=== PATIENT | female | born 1945 | race Caucasian/White ===

== ENCOUNTER 2016-10-21 13:49 | Inpatient (IN) | payer MEDICARE, MEDICAID, SELFPAY ==
--- NOTE | 2016-10-21 13:53 | EDM.PDOC ---
<Rosario Armstrong - Last Filed: 10/21/16 15:53> ED HISTORY OF PRESENT ILLNESS - General Chief Complaint: Respiratory Problem Stated Complaint: CANT' HARDLY BREATH Time Seen by Provider: 10/21/16 13:52 Source of Information: Reports: Patient History Limitations: Reports: No limitations - History of Present Illness INITIAL COMMENTS - FREE TEXT/NARRATIVE: Patient presents to the ER with c/o sob beginning this am. She states this has progressively getting worse. She states she has been spitting up white stringy sputum. She last had a neb at 11-12:00pm today. She denies fever or recent illness. She states she does have chest pressure, but states she feels it is not cardiac chest pain. Symptom Onset Date: 10/21/16 Timing/Duration: Reports: Getting worse Severity: severe Location, General: Reports: chest Quality: Reports: Pressure Associated Symptoms (General): Reports: cough w sputum - Related Data Allergies/ADRs: Allergies Allergy/AdvReac Type Severity Reaction Status Date / Time amlodipine [From Norvasc] Allergy Cannot Verified 10/21/16 15:46 Remember cetirizine [From Zyrtec] Allergy Abdominal Verified 10/21/16 15:46 Pain Penicillins Allergy Rash Verified 10/21/16 15:46 simvastatin [From Zocor] Allergy Cannot Verified 10/21/16 15:46 Remember Home Meds: Home Meds Albuterol Sulfate [Proventil Hfa] 6.7 gm IH Q4HR PRN 10/21/16 [History] Albuterol/Ipratropium [DuoNeb 3.0-0.5 MG/3 ML] 3 ml NEB QID 10/21/16 [History] Aspirin 81 mg PO BRK 10/21/16 [History] Budesonide [Pulmicort] 0.5 mg NEB BIDRT 10/21/16 [History] Furosemide [Lasix] 20 mg PO BID 10/21/16 [History] Levothyroxine Sodium [Synthroid] 125 mcg PO ACBREAKFAST 10/21/16 [History] Metoprolol Tartrate 25 mg PO DAILY 10/21/16 [History] ED ROS GENERAL - Review of Systems Review Of Systems: See Below Constitutional: Reports: weakness, fatigue, diaphoresis HEENT: Reports: No symptoms Respiratory: Reports: shortness of breath, wheezing, pleuritic chest pain, cough , sputum Cardiovascular: Reports: Chest pain, Dyspnea on exertion Endocrine: Reports: no symptoms GI/Abdominal: Reports: No symptoms : Reports: no symptoms Musculoskeletal: Reports: no symptoms Skin: Reports: no symptoms Neurological: Reports: no symptoms Psychiatric: Reports: No symptoms Hematologic/Lymphatic: Reports: no symptoms Immunologic: Reports: no symptoms ED EXAM, GENERAL - Physical Exam Exam: See Below Exam Limited By: No limitations General Appearance: alert, WD/WN, moderate distress Eye Exam: bilateral eye: normal inspection Ears: normal external exam, normal canal, hearing grossly normal, normal TMs Ear Exam: bilateral ear: auricle normal, canal normal, TM normal Nose: normal inspection, normal mucosa, no blood Throat/Mouth: Normal inspection, Normal lips, Normal teeth, Normal gums, Normal oropharynx, Normal voice, No airway compromise Head: atraumatic, normocephalic Neck: normal inspection, supple, non-tender, full range of motion Respiratory/Chest: respiratory distress, decreased breath sounds, crackles, wheezing Cardiovascular: normal peripheral pulses, regular rate, rhythm Peripheral Pulses: 2+: radial (L), radial (R) GI/Abdominal: normal bowel sounds, soft, non tender, no organomegaly, no distention, no abnormal bruit, no mass (Female) Exam: Deferred Rectal (Female) Exam: Deferred Back Exam: normal inspection, full range of motion, NT Extremities: normal inspection, normal range of motion, non-tender, normal capillary refill, no pedal edema Neurological: alert, oriented, CN II-XII intact, normal cognition, normal gait, normal reflexes, no motor/sensory deficits Psychiatric: normal affect, normal mood Skin Exam: Warm, Dry, Intact, Normal color, No rash Lymphatic: no adenopathy EKG INTERPRETATION EKG Date: 10/21/16 Time: 14:32 Rhythm: NSR Kathleen: normal P-wave: present QRS: normal ST-T: normal QT: normal Course - Vital Signs Last Recorded V/S: Last Vital Signs Temp 36.3 C 10/21/16 16:26 Pulse 80 10/21/16 16:26 Resp 20 10/21/16 16:26 BP 157/75 H 10/21/16 16:26 Pulse Ox 96 10/21/16 16:26 - Orders/Labs/Meds Orders: Active Orders 24 hr Category Date Time Status Oxygen Therapy, ED [RC] ASDIRECTED Care 10/21/16 14:05 Active Peripheral IV Care [RC] . DIRECTED Care 10/21/16 13:59 Active Peripheral IV Insertion Adult [OM.PC] Stat Oth 10/21/16 13:59 Ordered Medication Orders Acetaminophen (Tylenol) 650 mg PO Q4H PRN PRN Reason: Pain (Mild 1-3)/fever Albuterol (Proventil Neb Soln) 2.5 mg NEB Q2H PRN PRN Reason: Shortness of Breath Albuterol/Ipratropium (Duoneb 3.0-0.5 Mg/3 Ml) 3 ml NEB Q4HRRT [facility] Last Admin: 10/21/16 18:24 Dose: 3 ml Admin: 10/21/16 17:02 Dose: Not Given Aspirin (Aspirin) 81 mg PO BRK [facility] Last Admin: 10/21/16 18:11 Dose: 81 mg Benzonatate (Tessalon Perles) 100 mg PO TID PRN PRN Reason: Cough Budesonide (Pulmicort) 0.5 mg NEB BIDRT [facility] Last Admin: 10/21/16 18:24 Dose: 0.5 mg Docusate Sodium (Colace) 100 mg PO BID PRN PRN Reason: Constipation Enoxaparin Sodium (Lovenox) 40 mg SUBCUT DAILY [facility] Furosemide (Lasix) 20 mg PO BIDDIURETIC [facility] Last Admin: 10/21/16 18:11 Dose: 20 mg Guaifenesin (Robitussin) 100 mg PO Q6H PRN PRN Reason: Cough Ceftriaxone Sodium 1 gm/ (Sodium Chloride) 50 mls @ 100 mls/hr IV Q24H [facility] Last Admin: 10/21/16 18:15 Dose: 50 mls/hr Insulin Aspart (Novolog) 0 unit SUBCUT QIDACANDBED [facility] PRN Reason: Protocol Last Admin: 10/21/16 17:43 Dose: Levothyroxine Sodium (Levothyroxine) 125 mcg PO ACBREAKFAST [facility] Methylprednisolone Sodium Succinate (Solu-Medrol) 40 mg IVPUSH Q6H [facility] Metoprolol Tartrate (Lopressor) 25 mg PO DAILY [facility] Sodium Chloride (Saline Flush) 10 ml FLUSH ASDIRECTED PRN PRN Reason: Keep Vein Open Last Admin: 10/21/16 18:11 Dose: 10 ml Labs: Laboratory Tests 10/21/16 10/21/16 10/21/16 Range/Units 14:12 14:12 14:12 WBC 8.0 (5.0-10.0) 10^3/uL RBC 4.41 (4.2-5.4) 10^6/uL Hgb 14.0 (12.0-16.0) g/dL Hct 42.6 (37.0-47.0) % MCV 96.6 (80-100) fL MCH 31.7 (27.0-34.0) pg MCHC 32.9 L (33.0-35.0) g/dL Plt Count 259 (150-450) 10^3/uL Neut % (Auto) 59.5 (42.2-75.2) % Lymph % (Auto) 26.3 (20.5-50.1) % [place] % (Auto) 7.8 (2-8) % Eos % (Auto) 5.0 H (1.0-3.0) % Baso % (Auto) 1.4 H (0.0-1.0) % Sodium 140 (135-145) mmol/L Potassium 4.6 (3.6-5.0) mmol/L Chloride 100 L (101-111) mmol/L Carbon Dioxide 29.0 (21.0-31.0) mmol/L Anion Gap 15.6 BUN 16 (7-18) mg/dL Creatinine 1.2 (0.6-1.3) mg/dL Est Cr Clr Drug Dosing 34.54 mL/min Estimated GFR (MDRD) 44 BUN/Creatinine Ratio 13.33 Glucose 100 (74-105) mg/dL Calcium 9.8 (8.4-10.2) mg/dl Total Bilirubin 0.6 (0.2-1.0) mg/dL AST 20 (10-42) IU/L ALT 14 (10-60) IU/L Alkaline Phosphatase 55 (42-121) IU/L Creatine Kinase 67 (26-174) IU/L Creatine Kinase Index 2.7 H (0-2.4) % CK-MB (CK-2) 1.80 (0.4-4.7) ng/mL Troponin I < 0.02 (0.00-0.02) ng/ml B-Natriuretic Peptide 44 (0-100) pg/ml Total Protein 7.3 (6.7-8.2) g/dl Albumin 4.0 (3.2-5.5) g/dl Globulin 3.3 Albumin/Globulin Ratio 1.21 Urine Color (YELLOW) Urine Appearance (CLEAR) Urine pH (5.0-9.0) Ur Specific [place] (1.005-1.030) Urine Protein (NEGATIVE) Urine Glucose (UA) (NEGATIVE) Urine Ketones (NEGATIVE) mg/dL Urine Occult Blood (NEGATIVE) Urine Nitrite (NEGATIVE) Urine Bilirubin (NEGATIVE) Urine Urobilinogen (0.2-1.0) mg/dL Ur Leukocyte Esterase (NEGATIVE) Urine RBC /HPF Urine WBC (0-5/HPF) /HPF Ur Epithelial Cells /HPF Urine Bacteria (0-FEW/HPF) /HPF 10/21/16 Range/Units 14:26 WBC (5.0-10.0) 10^3/uL RBC (4.2-5.4) 10^6/uL Hgb (12.0-16.0) g/dL Hct (37.0-47.0) % MCV (80-100) fL MCH (27.0-34.0) pg MCHC (33.0-35.0) g/dL Plt Count (150-450) 10^3/uL Neut % (Auto) (42.2-75.2) % Lymph % (Auto) (20.5-50.1) % [place] % (Auto) (2-8) % Eos % (Auto) (1.0-3.0) % Baso % (Auto) (0.0-1.0) % Sodium (135-145) mmol/L Potassium (3.6-5.0) mmol/L Chloride (101-111) mmol/L Carbon Dioxide (21.0-31.0) mmol/L Anion Gap BUN (7-18) mg/dL Creatinine (0.6-1.3) mg/dL Est Cr Clr Drug Dosing mL/min Estimated GFR (MDRD) BUN/Creatinine Ratio Glucose (74-105) mg/dL Calcium (8.4-10.2) mg/dl Total Bilirubin (0.2-1.0) mg/dL AST (10-42) IU/L ALT (10-60) IU/L Alkaline Phosphatase (42-121) IU/L Creatine Kinase (26-174) IU/L Creatine Kinase Index (0-2.4) % CK-MB (CK-2) (0.4-4.7) ng/mL Troponin I (0.00-0.02) ng/ml B-Natriuretic Peptide (0-100) pg/ml Total Protein (6.7-8.2) g/dl Albumin (3.2-5.5) g/dl Globulin Albumin/Globulin Ratio Urine Color Yellow (YELLOW) Urine Appearance Slightly cloudy (CLEAR) Urine pH 7.0 (5.0-9.0) Ur Specific [place] 1.015 (1.005-1.030) Urine Protein Negative (NEGATIVE) Urine Glucose (UA) Negative (NEGATIVE) Urine Ketones Negative (NEGATIVE) mg/dL Urine Occult Blood Small H (NEGATIVE) Urine Nitrite Negative (NEGATIVE) Urine Bilirubin Negative (NEGATIVE) Urine Urobilinogen 0.2 (0.2-1.0) mg/dL Ur Leukocyte Esterase Trace H (NEGATIVE) Urine RBC 0-5 /HPF Urine WBC 0-5 (0-5/HPF) /HPF Ur Epithelial Cells Many H /HPF Urine Bacteria Few (0-FEW/HPF) /HPF Meds: Medications Generic Name Dose Route Start Last Admin Trade Name Frederickq PRN Reason Stop Dose Admin Acetaminophen 650 mg 10/21/16 15:29 Tylenol PO Q4H PRN Pain (Mild 1-3)/fever Albuterol 2.5 mg 10/21/16 17:10 Proventil Neb Soln NEB Q2H PRN Shortness of Breath Albuterol/Ipratropium 3 ml 10/21/16 15:30 10/21/16 18:24 Duoneb 3.0-0.5 Mg/3 Ml NEB 3 ml Q4HRRT [facility] Administration Aspirin 81 mg 10/21/16 17:15 10/21/16 18:11 Aspirin PO 81 mg BRK [facility] Administration Benzonatate 100 mg 10/21/16 17:47 Tessalon Perles PO TID PRN Cough Budesonide 0.5 mg 10/21/16 18:00 10/21/16 18:24 Pulmicort NEB 0.5 mg BIDRT [facility] Administration Docusate Sodium 100 mg 10/21/16 15:29 Colace PO BID PRN Constipation Enoxaparin Sodium 40 mg 10/22/16 09:00 Lovenox SUBCUT DAILY [facility] Furosemide 20 mg 10/21/16 17:30 10/21/16 18:11 Lasix PO 20 mg BIDDIURETIC [facility] Administration Guaifenesin 100 mg 10/21/16 17:48 Robitussin PO Q6H PRN Cough Ceftriaxone Sodium 1 gm/ 50 mls @ 100 mls/hr 10/21/16 17:30 10/21/16 18:15 Sodium Chloride IV 50 mls/hr Q24H [facility] Administration Insulin Aspart 0 unit 10/21/16 17:00 10/21/16 17:43 Novolog SUBCUT Not Given QIDACANDBED [facility] Protocol Levothyroxine Sodium 125 mcg 10/22/16 06:00 Levothyroxine PO ACBREAKFAST [facility] Methylprednisolone Sodium Succinate 40 mg 10/21/16 20:00 Solu-Medrol IVPUSH Q6H [facility] Metoprolol Tartrate 25 mg 10/22/16 09:00 Lopressor PO DAILY [facility] Sodium Chloride 10 ml 10/21/16 15:29 10/21/16 18:11 Saline Flush FLUSH 10 ml ASDIRECTED PRN Administration Keep Vein Open Discontinued Medications Generic Name Dose Route Start Last Admin Trade Name Freq PRN Reason Stop Dose Admin Albuterol/Ipratropium 3 ml 10/21/16 14:04 10/21/16 14:15 Duoneb 3.0-0.5 Mg/3 Ml NEB 10/21/16 14:05 3 ml ONETIME ONE Administration Aspirin 324 mg 10/21/16 14:02 10/21/16 14:14 Aspirin PO 10/21/16 14:03 324 mg ONETIME ONE Administration Budesonide 0.5 mg 10/21/16 18:00 Pulmicort NEB BIDRT [facility] Levofloxacin/Dextrose 750 mg/ 150 mls @ 100 mls/hr 10/21/16 16:00 10/21/16 17 :42 Premix IV Not Given Q24H [facility] Methylprednisolone Sodium Succinate 125 mg 10/21/16 14:03 10/21/16 14:14 Solu-Medrol IVPUSH 10/21/16 14:04 125 mg ONETIME ONE Administration Prednisone 40 mg 10/22/16 08:00 Prednisone PO 10/26/16 08:01 WITHBREAKFAST [facility] Sodium Chloride 10 ml 10/21/16 13:58 10/21/16 14:14 Saline Flush FLUSH 10 ml ASDIRECTED PRN Administration Keep Vein Open Departure - Departure Disposition: Admitted As Inpatient 64 Clinical Impression: Acute exacerbation of chronic obstructive pulmonary disease (COPD), Hypoxia <Lester Alcazar - Last Filed: 10/21/16 18:58> ED HISTORY OF PRESENT ILLNESS - General Source of Information: Reports: Patient, Old records, RN, RN notes reviewed History Limitations: Reports: No limitations Past Medical History HEENT History: Reports: Impaired vision, Other (see below) Other HEENT History: wears glasses Cardiovascular History: Reports: Heart Failure, Hypertension, [place] Respiratory History: Reports: COPD Gastrointestinal History: Reports: None Genitourinary History: Reports: None NIGHT AUDITOR History: Reports: None Neurological History: Reports: None Psychiatric History: Reports: Anxiety Hematologic History: Reports: None Immunologic History: Reports: None Dermatologic History: Reports: None - Past Surgical History GI Surgical History: Reports: Appendectomy, Cholecystectomy Oncologic Surgical History: Reports: Lobectomy Social & Family History - Tobacco Use Smoking Status *Q: Heavy Tobacco Smoker Years of Tobacco use: 55 Packs/Tins Daily: 1 - Recreational Drug Use Recreational Drug Use: No - Living Situation & Occupation Living situation: Reports: with family ED ROS GENERAL - Review of Systems Review Of Systems: ROS reveals no pertinent complaints other than HPI. EKG INTERPRETATION Comparison: NA - no prior EKG Course - Vital Signs Last Recorded V/S: Last Vital Signs Temp 36.3 C 10/21/16 16:26 Pulse 80 10/21/16 16:26 Resp 20 10/21/16 16:26 BP 157/75 H 10/21/16 16:26 Pulse Ox 96 10/21/16 16:26 - Orders/Labs/Meds Orders: Active Orders 24 hr Category Date Time Status Oxygen Therapy, ED [RC] ASDIRECTED Care 10/21/16 14:05 Active Peripheral IV Care [RC] . DIRECTED Care 10/21/16 13:59 Active Peripheral IV Insertion Adult [OM.PC] Stat Oth 10/21/16 13:59 Ordered Medication Orders Acetaminophen (Tylenol) 650 mg PO Q4H PRN PRN Reason: Pain (Mild 1-3)/fever Albuterol (Proventil Neb Soln) 2.5 mg NEB Q2H PRN PRN Reason: Shortness of Breath Albuterol/Ipratropium (Duoneb 3.0-0.5 Mg/3 Ml) 3 ml NEB Q4HRRT [facility] Last Admin: 10/21/16 18:24 Dose: 3 ml Admin: 10/21/16 17:02 Dose: Not Given Aspirin (Aspirin) 81 mg PO BRK [facility] Last Admin: 10/21/16 18:11 Dose: 81 mg Benzonatate (Tessalon Perles) 100 mg PO TID PRN PRN Reason: Cough Budesonide (Pulmicort) 0.5 mg NEB BIDRT [facility] Last Admin: 10/21/16 18:24 Dose: 0.5 mg Docusate Sodium (Colace) 100 mg PO BID PRN PRN Reason: Constipation Enoxaparin Sodium (Lovenox) 40 mg SUBCUT DAILY [facility] Furosemide (Lasix) 20 mg PO BIDDIURETIC [facility] Last Admin: 10/21/16 18:11 Dose: 20 mg Guaifenesin (Robitussin) 100 mg PO Q6H PRN PRN Reason: Cough Ceftriaxone Sodium 1 gm/ (Sodium Chloride) 50 mls @ 100 mls/hr IV Q24H [facility] Last Admin: 10/21/16 18:15 Dose: 50 mls/hr Insulin Aspart (Novolog) 0 unit SUBCUT QIDACANDBED [facility] PRN Reason: Protocol Last Admin: 10/21/16 17:43 Dose: Levothyroxine Sodium (Levothyroxine) 125 mcg PO ACBREAKFAST [facility] Methylprednisolone Sodium Succinate (Solu-Medrol) 40 mg IVPUSH Q6H [facility] Metoprolol Tartrate (Lopressor) 25 mg PO DAILY [facility] Sodium Chloride (Saline Flush) 10 ml FLUSH ASDIRECTED PRN PRN Reason: Keep Vein Open Last Admin: 10/21/16 18:11 Dose: 10 ml Labs: Laboratory Tests 10/21/16 10/21/16 10/21/16 Range/Units 14:12 14:12 14:12 WBC 8.0 (5.0-10.0) 10^3/uL RBC 4.41 (4.2-5.4) 10^6/uL Hgb 14.0 (12.0-16.0) g/dL Hct 42.6 (37.0-47.0) % MCV 96.6 (80-100) fL MCH 31.7 (27.0-34.0) pg MCHC 32.9 L (33.0-35.0) g/dL Plt Count 259 (150-450) 10^3/uL Neut % (Auto) 59.5 (42.2-75.2) % Lymph % (Auto) 26.3 (20.5-50.1) % [place] % (Auto) 7.8 (2-8) % Eos % (Auto) 5.0 H (1.0-3.0) % Baso % (Auto) 1.4 H (0.0-1.0) % Sodium 140 (135-145) mmol/L Potassium 4.6 (3.6-5.0) mmol/L Chloride 100 L (101-111) mmol/L Carbon Dioxide 29.0 (21.0-31.0) mmol/L Anion Gap 15.6 BUN 16 (7-18) mg/dL Creatinine 1.2 (0.6-1.3) mg/dL Est Cr Clr Drug Dosing 34.54 mL/min Estimated GFR (MDRD) 44 BUN/Creatinine Ratio 13.33 Glucose 100 (74-105) mg/dL Calcium 9.8 (8.4-10.2) mg/dl Total Bilirubin 0.6 (0.2-1.0) mg/dL AST 20 (10-42) IU/L ALT 14 (10-60) IU/L Alkaline Phosphatase 55 (42-121) IU/L Creatine Kinase 67 (26-174) IU/L Creatine Kinase Index 2.7 H (0-2.4) % CK-MB (CK-2) 1.80 (0.4-4.7) ng/mL Troponin I < 0.02 (0.00-0.02) ng/ml B-Natriuretic Peptide 44 (0-100) pg/ml Total Protein 7.3 (6.7-8.2) g/dl Albumin 4.0 (3.2-5.5) g/dl Globulin 3.3 Albumin/Globulin Ratio 1.21 Urine Color (YELLOW) Urine Appearance (CLEAR) Urine pH (5.0-9.0) Ur Specific [place] (1.005-1.030) Urine Protein (NEGATIVE) Urine Glucose (UA) (NEGATIVE) Urine Ketones (NEGATIVE) mg/dL Urine Occult Blood (NEGATIVE) Urine Nitrite (NEGATIVE) Urine Bilirubin (NEGATIVE) Urine Urobilinogen (0.2-1.0) mg/dL Ur Leukocyte Esterase (NEGATIVE) Urine RBC /HPF Urine WBC (0-5/HPF) /HPF Ur Epithelial Cells /HPF Urine Bacteria (0-FEW/HPF) /HPF 10/21/16 Range/Units 14:26 WBC (5.0-10.0) 10^3/uL RBC (4.2-5.4) 10^6/uL Hgb (12.0-16.0) g/dL Hct (37.0-47.0) % MCV (80-100) fL MCH (27.0-34.0) pg MCHC (33.0-35.0) g/dL Plt Count (150-450) 10^3/uL Neut % (Auto) (42.2-75.2) % Lymph % (Auto) (20.5-50.1) % [place] % (Auto) (2-8) % Eos % (Auto) (1.0-3.0) % Baso % (Auto) (0.0-1.0) % Sodium (135-145) mmol/L Potassium (3.6-5.0) mmol/L Chloride (101-111) mmol/L Carbon Dioxide (21.0-31.0) mmol/L Anion Gap BUN (7-18) mg/dL Creatinine (0.6-1.3) mg/dL Est Cr Clr Drug Dosing mL/min Estimated GFR (MDRD) BUN/Creatinine Ratio Glucose (74-105) mg/dL Calcium (8.4-10.2) mg/dl Total Bilirubin (0.2-1.0) mg/dL AST (10-42) IU/L ALT (10-60) IU/L Alkaline Phosphatase (42-121) IU/L Creatine Kinase (26-174) IU/L Creatine Kinase Index (0-2.4) % CK-MB (CK-2) (0.4-4.7) ng/mL Troponin I (0.00-0.02) ng/ml B-Natriuretic Peptide (0-100) pg/ml Total Protein (6.7-8.2) g/dl Albumin (3.2-5.5) g/dl Globulin Albumin/Globulin Ratio Urine Color Yellow (YELLOW) Urine Appearance Slightly cloudy (CLEAR) Urine pH 7.0 (5.0-9.0) Ur Specific [place] 1.015 (1.005-1.030) Urine Protein Negative (NEGATIVE) Urine Glucose (UA) Negative (NEGATIVE) Urine Ketones Negative (NEGATIVE) mg/dL Urine Occult Blood Small H (NEGATIVE) Urine Nitrite Negative (NEGATIVE) Urine Bilirubin Negative (NEGATIVE) Urine Urobilinogen 0.2 (0.2-1.0) mg/dL Ur Leukocyte Esterase Trace H (NEGATIVE) Urine RBC 0-5 /HPF Urine WBC 0-5 (0-5/HPF) /HPF Ur Epithelial Cells Many H /HPF Urine Bacteria Few (0-FEW/HPF) /HPF Meds: Medications Generic Name Dose Route Start Last Admin Trade Name Freq PRN Reason Stop Dose Admin Acetaminophen 650 mg 10/21/16 15:29 Tylenol PO Q4H PRN Pain (Mild 1-3)/fever Albuterol 2.5 mg 10/21/16 17:10 Proventil Neb Soln NEB Q2H PRN Shortness of Breath Albuterol/Ipratropium 3 ml 10/21/16 15:30 10/21/16 18:24 Duoneb 3.0-0.5 Mg/3 Ml NEB 3 ml Q4HRRT [facility] Administration Aspirin 81 mg 10/21/16 17:15 10/21/16 18:11 Aspirin PO 81 mg BRK [facility] Administration Benzonatate 100 mg 10/21/16 17:47 Tessalon Perles PO TID PRN Cough Budesonide 0.5 mg 10/21/16 18:00 10/21/16 18:24 Pulmicort NEB 0.5 mg BIDRT [facility] Administration Docusate Sodium 100 mg 10/21/16 15:29 Colace PO BID PRN Constipation Enoxaparin Sodium 40 mg 10/22/16 09:00 Lovenox SUBCUT DAILY [facility] Furosemide 20 mg 10/21/16 17:30 10/21/16 18:11 Lasix PO 20 mg BIDDIURETIC [facility] Administration Guaifenesin 100 mg 10/21/16 17:48 Robitussin PO Q6H PRN Cough Ceftriaxone Sodium 1 gm/ 50 mls @ 100 mls/hr 10/21/16 17:30 10/21/16 18:15 Sodium Chloride IV 50 mls/hr Q24H [facility] Administration Insulin Aspart 0 unit 10/21/16 17:00 10/21/16 17:43 Novolog SUBCUT Not Given QIDACANDBED [facility] Protocol Levothyroxine Sodium 125 mcg 10/22/16 06:00 Levothyroxine PO ACBREAKFAST [facility] Methylprednisolone Sodium Succinate 40 mg 10/21/16 20:00 Solu-Medrol IVPUSH Q6H [facility] Metoprolol Tartrate 25 mg 10/22/16 09:00 Lopressor PO DAILY [facility] Sodium Chloride 10 ml 10/21/16 15:29 10/21/16 18:11 Saline Flush FLUSH 10 ml ASDIRECTED PRN Administration Keep Vein Open Discontinued Medications Generic Name Dose Route Start Last Admin Trade Name Freq PRN Reason Stop Dose Admin Albuterol/Ipratropium 3 ml 10/21/16 14:04 10/21/16 14:15 Duoneb 3.0-0.5 Mg/3 Ml NEB 10/21/16 14:05 3 ml ONETIME ONE Administration Aspirin 324 mg 10/21/16 14:02 10/21/16 14:14 Aspirin PO 10/21/16 14:03 324 mg ONETIME ONE Administration Budesonide 0.5 mg 10/21/16 18:00 Pulmicort NEB BIDRT [facility] Levofloxacin/Dextrose 750 mg/ 150 mls @ 100 mls/hr 10/21/16 16:00 10/21/16 17 :42 Premix IV Not Given Q24H [facility] Methylprednisolone Sodium Succinate 125 mg 10/21/16 14:03 10/21/16 14:14 Solu-Medrol IVPUSH 10/21/16 14:04 125 mg ONETIME ONE Administration Prednisone 40 mg 10/22/16 08:00 Prednisone PO 10/26/16 08:01 WITHBREAKFAST [facility] Sodium Chloride 10 ml 10/21/16 13:58 10/21/16 14:14 Saline Flush FLUSH 10 ml ASDIRECTED PRN Administration Keep Vein Open - Radiology Interpretation Free Text/Narrative:: CXR: no infiltrate, peribronchial cuffing, COPD exac. per Rad. report. CT Results Date: 10/21/16 - Re-Assessments/Exams Free Text/Narrative Re-Assessment/Exam: 10/21/16 18:58 FOR THIS ENCOUNTER THE PATIENT WAS SEEN IN CONJUNCTION WITH [facility] STUDENT ROSARIO ARMSTRONG. ALL PATIENT CARE AND/OR PROCEDURE(S), DIAGNOSTIC ORDERS, MEDICATION(S) AND TREATMENT ORDERS, DISPOSITION ORDERS/PLANNING, AND DISCHARGE/FOLLOW UP INSTRUCTIONS WERE UNDER MY DIRECT SUPERVISION. yesid Departure - Departure Time of Disposition: 15:23 (admit to Dr. Ponce) Condition: fair
[2016-10-21] MEDS ORDERED: Sodium Chloride 0.9% 10 ML Syringe FLUSH PRN (13:58)
[2016-10-21] MEDS ORDERED: Aspirin 81 MG Tab.Chew PO ONE (14:02)
[2016-10-21] MEDS ORDERED: methylPREDNISolone Sodium Succinate 125 MG/2 ML SDV IVPUSH ONE (14:03)
[2016-10-21] MEDS ORDERED: Albuterol/Ipratropium 3.0-0.5 MG/3 ML Neb Soln NEB ONE (14:04)
[2016-10-21 14:40] LABS: CHLORIDE,CL 100 mmol/L (101-111); SODIUM,NA 140 mmol/L (135-145)
--- NOTE | 2016-10-21 15:05 | CR ---
CLINICAL HISTORY: 71-year-old female with shortness of breath. INTERPRETATION: Mild kyphoscoliosis and arthritic changes dorsal spine. Ectasia thoracic aorta. Normal cardiac silhouette without alveolar edema or dependent effusion. Some peribronchial "cuffing" (bronchitis) but no lung mass, hilar lymphadenopathy or focal lobar pne umonia. CONCLUSION: Mild bronchitis. No signs of lobar pneumonia or heart failure.
[2016-10-21] MEDS ORDERED: Acetaminophen 325 MG Tab PO PRN (15:29)
[2016-10-21] MEDS ORDERED: Docusate Sodium 100 MG Cap PO PRN (15:29)
--- NOTE | 2016-10-21 15:40 | PCM.HP ---
H&P History of Present Illness - General Date of Service: 10/21/16 Admit Problem/Dx: Admission Diagnosis/Problem Admission Diagnosis/Problem Hypoxia Source of Information: Patient, Provider History Limitations: Reports: No limitations - History of Present Illness Initial Comments - Free Text/Narative: Bri is a pleasatn 71 y/o who lives independently. She has a PMH of CHF, COPD, hypothyroidism. She presented to EOD with c/c of progressive SOB with associated cough, wheezing . pt reports that she was admitted to [facility] this winter was in ICU on vent; she was discharged home on oxygen. She had been weaned off the oxygen but due to increased cough/sputum and dypsnea for past one week, she put herself back on at just one liters with some improvement. however despite using her nebs and oxygen her SOB increased in last 12 hours that she can barely walk across the room . pt denies f/c. no blood in sputum, notes several of her neighbors at the apartment building have had colds and feels she may have caught a viral URI. pt denies any GI symtpoms. states she was on prednisone/levaquin in August for mild COPD exacerbation but has been at baseline since then until last week when cough started. - Related Data Allergies/Adverse Reactions: Allergies Allergy/AdvReac Type Severity Reaction Status Date / Time amlodipine [From Norvasc] Allergy Cannot Verified 10/21/16 15:46 Remember cetirizine [From Zyrtec] Allergy Abdominal Verified 10/21/16 15:46 Pain Penicillins Allergy Rash Verified 10/21/16 15:46 simvastatin [From Zocor] Allergy Cannot Verified 10/21/16 15:46 Remember Home Medications: Home Meds Albuterol Sulfate [Proventil Hfa] 6.7 gm IH Q4HR PRN 10/21/16 [History] Albuterol/Ipratropium [DuoNeb 3.0-0.5 MG/3 ML] 3 ml NEB QID 10/21/16 [History] Aspirin 81 mg PO BRK 10/21/16 [History] Budesonide [Pulmicort] 0.5 mg NEB BIDRT 10/21/16 [History] Furosemide [Lasix] 20 mg PO BID 10/21/16 [History] Levothyroxine Sodium [Synthroid] 125 mcg PO ACBREAKFAST 10/21/16 [History] Metoprolol Tartrate 25 mg PO DAILY 10/21/16 [History] Past Medical History HEENT History: Reports: Impaired vision, Other (see below) Other HEENT History: wears glasses Cardiovascular History: Reports: Heart Failure, Hypertension, DC Respiratory History: Reports: COPD Gastrointestinal History: Reports: None Genitourinary History: Reports: None CLINICAL PROFESSOR History: Reports: None Musculoskeletal History: Reports: Fracture Neurological History: Reports: None Psychiatric History: Reports: Anxiety Hematologic History: Reports: None Immunologic History: Reports: None Dermatologic History: Reports: None - Infectious Disease History Infectious Disease History: Reports: Chicken pox, Measles, Mumps, Rubella - Past Surgical History GI Surgical History: Reports: Appendectomy, Cholecystectomy Oncologic Surgical History: Reports: Lobectomy Social & Family History - Family History Family Medical History: Noncontributory Cardiac: Reports: DC Respiratory: Reports: COPD Neurological: Reports: CVA - Tobacco Use Smoking Status *Q: Heavy Tobacco Smoker Years of Tobacco use: 55 Packs/Tins Daily: 1 - Caffeine Use Caffeine Use: Reports: Coffee, Soda - Recreational Drug Use Recreational Drug Use: No - Living Situation & Occupation Living situation: Reports: with family H&P Review of Systems - Review of Systems: Review Of Systems: See Below General: Reports: no symptoms HEENT: Reports: no symptoms Pulmonary: Reports: shortness of breath, wheezing, cough, sputum Cardiovascular: Reports: dyspnea on exertion Gastrointestinal: Reports: No symptoms Genitourinary: Reports: no symptoms Musculoskeletal: Reports: no symptoms Skin: Reports: no symptoms Psychiatric: Reports: no symptoms Neurological: Reports: no symptoms Hematologic/Lymphatic: Reports: no symptoms Exam - Exam Exam: See Below - Vital Signs Vital Signs: Last Vital Signs Temp 36.2 C 10/21/16 14:55 Pulse 76 10/21/16 14:55 Resp 24 H 10/21/16 14:55 BP 148/73 H 10/21/16 14:55 Pulse Ox 94 L 10/21/16 14:55 Weight: 83.915 kg - Exam Quality Assessment: supplemental oxygen General: alert, oriented, cooperative HEENT: Conjunctiva clear, Mucosa moist & pink Lungs: Decreased breath sounds, Rales, Other (accessory muscle with speaking - uses short sentences ) Cardiovascular: regular rate, regular rhythm Abdomen: normal bowel sounds, soft Extremities: normal inspection Peripheral Pulses: 2+: radial (L), radial (R) Skin: warm Neuro Extensive - Mental Status: alert, oriented x3, normal mood/affect, normal cognition - Patient Data Result Diagrams: 10/21/16 14:12 10/21/16 14:12 *Q Meaningful Use (ADM) - VTE *Q VTE Criteria *Q: - Stroke *Q Stroke Criteria *Q: - AMI *Q AMI Criteria *Q: - Problem List (1) Acute exacerbation of chronic obstructive pulmonary disease (COPD) SNOMED Code(s): 653863099 ICD Code: J44.1 - CHRONIC OBSTRUCTIVE PULMONARY DISEASE W (ACUTE) EXACERBATION Status: Acute Current Visit: Yes (2) Hypoxia SNOMED Code(s): 775740197, 927596838 ICD Code: R09.02 - HYPOXEMIA Status: Acute Current Visit: Yes Problem List Initiated/Reviewed/Updated: Yes Orders Last 24hrs: Active Orders 24 hr Category Date Time Status Patient Status [ADT] Routine ADT 10/21/16 15:29 Ordered Antiembolic Devices [RC] PER UNIT ROUTINE Care 10/21/16 15:33 Ordered Blood Glucose Check, Bedside [RC] QIDACANDBED Care 10/21/16 15:29 Ordered Communication Order [RC] ROUTINE Care 10/21/16 15:39 Ordered Flutter Valve Therapy [RT Chest Physiotherapy] [RC] Care 10/21/16 15:37 Ordered ASDIRECTED Height and Weight [RC] DAILY Care 10/21/16 15:29 Ordered IS (RT) [RT Incentive Spirometry] [RC] ASDIRECTED Care 10/21/16 15:36 Ordered Intake and Output [RC] QSHIFT Care 10/21/16 15:32 Ordered Oxygen Therapy [RC] PRN Care 10/21/16 15:29 Ordered Pulse Oximetry [RC] PRN Care 10/21/16 15:32 Ordered RT Aerosol Therapy [RC] ASDIRECTED Care 10/21/16 15:33 Ordered Up With Assistance [RC] ASDIRECTED Care 10/21/16 15:29 Ordered VTE/DVT Education [RC] PER UNIT ROUTINE Care 10/21/16 15:29 Ordered Vital Signs [RC] Q4H Care 10/21/16 15:29 Ordered 2 Gram Sodium Diet [DIET] Diet 10/21/16 Dinner Ordered Acetaminophen [Tylenol] Med 10/21/16 15:29 Ordered 650 mg PO Q4H PRN Albuterol/Ipratropium [DuoNeb 3.0-0.5 MG/3 ML] Med 10/21/16 15:30 Ordered 3 ml NEB Q4H Budesonide [Pulmicort] Med 10/21/16 18:00 Ordered 0.5 mg NEB BIDRT Docusate Sodium [Colace] Med 10/21/16 15:29 Ordered 100 mg PO BID PRN Enoxaparin [Lovenox] Med 10/22/16 09:00 Ordered 40 mg SUBCUT DAILY Insulin Aspart [NovoLOG] Med 10/21/16 17:00 Ordered See Protocol SUBCUT QIDACANDBED Levofloxacin/Dextrose 5%-Water [Levaquin in D5W 750 MG/ Med 10/21/16 15:45 Ordered 150 ML] 750 mg Premix Bag 1 bag IV Q24H Sodium Chloride 0.9% [Saline Flush] Med 10/21/16 15:29 Ordered 10 ml FLUSH ASDIRECTED PRN predniSONE Med 10/22/16 08:00 Ordered 40 mg PO WITHBREAKFAST Antiembolic Hose [OM.PC] Per Unit Routine Oth 10/21/16 15:32 Ordered Saline Lock Insert [OM.PC] Routine Oth 10/21/16 15:29 Ordered Resuscitation Status Routine Resus Stat 10/21/16 15:29 Ordered Medication Orders Acetaminophen (Tylenol) 650 mg PO Q4H PRN PRN Reason: Pain (Mild 1-3)/fever Albuterol/Ipratropium (Duoneb 3.0-0.5 Mg/3 Ml) 3 ml NEB Q4H [facility] Budesonide (Pulmicort) 0.5 mg NEB BIDRT [facility] Docusate Sodium (Colace) 100 mg PO BID PRN PRN Reason: Constipation Enoxaparin Sodium (Lovenox) 40 mg SUBCUT DAILY [facility] Levofloxacin/Dextrose 750 mg/ (Premix) 150 mls @ 100 mls/hr IV Q24H [facility] Insulin Aspart (Novolog) 0 unit SUBCUT QIDACANDBED [facility] PRN Reason: Protocol Prednisone (Prednisone) 40 mg PO WITHBREAKFAST [facility] Stop: 10/26/16 08:01 Sodium Chloride (Saline Flush) 10 ml FLUSH ASDIRECTED PRN PRN Reason: Keep Vein Open Last Admin: 10/21/16 14:14 Dose: 10 ml Sodium Chloride (Saline Flush) 10 ml FLUSH ASDIRECTED PRN PRN Reason: Keep Vein Open Assessment/Plan Comment:: Acute COPD exacerbation with bronchitis -no infiltrate on CXR , but with increase cough,sputum and dyspnea -s/p solumedrol 125 mg in EOD_ will give 40 mg Q6 - taper a able -sched nebs Q4 and Q2 PRN , add pulmicort neb -IS and flutter -give rocephin given increased cough, and mod/severe exacerbation - pt with PCN allergy but has tolerated keflex in the past. recently on levaquine so would want to avoid floroquinalones as well. -add glucose checks PRN novolog while on steroids- if stable can d/c -add tesselon pearls and robitussin for cough Acute hypoxic resp failure -due to COPD exacerbation -oxgen to keep sats >92 % -treat underlying COPD chronic heart failure with h/o DC -stable- no edema to legs, no pulm edema on CXR, BNP of 44 - pt denies any cp -cont lasix, BB, ASA - does not tolerate statins -trop negative -EKC - no acute ischemic changes hypothryoid h/o thyroid ablation -cont synthroid lovenxo DVT PPX -full code.
[2016-10-21] MEDS ORDERED: Levofloxacin/Dextrose 5%-Water 750 MG in Premix Bag 1 BAG IV SCH (16:00)
[2016-10-21] MEDS: Albuterol/Ipratropium 3.0-0.5 MG/3 ML Neb Soln NEB SCH ×3 (17:02→22:55)
[2016-10-21] MEDS ORDERED: Albuterol 0.083% 2.5 MG/3 ML Neb Soln NEB PRN (17:10)
[2016-10-21] MEDS: Insulin Aspart 100 Units/ML 3 ML Pen SUBCUT SCH ×2 (17:43→21:52)
[2016-10-21] MEDS ORDERED: Benzonatate 100 MG Cap PO PRN (17:47)
[2016-10-21] MEDS ORDERED: guaiFENesin 100 MG/5 ML Soln 5 ML UD Cup PO PRN (17:48)
[2016-10-21] MEDS ORDERED: Budesonide 0.5 MG/2 ML Neb Susp NEB SCH (18:00)
[2016-10-21] MEDS: Sodium Chloride 0.9% 10 ML Syringe FLUSH PRN ×2 (18:11→19:33)
[2016-10-21] MEDS: Aspirin 81 MG Tab.Chew PO SCH (18:11)
[2016-10-21] MEDS: Furosemide 20 MG Tab PO SCH (18:11)
[2016-10-21] MEDS: cefTRIAXone 1 GM in Sodium Chloride 0.9% 50 ML IV SCH (18:15)
[2016-10-21] MEDS: Budesonide 0.5 MG/2 ML Neb Susp NEB SCH (18:24)
[2016-10-21] MEDS: methylPREDNISolone Sodium Succinate 40 MG/1 ML SDV IVPUSH SCH (19:34)
[2016-10-22] MEDS: methylPREDNISolone Sodium Succinate 40 MG/1 ML SDV IVPUSH SCH ×3 (02:39→19:53)
[2016-10-22] MEDS: Albuterol/Ipratropium 3.0-0.5 MG/3 ML Neb Soln NEB SCH ×6 (02:40→23:06)
[2016-10-22] MEDS: Levothyroxine 125 MCG Tab PO SCH (05:29)
[2016-10-22] MEDS ORDERED: predniSONE 20 MG Tab PO SCH (08:00)
[2016-10-22] MEDS: Budesonide 0.5 MG/2 ML Neb Susp NEB SCH ×2 (08:01→18:43)
[2016-10-22] MEDS: Aspirin 81 MG Tab.Chew PO SCH (08:17)
[2016-10-22] MEDS: Metoprolol Tartrate 25 MG Tab PO SCH (08:17)
[2016-10-22] MEDS: Furosemide 20 MG Tab PO SCH ×2 (08:18→14:20)
[2016-10-22] MEDS: Sodium Chloride 0.9% 10 ML Syringe FLUSH PRN ×3 (08:19→19:53)
[2016-10-22] MEDS: Enoxaparin 40 MG/0.4 ML Syringe SUBCUT SCH (08:36)
[2016-10-22] MEDS: Insulin Aspart 100 Units/ML 3 ML Pen SUBCUT SCH ×4 (08:36→21:24)
--- NOTE | 2016-10-22 13:38 | PCM.PN ---
- General Info Date of Service: 10/22/16 Subjective Update: pt statse breathing is better today. still has cough- less productive- still thick sputum. workign with IS and flutter. SOB / BULL - better on the oxygen- uses oxygen at home as well - approx 1 liter NC . no new complaints Functional Status: Reports: pain controlled, tolerating diet, ambulating, urinating - Review of Systems General: Reports: no symptoms Pulmonary: Reports: shortness of breath, cough, sputum Cardiovascular: Reports: dyspnea on exertion Gastrointestinal: Reports: No symptoms Genitourinary: Reports: no symptoms Musculoskeletal: Reports: no symptoms - Patient Data Vitals - most recent: Last Vital Signs Temp 37.1 C 10/22/16 13:21 Pulse 78 10/22/16 13:21 Resp 24 H 10/22/16 13:21 BP 143/82 H 10/22/16 13:21 Pulse Ox 97 10/22/16 13:21 Weight - most recent: 86.863 kg I&O - last 24 hours: Intake & Output 10/21/16 10/22/16 10/22/16 22:59 06:59 14:59 Intake Total 490 750 320 Output Total 375 600 300 Balance 115 150 20 Lab Results last 24 hrs: Laboratory Results - last 24 hr 10/21/16 10/21/16 10/22/16 Range/Units 17:10 20:58 07:27 POC Glucose 145 H 229 H 185 H (83-110) mg/dl 10/22/16 Range/Units 11:46 POC Glucose 149 H (83-110) mg/dl Med Orders - Current: Current Medications Acetaminophen (Tylenol) 650 mg PO Q4H PRN PRN Reason: Pain (Mild 1-3)/fever Last Admin: 10/22/16 03:38 Dose: 650 mg Albuterol (Proventil Neb Soln) 2.5 mg NEB Q2H PRN PRN Reason: Shortness of Breath Albuterol/Ipratropium (Duoneb 3.0-0.5 Mg/3 Ml) 3 ml NEB Q4HRRT [facility] Last Admin: 10/22/16 11:59 Dose: 3 ml Aspirin (Aspirin) 81 mg PO BRK [facility] Last Admin: 10/22/16 08:17 Dose: 81 mg Benzonatate (Tessalon Perles) 100 mg PO TID PRN PRN Reason: Cough Budesonide (Pulmicort) 0.5 mg NEB BIDRT [facility] Last Admin: 10/22/16 08:01 Dose: 0.5 mg Docusate Sodium (Colace) 100 mg PO BID PRN PRN Reason: Constipation Enoxaparin Sodium (Lovenox) 40 mg SUBCUT DAILY [facility] Last Admin: 10/22/16 08:36 Dose: 40 mg Furosemide (Lasix) 20 mg PO BIDDIURETIC [facility] Last Admin: 10/22/16 08:18 Dose: 20 mg Guaifenesin (Robitussin) 100 mg PO Q6H PRN PRN Reason: Cough Ceftriaxone Sodium 1 gm/ (Sodium Chloride) 50 mls @ 100 mls/hr IV Q24H [facility] Last Infusion: 10/21/16 19:31 Dose: Infused Insulin Aspart (Novolog) 0 unit SUBCUT QIDACANDBED [facility] PRN Reason: Protocol Last Admin: 10/22/16 12:00 Dose: Not Given Levothyroxine Sodium (Levothyroxine) 125 mcg PO ACBREAKFAST [facility] Last Admin: 10/22/16 05:29 Dose: 125 mcg Methylprednisolone Sodium Succinate (Solu-Medrol) 40 mg IVPUSH Q6H [facility] Last Admin: 10/22/16 08:18 Dose: 40 mg Metoprolol Tartrate (Lopressor) 25 mg PO DAILY [facility] Last Admin: 10/22/16 08:17 Dose: 25 mg Sodium Chloride (Saline Flush) 10 ml FLUSH ASDIRECTED PRN PRN Reason: Keep Vein Open Last Admin: 10/22/16 08:19 Dose: 10 ml Discontinued Medications Albuterol/Ipratropium (Duoneb 3.0-0.5 Mg/3 Ml) 3 ml NEB ONETIME ONE Stop: 10/21/16 14:05 Last Admin: 10/21/16 14:15 Dose: 3 ml Aspirin (Aspirin) 324 mg PO ONETIME ONE Stop: 10/21/16 14:03 Last Admin: 10/21/16 14:14 Dose: 324 mg Budesonide (Pulmicort) 0.5 mg NEB BIDRT [facility] Levofloxacin/Dextrose 750 mg/ (Premix) 150 mls @ 100 mls/hr IV Q24H [facility] Last Admin: 10/21/16 17:42 Dose: Not Given Methylprednisolone Sodium Succinate (Solu-Medrol) 125 mg IVPUSH ONETIME ONE Stop: 10/21/16 14:04 Last Admin: 10/21/16 14:14 Dose: 125 mg Prednisone (Prednisone) 40 mg PO WITHBREAKFAST [facility] Stop: 10/26/16 08:01 Sodium Chloride (Saline Flush) 10 ml FLUSH ASDIRECTED PRN PRN Reason: Keep Vein Open Last Admin: 10/21/16 14:14 Dose: 10 ml - Exam Quality Assessment: supplemental oxygen General: alert, oriented, cooperative, no acute distress Lungs: Normal respiratory effort, Decreased breath sounds Cardiovascular: regular rate, regular rhythm, murmurs Abdomen: bowel sounds present, soft, no tenderness Extremities: no edema Skin: warm - Problem List & Annotations (1) Acute exacerbation of chronic obstructive pulmonary disease (COPD) SNOMED Code(s): 073361304 Code(s): J44.1 - CHRONIC OBSTRUCTIVE PULMONARY DISEASE W (ACUTE) EXACERBATION Status: Acute Current Visit: Yes (2) Hypoxia SNOMED Code(s): 940594163, 647439019 Code(s): R09.02 - HYPOXEMIA Status: Acute Current Visit: Yes - Problem List Review Problem List Initiated/Reviewed/Updated: Yes - My Orders Last 24 Hours: My Active Orders 10/21/16 15:36 IS (RT) [RT Incentive Spirometry] [RC] ASDIRECTED 10/21/16 15:37 Flutter Valve Therapy [RT Chest Physiotherapy] [RC] ASDIRECTED 10/21/16 15:39 Communication Order [] ROUTINE 10/21/16 17:00 Insulin Aspart [NovoLOG] See Protocol SUBCUT QIDACANDBED 10/21/16 17:10 Albuterol [Proventil Neb Soln] 2.5 mg NEB Q2H PRN 10/21/16 17:15 Aspirin 81 mg PO BRK 10/21/16 17:30 Furosemide [Lasix] 20 mg PO BIDDIURETIC cefTRIAXone [Rocephin] 1 gm Sodium Chloride 0.9% [Normal Saline] 50 ml IV Q24H 10/21/16 17:47 Benzonatate [Tessalon Perles] 100 mg PO TID PRN 10/21/16 17:48 guaiFENesin [Robitussin] 100 mg PO Q6H PRN 10/21/16 18:00 Budesonide [Pulmicort] 0.5 mg NEB BIDRT 10/21/16 20:00 methylPREDNISolone Sod Succ [Solu-MEDROL] 40 mg IVPUSH Q6H 10/22/16 06:00 Levothyroxine 125 mcg PO ACBREAKFAST 10/22/16 09:00 Metoprolol Tartrate [Lopressor] 25 mg PO DAILY 10/22/16 11:12 Code Status [Resuscitation Status] Routine - Plan Plan:: Acute COPD exacerbation with bronchitis -no infiltrate on CXR , but with increase cough,sputum and dyspnea -s/p solumedrol 125 mg in EOD_ started on 40 mg Q6 - will taper to Q8 -sched nebs Q4 and Q2 PRN , add pulmicort neb -cont IS and flutter -cont rocephin given increased cough, and mod/severe exacerbation - pt with PCN allergy but has tolerated keflex in the past. recently on levaquine so would want to avoid floroquinalones as well. - pt is tolerating the rocephin well -cont glucose checks PRN novolog while on steroids- if stable can d/c -cont PRN tesselon pearls and robitussin for cough Acute on chronic hypoxic resp failure -due to COPD exacerbation -oxgen to keep sats >92 % - per pt she is on oxygen at home 1 liter NC -treat underlying COPD chronic heart failure with h/o [place] - stable -stable- no edema to legs, no pulm edema on CXR, BNP of 44 - pt denies any cp -cont lasix, BB, ASA - does not tolerate statins -trop negative -EKC - no acute ischemic changes hypothryoid h/o thyroid ablation -cont synthroid lovenxo DVT PPX -full code.
--- NOTE | 2016-10-22 14:18 | EKG ---
10/21/2016 - ELKIN ALFRED E - TIME: 1432 hours. EKG shows normal sinus rhythm at 69 beats per minute. There are Q waves present in leads II and aVF consistent with prior inferior infarct. [facility] /[id number]
[2016-10-22] MEDS: cefTRIAXone 1 GM in Sodium Chloride 0.9% 50 ML IV SCH (17:20)
[2016-10-23] MEDS: Albuterol/Ipratropium 3.0-0.5 MG/3 ML Neb Soln NEB SCH ×2 (03:10→07:36)
[2016-10-23] MEDS: Levothyroxine 125 MCG Tab PO SCH (05:23)
[2016-10-23] MEDS: Budesonide 0.5 MG/2 ML Neb Susp NEB SCH (07:36)
[2016-10-23] MEDS: Sodium Chloride 0.9% 10 ML Syringe FLUSH PRN (08:04)
[2016-10-23] MEDS: methylPREDNISolone Sodium Succinate 40 MG/1 ML SDV IVPUSH SCH (08:08)
[2016-10-23] MEDS: Insulin Aspart 100 Units/ML 3 ML Pen SUBCUT SCH ×2 (08:49→12:34)
[2016-10-23] MEDS: Metoprolol Tartrate 25 MG Tab PO SCH (09:09)
[2016-10-23] MEDS: Aspirin 81 MG Tab.Chew PO SCH (09:09)
[2016-10-23] MEDS: Enoxaparin 40 MG/0.4 ML Syringe SUBCUT SCH (09:10)
[2016-10-23] MEDS: Furosemide 20 MG Tab PO SCH (09:10)
--- NOTE | 2016-10-23 12:03 | PCM.DCSUM1 ---
Discharge Summary - Hospital Course HPI Initial Comments: Bri is a pleasatn 71 y/o who lives independently. She has a PMH of CHF, COPD, hypothyroidism. She presented to EOD with c/c of progressive SOB with associated cough, wheezing . pt reports that she was admitted to [facility] this winter was in ICU on vent; she was discharged home on oxygen. She had been weaned off the oxygen but due to increased cough/sputum and dypsnea for past one week, she put herself back on at just one liters with some improvement. however despite using her nebs and oxygen her SOB increased in last 12 hours that she can barely walk across the room . pt denies f/c. no blood in sputum, notes several of her neighbors at the apartment building have had colds and feels she may have caught a viral URI. pt denies any GI symtpoms. states she was on prednisone/levaquin in August for mild COPD exacerbation but has been at baseline since then until last week when cough started. - Discharge Data Discharge Date: 10/23/16 Discharge Disposition: Home, Self-Care 01 Condition: Good - Discharge Diagnosis/Problem(s) (1) Acute exacerbation of chronic obstructive pulmonary disease (COPD) SNOMED Code(s): 663781124 ICD Code: J44.1 - CHRONIC OBSTRUCTIVE PULMONARY DISEASE W (ACUTE) EXACERBATION Status: Acute Current Visit: Yes (2) Hypoxia SNOMED Code(s): 619550193, 415107326 ICD Code: R09.02 - HYPOXEMIA Status: Acute Current Visit: Yes - Patient Summary/Data Hospital Course: Acute COPD exacerbation with bronchitis -no infiltrate on CXR , but with increase cough,sputum and dyspnea at admit -s/p solumedrol 125 mg in EOD then tapering doses of IV solumedrol. PT d/c on tapering doses of prednison -cont IS and flutter -treated with rocephin given increased cough, and mod/severe exacerbation - pt with PCN allergy but has tolerated keflex in the past. recently on levaquine so would want to avoid floroquinalones as well. - pt is tolerated the rocephin well. will transistion to a course of azithromycin at discharge -pt resonded well to nebs, steroids, IS/flutter and antibx. She has improved back to near baseline. Will d/c home with close f/u with her PCP within one week -cont PRN michele rosas and tracy for cough Acute on chronic hypoxic resp failure -due to COPD exacerbation -pt weaned back to her baseline requirements. PT maintained sats >90% at rest and with ambulation - chronic heart failure with h/o OK - stable -stable- no edema to legs, no pulm edema on CXR, BNP of 44 - pt denies any cp -cont lasix, BB, ASA - does not tolerate statins -trop negative -EKC - no acute ischemic changes hypothryoid h/o thyroid ablation -cont synthroid d/c home with f/u at [facility] next week - Patient Instructions Diet: Usual Diet as Tolerated Activity: As Tolerated Driving: May Drive Today Showering/Bathing: May Shower Notify Provider of: Fever, Increased Pain Other/Special Instructions: f/u with Susan at [facility] in one week. resume home oxygen as prior regimen. Recommend smoking cessation - Discharge Plan Prescriptions/Med Rec: Azithromycin [IJP: Azithromycin] 250 mg PO DAILY #6 tab Benzonatate [Tessalon Perles] 100 mg PO TID PRN #20 cap PRN Reason: Cough Prednisone [IJD: Prednisone] 10 mg PO DAILY #13 tab Home Medications: Home Meds Albuterol Sulfate [Proventil Hfa] 6.7 gm IH Q4HR PRN 10/21/16 [History] Albuterol/Ipratropium [DuoNeb 3.0-0.5 MG/3 ML] 3 ml NEB QID 10/21/16 [History] Aspirin 81 mg PO BRK 10/21/16 [History] Budesonide [Pulmicort] 0.5 mg NEB BIDRT 10/21/16 [History] Furosemide [Lasix] 20 mg PO BID 10/21/16 [History] Levothyroxine Sodium [Synthroid] 125 mcg PO ACBREAKFAST 10/21/16 [History] Metoprolol Tartrate 25 mg PO DAILY 10/21/16 [History] Azithromycin [IJP: Azithromycin] 250 mg PO DAILY #6 tab 10/23/16 [Rx] Benzonatate [Tessalon Perles] 100 mg PO TID PRN #20 cap 10/23/16 [Rx] Prednisone [IJD: Prednisone] 10 mg PO DAILY #13 tab 10/23/16 [Rx] Patient Handouts: Chronic Obstructive Pulmonary Disease Exacerbation, Easy-to- Read, Smoking Cessation, Tips for Success, [id number], Tobacco Use Disorder Forms: ED Department Discharge Referrals: PCPMorteza [Primary Care Provider] - - General Info Date of Service: 10/23/16 Subjective Update: pt states breathing is back close to baseline. still has congested, bronchial cough - less sputum. no n/v. no diarrhe.a no chest pain. Functional Status: Reports: pain controlled, tolerating diet, ambulating, urinating - Review of Systems General: Reports: fatigue HEENT: Reports: no symptoms Pulmonary: Reports: shortness of breath, cough, sputum Cardiovascular: Reports: dyspnea on exertion Gastrointestinal: Reports: No symptoms Genitourinary: Reports: no symptoms Musculoskeletal: Reports: no symptoms Skin: Reports: no symptoms Neurological: Reports: no symptoms Psychiatric: Reports: no symptoms - Patient Data Vitals - Most Recent: Last Vital Signs Temp 36.9 C 10/23/16 09:45 Pulse 92 10/23/16 09:45 Resp 20 10/23/16 09:45 BP 140/81 10/23/16 09:45 Pulse Ox 95 10/23/16 09:45 Weight - Most Recent: 86.863 kg I&O - Last 24 hours: Intake & Output 10/22/16 10/23/16 10/23/16 22:59 06:59 14:59 Intake Total 038 694 3518 Output Total 1300 1150 700 Balance -860 -450 300 Lab Results - Last 24 hrs: Laboratory Results - last 24 hr 10/22/16 10/22/16 10/23/16 Range/Units 17:05 20:53 07:57 POC Glucose 204 H 209 H 163 H (83-110) mg/dl 10/23/16 Range/Units 11:17 POC Glucose 231 H (83-110) mg/dl Med Orders - Current: Current Medications Acetaminophen (Tylenol) 650 mg PO Q4H PRN PRN Reason: Pain (Mild 1-3)/fever Last Admin: 10/22/16 03:38 Dose: 650 mg Albuterol (Proventil Neb Soln) 2.5 mg NEB Q2H PRN PRN Reason: Shortness of Breath Albuterol/Ipratropium (Duoneb 3.0-0.5 Mg/3 Ml) 3 ml NEB Q4HRRT [facility] Last Admin: 10/23/16 07:36 Dose: 3 ml Aspirin (Aspirin) 81 mg PO BRK [facility] Last Admin: 10/23/16 09:09 Dose: 81 mg Benzonatate (Tessalon Perles) 100 mg PO TID PRN PRN Reason: Cough Budesonide (Pulmicort) 0.5 mg NEB BIDRT [facility] Last Admin: 10/23/16 07:36 Dose: 0.5 mg Docusate Sodium (Colace) 100 mg PO BID PRN PRN Reason: Constipation Enoxaparin Sodium (Lovenox) 40 mg SUBCUT DAILY [facility] Last Admin: 10/23/16 09:10 Dose: 40 mg Furosemide (Lasix) 20 mg PO BIDDIURETIC [facility] Last Admin: 10/23/16 09:10 Dose: 20 mg Guaifenesin (Robitussin) 100 mg PO Q6H PRN PRN Reason: Cough Last Admin: 10/22/16 17:28 Dose: 100 mg Ceftriaxone Sodium 1 gm/ (Sodium Chloride) 50 mls @ 100 mls/hr IV Q24H [facility] Last Admin: 10/22/16 17:20 Dose: 50 mls/hr Insulin Aspart (Novolog) 0 unit SUBCUT QIDACANDBED [facility] PRN Reason: Protocol Last Admin: 10/23/16 08:49 Dose: 1 units Levothyroxine Sodium (Levothyroxine) 125 mcg PO ACBREAKFAST [facility] Last Admin: 10/23/16 05:23 Dose: 125 mcg Methylprednisolone Sodium Succinate (Solu-Medrol) 40 mg IVPUSH Q12H [facility] Last Admin: 10/23/16 08:08 Dose: 40 mg Metoprolol Tartrate (Lopressor) 25 mg PO DAILY [facility] Last Admin: 10/23/16 09:09 Dose: 25 mg Sodium Chloride (Saline Flush) 10 ml FLUSH ASDIRECTED PRN PRN Reason: Keep Vein Open Last Admin: 10/23/16 08:04 Dose: 10 ml Discontinued Medications Albuterol/Ipratropium (Duoneb 3.0-0.5 Mg/3 Ml) 3 ml NEB ONETIME ONE Stop: 10/21/16 14:05 Last Admin: 10/21/16 14:15 Dose: 3 ml Aspirin (Aspirin) 324 mg PO ONETIME ONE Stop: 10/21/16 14:03 Last Admin: 10/21/16 14:14 Dose: 324 mg Budesonide (Pulmicort) 0.5 mg NEB BIDRT [facility] Levofloxacin/Dextrose 750 mg/ (Premix) 150 mls @ 100 mls/hr IV Q24H [facility] Last Admin: 10/21/16 17:42 Dose: Not Given Methylprednisolone Sodium Succinate (Solu-Medrol) 125 mg IVPUSH ONETIME ONE Stop: 10/21/16 14:04 Last Admin: 10/21/16 14:14 Dose: 125 mg Methylprednisolone Sodium Succinate (Solu-Medrol) 40 mg IVPUSH Q6H [facility] Last Admin: 10/22/16 08:18 Dose: 40 mg Prednisone (Prednisone) 40 mg PO WITHBREAKFAST [facility] Stop: 10/26/16 08:01 Sodium Chloride (Saline Flush) 10 ml FLUSH ASDIRECTED PRN PRN Reason: Keep Vein Open Last Admin: 10/21/16 14:14 Dose: 10 ml - Exam Quality Assessment: Reports: supplemental oxygen General: Reports: alert, oriented, cooperative, no acute distress HEENT: Reports: Pupils equal Lungs: Reports: Normal respiratory effort, Decreased breath sounds, Crackles ( bases only ) Cardiovascular: Reports: regular rate, regular rhythm Abdomen: Reports: bowel sounds present, soft, no tenderness Extremities: Reports: edema (trace ) Skin: Reports: warm Neurological: Reports: normal speech Psy/Mental Status: Reports: alert, normal affect, normal mood *Q Meaningful Use (DIS) - VTE *Q VTE Criteria *Q: - Stroke *Q Stroke Criteria *Q: - AMI *Q AMI Criteria *Q:
[2016-10-23 12:09] VITALS: BP 137/83
== END 2016-10-23 13:15 | disposition home or self-care (01) | DRG 190 ==
LOC: DL.ED 13:49 → DL.MS 15:23 → UNDOADMIN 15:23 → DL.MS 15:29
PROVIDERS: ADMIT Internal Medicine; ATTEND Internal Medicine
DX: J44.0 Chronic obstructive pulmonary disease with (acute) lower respiratory infection (principal); R09.02 Hypoxemia; J96.01 Acute respiratory failure with hypoxia; J20.9 Acute bronchitis, unspecified; J44.1 Chronic obstructive pulmonary disease with (acute) exacerbation; I11.0 Hypertensive heart disease with heart failure; I50.9 Heart failure, unspecified; I25.2 Old myocardial infarction; E03.9 Hypothyroidism, unspecified; F41.9 Anxiety disorder, unspecified; F17.200 Nicotine dependence, unspecified, uncomplicated; Z79.82 Long term (current) use of aspirin; Z79.899 Other long term (current) drug therapy; Z88.0 Allergy status to penicillin; Z88.8 Allergy status to other drugs, medicaments and biological substances
CPT/HCPCS: 36415; 71020; 80053; 81001; 82550; 82553; 83880; 84484; 85025; 93005; 93010; 94640; 96374; 99285 ×2; A9270; J2930; J7050; 82962; J0696; J1650; J1815-GY; J2920

== ENCOUNTER 2017-04-03 16:52 | Inpatient (IN) | payer MEDICARE, SELFPAY ==
[2017-04-03] MEDS ORDERED: Albuterol/Ipratropium 3.0-0.5 MG/3 ML Neb Soln NEB ONE ×2 (17:12→19:10)
[2017-04-03] MEDS ORDERED: methylPREDNISolone Sodium Succinate 125 MG/2 ML SDV IVPUSH ONE (17:12)
[2017-04-03] MEDS: Sodium Chloride 0.9% 10 ML Syringe FLUSH PRN (17:38)
[2017-04-03] MEDS ORDERED: Levofloxacin/Dextrose 5%-Water 500 MG in Premix Bag 1 BAG IV ONE (19:07)
--- NOTE | 2017-04-03 20:49 | PCM.HP ---
H&P History of Present Illness - General Date of Service: 04/03/17 Source of Information: Patient, Family History Limitations: Reports: No Limitations - History of Present Illness Initial Comments - Free Text/Narative: This is s 71 Y/O F with past Hx of COPD , hypothyroidism, active smoker, CAD, CHF Presented to [facility] with worsening shortness of breath. As per the daughter and patient was not feeling well for the last few days and her main complaint is cough with productive sputum green to yellow color. At home she uses oxygen and had no fever or chill. In ED CXR was done and it showed opacity in the left base may be atelectasis or Pneumonia. The pt is allergic to Penicillin Onset of Symptoms: Reports: Gradual Location: Reports: Chest Associated Symptoms: Reports: cough w sputum, Shortness of Breath Middle Chest Pain Score (Numeric/FACES): 8 - Related Data Allergies/Adverse Reactions: Allergies Allergy/AdvReac Type Severity Reaction Status Date / Time amlodipine [From Norvasc] Allergy Cannot Verified 04/03/17 17:05 Remember cetirizine [From Zyrtec] Allergy Abdominal Verified 04/03/17 17:05 Pain Penicillins Allergy Rash Verified 04/03/17 17:05 simvastatin [From Zocor] Allergy Cannot Verified 04/03/17 17:05 Remember Home Medications: Home Meds Albuterol Sulfate [Proventil Hfa] 2 puff IH Q4HR PRN 10/21/16 [History] Albuterol/Ipratropium [DuoNeb 3.0-0.5 MG/3 ML] 3 ml NEB QID 10/21/16 [History] Aspirin 81 mg PO BRK 10/21/16 [History] Budesonide [Pulmicort] 0.5 mg NEB BIDRT 10/21/16 [History] Levothyroxine Sodium [Synthroid] 0.5 tab PO ACBREAKFAST 10/21/16 [History] Furosemide [Lasix] 20 mg PO DAILY 04/03/17 [History] Metoprolol Tartrate 25 mg PO DAILY 04/03/17 [History] Past Medical History HEENT History: Reports: Impaired Vision, Other (See Below) Other HEENT History: wears glasses Cardiovascular History: Reports: Heart Failure, Hypertension, MA Respiratory History: Reports: COPD Gastrointestinal History: Reports: None Genitourinary History: Reports: None 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 Musculoskeletal History: Reports: Fracture Neurological History: Reports: None Psychiatric History: Reports: Anxiety Endocrine/Metabolic History: Reports: Hyperthyroidism Hematologic History: Reports: None Immunologic History: Reports: None Oncologic (Cancer) History: Reports: Other (See Below) Other Oncologic History: simple vulvectomy - cancer Dermatologic History: Reports: None - Infectious Disease History Infectious Disease History: Reports: Chicken Pox, Measles, Mumps, Rubella - Past Surgical History GI Surgical History: Reports: Appendectomy, Cholecystectomy Female Surgical History: Reports: Tubal Ligation, Other (See Below) Endocrine Surgical History: Reports: Thyroidectomy Social & Family History - Family History Family Medical History: Noncontributory Cardiac: Reports: MA Respiratory: Reports: COPD Neurological: Reports: CVA - Tobacco Use Smoking Status *Q: Heavy Tobacco Smoker Years of Tobacco use: 55 Packs/Tins Daily: 1 Second Hand Smoke Exposure: No - Caffeine Use Caffeine Use: Reports: Coffee, Soda - Recreational Drug Use Recreational Drug Use: No - Living Situation & Occupation Living situation: Reports: with Family H&P Review of Systems - Review of Systems: Review Of Systems: See Below General: Reports: Other (Increased shortness of breath). Denies: Fever, Chills , Weakness HEENT: Denies: Post Nasal Drip, Sinus Congestion, Sore Throat, Visual Changes Pulmonary: Reports: Shortness of Breath, Wheezing, Cough, Sputum Cardiovascular: Denies: Chest Pain, Dyspnea on Exertion, Lightheadedness Gastrointestinal: Denies: Abdominal Pain, Constipation, Diarrhea, Nausea, Vomiting Genitourinary: Denies: Dysuria, Frequency, Burning, Urgency, Incontinence Musculoskeletal: Denies: Neck Pain, Shoulder Pain, Back Pain, Leg Pain Skin: Denies: Cyanosis, Jaundice, Bruising, Pruritis, Rash Psychiatric: Denies: Confusion, Anxiety Neurological: Denies: Confusion, Tremors Immunologic: Reports: Other (penicillin) Exam - Exam Exam: See Below - Vital Signs Vital Signs: Last Vital Signs Temp 36.3 C 04/03/17 17:41 Pulse 74 04/03/17 18:00 Resp 20 04/03/17 18:00 BP 116/74 04/03/17 18:00 Pulse Ox 93 L 04/03/17 18:00 Weight: 86.183 kg - Exam Quality Assessment: Supplemental Oxygen, DVT Prophylaxis. No: Urinary Catheter General: Alert, Oriented, Cooperative HEENT: Conjunctiva Clear, Mucosa Moist & [place], Pupils Equal, Pupils Reactive Neck: Supple, Lymphadenopathy. No: JVD, Thyromegaly Lungs: Normal Respiratory Effort, Decreased Breath Sounds, Wheezing Cardiovascular: Regular Rate, Regular Rhythm, Normal S1, Normal S2, Systolic Murmur GI/Abdominal Exam: Normal Bowel Sounds, Soft, No Organomegaly, Distended, Abnormal Bowel Sounds. No: Rigid, Rebound (Female) Exam: Deferred Rectal (Female) Exam: Deferred Back Exam: Normal Inspection, Full Range of Motion Extremities: Normal Inspection, Normal Range of Motion, No Pedal Edema Skin: Warm, Dry, Intact Neurological: Cranial Nerves Intact, Reflexes Equal Bilateral Neuro Extensive - Mental Status: Alert, Oriented x3, Normal Mood/Affect, Normal Cognition, Memory Intact Neuro Extensive - Motor, Sensory, Reflexes: CN II-XII Intact, Normal Gait, Normal Reflexes Psychiatric: Normal Affect, Normal Mood - Patient Data Result Diagrams: 04/03/17 17:32 04/04/17 05:35 EKG INTERPRETATION Rhythm: NSR QRS: Normal ST-T: Normal QT: Normal *Q Meaningful Use (ADM) - VTE *Q VTE Criteria *Q: - Stroke *Q Stroke Criteria *Q: - AMI *Q AMI Criteria *Q: - Problem List (1) Acute exacerbation of COPD with asthma SNOMED Code(s): 647368360 ICD Code: J44.1 - CHRONIC OBSTRUCTIVE PULMONARY DISEASE W (ACUTE) EXACERBATION; J45.901 - UNSPECIFIED ASTHMA WITH (ACUTE) EXACERBATION Status: Acute Current Visit: Yes (2) Pneumonia SNOMED Code(s): 894396521 ICD Code: J18.9 - PNEUMONIA, UNSPECIFIED ORGANISM Status: Acute Current Visit: Yes Qualifiers: Laterality: left Problem List Initiated/Reviewed/Updated: Yes Orders Last 24hrs: Medication Orders Sodium Chloride (Saline Flush) 10 ml FLUSH ASDIRECTED PRN PRN Reason: Keep Vein Open Last Admin: 04/03/17 17:38 Dose: 10 ml Assessment/Plan Comment:: This is a 71 y/o F current smoker came to ED with increased shortness of breath with productive sputum, no fever or chill, CXR showed possible Left lower lobe Pneumonia 1. COPD exacerbation: This is likely from pneumonia and has been using more frequent Nebulizer at home -Will start her on Solumedrol 60 mg IV q6 hrs -Will continue Levaquine 500 mg IV daily -Will continue Duonebs and Albuterol inhalor -Follow B/C -Continue NC oxygen and keep o2 sat at >90% -Continue Incentive spirometry and Flutter valve 2.Pneumonia: CXR showed left lower base pneumonia -will floow B/C and continue Levaquine 3. Hypothyroidism: Will continue Levothyroxin 4. GI prophylaxis: Continue Protonix 5. DVT prophylaxis: Continue Heparin 6. Code status: DNR/DNI
[2017-04-03] MEDS ORDERED: Docusate Sodium 100 MG Cap PO PRN (21:01)
[2017-04-03] MEDS ORDERED: Albuterol 6.7 GM Inhaler INH PRN (21:07)
[2017-04-03] MEDS ORDERED: Albuterol 0.021% 0.63 MG/3 ML Neb Soln NEB PRN (21:08)
[2017-04-03] MEDS: Aspirin 81 MG Tab.Chew PO SCH (22:17)
[2017-04-03] MEDS: Heparin Sodium 5,000 Units/ML Vial SUBCUT SCH (22:18)
[2017-04-04] MEDS: methylPREDNISolone Sodium Succinate 40 MG/1 ML SDV IVPUSH SCH ×4 (01:20→20:02)
[2017-04-04] MEDS: Acetaminophen 325 MG Tab PO PRN (01:31)
[2017-04-04] MEDS: Levothyroxine 125 MCG Tab PO SCH (06:15)
[2017-04-04] MEDS: Heparin Sodium 5,000 Units/ML Vial SUBCUT SCH ×3 (06:17→21:36)
[2017-04-04] MEDS: Albuterol/Ipratropium 3.0-0.5 MG/3 ML Neb Soln NEB SCH ×4 (07:09→21:36)
[2017-04-04] MEDS: Budesonide 0.5 MG/2 ML Neb Susp NEB SCH ×3 (07:09→17:13)
[2017-04-04] MEDS: Sodium Chloride 0.9% 10 ML Syringe FLUSH PRN ×2 (08:59→13:53)
[2017-04-04] MEDS: Metoprolol Tartrate 50 MG Tab PO SCH (09:01)
[2017-04-04] MEDS: Nicotine 14 MG/24 Hr Patch TRDERM SCH (09:02)
[2017-04-04] MEDS: Aspirin 81 MG Tab.Chew PO SCH (09:02)
[2017-04-04] MEDS: Furosemide 20 MG Tab PO SCH (09:02)
[2017-04-04] MEDS ORDERED: Albuterol 0.021% 0.63 MG/3 ML Neb Soln NEB PRN (10:27)
[2017-04-04] MEDS ORDERED: Levofloxacin/Dextrose 5%-Water 500 MG in Premix Bag 1 BAG IV SCH (10:30)
[2017-04-04] MEDS ORDERED: Albuterol 0.083% 2.5 MG/3 ML Neb Soln NEB SCH (11:00)
[2017-04-04] MEDS ORDERED: Albuterol 0.083% 2.5 MG/3 ML Neb Soln NEB PRN (11:35)
--- NOTE | 2017-04-04 11:43 | PCM.PN ---
- General Info Date of Service: 04/04/17 Admission Dx/Problem (Free Text): Pt was admitted with Increased shortness of breath, productive sputum and likely Left lower Lobe pneumonia Subjective Update: She is feeling much better today, cough is better and shortness of breath has Improved, Her appetite is good and slept well Functional Status: Reports: Tolerating Diet, Ambulating, Urinating, Incentive Spirometry, Other (flatter Valve) - Review of Systems General: Reports: Weakness, Appetite (good). Denies: Fever, Chills HEENT: Denies: Headaches, Sinus Congestion, Sore Throat Pulmonary: Reports: Shortness of Breath, Cough, Sputum, Wheezing Cardiovascular: Reports: Dyspnea on Exertion. Denies: Chest Pain, Lightheadedness Gastrointestinal: Reports: Nausea, Vomiting. Denies: Abdominal Pain Genitourinary: Denies: Dysuria, Burning, Urgency, Flank Pain Musculoskeletal: Reports: Joint Swelling. Denies: Shoulder Pain, Leg Pain, Foot Pain Skin: Reports: Bruising, Pruritis, Rash. Denies: Cyanosis, Jaundice Neurological: Denies: Confusion, Numbness, Tremors Psychiatric: Denies: Confusion, Anxiety - Patient Data Vitals - Most Recent: Last Vital Signs Temp 35.8 C 04/04/17 07:00 Pulse 74 04/04/17 11:03 Resp 20 04/04/17 07:00 BP 136/79 04/04/17 09:01 Pulse Ox 98 04/04/17 11:03 Weight - Most Recent: 86.183 kg I&O - Last 24 Hours: Intake & Output 04/03/17 04/04/17 04/04/17 22:59 06:59 14:59 Intake Total 700 600 Output Total 900 400 Balance -200 200 Lab Results Last 24 Hours: Laboratory Results - last 24 hr 04/04/17 Range/Units 05:35 Sodium 139 (135-145) mmol/L Potassium 3.7 (3.6-5.0) mmol/L Chloride 101 (101-111) mmol/L Carbon Dioxide 23.0 (21.0-31.0) mmol/L Anion Gap 18.7 BUN 16 (7-18) mg/dL Creatinine 1.3 (0.6-1.3) mg/dL Est Cr Clr Drug Dosing 33.28 mL/min Estimated GFR (MDRD) 40 Glucose 186 H (74-105) mg/dL Calcium 9.6 (8.4-10.2) mg/dl Med Orders - Current: Current Medications Acetaminophen (Tylenol) 650 mg PO Q4H PRN PRN Reason: Pain (mild 1-3 )/fever Last Admin: 04/04/17 01:31 Dose: 650 mg Albuterol (Proventil Neb Soln) 2.5 mg NEB Q4HRRT PRN PRN Reason: Shortness of Breath Albuterol/Ipratropium (Duoneb 3.0-0.5 Mg/3 Ml) 3 ml NEB QIDRT [facility] Last Admin: 04/04/17 11:02 Dose: 3 ml Aspirin (Aspirin) 81 mg PO BRK [facility] Last Admin: 04/04/17 09:02 Dose: 81 mg Budesonide (Pulmicort) 0.5 mg NEB BIDRT [facility] Last Admin: 04/04/17 07:09 Dose: 0.5 mg Docusate Sodium (Colace) 100 mg PO DAILY PRN PRN Reason: Constipation Furosemide (Lasix) 20 mg PO DAILY [facility] Last Admin: 04/04/17 09:02 Dose: 20 mg Heparin Sodium (Porcine) (Heparin Sodium) 5,000 units SUBCUT Q8H [facility] Last Admin: 04/04/17 06:17 Dose: 5,000 units Levofloxacin/Dextrose 500 mg/ (Premix) 100 mls @ 100 mls/hr IV Q24H [facility] Levothyroxine Sodium (Levothyroxine) 62.5 mcg PO ACBREAKFAST [facility] Last Admin: 04/04/17 06:15 Dose: 62.5 mcg Methylprednisolone Sodium Succinate (Solu-Medrol) 60 mg IVPUSH Q6H [facility] Last Admin: 04/04/17 08:58 Dose: 60 mg Metoprolol Tartrate (Lopressor) 25 mg PO DAILY [facility] Last Admin: 04/04/17 09:01 Dose: 25 mg Nicotine (Habitrol) 14 mg TRDERM DAILY [facility] Last Admin: 04/04/17 09:02 Dose: 14 mg Sodium Chloride (Saline Flush) 10 ml FLUSH ASDIRECTED PRN PRN Reason: Keep Vein Open Last Admin: 04/04/17 08:59 Dose: 10 ml Discontinued Medications Albuterol (Proventil Hfa) 0 gm INH Q4HR PRN PRN Reason: Shortness of Breath Albuterol (Proventil Neb Soln) 0.63 mg NEB Q4HRRT PRN PRN Reason: Shortness of Breath Last Admin: 04/03/17 23:13 Dose: 0.63 mg Albuterol (Proventil Neb Soln) 2.5 mg NEB Q4HRRT [facility] Last Admin: 04/04/17 11:02 Dose: Not Given Albuterol/Ipratropium (Duoneb 3.0-0.5 Mg/3 Ml) 3 ml NEB ONETIME ONE Stop: 04/03/17 17:13 Last Admin: 04/03/17 17:40 Dose: 3 ml Albuterol/Ipratropium (Duoneb 3.0-0.5 Mg/3 Ml) 3 ml NEB ONETIME ONE Stop: 04/03/17 19:11 Last Admin: 04/03/17 19:18 Dose: 3 ml Levofloxacin/Dextrose 500 mg/ (Premix) 100 mls @ 100 mls/hr IV ONETIME ONE Stop: 04/03/17 20:06 Last Admin: 04/03/17 19:15 Dose: 100 mls/hr Levofloxacin/Dextrose 750 mg/ (Premix) 150 mls @ 100 mls/hr IV Q24H [facility] Methylprednisolone Sodium Succinate (Solu-Medrol) 125 mg IVPUSH ONETIME ONE Stop: 04/03/17 17:13 Last Admin: 04/03/17 17:38 Dose: 125 mg - Exam Quality Assessment: Supplemental Oxygen, DVT Prophylaxis. No: Urine Catheter General: Alert, Oriented, Cooperative, No Acute Distress HEENT: Pupils Equal, EOMI, Mucous Membr. Moist/[place] Neck: Supple, No JVD. No: Thyromegaly Lungs: Normal Respiratory Effort, Decreased Breath Sounds, Wheezing Cardiovascular: Regular Rate, Regular Rhythm, Murmurs GI/Abdominal Exam: Normal Bowel Sounds, Soft, No Distention. No: Guarding, Rebound (Female) Exam: Deferred Back Exam: Normal Inspection, Full Range of Motion Extremities: Normal Inspection, Pedal Edema, Increased Warmth. No: Arm Pain Skin: Warm, Dry, Intact Neurological: No New Focal Deficit, Normal Gait Psy/Mental Status: Alert, Normal Affect, Normal Mood - Problem List & Annotations (1) Acute exacerbation of COPD with asthma SNOMED Code(s): 262813303 Code(s): J44.1 - CHRONIC OBSTRUCTIVE PULMONARY DISEASE W (ACUTE) EXACERBATION ; J45.901 - UNSPECIFIED ASTHMA WITH (ACUTE) EXACERBATION Status: Acute Current Visit: Yes (2) Pneumonia SNOMED Code(s): 741642875 Code(s): J18.9 - PNEUMONIA, UNSPECIFIED ORGANISM Status: Acute Current Visit: Yes Qualifiers: Laterality: left - Problem List Review Problem List Initiated/Reviewed/Updated: Yes - My Orders Last 24 Hours: My Active Orders 04/03/17 21:09 RT Aerosol Therapy [RC] ASDIRECTED 04/03/17 21:15 Aspirin 81 mg PO BRK 04/04/17 00:17 Incentive Spirometry [RT Incentive Spirometry] [RC] ASDIRECTED 04/04/17 00:18 Flutter Valve Therapy [RT Chest Physiotherapy] [RC] ASDIRECTED 04/04/17 01:00 methylPREDNISolone Sod Succ [Solu-MEDROL] 60 mg IVPUSH Q6H 04/04/17 06:00 Levothyroxine 62.5 mcg PO ACBREAKFAST 04/04/17 07:00 Albuterol/Ipratropium [DuoNeb 3.0-0.5 MG/3 ML] 3 ml NEB QIDRT Budesonide [Pulmicort] 0.5 mg NEB BIDRT 04/04/17 09:00 Furosemide [Lasix] 20 mg PO DAILY Metoprolol Tartrate [Lopressor] 25 mg PO DAILY 04/04/17 10:25 RT Aerosol Therapy [RC] ASDIRECTED 04/04/17 10:30 Levofloxacin/Dextrose 5%-Water [Levaquin in D5W 500 MG/100 ML] 500 mg Premix Bag 1 bag IV Q24H 04/04/17 10:33 Flutter Valve Therapy [RT Chest Physiotherapy] [RC] ASDIRECTED 04/04/17 10:34 Incentive Spirometry [RT Incentive Spirometry] [RC] ASDIRECTED 04/04/17 11:35 RT Aerosol Therapy [RC] ASDIRECTED Albuterol [Proventil Neb Soln] 2.5 mg NEB Q4HRRT PRN - Plan Plan:: This is a 71 y/o F current smoker came to ED with increased shortness of breath with productive sputum, no fever or chill, CXR showed possible Left lower lobe Pneumonia 1. COPD exacerbation: This is likely from pneumonia and has been using more frequent Nebulizer at home -Will continue her on Solumedrol 60 mg IV q6 hrs -Will continue Levaquine 500 mg IV daily -Will continue Duonebs and Albuterol inhalor -B/C showing no gowrth -Continue NC oxygen and keep o2 sat at >90% -Continue Incentive spirometry and Flutter valve 2.Pneumonia: CXR showed left lower base pneumonia - B/C showing no growth and continue Levaquine 3. Hypothyroidism: Will continue Levothyroxin 4. GI prophylaxis: Continue Protonix 5. DVT prophylaxis: Continue Heparin 6. Code status: DNR/DNI
[2017-04-04] MEDS: Levofloxacin/Dextrose 5%-Water 500 MG in Premix Bag 1 BAG IV SCH (17:59)
[2017-04-04] MEDS ORDERED: Levofloxacin/Dextrose 5%-Water 750 MG in Premix Bag 1 BAG IV SCH (19:00)
[2017-04-05] MEDS: methylPREDNISolone Sodium Succinate 40 MG/1 ML SDV IVPUSH SCH ×4 (04:44→21:22)
[2017-04-05] MEDS: Levothyroxine 125 MCG Tab PO SCH (06:18)
[2017-04-05] MEDS: Heparin Sodium 5,000 Units/ML Vial SUBCUT SCH ×3 (06:19→21:36)
[2017-04-05] MEDS: Albuterol/Ipratropium 3.0-0.5 MG/3 ML Neb Soln NEB SCH ×4 (07:05→21:20)
[2017-04-05] MEDS: Budesonide 0.5 MG/2 ML Neb Susp NEB SCH ×2 (07:05→17:03)
[2017-04-05] MEDS: Aspirin 81 MG Tab.Chew PO SCH (08:52)
[2017-04-05] MEDS: Nicotine 14 MG/24 Hr Patch TRDERM SCH (08:53)
[2017-04-05] MEDS: Furosemide 20 MG Tab PO SCH (08:53)
[2017-04-05] MEDS: Metoprolol Tartrate 50 MG Tab PO SCH (08:53)
[2017-04-05] MEDS: Levofloxacin/Dextrose 5%-Water 500 MG in Premix Bag 1 BAG IV SCH (17:52)
[2017-04-05] MEDS: Sodium Chloride 0.9% 10 ML Syringe FLUSH PRN ×2 (21:21→21:35)
[2017-04-06] MEDS: Acetaminophen 325 MG Tab PO PRN (01:59)
--- NOTE | 2017-04-06 05:48 | PN ---
DATE: 04/05/2017 SUBJECTIVE: Ms. Fuller is a 71-year-old lady, who was admitted over the weekend with an acute exacerbation of COPD. She states that she began to feel ill about 2 in the morning on Wednesday, 04/03. She felt short of breath. She had a productive cough. She had been on prednisone about a month ago. She is on 2 L of nasal oxygen continuously at home for the last 6 years. Shortness of breath and cough persisted, and she came to the emergency department for further evaluation. She was noted to have an opacity in the left lung base, which is felt to be either atelectasis or infiltrate. She was admitted for further management of her COPD exacerbation and possible underlying pneumonia. Her lab work from admission is reviewed and is essentially within normal limits. Two sets of blood cultures drawn at the time of admission, remained without growth. Clinical data is reviewed. She has good oral intake and adequate fluids. She is voiding and moving her bowels. She is tolerating 100% of her diet. Her vital signs have been stable, and she has remained afebrile since the time of admission. OBJECTIVE: General: She is lying comfortably in her bed in her room. She voices no new concerns or complaints. She states she is feeling better and expressed the desire to be discharged to home. She denied any chest pain. Shortness of breath has improved. No abdominal pain. No calf or leg pain. Vital Signs: Blood pressure 129/77, pulse 80 and regular, respiratory rate 20 and unlabored, oxygen saturation 94% to 98% on 2 L nasal cannula, and she was afebrile. HEENT: Unremarkable. Mouth showed moist mucous membranes. Chest: Mild anterior wheezing. Posteriorly, there were scattered wheezes bilaterally. No rales or rhonchi. Heart: Regular rate and rhythm. Abdomen: Obese, soft, and benign. Extremities: Calves to be soft and nontender. Neurologic: She was intact. Her medications were reviewed. We have started reduction in her Solu-Medrol. She continues on levofloxacin to cover her for possible pneumonia. She continues on nebulized bronchodilator and steroids. She is wearing a nicotine patch. She has been a smoker since the age of 13 and smoked approximately 1 pack of cigarettes a day, for [id number] history of smoking. She is on heparin for VTE prophylaxis. If she remains stable overnight, we will discharge her to home in the morning. [facility] /[id number] [place]
[2017-04-06] MEDS: Sodium Chloride 0.9% 10 ML Syringe FLUSH PRN ×2 (05:52→05:55)
[2017-04-06] MEDS: methylPREDNISolone Sodium Succinate 40 MG/1 ML SDV IVPUSH SCH (05:53)
[2017-04-06] MEDS: Heparin Sodium 5,000 Units/ML Vial SUBCUT SCH (06:03)
[2017-04-06] MEDS: Levothyroxine 125 MCG Tab PO SCH (06:05)
[2017-04-06 07:05] VITALS: BP 143/95
[2017-04-06] MEDS: Budesonide 0.5 MG/2 ML Neb Susp NEB SCH (07:20)
[2017-04-06] MEDS: Albuterol/Ipratropium 3.0-0.5 MG/3 ML Neb Soln NEB SCH (07:20)
[2017-04-06] MEDS: Furosemide 20 MG Tab PO SCH (09:36)
[2017-04-06] MEDS: Metoprolol Tartrate 50 MG Tab PO SCH (09:36)
[2017-04-06] MEDS: Aspirin 81 MG Tab.Chew PO SCH (09:36)
[2017-04-06] MEDS: Nicotine 14 MG/24 Hr Patch TRDERM SCH (09:37)
--- NOTE | 2017-04-12 10:30 | EKG ---
04/03/2017- LEKIN ALFRED - This is a standard 12-lead EKG showing normal sinus rhythm with a ventricular rate of 70 beats per minute. 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 No significant ST-T changes. [facility] /[id number]
--- NOTE | 2017-04-15 19:41 | DISCH ---
DISCHARGE DIAGNOSES: 1. Acute exacerbation of chronic obstructive pulmonary disease. 2. Tobacco use disorder. Current smoker of 1 pack of cigarettes per day with a [id number] history of smoking. 3. Chronic kidney disease, stage 3. 4. Past medical history of hypothyroidism, coronary artery disease, and congestive heart failure, stable. BRIEF HISTORY OF PRESENT ILLNESS: Ms. Fuller is a 71-year-old lady, who presented to the emergency department with a history of becoming increasingly short of breath overnight. She had a productive cough. She had been on prednisone about a month ago. She is on continuous nasal oxygen at 2 L/minute at home for the last 6 years. In the emergency room, chest x-ray showed an opacity in the left lung base, which is felt to be either atelectasis or an infiltrate. She was admitted for further management of her COPD exacerbation and possible underlying pneumonia. PERTINENT LABS AND X-RAYS: CBC showed a white count of 8.9 and normal differential. Hemoglobin and hematocrit 13.4 and 40. Electrolytes were unremarkable. BUN and creatinine were 11 and 1.3, with a GFR of 40. LFTs were unremarkable. Blood sugars within normal limits. Troponin was negative at 0.02. BNP was 55. Urinalysis was unremarkable. Two sets of blood cultures remained without growth after 5 days. Two-view chest x-ray taken at time of admission, showed an opacity at the left base, which could represent atelectasis or pneumonia. There was no pulmonary venous congestion or cardiomegaly. A 12-lead EKG was performed and showed a normal sinus rhythm with a ventricular rate of 70. There was a non-specific intraventricular conduction defect with left axis deviation. No acute ST-segment or T-wave changes. HOSPITAL COURSE: Ms. Fuller was admitted as an acute inpatient. She was continued on nebulized bronchodilator therapy, both scheduled and p.r.n. She was started on IV Solu-Medrol and this was tapered down during the admission. She was started on Levaquin 500 mg IV every 24 hours. Her usual medications were continued. She received heparin for VTE prophylaxis. Because of her tobacco habituation, she was started on transdermal nicotine patches. She did well. She felt as if she was improving. Review of her clinical data shows that she had good oral intake. She was voiding and moving her bowel. She was tolerating 100% of her diet. Vital signs were stable, and she remained afebrile throughout the visit. PHYSICAL EXAMINATION: General: On the day of discharge, she was seated comfortably in her room. She was eager to be discharged to home. Vital signs: Blood pressure was 143/95, pulse 74 and regular, respiratory rate 20 and unlabored, oxygen saturation 93% to 95% on 2 L, and she was afebrile. Weight was 202 pounds, 3.2 ounces, and height 5 feet and 4 inches. HEENT: Unremarkable. ENT was clear. No JVDs or bruits. No adenopathy. Chest showed mild anterior wheezing and some scattered wheezes posteriorly no rales or rhonchi. No respiratory distress. Heart: Regular rate and rhythm. Abdomen: Obese, soft, and benign. Extremities: Showed the calves to be soft and nontender. Neurologic: She was intact. IMPRESSION: Acute exacerbation of chronic obstructive pulmonary disease in this lady, who is a daily smoker of 1 pack of cigarettes per day. She is now ready for discharge to home. ALLERGIES: Amlodipine, cetirizine, penicillins, and simvastatin. DISCHARGE MEDICATIONS: 1. Pulmicort nebulizer treatment twice a day. 2. DuoNeb nebulizer treatment 4 times a day. 3. Albuterol HFA 2 puffs every 4 hours p.r.n. 4. Aspirin EC 81 mg daily. 5. Metoprolol tartrate 25 mg daily. 6. Furosemide 20 mg daily. 7. Levothyroxine 125 mcg daily. 8. She will continue on levofloxacin 250 mg every 24 hours for 5 more days. 9. She was placed on a prednisone taper over the next 10 days. She will follow up with her primary care provider in the next 7 to 10 days, and she should seek re-evaluation sooner if worse or not improving. We also encouraged her to consider smoking cessation, and she was given written material regarding this. We also encouraged her to call the [place] [facility]uitline, although she said she tried to call them before and did not get any answer, but we encouraged her to try again. CONDITION AT THE TIME OF DISCHARGE: Hemodynamically and neurologically stable. CODE STATUS: During this admission, DNR/DNI. [facility] /[id number] [facility]
--- NOTE | 2017-04-23 08:47 | EDM.PDOC ---
Scribed by Mary Grace Graves 04/03/17 191 for Lester Alcazar MD ED HPI GENERAL MEDICAL PROBLEM - General Chief Complaint: Respiratory Problem Stated Complaint: HARD TIME BREATHING Time Seen by Provider: 04/03/17 17:09 Source of Information: Reports: Patient, RN, RN Notes Reviewed History Limitations: Reports: No Limitations - History of Present Illness INITIAL COMMENTS - FREE TEXT/NARRATIVE: Patient arrives per POV with complaint of progressively worsening cough and shortness of breath over the past 3 to 5 days. She has felt feverish but has not measured her temperature. Patient has been using her nebulizer at home every 4 hours while awake but has not been helping like it used to. Today her cough became productive. Location: Reports: Chest Quality: Reports: Ache Severity: Severe Improves with: Reports: None Worsens with: Reports: None Associated Symptoms: Reports: No Other Symptoms Middle Chest Pain Score (Numeric/FACES): 8 - Related Data Allergies Allergy/AdvReac Type Severity Reaction Status Date / Time amlodipine [From Norvasc] Allergy Cannot Verified 04/03/17 17:05 Remember cetirizine [From Zyrtec] Allergy Abdominal Verified 04/03/17 17:05 Pain Penicillins Allergy Rash Verified 04/03/17 17:05 simvastatin [From Zocor] Allergy Cannot Verified 04/03/17 17:05 Remember Home Meds: Home Meds Albuterol Sulfate [Proventil Hfa] 2 puff IH Q4HR PRN 10/21/16 [History] Albuterol/Ipratropium [DuoNeb 3.0-0.5 MG/3 ML] 3 ml NEB QID 10/21/16 [History] Aspirin 81 mg PO BRK 10/21/16 [History] Budesonide [Pulmicort] 0.5 mg NEB BIDRT 10/21/16 [History] Levothyroxine Sodium [Synthroid] 0.5 tab PO ACBREAKFAST 10/21/16 [History] Furosemide [Lasix] 20 mg PO DAILY 04/03/17 [History] Metoprolol Tartrate 25 mg PO DAILY 04/03/17 [History] Levofloxacin [Levaquin] 250 mg PO Q24H #5 tablet 04/06/17 [Rx] Prednisone [IJD: Prednisone] 10 mg PO DAILY #13 tab 04/06/17 [Rx] Past Medical History HEENT History: Reports: Impaired Vision, Other (See Below) Other HEENT History: wears glasses Cardiovascular History: Reports: Heart Failure, Hypertension, [place] Respiratory History: Reports: COPD Gastrointestinal History: Reports: None Genitourinary History: Reports: None TECHNICAL FELLOW History: Reports: None Musculoskeletal History: Reports: Fracture Neurological History: Reports: None Psychiatric History: Reports: Anxiety Endocrine/Metabolic History: Reports: Hyperthyroidism Hematologic History: Reports: None Immunologic History: Reports: None Oncologic (Cancer) History: Reports: Other (See Below) Other Oncologic History: simple vulvectomy - cancer Dermatologic History: Reports: None - Infectious Disease History Infectious Disease History: Reports: Chicken Pox, Measles, Mumps, Rubella - Past Surgical History Female Surgical History: Reports: Tubal Ligation, Other (See Below) Social & Family History - Family History Family Medical History: Noncontributory Cardiac: Reports: [place] Respiratory: Reports: COPD Neurological: Reports: CVA - Tobacco Use Smoking Status *Q: Heavy Tobacco Smoker Years of Tobacco use: 55 Packs/Tins Daily: 1 Second Hand Smoke Exposure: No - Caffeine Use Caffeine Use: Reports: Coffee, Soda - Recreational Drug Use Recreational Drug Use: No - Living Situation & Occupation Living situation: Reports: with Family ED ROS GENERAL - Review of Systems Review Of Systems: ROS reveals no pertinent complaints other than HPI. ED EXAM, GENERAL - Physical Exam Exam: See Below Exam Limited By: No Limitations General Appearance: Other (chronically ill appearing) Eye Exam: Bilateral Eye: Normal Inspection Ears: Normal External Exam, Normal Canal, Hearing Grossly Normal, Normal TMs Nose: Normal Inspection, Normal Mucosa, No Blood Throat/Mouth: Normal Inspection, Normal Lips, Normal Teeth, Normal Gums, Normal Oropharynx, Normal Voice, No Airway Compromise Head: Atraumatic, Normocephalic Neck: Normal Inspection, Supple, Non-Tender, Full Range of Motion Respiratory/Chest: Decreased Breath Sounds (in bilateral bases with scattered wheeze, course vesicular breath sounds. Left basilar rhonchi.) Cardiovascular: Normal Peripheral Pulses, Regular Rate, Rhythm, No Edema, No Gallop, No JVD, No Murmur, No Rub GI/Abdominal: Other (benign obese abdomen) (Female) Exam: Deferred Rectal (Female) Exam: Deferred Back Exam: Normal Inspection, Full Range of Motion, NT Extremities: Normal Inspection, Normal Range of Motion, Non-Tender, Normal Capillary Refill, No Pedal Edema Neurological: Alert, Oriented, CN II-XII Intact, Normal Cognition, Normal Gait, Normal Reflexes, No Motor/Sensory Deficits Psychiatric: Normal Affect, Normal Mood Skin Exam: Warm, Dry, Intact, Normal Color, No Rash EKG INTERPRETATION EKG Date: 04/03/17 Time: 17:32 Rhythm: Other (sinus rhythm) Rate (Beats/Min): 70 Rosalie: LAD-Left Rosalie Deviation (with nonspecific IVCD.) P-Wave: Present QRS: Other (Q waves present in lead III, AVF and V1.) ST-T: Normal QT: Normal Course - Vital Signs Last Recorded V/S: Last Vital Signs Temp 36.8 C 04/06/17 07:00 Pulse 74 04/06/17 09:36 Resp 20 04/06/17 07:00 BP 143/95 H 04/06/17 09:36 Pulse Ox 95 04/06/17 07:21 - Orders/Labs/Meds Labs: Laboratory Tests 04/03/17 04/03/17 04/03/17 Range/Units 17:15 17:26 17:32 WBC 8.9 (5.0-10.0) 10^3/uL RBC 4.11 L (4.2-5.4) 10^6/uL Hgb 13.4 (12.0-16.0) g/dL Hct 40.2 (37.0-47.0) % MCV 97.8 (80-100) fL MCH 32.6 (27.0-34.0) pg MCHC 33.3 (33.0-35.0) g/dL Plt Count 224 (150-450) 10^3/uL Neut % (Auto) 59.2 (42.2-75.2) % Lymph % (Auto) 25.8 (20.5-50.1) % Mills % (Auto) 7.4 (2-8) % Eos % (Auto) 6.6 H (1.0-3.0) % Baso % (Auto) 1.0 (0.0-1.0) % Sodium (135-145) mmol/L Potassium (3.6-5.0) mmol/L Chloride (101-111) mmol/L Carbon Dioxide (21.0-31.0) mmol/L Anion Gap BUN (7-18) mg/dL Creatinine (0.6-1.3) mg/dL Est Cr Clr Drug Dosing mL/min Estimated GFR (MDRD) BUN/Creatinine Ratio Glucose (74-105) mg/dL Lactic Acid 1.3 (0.5-2.2) mmol/L Calcium (8.4-10.2) mg/dl Total Bilirubin (0.2-1.0) mg/dL AST (10-42) IU/L ALT (10-60) IU/L Alkaline Phosphatase (42-121) IU/L Troponin I (0.00-0.02) ng/ml B-Natriuretic Peptide (0-100) pg/ml Total Protein (6.7-8.2) g/dl Albumin (3.2-5.5) g/dl Globulin Albumin/Globulin Ratio Urine Color Light yellow (YELLOW) Urine Appearance Slightly cloudy (CLEAR) Urine pH 6.5 (5.0-9.0) Ur Specific [place] <= 1.005 (1.005-1.030) Urine Protein Negative (NEGATIVE) Urine Glucose (UA) Negative (NEGATIVE) Urine Ketones Negative (NEGATIVE) Urine Occult Blood Small H (NEGATIVE) Urine Nitrite Negative (NEGATIVE) Urine Bilirubin Negative (NEGATIVE) Urine Urobilinogen 0.2 (0.2-1.0) mg/dL Ur Leukocyte Esterase Trace H (NEGATIVE) Urine RBC 0-5 /HPF Urine WBC 0-5 (0-5/HPF) /HPF Ur Epithelial Cells Moderate H /HPF Urine Bacteria Few (0-FEW/HPF) /HPF Urine Mucus Rare /LPF 04/03/17 Range/Units 17:32 WBC (5.0-10.0) 10^3/uL RBC (4.2-5.4) 10^6/uL Hgb (12.0-16.0) g/dL Hct (37.0-47.0) % MCV (80-100) fL MCH (27.0-34.0) pg MCHC (33.0-35.0) g/dL Plt Count (150-450) 10^3/uL Neut % (Auto) (42.2-75.2) % Lymph % (Auto) (20.5-50.1) % Mills % (Auto) (2-8) % Eos % (Auto) (1.0-3.0) % Baso % (Auto) (0.0-1.0) % Sodium 143 (135-145) mmol/L Potassium 3.7 (3.6-5.0) mmol/L Chloride 102 (101-111) mmol/L Carbon Dioxide 28.0 (21.0-31.0) mmol/L Anion Gap 16.7 BUN 11 (7-18) mg/dL Creatinine 1.3 (0.6-1.3) mg/dL Est Cr Clr Drug Dosing 33.28 mL/min Estimated GFR (MDRD) 40 BUN/Creatinine Ratio 8.46 Glucose 101 (74-105) mg/dL Lactic Acid (0.5-2.2) mmol/L Calcium 9.5 (8.4-10.2) mg/dl Total Bilirubin 0.6 (0.2-1.0) mg/dL AST 21 (10-42) IU/L ALT 12 (10-60) IU/L Alkaline Phosphatase 46 (42-121) IU/L Troponin I 0.02 (0.00-0.02) ng/ml B-Natriuretic Peptide 55 (0-100) pg/ml Total Protein 7.0 (6.7-8.2) g/dl Albumin 3.8 (3.2-5.5) g/dl Globulin 3.2 Albumin/Globulin Ratio 1.19 Urine Color (YELLOW) Urine Appearance (CLEAR) Urine pH (5.0-9.0) Ur Specific [place] (1.005-1.030) Urine Protein (NEGATIVE) Urine Glucose (UA) (NEGATIVE) Urine Ketones (NEGATIVE) Urine Occult Blood (NEGATIVE) Urine Nitrite (NEGATIVE) Urine Bilirubin (NEGATIVE) Urine Urobilinogen (0.2-1.0) mg/dL Ur Leukocyte Esterase (NEGATIVE) Urine RBC /HPF Urine WBC (0-5/HPF) /HPF Ur Epithelial Cells /HPF Urine Bacteria (0-FEW/HPF) /HPF Urine Mucus /LPF Meds: Medications Discontinued Medications Generic Name Dose Route Start Last Admin Trade Name Freq PRN Reason Stop Dose Admin Acetaminophen 650 mg 04/03/17 21:01 04/06/17 01:59 Tylenol PO 650 mg Q4H PRN Administration Pain (mild 1-3 )/fever Albuterol 0 gm 04/03/17 21:07 Proventil Hfa INH Q4HR PRN Shortness of Breath Albuterol 0.63 mg 04/03/17 21:08 04/03/17 23:13 Proventil Neb Soln NEB 0.63 mg Q4HRRT PRN Administration Shortness of Breath Albuterol 2.5 mg 04/04/17 11:00 04/04/17 11:02 Proventil Neb Soln NEB Not Given Q4HRRT R[place] Albuterol 2.5 mg 04/04/17 11:35 Proventil Neb Soln NEB Q4H PRN Shortness of Breath Albuterol/Ipratropium 3 ml 04/03/17 17:12 04/03/17 17:40 Duoneb 3.0-0.5 Mg/3 Ml NEB 04/03/17 17:13 3 ml ONETIME ONE Administration Albuterol/Ipratropium 3 ml 04/03/17 19:10 04/03/17 19:18 Duoneb 3.0-0.5 Mg/3 Ml NEB 04/03/17 19:11 3 ml ONETIME ONE Administration Albuterol/Ipratropium 3 ml 04/04/17 07:00 04/06/17 07:20 Duoneb 3.0-0.5 Mg/3 Ml NEB 3 ml QIDRT R[place] Administration Aspirin 81 mg 04/03/17 21:15 04/06/17 09:36 Aspirin PO 81 mg BRK R[place]ON Administration Budesonide 0.5 mg 04/04/17 07:00 04/06/17 07:20 Pulmicort NEB 0.5 mg BIDRT [place] Administration Docusate Sodium 100 mg 04/03/17 21:01 Colace PO DAILY PRN Constipation Furosemide 20 mg 04/04/17 09:00 04/06/17 09:36 Lasix PO 20 mg DAILY R[place] Administration Heparin Sodium (Porcine) 5,000 units 04/03/17 22:00 04/06/17 06:03 Heparin Sodium SUBCUT 5,000 units Q8H [place] Administration Levofloxacin/Dextrose 500 mg/ 100 mls @ 100 mls/hr 04/03/17 19:07 04/03/17 19 :15 Premix IV 04/03/17 20:06 100 mls/hr ONETIME ONE Administration Levofloxacin/Dextrose 750 mg/ 150 mls @ 100 mls/hr 04/04/17 19:00 Premix IV Q24H R[place]ON Levofloxacin/Dextrose 500 mg/ 100 mls @ 100 mls/hr 04/04/17 10:30 04/05/17 06 :51 Premix IV Not Given Q24H R[place] Levofloxacin/Dextrose 500 mg/ 100 mls @ 100 mls/hr 04/04/17 18:00 04/05/17 17 :52 Premix IV 100 mls/hr Q24H [place] Administration Levothyroxine Sodium 62.5 mcg 04/04/17 06:00 04/06/17 06:05 Levothyroxine PO 62.5 mcg ACBREAKFAST [place] Administration Methylprednisolone Sodium Succinate 125 mg 04/03/17 17:12 04/03/17 17:38 Solu-Medrol IVPUSH 04/03/17 17:13 125 mg ONETIME ONE Administration Methylprednisolone Sodium Succinate 60 mg 04/04/17 01:00 04/05/17 13:47 Solu-Medrol IVPUSH 60 mg Q6H [place] Administration Methylprednisolone Sodium Succinate 40 mg 04/05/17 21:00 04/06/17 05:53 Solu-Medrol IVPUSH 40 mg Q8H [place] Administration Metoprolol Tartrate 25 mg 04/04/17 09:00 04/06/17 09:36 Lopressor PO 25 mg DAILY R[place] Administration Nicotine 14 mg 04/04/17 09:00 04/06/17 09:37 Habitrol TRDERM 14 mg DAILY R[place] Administration Sodium Chloride 10 ml 04/03/17 17:12 04/06/17 05:55 Saline Flush FLUSH 10 ml ASDIRECTED PRN Administration Keep Vein Open - Radiology Interpretation Free Text/Narrative:: Chest x-ray: Opacity left base may represent atelectasis or pneumonia. See rad report. Departure - Departure Time of Disposition: 19:15 ((Admit Dr[address] Leyva)) Disposition: Admitted As Inpatient 64 Condition: Serious Clinical Impression: Acute exacerbation of COPD with asthma Pneumonia Qualifiers: Pneumonia type: due to unspecified organism Laterality: left Lung location: lower lobe of lung Qualified Code(s): J18.1 - Lobar pneumonia, unspecified organism - Discharge Information I have read and agree with the documentation that has been completed regarding this visit. By signing this record, I attest that the documentation was completed in my physical presence and is an accurate record of the encounter.
== END 2017-04-06 10:45 | disposition home or self-care (01) | DRG 190 ==
LOC: DL.ED 16:52 → DL.MS 19:23 → UNDOADMIN 19:23 → DL.MS 19:37
PROVIDERS: ADMIT Internal Medicine Nephrology; ATTEND Internal Medicine Nephrology
DX: J44.0 Chronic obstructive pulmonary disease with (acute) lower respiratory infection (principal); R06.02 Shortness of breath; J18.9 Pneumonia, unspecified organism; I13.0 Hypertensive heart and chronic kidney disease with heart failure and stage 1 through stage 4 chronic kidney disease, or unspecified chronic kidney disease; J44.1 Chronic obstructive pulmonary disease with (acute) exacerbation; F17.210 Nicotine dependence, cigarettes, uncomplicated; Z79.82 Long term (current) use of aspirin; J45.901 Unspecified asthma with (acute) exacerbation; E03.9 Hypothyroidism, unspecified; I10 Essential (primary) hypertension; I25.2 Old myocardial infarction; Z66 Do not resuscitate; I25.10 Atherosclerotic heart disease of native coronary artery without angina pectoris; N18.3 Chronic kidney disease, stage 3 (moderate); I50.9 Heart failure, unspecified; Z88.0 Allergy status to penicillin; Z88.8 Allergy status to other drugs, medicaments and biological substances; Z79.899 Other long term (current) drug therapy
CPT/HCPCS: 36415; 71020; 80053; 81001; 83605; 83880; 84484; 85025; 87040 ×2; 93005; 93010; 94640 ×2; 96365; 96375; 99285; J1956; J2930; J7050; 80048; A9270-GY; J1644; J2920

== ENCOUNTER 2017-05-10 12:16 | Inpatient (IN) | payer MEDICARE, SELFPAY ==
[2017-05-10] MEDS ORDERED: methylPREDNISolone Sodium Succinate 125 MG/2 ML SDV IVPUSH ONE (12:46)
[2017-05-10] MEDS ORDERED: Albuterol/Ipratropium 3.0-0.5 MG/3 ML Neb Soln NEB ONE (12:46)
--- NOTE | 2017-05-10 12:49 | EDM.PDOC ---
ED HPI GENERAL MEDICAL PROBLEM - General Chief Complaint: General Stated Complaint: COPD Time Seen by Provider: 05/10/17 12:44 Source of Information: Reports: Patient History Limitations: Reports: No Limitations - History of Present Illness INITIAL COMMENTS - FREE TEXT/NARRATIVE: 72 yo white female c/o increasing SOB since Wednesday ( 4 ) days. Pt. PMHx. COPD and continue to smoke cigs. Pt. admits to whitish sputum Onset Date: 05/07/17 Onset Time: 08:00 Duration: Day(s): Location: Reports: Chest Severity: Moderate Improves with: Reports: None Worsens with: Reports: None Associated Symptoms: Reports: cough w sputum (whitish) - Related Data Allergies Allergy/AdvReac Type Severity Reaction Status Date / Time amlodipine [From Norvasc] Allergy Cannot Verified 04/03/17 17:05 Remember cetirizine [From Zyrtec] Allergy Abdominal Verified 04/03/17 17:05 Pain Penicillins Allergy Rash Verified 04/03/17 17:05 simvastatin [From Zocor] Allergy Cannot Verified 04/03/17 17:05 Remember Home Meds: Home Meds Albuterol Sulfate [Proventil Hfa] 2 puff IH Q4HR PRN 10/21/16 [History] Albuterol/Ipratropium [DuoNeb 3.0-0.5 MG/3 ML] 3 ml NEB QID 10/21/16 [History] Aspirin 81 mg PO BRK 10/21/16 [History] Budesonide [Pulmicort] 0.5 mg NEB BIDRT 10/21/16 [History] Levothyroxine Sodium [Synthroid] 0.5 tab PO ACBREAKFAST 10/21/16 [History] Furosemide [Lasix] 20 mg PO DAILY 04/03/17 [History] Metoprolol Tartrate 25 mg PO DAILY 04/03/17 [History] Levofloxacin [Levaquin] 250 mg PO Q24H #5 tablet 04/06/17 [Rx] Prednisone [IJD: Prednisone] 10 mg PO DAILY #13 tab 04/06/17 [Rx] Past Medical History HEENT History: Reports: Impaired Vision, Other (See Below) Other HEENT History: wears glasses Cardiovascular History: Reports: Heart Failure, Hypertension, [place] Respiratory History: Reports: COPD Gastrointestinal History: Reports: None Genitourinary History: Reports: None [employer] TECHNICIAN History: Reports: None Musculoskeletal History: Reports: Fracture Neurological History: Reports: None Psychiatric History: Reports: Anxiety Endocrine/Metabolic History: Reports: Hyperthyroidism Hematologic History: Reports: None Immunologic History: Reports: None Oncologic (Cancer) History: Reports: Other (See Below) Other Oncologic History: simple vulvectomy - cancer Dermatologic History: Reports: None - Infectious Disease History Infectious Disease History: Reports: Chicken Pox, Measles, Mumps, Rubella - Past Surgical History Female Surgical History: Reports: Tubal Ligation, Other (See Below) Social & Family History - Family History Family Medical History: Noncontributory Cardiac: Reports: [place] Respiratory: Reports: COPD Neurological: Reports: CVA - Tobacco Use Smoking Status *Q: Heavy Tobacco Smoker Years of Tobacco use: 55 Packs/Tins Daily: 1 Used Tobacco, but Quit: No Second Hand Smoke Exposure: No - Caffeine Use Caffeine Use: Reports: Coffee, Soda - Recreational Drug Use Recreational Drug Use: No - Living Situation & Occupation Living situation: Reports: with Family ED ROS GENERAL - Review of Systems Review Of Systems: See Below Constitutional: Reports: Fatigue HEENT: Reports: No Symptoms Respiratory: Reports: Shortness of Breath, Wheezing, Cough, Sputum Cardiovascular: Reports: No Symptoms Endocrine: Reports: No Symptoms GI/Abdominal: Reports: No Symptoms : Reports: No Symptoms Musculoskeletal: Reports: No Symptoms Skin: Reports: No Symptoms Neurological: Reports: No Symptoms Psychiatric: Reports: No Symptoms Hematologic/Lymphatic: Reports: No Symptoms Immunologic: Reports: No Symptoms ED EXAM, GENERAL - Physical Exam Exam: See Below Exam Limited By: No Limitations General Appearance: Alert, WD/WN, No Apparent Distress Eye Exam: Bilateral Eye: EOMI, PERRL Ears: Normal External Exam Nose: Normal Inspection Throat/Mouth: Normal Inspection Head: Atraumatic Neck: Normal Inspection Respiratory/Chest: No Respiratory Distress, Rhonchi (throughout bilat lung lynch), Wheezing Cardiovascular: Normal Peripheral Pulses, Regular Rate, Rhythm GI/Abdominal: Normal Bowel Sounds Back Exam: Normal Inspection, Full Range of Motion Extremities: Normal Inspection Neurological: Alert, Oriented, CN II-XII Intact Psychiatric: Normal Affect, Normal Mood Skin Exam: Warm, Dry Lymphatic: No Adenopathy Course - Vital Signs Last Recorded V/S: Last Vital Signs Temp 36.3 C 05/10/17 13:10 Pulse 83 09/18/17 13:10 Resp 20 05/10/17 13:10 BP 147/73 H 05/10/17 13:10 Pulse Ox 93 L 05/10/17 13:10 - Orders/Labs/Meds Orders: Active Orders 24 hr Category Date Time Status RT Aerosol Therapy [RC] ASDIRECTED Care 05/10/17 12:47 Active Sodium Chloride 0.9% [Normal Saline] 250 ml Med 05/10/17 13:00 Active IV ASDIRECTED Medication Orders Sodium Chloride (Normal Saline) 250 mls @ 50 mls/hr IV ASDIRECTED [facility] Last Admin: 05/10/17 12:59 Dose: 50 mls/hr Labs: Laboratory Tests 05/10/17 05/10/17 Range/Units 12:55 12:55 WBC 9.7 (5.0-10.0) 10^3/uL RBC 4.05 L (4.2-5.4) 10^6/uL Hgb 13.1 (12.0-16.0) g/dL Hct 39.3 (37.0-47.0) % MCV 97.0 (80-100) fL MCH 32.3 (27.0-34.0) pg MCHC 33.3 (33.0-35.0) g/dL Plt Count 241 (150-450) 10^3/uL Neut % (Auto) 66.7 (42.2-75.2) % Lymph % (Auto) 22.5 (20.5-50.1) % [place] % (Auto) 7.4 (2-8) % Eos % (Auto) 2.7 (1.0-3.0) % Baso % (Auto) 0.7 (0.0-1.0) % Lactic Acid 1.8 (0.5-2.2) mmol/L Meds: Medications Generic Name Dose Route Start Last Admin Trade Name Freq PRN Reason Stop Dose Admin Sodium Chloride 250 mls @ 50 mls/hr 05/10/17 13:00 05/10/17 12:59 Normal Saline IV 50 mls/hr ASDIRECTED [facility] Administration Discontinued Medications Generic Name Dose Route Start Last Admin Trade Name Freq PRN Reason Stop Dose Admin Albuterol/Ipratropium 3 ml 05/10/17 12:46 05/10/17 13:04 Duoneb 3.0-0.5 Mg/3 Ml NEB 05/10/17 12:47 3 ml ONETIME ONE Administration Methylprednisolone Sodium Succinate 125 mg 05/10/17 12:46 05/10/17 12:56 Solu-Medrol IVPUSH 05/10/17 12:47 125 mg ONETIME ONE Administration Departure - Departure Time of Disposition: 13:55 Disposition: Admitted As Inpatient 64 Condition: Fair Clinical Impression: COPD with exacerbation - Discharge Information Referrals: Cruz Wynne MD [Physician] - Forms: ED Department Discharge - My Orders Last 24 Hours: My Active Orders 05/10/17 12:47 RT Aerosol Therapy [RC] ASDIRECTED 05/10/17 13:00 Sodium Chloride 0.9% [Normal Saline] 250 ml IV ASDIRECTED - Assessment/Plan Last 24 Hours: My Active Orders 05/10/17 12:47 RT Aerosol Therapy [RC] ASDIRECTED 05/10/17 13:00 Sodium Chloride 0.9% [Normal Saline] 250 ml IV ASDIRECTED
[2017-05-10] MEDS ORDERED: Sodium Chloride 0.9% 250 ML IV SCH (13:00)
[2017-05-10] MEDS ORDERED: Zolpidem 5 MG Tab PO PRN (15:18)
[2017-05-10] MEDS ORDERED: Ondansetron 4 MG/2 ML SDV IVPUSH PRN (15:18)
[2017-05-10] MEDS ORDERED: Polyethylene Glycol 3350 Powder 17 GM Packet PO PRN (15:18)
[2017-05-10] MEDS ORDERED: Acetaminophen 325 MG Tab PO PRN (15:18)
--- NOTE | 2017-05-10 15:34 | PCM.HP ---
H&P History of Present Illness - General Date of Service: 05/10/17 Admit Problem/Dx: Admission Diagnosis/Problem Admission Diagnosis/Problem Shortness of breath Source of Information: Patient History Limitations: Reports: No Limitations - History of Present Illness Initial Comments - Free Text/Narative: 72-year-old female with history of COPD, congestive heart failure, hypothyroidism presented to the emergency room for having shortness of breath coming from outside clinic. Patient stated that since last Wednesday she has been getting progressive shortness breaths in addition to cough with clear phlegm. She admitted chills chest heaviness from shortness of breath but no chest pain, nausea, vomiting, fever, abdominal pain, urinary symptoms, headache, eye other symptoms or concern. In the emergency room her chest x-ray did not show acute findings. CBC was unremarkable. Lactic acid is 1.8. She received Solu Medrol 125 mg IV and DuoNeb once and was admitted to the hospital. - Related Data Allergies/Adverse Reactions: Allergies Allergy/AdvReac Type Severity Reaction Status Date / Time amlodipine [From Norvasc] Allergy Cannot Verified 05/10/17 14:54 Remember cetirizine [From Zyrtec] Allergy Abdominal Verified 05/10/17 14:54 Pain Penicillins Allergy Rash Verified 05/10/17 14:54 simvastatin [From Zocor] Allergy Cannot Verified 05/10/17 14:54 Remember Home Medications: Home Meds Albuterol Sulfate [Proventil Hfa] 2 puff IH Q4HR PRN 10/21/16 [History] Albuterol/Ipratropium [DuoNeb 3.0-0.5 MG/3 ML] 3 ml NEB QID 10/21/16 [History] Aspirin 81 mg PO BRK 10/21/16 [History] Budesonide [Pulmicort] 0.5 mg NEB BIDRT 10/21/16 [History] Levothyroxine Sodium [Synthroid] 0.5 tab PO ACBREAKFAST 10/21/16 [History] Furosemide [Lasix] 20 mg PO DAILY 04/03/17 [History] Metoprolol Tartrate 25 mg PO DAILY 04/03/17 [History] Past Medical History HEENT History: Reports: Impaired Vision, Macular Degeneration, Other (See Below) Other HEENT History: wears glasses Cardiovascular History: Reports: Heart Failure, Hypertension, [place], SOB on Exertion Respiratory History: Reports: COPD Gastrointestinal History: Reports: None Genitourinary History: Reports: Urinary Incontinence 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: Musculoskeletal History: Reports: Fracture, [place] Neurological History: Reports: None Psychiatric History: Reports: Anxiety, Depression Endocrine/Metabolic History: Reports: Hyperthyroidism, Hypothyroidism, Obesity/ BMI 30+ Hematologic History: Reports: None Immunologic History: Reports: None Oncologic (Cancer) History: Reports: Other (See Below) Other Oncologic History: simple vulvectomy - cancer Dermatologic History: Reports: None - Infectious Disease History Infectious Disease History: Reports: None - Past Surgical History GI Surgical History: Reports: Appendectomy, Cholecystectomy Female Surgical History: Reports: Tubal Ligation, Other (See Below) Other Female Surgeries/Procedures: simple vulvectomy Endocrine Surgical History: Reports: Thyroidectomy Neurological Surgical History: Reports: None Musculoskeletal Surgical History: Reports: None Social & Family History - Family History Family Medical History: Noncontributory Cardiac: Reports: [place] Respiratory: Reports: COPD Neurological: Reports: CVA - Tobacco Use Smoking Status *Q: Heavy Tobacco Smoker Years of Tobacco use: 55 Packs/Tins Daily: 1 Used Tobacco, but Quit: No Second Hand Smoke Exposure: No - Caffeine Use Caffeine Use: Reports: Coffee, Soda - Recreational Drug Use Recreational Drug Use: No - Living Situation & Occupation Living situation: Reports: with Family H&P Review of Systems - Review of Systems: Review Of Systems: See Below General: Denies: Fever, Weight Loss, Weight Gain HEENT: Reports: No Symptoms Pulmonary: Denies: Pleuritic Chest Pain, Hemoptysis Cardiovascular: Denies: Chest Pain, Palpitations, Edema Gastrointestinal: Reports: No Symptoms Genitourinary: Reports: No Symptoms Musculoskeletal: Reports: No Symptoms Skin: Reports: No Symptoms Psychiatric: Reports: No Symptoms Neurological: Reports: No Symptoms Hematologic/Lymphatic: Reports: No Symptoms Immunologic: Reports: No Symptoms Exam - Exam Exam: See Below - Vital Signs Vital Signs: Last Vital Signs Temp 36.3 C 05/10/17 13:10 Pulse 83 05/10/17 13:10 Resp 20 05/10/17 13:10 BP 147/73 H 05/10/17 13:10 Pulse Ox 93 L 05/10/17 13:10 Weight: 91.172 kg - Exam General: Alert, Oriented, Cooperative, Mild Distress. No: Severe Distress, Sedated, Lethargic, Obtunded HEENT: Conjunctiva Clear, EACs Clear, EOMI, Hearing Intact, Mucosa Moist & [place] , Nares Patent, Normal Nasal Septum, Posterior Pharynx Clear, Pupils Equal, Pupils Reactive, TMs Clear Neck: Supple, Trachea Midline. No: JVD Lungs: Decreased Breath Sounds (Global with fair air exchange), Rhonchi, Wheezing. No: Crackles, Rales, Stridor GI/Abdominal Exam: Normal Bowel Sounds, Soft, Non-Tender, No Organomegaly, No Distention, No Abnormal Bruit, No Mass, Pelvis Stable (Female) Exam: Deferred Rectal (Female) Exam: Deferred Back Exam: Normal Inspection, Full Range of Motion Extremities: Normal Inspection, Normal Range of Motion, Non-Tender, Normal Capillary Refill, Pedal Edema (+1 bilateral) Skin: Warm, Dry, Intact Neurological: Cranial Nerves Intact, Reflexes Equal Bilateral Neuro Extensive - Mental Status: Alert, Oriented x3, Normal Mood/Affect Neuro Extensive - Motor, Sensory, Reflexes: CN II-XII Intact, Normal Gait, Normal Reflexes Psychiatric: Alert, Normal Affect, Normal Mood - Patient Data Result Diagrams: 05/10/17 12:55 *Q Meaningful Use (ADM) - VTE *Q VTE Criteria *Q: - Stroke *Q Stroke Criteria *Q: - AMI *Q AMI Criteria *Q: - Problem List (1) COPD with exacerbation SNOMED Code(s): 973109549, [id number] ICD Code: J44.1 - CHRONIC OBSTRUCTIVE PULMONARY DISEASE W (ACUTE) EXACERBATION Status: Acute Current Visit: Yes Problem List Initiated/Reviewed/Updated: Yes Orders Last 24hrs: Active Orders 24 hr Category Date Time Status Patient Status [ADT] Routine ADT 05/10/17 15:18 Active Height and Weight [RC] DAILY Care 05/10/17 15:18 Ordered Intake and Output [RC] Q6H Care 05/10/17 15:21 Ordered Notify Provider Vital Signs [RC] ASDIRECTED Care 05/10/17 15:22 Ordered Oxygen Therapy [RC] PRN Care 05/10/17 15:18 Ordered Pulse Oximetry [RC] PRN Care 05/10/17 15:21 Ordered RT Aerosol Therapy [RC] ASDIRECTED Care 05/10/17 15:25 Ordered Up ad Yen [RC] ASDIRECTED Care 05/10/17 15:18 Ordered VTE/DVT Education [RC] PER UNIT ROUTINE Care 05/10/17 15:18 Ordered Vital Signs [RC] Q4H Care 05/10/17 15:18 Ordered 2 Gram Sodium Diet [DIET] Diet 05/10/17 Breakfast Active B-TYPE NATRIURETIC PEPTIDE,BNP [CHEM] AM Lab 05/11/17 05:11 Ordered CBC WITH AUTO DIFF [HEME] AM Lab 05/11/17 05:11 Ordered COMPREHENSIVE METABOLIC PN,CMP [CHEM] AM Lab 05/11/17 05:11 Ordered MAGNESIUM [CHEM] AM Lab 05/11/17 05:11 Ordered Acetaminophen [Tylenol] Med 05/10/17 15:18 Ordered 650 mg PO Q4H PRN Albuterol/Ipratropium [DuoNeb 3.0-0.5 MG/3 ML] Med 05/10/17 15:30 Ordered 3 ml NEB Q4H Enoxaparin [Lovenox] Med 05/11/17 09:00 Ordered 40 mg SUBCUT DAILY Levofloxacin/Dextrose 5%-Water [Levaquin in D5W 500 MG/ Med 05/10/17 15:30 Ordered 100 ML] 500 mg Premix Bag 1 bag IV Q24H Nicotine [Habitrol] Med 05/11/17 09:00 Ordered 14 mg TRDERM DAILY Ondansetron [Zofran] Med 05/10/17 15:18 Ordered 4 mg IVPUSH Q6H PRN Polyethylene Glycol 3350 [MiraLAX] Med 05/10/17 15:18 Ordered 17 gm PO DAILY PRN Sodium Chloride 0.9% [Saline Flush] Med 05/10/17 15:18 Ordered 10 ml FLUSH ASDIRECTED PRN Zolpidem [Ambien] Med 05/10/17 15:18 Ordered 5 mg PO BEDTIME PRN methylPREDNISolone Sod Succ [Solu-MEDROL] Med 05/10/17 15:30 Ordered 125 mg IVPUSH Q12H Saline Lock Insert [OM.PC] Routine Oth 05/10/17 15:18 Ordered Resuscitation Status Routine Resus Stat 05/10/17 15:18 Ordered Medication Orders Acetaminophen (Tylenol) 650 mg PO Q4H PRN PRN Reason: Pain (Mild 1-3)/fever Albuterol/Ipratropium (Duoneb 3.0-0.5 Mg/3 Ml) 3 ml NEB Q4H [facility] Enoxaparin Sodium (Lovenox) 40 mg SUBCUT DAILY [facility] Sodium Chloride (Normal Saline) 250 mls @ 50 mls/hr IV ASDIRECTED [facility] Last Admin: 05/10/17 12:59 Dose: 50 mls/hr Levofloxacin/Dextrose 500 mg/ (Premix) 100 mls @ 100 mls/hr IV Q24H [facility] Methylprednisolone Sodium Succinate (Solu-Medrol) 125 mg IVPUSH Q12H [facility] Nicotine (Habitrol) 14 mg TRDERM DAILY [facility] Ondansetron HCl (Zofran) 4 mg IVPUSH Q6H PRN PRN Reason: Nausea/Vomiting Polyethylene Glycol (Miralax) 17 gm PO DAILY PRN PRN Reason: Constipation Sodium Chloride (Saline Flush) 10 ml FLUSH ASDIRECTED PRN PRN Reason: Keep Vein Open Zolpidem Tartrate (Ambien) 5 mg PO BEDTIME PRN PRN Reason: Sleep Assessment/Plan Comment:: Assessment and plan Chronic obstructive pulmonary disease with exacerbation -DuoNeb every 4 hours -Solu-Medrol 125 mg twice a day IV -Levaquin 500 mg IV daily Incentive spirometer Continue Pulmicort Nasal oxygen per nasal cannula Tessalon and Robitussin for cough as needed Tobacco abuse She was counseled to quit smoking Nicotine patch Chronic congestive heart failure Continue Lasix 20 mg by mouth daily and metoprolol tartrate 25 mg by mouth daily Check BNP History of coronary artery disease Continue metoprolol and aspirin Hypothyroidism Continue levothyroxine She wants to be DNR for CODE STATUS Lovenox for DVT prophylaxis
[2017-05-10] MEDS ORDERED: Albuterol 6.7 GM Inhaler INH PRN (15:35)
[2017-05-10] MEDS ORDERED: guaiFENesin 100 MG/5 ML Soln 5 ML UD Cup PO PRN (15:39)
[2017-05-10] MEDS ORDERED: Benzonatate 100 MG Cap PO PRN (15:39)
[2017-05-10] MEDS: Levofloxacin/Dextrose 5%-Water 500 MG in Premix Bag 1 BAG IV SCH (16:14)
[2017-05-10] MEDS: Budesonide 0.5 MG/2 ML Neb Susp NEB SCH (17:14)
[2017-05-10] MEDS: Albuterol/Ipratropium 3.0-0.5 MG/3 ML Neb Soln NEB SCH ×3 (17:15→22:36)
[2017-05-10] MEDS: Sodium Chloride 0.9% 10 ML Syringe FLUSH PRN ×2 (20:31→20:42)
[2017-05-10] MEDS: methylPREDNISolone Sodium Succinate 125 MG/2 ML SDV IVPUSH SCH (20:32)
[2017-05-11] MEDS: Albuterol/Ipratropium 3.0-0.5 MG/3 ML Neb Soln NEB SCH ×6 (02:19→22:46)
[2017-05-11] MEDS: Levothyroxine 125 MCG Tab PO SCH (05:43)
[2017-05-11] MEDS: Budesonide 0.5 MG/2 ML Neb Susp NEB SCH ×2 (07:44→18:18)
[2017-05-11] MEDS: Aspirin 81 MG Tab.Chew PO SCH (08:58)
[2017-05-11] MEDS: Furosemide 20 MG Tab PO SCH (08:59)
[2017-05-11] MEDS: Nicotine 14 MG/24 Hr Patch TRDERM SCH (08:59)
[2017-05-11] MEDS: Enoxaparin 40 MG/0.4 ML Syringe SUBCUT SCH (09:00)
[2017-05-11] MEDS: Metoprolol Tartrate 25 MG Tab PO SCH (09:00)
[2017-05-11] MEDS: methylPREDNISolone Sodium Succinate 125 MG/2 ML SDV IVPUSH SCH ×2 (09:00→21:23)
[2017-05-11] MEDS: Sodium Chloride 0.9% 10 ML Syringe FLUSH PRN ×4 (09:01→17:06)
[2017-05-11] MEDS ORDERED: Magnesium Sulfate/Water 2 GM in Premix Bag 1 BAG IV ONE (11:10)
--- NOTE | 2017-05-11 14:34 | PCM.PN ---
- General Info Date of Service: 05/11/17 Admission Dx/Problem (Free Text): Admission Diagnosis/Problem Admission Diagnosis/Problem Shortness of breath Subjective Update: Patient stated that she is feeling better her cough and shortness breath and chest heaviness improved. She denies chest pain, even, chills, nausea, vomiting , abdominal pain, urinary symptoms, unilateral weakness/numbness/tingling, any other symptoms or concerns. - Patient Data Vitals - Most Recent: Last Vital Signs Temp 36.9 C 05/11/17 11:01 Pulse 87 05/11/17 11:01 Resp 20 05/11/17 11:01 BP 135/76 05/11/17 11:01 Pulse Ox 95 05/11/17 11:01 Weight - Most Recent: 91.354 kg I&O - Last 24 Hours: Intake & Output 05/10/17 05/11/17 05/11/17 22:59 06:59 14:59 Intake Total 166 448 3532 Output Total 500 775 800 Balance 350 -75 249 Lab Results Last 24 Hours: Laboratory Results - last 24 hr 05/11/17 05/11/17 Range/Units 06:13 06:13 WBC 10.7 H (5.0-10.0) 10^3/uL RBC 4.01 L (4.2-5.4) 10^6/uL Hgb 12.9 (12.0-16.0) g/dL Hct 38.8 (37.0-47.0) % MCV 96.8 (80-100) fL MCH 32.2 (27.0-34.0) pg MCHC 33.2 (33.0-35.0) g/dL Plt Count 233 (150-450) 10^3/uL Neut % (Auto) 92.4 H (42.2-75.2) % Lymph % (Auto) 6.0 L (20.5-50.1) % [place] % (Auto) 1.3 L (2-8) % Eos % (Auto) 0.1 L (1.0-3.0) % Baso % (Auto) 0.2 (0.0-1.0) % Add Manual Diff Yes Neutrophils % (Manual) 87 % Band Neutrophils % 7 % Lymphocytes % (Manual) 6 % Sodium 141 (135-145) mmol/L Potassium 4.3 (3.6-5.0) mmol/L Chloride 104 (101-111) mmol/L Carbon Dioxide 23.0 (21.0-31.0) mmol/L Anion Gap 18.3 BUN 17 (7-18) mg/dL Creatinine 1.2 (0.6-1.3) mg/dL Est Cr Clr Drug Dosing 35.52 mL/min Estimated GFR (MDRD) 44 BUN/Creatinine Ratio 14.16 Glucose 211 H (74-105) mg/dL Calcium 9.5 (8.4-10.2) mg/dl Magnesium 1.7 L (1.8-2.5) mg/dL Total Bilirubin 0.5 (0.2-1.0) mg/dL AST 25 (10-42) IU/L ALT 13 (10-60) IU/L Alkaline Phosphatase 47 (42-121) IU/L B-Natriuretic Peptide 155 H (0-100) pg/ml Total Protein 6.5 L (6.7-8.2) g/dl Albumin 3.6 (3.2-5.5) g/dl Globulin 2.9 Albumin/Globulin Ratio 1.24 Med Orders - Current: Current Medications Acetaminophen (Tylenol) 650 mg PO Q4H PRN PRN Reason: Pain (Mild 1-3)/fever Albuterol (Proventil Hfa) 0 gm INH Q4HR PRN PRN Reason: Shortness of Breath Albuterol/Ipratropium (Duoneb 3.0-0.5 Mg/3 Ml) 3 ml NEB Q4HRRT [facility] Last Admin: 05/11/17 11:33 Dose: 3 ml Aspirin (Aspirin) 81 mg PO BRK [facility] Last Admin: 05/11/17 08:58 Dose: 81 mg Benzonatate (Tessalon Perles) 100 mg PO QID PRN PRN Reason: Cough Budesonide (Pulmicort) 0.5 mg NEB BIDRT [facility] Last Admin: 05/11/17 07:44 Dose: 0.5 mg Enoxaparin Sodium (Lovenox) 40 mg SUBCUT DAILY [facility] Last Admin: 05/11/17 09:00 Dose: 40 mg Furosemide (Lasix) 20 mg PO DAILY [facility] Last Admin: 05/11/17 08:59 Dose: 20 mg Guaifenesin (Robitussin) 100 mg PO Q6H PRN PRN Reason: Cough Sodium Chloride (Normal Saline) 250 mls @ 50 mls/hr IV ASDIRECTED [facility] Last Infusion: 05/10/17 19:51 Dose: Infused Levofloxacin/Dextrose 500 mg/ (Premix) 100 mls @ 100 mls/hr IV Q24H [facility] Last Infusion: 05/10/17 19:50 Dose: Infused Levothyroxine Sodium (Levothyroxine) 62.5 mcg PO ACBREAKFAST [facility] Last Admin: 05/11/17 05:43 Dose: 62.5 mcg Methylprednisolone Sodium Succinate (Solu-Medrol) 125 mg IVPUSH Q12HR [facility] Last Admin: 05/11/17 09:00 Dose: 125 mg Metoprolol Tartrate (Lopressor) 25 mg PO DAILY [facility] Last Admin: 05/11/17 09:00 Dose: 25 mg Nicotine (Habitrol) 14 mg TRDERM DAILY [facility] Last Admin: 05/11/17 08:59 Dose: 14 mg Ondansetron HCl (Zofran) 4 mg IVPUSH Q6H PRN PRN Reason: Nausea/Vomiting Polyethylene Glycol (Miralax) 17 gm PO DAILY PRN PRN Reason: Constipation Sodium Chloride (Saline Flush) 10 ml FLUSH ASDIRECTED PRN PRN Reason: Keep Vein Open Last Admin: 05/11/17 12:32 Dose: 10 ml Zolpidem Tartrate (Ambien) 5 mg PO BEDTIME PRN PRN Reason: Sleep Discontinued Medications Albuterol/Ipratropium (Duoneb 3.0-0.5 Mg/3 Ml) 3 ml NEB ONETIME ONE Stop: 05/10/17 12:47 Last Admin: 05/10/17 13:04 Dose: 3 ml Magnesium Sulfate 2 gm/ Premix 50 mls @ 25 mls/hr IV ONETIME ONE Stop: 05/11/17 13:09 Last Infusion: 05/11/17 14:15 Dose: 25 mls/hr Methylprednisolone Sodium Succinate (Solu-Medrol) 125 mg IVPUSH ONETIME ONE Stop: 05/10/17 12:47 Last Admin: 05/10/17 12:56 Dose: 125 mg - Exam General: Alert, Oriented, Cooperative, No Acute Distress HEENT: Pupils Equal, Pupils Reactive, EOMI, Mucous Membr. Moist/[place] Neck: Supple, Trachea Midline, No JVD Lungs: Normal Respiratory Effort, Decreased Breath Sounds, Rhonchi, Wheezing. No: Crackles, Rales Cardiovascular: Regular Rate, Regular Rhythm GI/Abdominal Exam: Normal Bowel Sounds, Soft, Non-Tender, No Organomegaly, No Distention, No Abnormal Bruit, No Mass Back Exam: Normal Inspection, Full Range of Motion Extremities: Normal Inspection, Normal Range of Motion, Non-Tender, No Pedal Edema, Normal Capillary Refill Skin: Warm, Dry, Intact Neurological: No New Focal Deficit Psy/Mental Status: Alert, Normal Affect - Problem List & Annotations (1) COPD with exacerbation SNOMED Code(s): 387329438, 732102615 Code(s): J44.1 - CHRONIC OBSTRUCTIVE PULMONARY DISEASE W (ACUTE) EXACERBATION Status: Acute Current Visit: Yes - Problem List Review Problem List Initiated/Reviewed/Updated: Yes - My Orders Last 24 Hours: My Active Orders 05/10/17 15:35 Albuterol [Proventil HFA] 0 gm INH Q4HR PRN 05/10/17 15:39 Benzonatate [Tessalon Perles] 100 mg PO QID PRN guaiFENesin [Robitussin] 100 mg PO Q6H PRN 05/10/17 16:00 Levofloxacin/Dextrose 5%-Water [Levaquin in D5W 500 MG/100 ML] 500 mg Premix Bag 1 bag IV Q24H 05/10/17 17:15 RT Chest Physiotherapy [RC] ASDIRECTED 05/10/17 18:00 Budesonide [Pulmicort] 0.5 mg NEB BIDRT 05/10/17 21:00 methylPREDNISolone Sod Succ [Solu-MEDROL] 125 mg IVPUSH Q12HR 05/11/17 06:00 Levothyroxine 62.5 mcg PO ACBREAKFAST 05/11/17 08:00 Aspirin 81 mg PO BRK 05/11/17 09:00 Furosemide [Lasix] 20 mg PO DAILY Metoprolol Tartrate [Lopressor] 25 mg PO DAILY - Plan Plan:: Assessment and plan Chronic obstructive pulmonary disease with exacerbation -Continue DuoNeb every 4 hours -Continue Solu-Medrol 125 mg twice a day IV -Continue Levaquin 500 mg IV daily Incentive spirometer Continue Pulmicort Nasal oxygen per nasal cannula Tessalon and Robitussin for cough as needed -Patient declined to be on Spiriva stating that she does not like using it because it makes her mouth dry. Tobacco abuse She was counseled to quit smoking Nicotine patch Chronic congestive heart failure Continue Lasix 20 mg by mouth daily and metoprolol tartrate 25 mg by mouth daily BNP is slightly elevated History of coronary artery disease Continue metoprolol and aspirin Hypothyroidism Continue levothyroxine She wants to be DNR for CODE STATUS Lovenox for DVT prophylaxis
[2017-05-11] MEDS: Levofloxacin/Dextrose 5%-Water 500 MG in Premix Bag 1 BAG IV SCH (16:02)
[2017-05-12] MEDS: Albuterol/Ipratropium 3.0-0.5 MG/3 ML Neb Soln NEB SCH ×6 (02:49→22:52)
[2017-05-12] MEDS: Levothyroxine 125 MCG Tab PO SCH (05:53)
[2017-05-12] MEDS: Budesonide 0.5 MG/2 ML Neb Susp NEB SCH ×2 (07:24→18:36)
[2017-05-12] MEDS: Aspirin 81 MG Tab.Chew PO SCH (08:14)
[2017-05-12] MEDS: Furosemide 20 MG Tab PO SCH (08:15)
[2017-05-12] MEDS: Nicotine 14 MG/24 Hr Patch TRDERM SCH (08:15)
[2017-05-12] MEDS: Metoprolol Tartrate 25 MG Tab PO SCH (08:20)
[2017-05-12] MEDS: Sodium Chloride 0.9% 10 ML Syringe FLUSH PRN ×3 (08:21→17:14)
[2017-05-12] MEDS: Enoxaparin 40 MG/0.4 ML Syringe SUBCUT SCH (08:21)
[2017-05-12] MEDS: methylPREDNISolone Sodium Succinate 125 MG/2 ML SDV IVPUSH SCH (08:22)
[2017-05-12] MEDS: Lisinopril 5 MG Tab PO SCH (10:46)
--- NOTE | 2017-05-12 13:36 | PCM.PN ---
- General Info Date of Service: 05/12/17 Admission Dx/Problem (Free Text): Admission Diagnosis/Problem Admission Diagnosis/Problem Shortness of breath Subjective Update: Patient stated that she is feeling much better better. her cough and shortness breath and chest heaviness is improving. She still gets short of breath when she moves around.. She denies chest pain, fever, chills, nausea, vomiting, abdominal pain, urinary symptoms, unilateral weakness/numbness/tingling, any other symptoms or concerns. - Patient Data Vitals - Most Recent: Last Vital Signs Temp 36.5 C 05/12/17 11:27 Pulse 77 05/12/17 11:27 Resp 20 05/12/17 11:27 BP 147/78 H 05/12/17 11:27 Pulse Ox 97 05/12/17 11:27 Weight - Most Recent: 91.682 kg I&O - Last 24 Hours: Intake & Output 05/11/17 05/12/17 05/12/17 22:59 06:59 14:59 Intake Total 930 450 450 Output Total 1250 1150 Balance -320 -700 450 Med Orders - Current: Current Medications Acetaminophen (Tylenol) 650 mg PO Q4H PRN PRN Reason: Pain (Mild 1-3)/fever Albuterol (Proventil Hfa) 0 gm INH Q4HR PRN PRN Reason: Shortness of Breath Albuterol/Ipratropium (Duoneb 3.0-0.5 Mg/3 Ml) 3 ml NEB Q4HRRT [facility] Last Admin: 05/12/17 11:17 Dose: 3 ml Aspirin (Aspirin) 81 mg PO BRK [facility] Last Admin: 05/12/17 08:14 Dose: 81 mg Benzonatate (Tessalon Perles) 100 mg PO QID PRN PRN Reason: Cough Budesonide (Pulmicort) 0.5 mg NEB BIDRT [facility] Last Admin: 05/12/17 07:24 Dose: 0.5 mg Enoxaparin Sodium (Lovenox) 40 mg SUBCUT DAILY [facility] Last Admin: 05/12/17 08:21 Dose: 40 mg Furosemide (Lasix) 20 mg PO DAILY [facility] Last Admin: 05/12/17 08:15 Dose: 20 mg Guaifenesin (Robitussin) 100 mg PO Q6H PRN PRN Reason: Cough Sodium Chloride (Normal Saline) 250 mls @ 50 mls/hr IV ASDIRECTED [facility] Last Infusion: 05/10/17 19:51 Dose: Infused Levofloxacin/Dextrose 500 mg/ (Premix) 100 mls @ 100 mls/hr IV Q24H [facility] Last Infusion: 05/11/17 17:05 Dose: Infused Levothyroxine Sodium (Levothyroxine) 62.5 mcg PO ACBREAKFAST [facility] Last Admin: 05/12/17 05:53 Dose: 62.5 mcg Lisinopril (Prinivil) 5 mg PO DAILY [facility] Last Admin: 05/12/17 10:46 Dose: 5 mg Methylprednisolone Sodium Succinate (Solu-Medrol) 125 mg IVPUSH Q12HR [facility] Last Admin: 05/12/17 08:22 Dose: 125 mg Metoprolol Tartrate (Lopressor) 25 mg PO DAILY [facility] Last Admin: 05/12/17 08:20 Dose: 25 mg Nicotine (Habitrol) 14 mg TRDERM DAILY [facility] Last Admin: 05/12/17 08:15 Dose: 14 mg Ondansetron HCl (Zofran) 4 mg IVPUSH Q6H PRN PRN Reason: Nausea/Vomiting Polyethylene Glycol (Miralax) 17 gm PO DAILY PRN PRN Reason: Constipation Sodium Chloride (Saline Flush) 10 ml FLUSH ASDIRECTED PRN PRN Reason: Keep Vein Open Last Admin: 05/12/17 08:21 Dose: 10 ml Zolpidem Tartrate (Ambien) 5 mg PO BEDTIME PRN PRN Reason: Sleep Discontinued Medications Albuterol/Ipratropium (Duoneb 3.0-0.5 Mg/3 Ml) 3 ml NEB ONETIME ONE Stop: 05/10/17 12:47 Last Admin: 05/10/17 13:04 Dose: 3 ml Magnesium Sulfate 2 gm/ Premix 50 mls @ 25 mls/hr IV ONETIME ONE Stop: 05/11/17 13:09 Last Infusion: 05/11/17 16:48 Dose: Infused Methylprednisolone Sodium Succinate (Solu-Medrol) 125 mg IVPUSH ONETIME ONE Stop: 05/10/17 12:47 Last Admin: 05/10/17 12:56 Dose: 125 mg - Exam General: Alert, Oriented, Cooperative, No Acute Distress. No: Moderate Distress , Severe Distress, Sedated, Lethargic, Obtunded HEENT: Pupils Equal, Pupils Reactive, EOMI, Mucous Membr. Moist/[place] Neck: Supple, Trachea Midline, No JVD Lungs: Decreased Breath Sounds (Improved), Rhonchi (Improved), Wheezing. No: Crackles, Rales, Rub, Stridor Cardiovascular: Regular Rate, Regular Rhythm GI/Abdominal Exam: Normal Bowel Sounds, Soft, Non-Tender, No Organomegaly, No Distention, No Abnormal Bruit, No Mass, Pelvis Stable Back Exam: Normal Inspection, Full Range of Motion Extremities: Normal Inspection, Normal Range of Motion, Non-Tender, No Pedal Edema, Normal Capillary Refill Skin: Warm, Dry, Intact Neurological: No New Focal Deficit Psy/Mental Status: Alert, Normal Affect - Problem List & Annotations (1) COPD with exacerbation SNOMED Code(s): 058439467, 730810543 Code(s): J44.1 - CHRONIC OBSTRUCTIVE PULMONARY DISEASE W (ACUTE) EXACERBATION Status: Acute Current Visit: Yes - Problem List Review Problem List Initiated/Reviewed/Updated: Yes - My Orders Last 24 Hours: My Active Orders 05/12/17 10:30 Lisinopril [Prinivil] 5 mg PO DAILY - Plan Plan:: Assessment and plan Chronic obstructive pulmonary disease with exacerbation -Continue DuoNeb every 4 hours -Change Solu-Medrol to oral prednisone 40 mg daily -Continue Levaquin 500 mg IV daily Incentive spirometer Continue Pulmicort Nasal oxygen per nasal cannula Tessalon and Robitussin for cough as needed -Patient declined to be on Spiriva stating that she does not like using it because it makes her mouth dry. 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 Tobacco abuse She was counseled to quit smoking Nicotine patch Chronic congestive heart failure Continue Lasix 20 mg by mouth daily and metoprolol tartrate 25 mg by mouth daily BNP is slightly elevated History of coronary artery disease Continue metoprolol and aspirin Hypothyroidism Continue levothyroxine She wants to be DNR for CODE STATUS Lovenox for DVT prophylaxis
[2017-05-12] MEDS: Levofloxacin/Dextrose 5%-Water 500 MG in Premix Bag 1 BAG IV SCH (16:14)
[2017-05-12] MEDS: predniSONE 20 MG Tab PO SCH (21:59)
[2017-05-13] MEDS: Albuterol/Ipratropium 3.0-0.5 MG/3 ML Neb Soln NEB SCH ×3 (03:05→12:14)
[2017-05-13] MEDS: Levothyroxine 125 MCG Tab PO SCH (05:19)
[2017-05-13] MEDS: Budesonide 0.5 MG/2 ML Neb Susp NEB SCH (08:20)
[2017-05-13] MEDS: Enoxaparin 40 MG/0.4 ML Syringe SUBCUT SCH (09:26)
[2017-05-13] MEDS: Furosemide 20 MG Tab PO SCH (09:26)
[2017-05-13] MEDS: Nicotine 14 MG/24 Hr Patch TRDERM SCH (09:27)
[2017-05-13] MEDS: Metoprolol Tartrate 25 MG Tab PO SCH (09:27)
[2017-05-13] MEDS: Aspirin 81 MG Tab.Chew PO SCH (09:27)
[2017-05-13] MEDS: Lisinopril 5 MG Tab PO SCH (09:28)
[2017-05-13] MEDS: predniSONE 20 MG Tab PO SCH (09:28)
[2017-05-13 11:55] VITALS: BP 134/78
--- NOTE | 2017-05-13 11:56 | PCM.DCSUM1 ---
Discharge Summary - Hospital Course Free Text/Narrative:: 72-year-old female with history of COPD, congestive heart failure, hypothyroidism presented to the emergency room for having shortness of breath coming from outside clinic. Patient stated that since 05/07/17 she has was getting progressive shortness breaths in addition to cough with clear phlegm. She admitted chills chest heaviness from shortness of breath but no chest pain, nausea, vomiting, fever, abdominal pain, urinary symptoms, headache, eye other symptoms or concern. In the emergency room her chest x-ray did not show acute findings. CBC was unremarkable. Lactic acid was 1.8. She received Solu Medrol 125 mg IV and DuoNeb once and was admitted to the hospital. During hospitalization her IV steroid was changed to prednisone 40 mg daily and continued to be on DuoNeb every 4 hours. She was also started on Levaquin 500 mg daily. Patient gradually is getting better. Today she states she feels she is back to her baseline. She was able to walk to the front door of the hospital yesterday without much difficulty. She still getting short of breath with exertion. Patient declined staying 1 more day at the hospital and she insists that she goes home. She declined home health agency to participate in her medical care. Her blood pressure was elevated during the hospitalization so she started lisinopril 5 mg daily. We'll continue that upon discharge considering also having hx of ongestive heart failure. Patient was advised to follow-up with primary care provider in 5-7 days and see pulmonary as as soon as possible. - Discharge Data Discharge Date: 05/13/17 Discharge Disposition: Home, Self-Care 01 Condition: Fair - Discharge Diagnosis/Problem(s) (1) COPD with exacerbation SNOMED Code(s): 432049265, [id number] ICD Code: J44.1 - CHRONIC OBSTRUCTIVE PULMONARY DISEASE W (ACUTE) EXACERBATION Status: Acute Current Visit: Yes - Patient Instructions Diet: Heart Healthy Diet Activity: As Tolerated Showering/Bathing: May Shower Notify Provider of: Fever, Swelling and Redness, Nausea and/or Vomiting - Discharge Plan Prescriptions/Med Rec: Levofloxacin [Levaquin] 500 mg PO Q24H #3 tablet Lisinopril [Prinivil] 5 mg PO DAILY #30 tablet Nicotine [Habitrol] 14 mg TRDERM DAILY #30 patch Prednisone [IJD: predniSONE] 40 mg PO WITHBREAKFAST #5 tablet Home Medications: Home Meds Albuterol Sulfate [Proventil Hfa] 2 puff IH Q4HR PRN 10/21/16 [History] Aspirin 81 mg PO BRK 10/21/16 [History] Budesonide [Pulmicort] 0.5 mg NEB BIDRT 10/21/16 [History] Levothyroxine Sodium [Synthroid] 0.5 tab PO ACBREAKFAST 10/21/16 [History] Furosemide [Lasix] 20 mg PO DAILY 04/03/17 [History] Metoprolol Tartrate 25 mg PO DAILY 04/03/17 [History] Albuterol/Ipratropium [DuoNeb 3.0-0.5 MG/3 ML] 3 ml NEB Q4HRRT neb 05/13/17 [Rx ] Levofloxacin [Levaquin] 500 mg PO Q24H #3 tablet 05/13/17 [Rx] Lisinopril [Prinivil] 5 mg PO DAILY #30 tablet 05/13/17 [Rx] Nicotine [Habitrol] 14 mg TRDERM DAILY #30 patch 05/13/17 [Rx] Prednisone [IJD: predniSONE] 40 mg PO WITHBREAKFAST #5 tablet 05/13/17 [Rx] - General Info Date of Service: 05/13/17 - Review of Systems General: Reports: No Symptoms HEENT: Reports: No Symptoms Pulmonary: Reports: Shortness of Breath, Cough. Denies: Pleuritic Chest Pain, Hemoptysis, Wheezing Cardiovascular: Reports: No Symptoms. Denies: Chest Pain, Palpitations, Edema Gastrointestinal: Reports: No Symptoms Genitourinary: Reports: No Symptoms Musculoskeletal: Reports: No Symptoms Skin: Reports: No Symptoms Neurological: Reports: No Symptoms Psychiatric: Reports: No Symptoms - Patient Data Vitals - Most Recent: Last Vital Signs Temp 36.6 C 05/13/17 07:59 Pulse 98 05/13/17 09:27 Resp 20 05/13/17 07:59 BP 130/65 05/13/17 09:28 Pulse Ox 94 L 05/13/17 08:00 Weight - Most Recent: 91.716 kg I&O - Last 24 hours: Intake & Output 05/12/17 05/13/17 05/13/17 22:59 06:59 14:59 Intake Total 629 1154 650 Output Total 1150 7917 Balance -522 -542 539 Med Orders - Current: Current Medications Acetaminophen (Tylenol) 650 mg PO Q4H PRN PRN Reason: Pain (Mild 1-3)/fever Albuterol (Proventil Hfa) 0 gm INH Q4HR PRN PRN Reason: Shortness of Breath Albuterol/Ipratropium (Duoneb 3.0-0.5 Mg/3 Ml) 3 ml NEB Q4HRRT [facility] Last Admin: 05/13/17 08:20 Dose: 3 ml Aspirin (Aspirin) 81 mg PO BRK [facility] Last Admin: 05/13/17 09:27 Dose: 81 mg Benzonatate (Tessalon Perles) 100 mg PO QID PRN PRN Reason: Cough Budesonide (Pulmicort) 0.5 mg NEB BIDRT [facility] Last Admin: 05/13/17 08:20 Dose: 0.5 mg Enoxaparin Sodium (Lovenox) 40 mg SUBCUT DAILY [facility] Last Admin: 05/13/17 09:26 Dose: 40 mg Furosemide (Lasix) 20 mg PO DAILY [facility] Last Admin: 05/13/17 09:26 Dose: 20 mg Guaifenesin (Robitussin) 100 mg PO Q6H PRN PRN Reason: Cough Levofloxacin/Dextrose 500 mg/ (Premix) 100 mls @ 100 mls/hr IV Q24H [facility] Last Admin: 05/12/17 16:14 Dose: 100 mls/hr Levothyroxine Sodium (Levothyroxine) 62.5 mcg PO ACBREAKFAST [facility] Last Admin: 05/13/17 05:19 Dose: 62.5 mcg Lisinopril (Prinivil) 5 mg PO DAILY [facility] Last Admin: 05/13/17 09:28 Dose: 5 mg Metoprolol Tartrate (Lopressor) 25 mg PO DAILY [facility] Last Admin: 05/13/17 09:27 Dose: 25 mg Nicotine (Habitrol) 14 mg TRDERM DAILY [facility] Last Admin: 05/13/17 09:27 Dose: 14 mg Ondansetron HCl (Zofran) 4 mg IVPUSH Q6H PRN PRN Reason: Nausea/Vomiting Polyethylene Glycol (Miralax) 17 gm PO DAILY PRN PRN Reason: Constipation Prednisone (Prednisone) 40 mg PO WITHBREAKFAST [facility] Last Admin: 05/13/17 09:28 Dose: 40 mg Sodium Chloride (Saline Flush) 10 ml FLUSH ASDIRECTED PRN PRN Reason: Keep Vein Open Last Admin: 05/12/17 17:14 Dose: 10 ml Zolpidem Tartrate (Ambien) 5 mg PO BEDTIME PRN PRN Reason: Sleep Discontinued Medications Albuterol/Ipratropium (Duoneb 3.0-0.5 Mg/3 Ml) 3 ml NEB ONETIME ONE Stop: 05/10/17 12:47 Last Admin: 05/10/17 13:04 Dose: 3 ml Sodium Chloride (Normal Saline) 250 mls @ 50 mls/hr IV ASDIRECTED [facility] Last Infusion: 05/10/17 19:51 Dose: Infused Magnesium Sulfate 2 gm/ Premix 50 mls @ 25 mls/hr IV ONETIME ONE Stop: 05/11/17 13:09 Last Infusion: 05/11/17 16:48 Dose: Infused Methylprednisolone Sodium Succinate (Solu-Medrol) 125 mg IVPUSH ONETIME ONE Stop: 05/10/17 12:47 Last Admin: 05/10/17 12:56 Dose: 125 mg Methylprednisolone Sodium Succinate (Solu-Medrol) 125 mg IVPUSH Q12HR [facility] Last Admin: 05/12/17 08:22 Dose: 125 mg - Exam General: Reports: Alert, Oriented, Cooperative, No Acute Distress. Denies: Moderate Distress, Severe Distress, Sedated, Lethargic HEENT: Reports: Pupils Equal, Pupils Reactive, EOMI, Mucous Membr. Moist/[place] Neck: Reports: Supple, Trachea Midline, No JVD Lungs: Reports: Normal Respiratory Effort, Decreased Breath Sounds (Globally, improved from yesterday), Rhonchi (Sporadic), Wheezing (Sporadic). Denies: Crackles, Rales, Rub, Stridor Cardiovascular: Reports: Regular Rate, Regular Rhythm GI/Abdominal Exam: Normal Bowel Sounds, Soft, Non-Tender, No Organomegaly, No Distention, No Abnormal Bruit, No Mass (Female) Exam: Deferred Rectal (Female) Exam: Deferred Back Exam: Reports: Normal Inspection, Full Range of Motion. Denies: CVA Tenderness (L), CVA Tenderness (R) Extremities: Normal Inspection, Normal Range of Motion, Non-Tender, No Pedal Edema, Normal Capillary Refill Skin: Reports: Warm, Dry, Intact Neurological: Reports: No New Focal Deficit Psy/Mental Status: Reports: Alert, Normal Affect, Normal Mood *Q Meaningful Use (DIS) - VTE *Q VTE Criteria *Q: - Stroke *Q Stroke Criteria *Q: - AMI *Q AMI Criteria *Q:
== END 2017-05-13 13:45 | disposition home or self-care (01) | DRG 192 ==
LOC: DL.ED 12:16 → UNDOADMIN 14:24 → DL.MS 14:24
PROVIDERS: ADMIT Family Medicine; ATTEND Family Medicine
DX: J44.1 Chronic obstructive pulmonary disease with (acute) exacerbation (principal); I50.9 Heart failure, unspecified; I10 Essential (primary) hypertension; E03.9 Hypothyroidism, unspecified; F41.9 Anxiety disorder, unspecified; E05.90 Thyrotoxicosis, unspecified without thyrotoxic crisis or storm; F41.8 Other specified anxiety disorders; I25.10 Atherosclerotic heart disease of native coronary artery without angina pectoris; I25.2 Old myocardial infarction; F17.200 Nicotine dependence, unspecified, uncomplicated; Z88.8 Allergy status to other drugs, medicaments and biological substances; Z88.0 Allergy status to penicillin; Z79.899 Other long term (current) drug therapy; Z66 Do not resuscitate
CPT/HCPCS: 36415; 71020; 83605; 85025; 96374; 99283; 99285; J2930; J7050; 80053; 83735; 83880; 94640; 94640-76; 94667; A9270-GY; J1650; J1956; J3475

== ENCOUNTER 2017-12-24 11:17 | Inpatient (IN) | payer MEDICARE, MEDICAID ==
--- NOTE | 2017-12-24 11:37 | EDM.PDOC ---
ED HPI GENERAL MEDICAL PROBLEM - General Chief Complaint: Respiratory Problem Stated Complaint: FROM [facility] Time Seen by Provider: 12/24/17 11:36 Source of Information: Reports: Patient, Old Records, Provider (Loretta JOSE [facility]), RN, RN Notes Reviewed History Limitations: Reports: No Limitations - History of Present Illness INITIAL COMMENTS - FREE TEXT/NARRATIVE: Pt sent from [facility] by Loretta JOSE with report of hypoxia and COPD flare up. Pt reports several days of worsening shortness of breath with cough and clear-white/creamy sputum production. Denies fever, chills, or chest pain. Pt is a jail chronic smoker with approx. 50yrs of daily tobacco use. She has nebulizer and inhalers at home, but they haven't been helping as much as usual. She has home oxygen for prn use. 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 Onset: Gradual Duration: Day(s): Location: Reports: Chest Quality: Reports: Same as Previous Episode, Other (denies pain) Severity: Severe Improves with: Reports: None Worsens with: Reports: Other (activity/exertion) Associated Symptoms: Reports: No Other Symptoms Treatments [employer]ETING [employer]GER: Reports: Breathing Treatments, Oxygen Chest Pain Score (Numeric/FACES): 2 - Related Data Allergies Allergy/AdvReac Type Severity Reaction Status Date / Time amlodipine [From Norvasc] Allergy Cannot Verified 05/10/17 14:54 Remember cetirizine [From Zyrtec] Allergy Abdominal Verified 05/10/17 14:54 Pain Penicillins Allergy Rash Verified 05/10/17 14:54 simvastatin [From Zocor] Allergy Cannot Verified 05/10/17 14:54 Remember Home Meds: Home Meds Albuterol Sulfate [Proventil Hfa] 2 puff IH Q4HR PRN 10/21/16 [History] Aspirin 81 mg PO BRK 10/21/16 [History] Budesonide [Pulmicort] 0.5 mg NEB BIDRT 10/21/16 [History] Levothyroxine Sodium [Synthroid] 0.5 tab PO ACBREAKFAST 10/21/16 [History] Furosemide [Lasix] 20 mg PO DAILY 04/03/17 [History] Metoprolol Tartrate 25 mg PO DAILY 04/03/17 [History] Albuterol/Ipratropium [DuoNeb 3.0-0.5 MG/3 ML] 3 ml NEB Q4HRRT neb 05/13/17 [Rx ] Levofloxacin [Levaquin] 500 mg PO Q24H #3 tablet 05/13/17 [Rx] Lisinopril [Prinivil] 5 mg PO DAILY #30 tablet 05/13/17 [Rx] Nicotine [Habitrol] 14 mg TRDERM DAILY #30 patch 05/13/17 [Rx] Prednisone [IJD: predniSONE] 40 mg PO WITHBREAKFAST #5 tablet 05/13/17 [Rx] Past Medical History HEENT History: Reports: Impaired Vision, Macular Degeneration, Other (See Below) Other HEENT History: wears glasses Cardiovascular History: Reports: Heart Failure, Hypertension, RI, SOB on Exertion Respiratory History: Reports: COPD Gastrointestinal History: Reports: None Genitourinary History: Reports: Urinary Incontinence [employer] 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 History: Reports: Musculoskeletal History: Reports: Fracture, RA Neurological History: Reports: None Psychiatric History: Reports: Anxiety, Depression Endocrine/Metabolic History: Reports: Hyperthyroidism, Hypothyroidism, Obesity/ BMI 30+ Hematologic History: Reports: None Immunologic History: Reports: None Oncologic (Cancer) History: Reports: Other (See Below) Other Oncologic History: simple vulvectomy - cancer Dermatologic History: Reports: None - Infectious Disease History Infectious Disease History: Reports: None - Past Surgical History GI Surgical History: Reports: Appendectomy, Cholecystectomy Female Surgical History: Reports: Tubal Ligation, Other (See Below) Other Female Surgeries/Procedures: simple vulvectomy Endocrine Surgical History: Reports: Thyroidectomy Neurological Surgical History: Reports: None Musculoskeletal Surgical History: Reports: None Social & Family History - Family History Family Medical History: Noncontributory Cardiac: Reports: RI Respiratory: Reports: COPD Neurological: Reports: CVA - Tobacco Use Smoking Status *Q: Heavy Tobacco Smoker Years of Tobacco use: 55 Packs/Tins Daily: 1 Used Tobacco, but Quit: No Second Hand Smoke Exposure: No - Caffeine Use Caffeine Use: Reports: Coffee, Soda - Recreational Drug Use Recreational Drug Use: No - Living Situation & Occupation Living situation: Reports: with Family Occupation: Retired ED ROS GENERAL - Review of Systems Review Of Systems: ROS reveals no pertinent complaints other than HPI. ED EXAM, GENERAL - Physical Exam Exam: See Below Exam Limited By: No Limitations General Appearance: Alert Eye Exam: Bilateral Eye: Normal Inspection Ears: Hearing Grossly Normal Nose: Normal Inspection, Normal Mucosa, No Blood Throat/Mouth: Normal Inspection, Normal Oropharynx, Normal Voice, No Airway Compromise Head: Atraumatic, Normocephalic Neck: Normal Inspection, Supple, Non-Tender, Full Range of Motion. No: Lymphadenopathy (L), Lymphadenopathy (R) Respiratory/Chest: No Respiratory Distress, No Accessory Muscle Use, Chest Non- Tender, Decreased Breath Sounds, Crackles, Wheezing, Prolonged Expiration, Other (course vesicular breath sounds) Cardiovascular: Regular Rate, Rhythm, No Edema GI/Abdominal: Normal Bowel Sounds, Soft, Non-Tender, No Distention. No: Guarding, Rigid, Rebound (Female) Exam: Deferred Rectal (Female) Exam: Deferred Back Exam: Normal Inspection Extremities: Normal Inspection Neurological: Alert, Oriented, No Motor/Sensory Deficits Psychiatric: Normal Mood, Anxious Skin Exam: Warm, Dry, Intact, Normal Color, No Rash EKG INTERPRETATION EKG Date: 12/24/17 Time: 12:58 Rhythm: Other (SR) Rate (Beats/Min): 74 [place]: LAD-Left [place] Deviation P-Wave: Present QRS: Other (old inferior Q-waves) ST-T: Normal QT: Normal Comparison: No Change Course - Vital Signs Last Recorded V/S: Last Vital Signs Temp 36.6 C 12/24/17 11:49 Pulse 74 12/24/17 11:55 Resp 24 H 12/24/17 11:49 BP 110/77 12/24/17 11:49 Pulse Ox 92 L 12/24/17 11:49 - Orders/Labs/Meds Orders: Active Orders 24 hr Category Date Time Status EKG 12 Lead [EKG Documentation Completion] [RC] STAT Care 12/24/17 11:56 Active Peripheral IV Care [RC] . DIRECTED Care 12/24/17 11:56 Active RT Aerosol Therapy [RC] ASDIRECTED Care 12/24/17 11:55 Active Chest 2V [CR] Stat Exams 12/24/17 11:55 Taken CULTURE BLOOD [BC] Stat Lab 12/24/17 12:16 Received CULTURE BLOOD [BC] Stat Lab 12/24/17 12:25 Received UA W/MICROSCOPIC [URIN] Stat Lab 12/24/17 12:37 Ordered Sodium Chloride 0.9% [Saline Flush] Med 12/24/17 11:55 Active 10 ml FLUSH ASDIRECTED PRN Blood Culture x2 Reflex Set [OM.PC] Stat Oth 12/24/17 11:55 Ordered Peripheral IV Insertion Adult [OM.PC] Stat Oth 12/24/17 11:55 Ordered Medication Orders Sodium Chloride (Saline Flush) 10 ml FLUSH ASDIRECTED PRN PRN Reason: Keep Vein Open Last Admin: 12/24/17 12:56 Dose: 10 ml Labs: Laboratory Tests 12/24/17 12/24/17 12/24/17 Range/Units 12:16 12:16 12:16 WBC 10.0 (5.0-10.0) 10^3/uL RBC 3.99 L (4.2-5.4) 10^6/uL Hgb 13.0 (12.0-16.0) g/dL Hct 38.9 (37.0-47.0) % MCV 97.5 (80-100) fL MCH 32.6 (27.0-34.0) pg MCHC 33.4 (33.0-35.0) g/dL Plt Count 220 (150-450) 10^3/uL Neut % (Auto) 65.7 (42.2-75.2) % Lymph % (Auto) 23.9 (20.5-50.1) % [place] % (Auto) 6.7 (2-8) % Eos % (Auto) 3.2 H (1.0-3.0) % Baso % (Auto) 0.5 (0.0-1.0) % Sodium 139 (135-145) mmol/L Potassium 3.6 (3.6-5.0) mmol/L Chloride 104 (101-111) mmol/L Carbon Dioxide 25.0 (21.0-31.0) mmol/L Anion Gap 13.6 BUN 17 (7-18) mg/dL Creatinine 1.3 (0.6-1.3) mg/dL Est Cr Clr Drug Dosing 29.90 mL/min Estimated GFR (MDRD) 40 BUN/Creatinine Ratio 13.07 Glucose 143 H (74-105) mg/dL Lactic Acid 1.8 (0.5-2.2) mmol/L Calcium 9.2 (8.4-10.2) mg/dl Total Bilirubin 1.0 (0.2-1.0) mg/dL AST 21 (10-42) IU/L ALT 13 (10-60) IU/L Alkaline Phosphatase 55 (42-121) IU/L Troponin I 0.02 (0.00-0.02) ng/ml B-Natriuretic Peptide 29 (0-100) pg/ml Total Protein 7.0 (6.7-8.2) g/dl Albumin 3.7 (3.2-5.5) g/dl Globulin 3.3 Albumin/Globulin Ratio 1.12 Urine Color (YELLOW) Urine Appearance (CLEAR) Urine pH (5.0-9.0) Ur Specific [place] (1.005-1.030) Urine Protein (NEGATIVE) Urine Glucose (UA) (NEGATIVE) Urine Ketones (NEGATIVE) Urine Occult Blood (NEGATIVE) Urine Nitrite (NEGATIVE) Urine Bilirubin (NEGATIVE) Urine Urobilinogen (0.2-1.0) mg/dL Ur Leukocyte Esterase (NEGATIVE) Urine RBC /HPF Urine WBC (0-5/HPF) /HPF Ur Epithelial Cells /HPF Urine Bacteria (0-FEW/HPF) /HPF Urine Mucus /LPF 12/24/17 Range/Units 12:37 WBC (5.0-10.0) 10^3/uL RBC (4.2-5.4) 10^6/uL Hgb (12.0-16.0) g/dL Hct (37.0-47.0) % MCV (80-100) fL MCH (27.0-34.0) pg MCHC (33.0-35.0) g/dL Plt Count (150-450) 10^3/uL Neut % (Auto) (42.2-75.2) % Lymph % (Auto) (20.5-50.1) % [place] % (Auto) (2-8) % Eos % (Auto) (1.0-3.0) % Baso % (Auto) (0.0-1.0) % Sodium (135-145) mmol/L Potassium (3.6-5.0) mmol/L Chloride (101-111) mmol/L Carbon Dioxide (21.0-31.0) mmol/L Anion Gap BUN (7-18) mg/dL Creatinine (0.6-1.3) mg/dL Est Cr Clr Drug Dosing mL/min Estimated GFR (MDRD) BUN/Creatinine Ratio Glucose (74-105) mg/dL Lactic Acid (0.5-2.2) mmol/L Calcium (8.4-10.2) mg/dl Total Bilirubin (0.2-1.0) mg/dL AST (10-42) IU/L ALT (10-60) IU/L Alkaline Phosphatase (42-121) IU/L Troponin I (0.00-0.02) ng/ml B-Natriuretic Peptide (0-100) pg/ml Total Protein (6.7-8.2) g/dl Albumin (3.2-5.5) g/dl Globulin Albumin/Globulin Ratio Urine Color Yellow (YELLOW) Urine Appearance Cloudy (CLEAR) Urine pH 6.5 (5.0-9.0) Ur Specific [place] 1.015 (1.005-1.030) Urine Protein Negative (NEGATIVE) Urine Glucose (UA) Negative (NEGATIVE) Urine Ketones Negative (NEGATIVE) Urine Occult Blood Small H (NEGATIVE) Urine Nitrite Negative (NEGATIVE) Urine Bilirubin Negative (NEGATIVE) Urine Urobilinogen 0.2 (0.2-1.0) mg/dL Ur Leukocyte Esterase Trace H (NEGATIVE) Urine RBC 0-5 /HPF Urine WBC 5-10 H (0-5/HPF) /HPF Ur Epithelial Cells Moderate H /HPF Urine Bacteria Few (0-FEW/HPF) /HPF Urine Mucus Few H /LPF Meds: Medications Generic Name Dose Route Start Last Admin Trade Name [place] PRN Reason Stop Dose Admin Sodium Chloride 10 ml 12/24/17 11:55 12/24/17 12:56 Saline Flush FLUSH 10 ml ASDIRECTED PRN Administration Keep Vein Open Discontinued Medications Generic Name Dose Route Start Last Admin Trade Name Freq PRN Reason Stop Dose Admin Albuterol/Ipratropium 3 ml 12/24/17 11:55 12/24/17 11:58 Duoneb 3.0-0.5 Mg/3 Ml NEB 12/24/17 11:56 3 ml ONETIME ONE Administration Methylprednisolone Sodium Succinate 125 mg 12/24/17 11:55 12/24/17 12:56 Solu-Medrol IVPUSH 12/24/17 11:56 125 mg ONETIME ONE Administration - Radiology Interpretation Free Text/Narrative:: CLINICAL HISTORY: The patient is 72 years old and is female; Signs and symptoms; Cough and dyspnea ; Smoker's cough; Patient HX: HX copd, jail smoker, cough, dyspnea TECHNIQUE: Frontal and lateral views of the chest. COMPARISON: CR - Chest 2V 2017-05-10 12:01 FINDINGS: Lungs: The lungs are again hyperinflated, but clear. Pleural space: Unremarkable. No pneumothorax. Heart: The cardiomediastinal silhouette is fairly stable in appearance. Mediastinum: See above. Bones/joints: Degenerative changes again involve the spine and shoulders. Vasculature: The aorta is again tortuous. IMPRESSION: Hyperinflation, as on 05/10/17, without new disease. Thank you for allowing us to participate in the care of your patient. Dictated and Authenticated by: Mirza Pak MD Departure - Departure Time of Disposition: 13:33 (admit to Dr. Sinclair) Disposition: Admitted As Inpatient 64 Condition: Fair Clinical Impression: COPD with acute exacerbation, Hypoxia - Discharge Information - My Orders Last 24 Hours: My Active Orders 12/24/17 11:55 RT Aerosol Therapy [RC] ASDIRECTED Chest 2V [CR] Stat Sodium Chloride 0.9% [Saline Flush] 10 ml FLUSH ASDIRECTED PRN Blood Culture x2 Reflex Set [OM.PC] Stat Peripheral IV Insertion Adult [OM.PC] Stat 12/24/17 11:56 EKG 12 Lead [EKG Documentation Completion] [RC] STAT Peripheral IV Care [RC] . DIRECTED 12/24/17 12:16 CULTURE BLOOD [BC] Stat 12/24/17 12:25 CULTURE BLOOD [BC] Stat 12/24/17 12:37 UA W/MICROSCOPIC [URIN] Stat - Assessment/Plan Last 24 Hours: My Active Orders 12/24/17 11:55 RT Aerosol Therapy [RC] ASDIRECTED Chest 2V [CR] Stat Sodium Chloride 0.9% [Saline Flush] 10 ml FLUSH ASDIRECTED PRN Blood Culture x2 Reflex Set [OM.PC] Stat Peripheral IV Insertion Adult [OM.PC] Stat 12/24/17 11:56 EKG 12 Lead [EKG Documentation Completion] [RC] STAT Peripheral IV Care [RC] . DIRECTED 12/24/17 12:16 CULTURE BLOOD [BC] Stat 12/24/17 12:25 CULTURE BLOOD [BC] Stat 12/24/17 12:37 UA W/MICROSCOPIC [URIN] Stat
[2017-12-24] MEDS ORDERED: methylPREDNISolone Sodium Succinate 125 MG/2 ML SDV IVPUSH ONE (11:55)
[2017-12-24] MEDS ORDERED: Albuterol/Ipratropium 3.0-0.5 MG/3 ML Neb Soln NEB ONE (11:55)
[2017-12-24] MEDS: Sodium Chloride 0.9% 10 ML Syringe FLUSH PRN ×2 (12:56→21:18)
[2017-12-24] MEDS ORDERED: Zolpidem 5 MG Tab PO PRN (15:23)
[2017-12-24] MEDS ORDERED: Sodium Chloride 0.9% 10 ML Syringe FLUSH PRN (15:23)
--- NOTE | 2017-12-24 15:32 | PCM.HP ---
H&P History of Present Illness - General Date of Service: 12/24/17 Admit Problem/Dx: Admission Diagnosis/Problem Admission Diagnosis/Problem Shortness of breath Source of Information: Patient - History of Present Illness Initial Comments - Free Text/Narative: The patient is a 72-year-old lady with a history of smoking, COPD. She is home oxygen dependent using 2 L nasal cannula oxygen "90% of the time". She does not have portable oxygen. She is on prednisone 5 mg chronically but ran out of her supply about week ago. She has been experiencing increasing shortness of breath for about a week. Associated with subjective fever, chills. She has a cough and sputum. She did not observe how the sputum looks like. She went to see her primary care physician and the clinic and she was noted the to have hypoxemia with the oxygen saturations in the 80s. Of note that she was not wearing oxygen. She denies associated chest pain, no lower extremity swelling. Shortness of breath worse with activity. Moderate at rest. Chest Pain Score (Numeric/FACES): 2 - Related Data Allergies/Adverse Reactions: Allergies Allergy/AdvReac Type Severity Reaction Status Date / Time amlodipine [From Norvasc] Allergy Cannot Verified 12/24/17 14:02 Remember cetirizine [From Zyrtec] Allergy Abdominal Verified 12/24/17 14:02 Pain Penicillins Allergy Rash Verified 12/24/17 14:02 simvastatin [From Zocor] Allergy Cannot Verified 12/24/17 14:02 Remember Home Medications: Home Meds Albuterol Sulfate [Proventil Hfa] 2 puff IH Q4HR PRN 10/21/16 [History] Levothyroxine Sodium [Synthroid] 75 mcg PO ACBREAKFAST 10/21/16 [History] Furosemide [Lasix] 20 mg PO BID 04/03/17 [History] Metoprolol Tartrate 50 mg PO BID 04/03/17 [History] Albuterol [IJD: Albuterol] 3 ml INH Q4HR PRN 12/24/17 [History] Albuterol/Ipratropium [DuoNeb 3.0-0.5 MG/3 ML] 3 ml NEB BID 12/24/17 [History] predniSONE [Prednisone] 5 mg PO DAILY 12/24/17 [History] Past Medical History HEENT History: Reports: Impaired Vision, Macular Degeneration, Other (See Below) Other HEENT History: wears glasses Cardiovascular History: Reports: Heart Failure, Hypertension, MO, SOB on Exertion Respiratory History: Reports: COPD Gastrointestinal History: Reports: None Genitourinary History: Reports: Urinary 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: Musculoskeletal History: Reports: Fracture, RA Neurological History: Reports: None Psychiatric History: Reports: Anxiety, Depression Endocrine/Metabolic History: Reports: Hypothyroidism, Obesity/BMI 30+ Hematologic History: Reports: None Immunologic History: Reports: None Oncologic (Cancer) History: Reports: Other (See Below) Other Oncologic History: simple vulvectomy - cancer Dermatologic History: Reports: None - Infectious Disease History Infectious Disease History: Reports: Chicken Pox, Measles, Mumps - Past Surgical History GI Surgical History: Reports: Appendectomy, Cholecystectomy Female Surgical History: Reports: Tubal Ligation, Other (See Below) Other Female Surgeries/Procedures: simple vulvectomy Endocrine Surgical History: Reports: Thyroidectomy Neurological Surgical History: Reports: None Musculoskeletal Surgical History: Reports: None Social & Family History - Family History Family Medical History: Noncontributory Cardiac: Reports: MO Respiratory: Reports: COPD Neurological: Reports: CVA - Tobacco Use Smoking Status *Q: Current Every Day Smoker Years of Tobacco use: 50 Packs/Tins Daily: 1 Used Tobacco, but Quit: No Second Hand Smoke Exposure: No - Caffeine Use Caffeine Use: Reports: Coffee - Recreational Drug Use Recreational Drug Use: No - Living Situation & Occupation Living situation: Reports: with Family Occupation: Retired H&P Review of Systems - Review of Systems: Review Of Systems: See Below General: Reports: Fever (Subjective), Chills Pulmonary: Reports: Shortness of Breath, Wheezing, Cough, Sputum. Denies: Hemoptysis Cardiovascular: Denies: Chest Pain Gastrointestinal: Denies: Abdominal Pain Genitourinary: Denies: Dysuria Psychiatric: Denies: Confusion Exam - Exam Exam: See Below - Vital Signs Vital Signs: Last Vital Signs Temp 36.5 C 12/24/17 14:25 Pulse 72 12/24/17 14:25 Resp 24 H 12/24/17 14:25 BP 127/75 12/24/17 14:25 Pulse Ox 97 12/24/17 14:25 Weight: 92.986 kg - Exam Quality Assessment: Supplemental Oxygen General: Alert, Oriented Neck: Supple Lungs: Normal Respiratory Effort, Rhonchi Cardiovascular: Regular Rate, Regular Rhythm GI/Abdominal Exam: Normal Bowel Sounds, Soft, Non-Tender Extremities: No Pedal Edema - Patient Data Lab Results Last 24 hrs: Laboratory Results - last 24 hr 12/24/17 12/24/17 12/24/17 Range/Units 12:16 12:16 12:16 WBC 10.0 (5.0-10.0) 10^3/uL RBC 3.99 L (4.2-5.4) 10^6/uL Hgb 13.0 (12.0-16.0) g/dL Hct 38.9 (37.0-47.0) % MCV 97.5 (80-100) fL MCH 32.6 (27.0-34.0) pg MCHC 33.4 (33.0-35.0) g/dL Plt Count 220 (150-450) 10^3/uL Neut % (Auto) 65.7 (42.2-75.2) % Lymph % (Auto) 23.9 (20.5-50.1) % [place] % (Auto) 6.7 (2-8) % Eos % (Auto) 3.2 H (1.0-3.0) % Baso % (Auto) 0.5 (0.0-1.0) % Sodium 139 (135-145) mmol/L Potassium 3.6 (3.6-5.0) mmol/L Chloride 104 (101-111) mmol/L Carbon Dioxide 25.0 (21.0-31.0) mmol/L Anion Gap 13.6 BUN 17 (7-18) mg/dL Creatinine 1.3 (0.6-1.3) mg/dL Est Cr Clr Drug Dosing 29.90 mL/min Estimated GFR (MDRD) 40 BUN/Creatinine Ratio 13.07 Glucose 143 H (74-105) mg/dL Lactic Acid 1.8 (0.5-2.2) mmol/L Calcium 9.2 (8.4-10.2) mg/dl Total Bilirubin 1.0 (0.2-1.0) mg/dL AST 21 (10-42) IU/L ALT 13 (10-60) IU/L Alkaline Phosphatase 55 (42-121) IU/L Troponin I 0.02 (0.00-0.02) ng/ml B-Natriuretic Peptide 29 (0-100) pg/ml Total Protein 7.0 (6.7-8.2) g/dl Albumin 3.7 (3.2-5.5) g/dl Globulin 3.3 Albumin/Globulin Ratio 1.12 Urine Color (YELLOW) Urine Appearance (CLEAR) Urine pH (5.0-9.0) Ur Specific [place] (1.005-1.030) Urine Protein (NEGATIVE) Urine Glucose (UA) (NEGATIVE) Urine Ketones (NEGATIVE) Urine Occult Blood (NEGATIVE) Urine Nitrite (NEGATIVE) Urine Bilirubin (NEGATIVE) Urine Urobilinogen (0.2-1.0) mg/dL Ur Leukocyte Esterase (NEGATIVE) Urine RBC /HPF Urine WBC (0-5/HPF) /HPF Ur Epithelial Cells /HPF Urine Bacteria (0-FEW/HPF) /HPF Urine Mucus /LPF 12/24/17 Range/Units 12:37 WBC (5.0-10.0) 10^3/uL RBC (4.2-5.4) 10^6/uL Hgb (12.0-16.0) g/dL Hct (37.0-47.0) % MCV (80-100) fL MCH (27.0-34.0) pg MCHC (33.0-35.0) g/dL Plt Count (150-450) 10^3/uL Neut % (Auto) (42.2-75.2) % Lymph % (Auto) (20.5-50.1) % [place] % (Auto) (2-8) % Eos % (Auto) (1.0-3.0) % Baso % (Auto) (0.0-1.0) % Sodium (135-145) mmol/L Potassium (3.6-5.0) mmol/L Chloride (101-111) mmol/L Carbon Dioxide (21.0-31.0) mmol/L Anion Gap BUN (7-18) mg/dL Creatinine (0.6-1.3) mg/dL Est Cr Clr Drug Dosing mL/min Estimated GFR (MDRD) BUN/Creatinine Ratio Glucose (74-105) mg/dL Lactic Acid (0.5-2.2) mmol/L Calcium (8.4-10.2) mg/dl Total Bilirubin (0.2-1.0) mg/dL AST (10-42) IU/L ALT (10-60) IU/L Alkaline Phosphatase (42-121) IU/L Troponin I (0.00-0.02) ng/ml B-Natriuretic Peptide (0-100) pg/ml Total Protein (6.7-8.2) g/dl Albumin (3.2-5.5) g/dl Globulin Albumin/Globulin Ratio Urine Color Yellow (YELLOW) Urine Appearance Cloudy (CLEAR) Urine pH 6.5 (5.0-9.0) Ur Specific [place] 1.015 (1.005-1.030) Urine Protein Negative (NEGATIVE) Urine Glucose (UA) Negative (NEGATIVE) Urine Ketones Negative (NEGATIVE) Urine Occult Blood Small H (NEGATIVE) Urine Nitrite Negative (NEGATIVE) Urine Bilirubin Negative (NEGATIVE) Urine Urobilinogen 0.2 (0.2-1.0) mg/dL Ur Leukocyte Esterase Trace H (NEGATIVE) Urine RBC 0-5 /HPF Urine WBC 5-10 H (0-5/HPF) /HPF Ur Epithelial Cells Moderate H /HPF Urine Bacteria Few (0-FEW/HPF) /HPF Urine Mucus Few H /LPF Result Diagrams: 12/24/17 12:16 12/24/17 12:16 - Problem List (1) Acute exacerbation of chronic obstructive pulmonary disease (COPD) SNOMED Code(s): 680365630 ICD Code: J44.1 - CHRONIC OBSTRUCTIVE PULMONARY DISEASE W (ACUTE) EXACERBATION Status: Acute Priority: High Current Visit: No (2) Hypoxia SNOMED Code(s): 876508528 ICD Code: R09.02 - HYPOXEMIA Status: Acute Current Visit: No Problem List Initiated/Reviewed/Updated: Yes Orders Last 24hrs: Active Orders 24 hr Category Date Time Status Patient Status [ADT] Routine ADT 12/24/17 15:23 Ordered Oxygen Therapy [RC] PRN Care 12/24/17 15:23 Ordered Peripheral IV Care [RC] 09,20 Care 12/24/17 11:56 Active RT Aerosol Therapy [RC] ASDIRECTED Care 12/24/17 11:55 Active RT Aerosol Therapy [RC] ASDIRECTED Care 12/24/17 15:18 Ordered Up With Assistance [RC] ASDIRECTED Care 12/24/17 15:23 Ordered VTE/DVT Education [RC] PER UNIT ROUTINE Care 12/24/17 15:23 Ordered Vital Signs [RC] Q4H Care 12/24/17 15:23 Ordered Regular Diet [DIET] Diet 12/24/17 Dinner Ordered BASIC METABOLIC PANEL,BMP [CHEM] AM Lab 12/25/17 05:15 Ordered CBC WITH AUTO DIFF [HEME] AM Lab 12/25/17 05:15 Ordered CULTURE BLOOD [BC] Stat Lab 12/24/17 12:16 Received CULTURE BLOOD [BC] Stat Lab 12/24/17 12:25 Received CULTURE SPUTUM + SMEAR [RM] Routine Lab 12/24/17 15:19 Ordered UA W/MICROSCOPIC [URIN] Stat Lab 12/24/17 12:37 Ordered Albuterol [Proventil Neb Soln] Med 12/24/17 15:18 Ordered 2.5 mg NEB Q4HRRT PRN Albuterol/Ipratropium [DuoNeb 3.0-0.5 MG/3 ML] Med 12/24/17 17:00 Ordered 3 ml NEB QID Azithromycin [Zithromax] 500 mg Med 12/24/17 15:30 Ordered Sodium Chloride 0.9% [Normal Saline] 250 ml IV Q24H Budesonide [Pulmicort] Med 12/24/17 18:00 Ordered 0.5 mg NEB BIDRT Furosemide [Lasix] Med 12/24/17 21:00 Ordered 20 mg PO BID Heparin Sodium Med 12/24/17 22:00 Ordered 5,000 units SUBCUT Q8HR Levothyroxine Med 12/25/17 06:00 Ordered 75 mcg PO ACBREAKFAST Metoprolol Tartrate [Lopressor] Med 12/24/17 21:00 Ordered 50 mg PO BID Nicotine [Habitrol] Med 12/24/17 15:30 Ordered 14 mg TRDERM DAILY Sodium Chloride 0.9% [Saline Flush] Med 12/24/17 11:55 Active 10 ml FLUSH ASDIRECTED PRN Sodium Chloride 0.9% [Saline Flush] Med 12/24/17 15:23 Ordered 10 ml FLUSH ASDIRECTED PRN Zolpidem [Ambien] Med 12/24/17 15:23 Ordered 5 mg PO BEDTIME PRN methylPREDNISolone Sod Succ [Solu-MEDROL] Med 12/24/17 15:30 Ordered 40 mg IVPUSH Q8H Antiembolic Hose [OM.PC] Per Unit Routine Oth 12/24/17 15:24 Ordered Blood Culture x2 Reflex Set [OM.PC] Stat Oth 12/24/17 11:55 Ordered Peripheral IV Insertion Adult [OM.PC] Stat Oth 12/24/17 11:55 Ordered Saline Lock Insert [OM.PC] Routine Oth 12/24/17 15:23 Ordered Resuscitation Status Routine Resus Stat 12/24/17 15:23 Ordered Medication Orders Albuterol (Proventil Neb Soln) 2.5 mg NEB Q4HRRT PRN PRN Reason: sob Albuterol/Ipratropium (Duoneb 3.0-0.5 Mg/3 Ml) 3 ml NEB QIDRT [facility] Budesonide (Pulmicort) 0.5 mg NEB BIDRT [facility] Furosemide (Lasix) 20 mg PO BIDDIURETIC [place] Heparin Sodium (Porcine) (Heparin Sodium) 5,000 units SUBCUT Q8HR [facility] Azithromycin 500 mg/ Sodium (Chloride) 250 mls @ 250 mls/hr IV Q24H [facility] Levothyroxine Sodium (Levothyroxine) 75 mcg PO ACBREAKFAST [place] Methylprednisolone Sodium Succinate (Solu-Medrol) 40 mg IVPUSH Q8HR [facility] Metoprolol Tartrate (Lopressor) 50 mg PO BID [facility] Sodium Chloride (Saline Flush) 10 ml FLUSH ASDIRECTED PRN PRN Reason: Keep Vein Open Last Admin: 12/24/17 12:56 Dose: 10 ml Sodium Chloride (Saline Flush) 10 ml FLUSH ASDIRECTED PRN PRN Reason: Keep Vein Open Zolpidem Tartrate (Ambien) 5 mg PO BEDTIME PRN PRN Reason: Sleep Assessment/Plan Comment:: The patient is a 72-year-old lady with a history of COPD, chronic oxygen and steroid dependent. The patient on out of prednisone about a week ago. She presented with increasing shortness of breath, cough. She was noted to have hypoxemia when not wearing her oxygen at the clinic. Acute COPD exacerbation Will give IV steroids, inhaled steroids. Use DuoNeb scheduled and as needed Use Pulmicort Chronic hypoxemic respiratory failure The patient will likely need oxygen with activity as well We'll monitor and adjust oxygen as needed Cough, subjective fever No apparent pneumonia on chest x-ray Possible bronchitis We'll obtain sputum culture Start azithromycin. Hypertension Treat with atenolol DVT prophylaxis with subcutaneous heparin
[2017-12-24] MEDS: Azithromycin 500 MG in Sodium Chloride 0.9% 250 ML IV SCH (15:42)
[2017-12-24] MEDS: Nicotine 14 MG/24 Hr Patch TRDERM SCH (15:42)
[2017-12-24] MEDS: methylPREDNISolone Sodium Succinate 40 MG/1 ML SDV IVPUSH SCH ×2 (15:43→21:18)
[2017-12-24] MEDS: Albuterol/Ipratropium 3.0-0.5 MG/3 ML Neb Soln NEB SCH ×2 (17:49→21:06)
[2017-12-24] MEDS: Budesonide 0.5 MG/2 ML Neb Susp NEB SCH (17:49)
[2017-12-24] MEDS: Metoprolol Tartrate 50 MG Tab PO SCH (21:05)
[2017-12-24] MEDS: Heparin Sodium 5,000 Units/ML Vial SUBCUT SCH (21:15)
[2017-12-24] MEDS ORDERED: Acetaminophen 325 MG Tab PO PRN (23:36)
[2017-12-25] MEDS: Heparin Sodium 5,000 Units/ML Vial SUBCUT SCH ×3 (06:09→21:10)
[2017-12-25] MEDS: Levothyroxine 75 MCG Tab PO SCH (06:09)
[2017-12-25] MEDS: Sodium Chloride 0.9% 10 ML Syringe FLUSH PRN ×6 (06:11→21:19)
[2017-12-25] MEDS: methylPREDNISolone Sodium Succinate 40 MG/1 ML SDV IVPUSH SCH ×3 (06:12→21:13)
[2017-12-25] MEDS: Albuterol/Ipratropium 3.0-0.5 MG/3 ML Neb Soln NEB SCH ×4 (07:19→21:20)
[2017-12-25] MEDS: Budesonide 0.5 MG/2 ML Neb Susp NEB SCH ×2 (07:19→17:49)
[2017-12-25] MEDS: Metoprolol Tartrate 50 MG Tab PO SCH ×2 (08:36→21:08)
[2017-12-25] MEDS: Nicotine 14 MG/24 Hr Patch TRDERM SCH (08:37)
--- NOTE | 2017-12-25 11:32 | PCM.PN ---
- General Info Date of Service: 12/25/17 Admission Dx/Problem (Free Text): Admission Diagnosis/Problem Admission Diagnosis/Problem Shortness of breath Subjective Update: feeling better. Still sob associated with cough. sob started days prior to admission no fever. no CP no abd pain, no leg swelling - Review of Systems General: Denies: Fever Pulmonary: Reports: Shortness of Breath Cardiovascular: Denies: Chest Pain Gastrointestinal: Denies: Abdominal Pain Neurological: Denies: Confusion - Patient Data Vitals - Most Recent: Last Vital Signs Temp 36.4 C 12/25/17 07:35 Pulse 73 12/25/17 10:46 Resp 20 12/25/17 07:35 BP 134/69 12/25/17 08:36 Pulse Ox 93 L 12/25/17 10:46 Weight - Most Recent: 92.442 kg I&O - Last 24 Hours: Intake & Output 12/24/17 12/25/17 12/25/17 22:59 06:59 14:59 Intake Total 825 854 560 Output Total 200 950 600 Balance 625 -96 -40 Lab Results Last 24 Hours: Laboratory Results - last 24 hr 12/24/17 12/24/17 12/24/17 Range/Units 12:16 12:16 12:16 WBC 10.0 (5.0-10.0) 10^3/uL RBC 3.99 L (4.2-5.4) 10^6/uL Hgb 13.0 (12.0-16.0) g/dL Hct 38.9 (37.0-47.0) % MCV 97.5 (80-100) fL MCH 32.6 (27.0-34.0) pg MCHC 33.4 (33.0-35.0) g/dL Plt Count 220 (150-450) 10^3/uL Neut % (Auto) 65.7 (42.2-75.2) % Lymph % (Auto) 23.9 (20.5-50.1) % [place] % (Auto) 6.7 (2-8) % Eos % (Auto) 3.2 H (1.0-3.0) % Baso % (Auto) 0.5 (0.0-1.0) % Sodium 139 (135-145) mmol/L Potassium 3.6 (3.6-5.0) mmol/L Chloride 104 (101-111) mmol/L Carbon Dioxide 25.0 (21.0-31.0) mmol/L Anion Gap 13.6 BUN 17 (7-18) mg/dL Creatinine 1.3 (0.6-1.3) mg/dL Est Cr Clr Drug Dosing 29.90 mL/min Estimated GFR (MDRD) 40 BUN/Creatinine Ratio 13.07 Glucose 143 H (74-105) mg/dL Lactic Acid 1.8 (0.5-2.2) mmol/L Calcium 9.2 (8.4-10.2) mg/dl Total Bilirubin 1.0 (0.2-1.0) mg/dL AST 21 (10-42) IU/L ALT 13 (10-60) IU/L Alkaline Phosphatase 55 (42-121) IU/L Troponin I 0.02 (0.00-0.02) ng/ml B-Natriuretic Peptide 29 (0-100) pg/ml Total Protein 7.0 (6.7-8.2) g/dl Albumin 3.7 (3.2-5.5) g/dl Globulin 3.3 Albumin/Globulin Ratio 1.12 Urine Color (YELLOW) Urine Appearance (CLEAR) Urine pH (5.0-9.0) Ur Specific [place] (1.005-1.030) Urine Protein (NEGATIVE) Urine Glucose (UA) (NEGATIVE) Urine Ketones (NEGATIVE) Urine Occult Blood (NEGATIVE) Urine Nitrite (NEGATIVE) Urine Bilirubin (NEGATIVE) Urine Urobilinogen (0.2-1.0) mg/dL Ur Leukocyte Esterase (NEGATIVE) Urine RBC /HPF Urine WBC (0-5/HPF) /HPF Ur Epithelial Cells /HPF Urine Bacteria (0-FEW/HPF) /HPF Urine Mucus /LPF 12/24/17 12/25/17 12/25/17 Range/Units 12:37 06:15 06:15 WBC 11.1 H (5.0-10.0) 10^3/uL RBC 3.82 L (4.2-5.4) 10^6/uL Hgb 12.4 (12.0-16.0) g/dL Hct 37.0 (37.0-47.0) % MCV 96.9 (80-100) fL MCH 32.5 (27.0-34.0) pg MCHC 33.5 (33.0-35.0) g/dL Plt Count 233 (150-450) 10^3/uL Neut % (Auto) 90.7 H (42.2-75.2) % Lymph % (Auto) 7.9 L (20.5-50.1) % [place] % (Auto) 1.3 L (2-8) % Eos % (Auto) 0.0 L (1.0-3.0) % Baso % (Auto) 0.1 (0.0-1.0) % Sodium 137 (135-145) mmol/L Potassium 4.0 (3.6-5.0) mmol/L Chloride 106 (101-111) mmol/L Carbon Dioxide 23.0 (21.0-31.0) mmol/L Anion Gap 12.0 BUN 23 H (7-18) mg/dL Creatinine 1.3 (0.6-1.3) mg/dL Est Cr Clr Drug Dosing 31.41 mL/min Estimated GFR (MDRD) 40 BUN/Creatinine Ratio Glucose 185 H (74-105) mg/dL Lactic Acid (0.5-2.2) mmol/L Calcium 9.3 (8.4-10.2) mg/dl Total Bilirubin (0.2-1.0) mg/dL AST (10-42) IU/L ALT (10-60) IU/L Alkaline Phosphatase (42-121) IU/L Troponin I (0.00-0.02) ng/ml B-Natriuretic Peptide (0-100) pg/ml Total Protein (6.7-8.2) g/dl Albumin (3.2-5.5) g/dl Globulin Albumin/Globulin Ratio Urine Color Yellow (YELLOW) Urine Appearance Cloudy (CLEAR) Urine pH 6.5 (5.0-9.0) Ur Specific [place] 1.015 (1.005-1.030) Urine Protein Negative (NEGATIVE) Urine Glucose (UA) Negative (NEGATIVE) Urine Ketones Negative (NEGATIVE) Urine Occult Blood Small H (NEGATIVE) Urine Nitrite Negative (NEGATIVE) Urine Bilirubin Negative (NEGATIVE) Urine Urobilinogen 0.2 (0.2-1.0) mg/dL Ur Leukocyte Esterase Trace H (NEGATIVE) Urine RBC 0-5 /HPF Urine WBC 5-10 H (0-5/HPF) /HPF Ur Epithelial Cells Moderate H /HPF Urine Bacteria Few (0-FEW/HPF) /HPF Urine Mucus Few H /LPF [place] Results Last 24 Hours: Microbiology 12/24/17 18:50 Gram Stain - Final Sputum - Expectorated Med Orders - Current: Current Medications Acetaminophen (Tylenol) 650 mg PO Q4H PRN PRN Reason: Pain Last Admin: 12/24/17 23:59 Dose: 650 mg Albuterol (Proventil Neb Soln) 2.5 mg NEB Q4HRRT PRN PRN Reason: sob Albuterol/Ipratropium (Duoneb 3.0-0.5 Mg/3 Ml) 3 ml NEB QIDRT [facility] Last Admin: 12/25/17 10:46 Dose: 3 ml Budesonide (Pulmicort) 0.5 mg NEB BIDRT [facility] Last Admin: 12/25/17 07:19 Dose: 0.5 mg Furosemide (Lasix) 20 mg PO BIDDIURETIC [facility] Heparin Sodium (Porcine) (Heparin Sodium) 5,000 units SUBCUT Q8HR [facility] Last Admin: 12/25/17 06:09 Dose: 5,000 units Azithromycin 500 mg/ Sodium (Chloride) 250 mls @ 250 mls/hr IV Q24H [facility] Last Admin: 12/24/17 15:42 Dose: 150 mls/hr Levothyroxine Sodium (Levothyroxine) 75 mcg PO ACBREAKFAST [facility] Last Admin: 12/25/17 06:09 Dose: 75 mcg Methylprednisolone Sodium Succinate (Solu-Medrol) 40 mg IVPUSH Q8HR [facility] Last Admin: 12/25/17 06:12 Dose: 40 mg Metoprolol Tartrate (Lopressor) 50 mg PO BID [facility] Last Admin: 12/25/17 08:36 Dose: 50 mg Nicotine (Habitrol) 14 mg TRDERM DAILY [facility] Last Admin: 12/25/17 08:37 Dose: 14 mg Sodium Chloride (Saline Flush) 10 ml FLUSH ASDIRECTED PRN PRN Reason: Keep Vein Open Last Admin: 12/25/17 06:16 Dose: 10 ml Sodium Chloride (Saline Flush) 10 ml FLUSH ASDIRECTED PRN PRN Reason: Keep Vein Open Zolpidem Tartrate (Ambien) 5 mg PO BEDTIME PRN PRN Reason: Sleep Discontinued Medications Albuterol/Ipratropium (Duoneb 3.0-0.5 Mg/3 Ml) 3 ml NEB ONETIME ONE Stop: 12/24/17 11:56 Last Admin: 12/24/17 11:58 Dose: 3 ml Methylprednisolone Sodium Succinate (Solu-Medrol) 125 mg IVPUSH ONETIME ONE Stop: 12/24/17 11:56 Last Admin: 12/24/17 12:56 Dose: 125 mg - Exam Quality Assessment: Supplemental Oxygen General: Alert, Oriented Neck: Supple Lungs: Decreased Breath Sounds, Rhonchi, Wheezing Cardiovascular: Regular Rate, Regular Rhythm GI/Abdominal Exam: Normal Bowel Sounds, Soft, Non-Tender Extremities: No Pedal Edema Skin: Warm, Dry Neurological: No New Focal Deficit Psy/Mental Status: Alert, Normal Affect, Normal Mood - Problem List & Annotations (1) Acute exacerbation of chronic obstructive pulmonary disease (COPD) SNOMED Code(s): 218436790 Code(s): J44.1 - CHRONIC OBSTRUCTIVE PULMONARY DISEASE W (ACUTE) EXACERBATION Status: Acute Priority: High Current Visit: No (2) Hypoxia SNOMED Code(s): 781596784 Code(s): R09.02 - HYPOXEMIA Status: Acute Current Visit: No - Problem List Review Problem List Initiated/Reviewed/Updated: Yes - My Orders Last 24 Hours: My Active Orders 12/24/17 15:18 RT Aerosol Therapy [RC] ASDIRECTED Albuterol [Proventil Neb Soln] 2.5 mg NEB Q4HRRT PRN 12/24/17 15:23 Patient Status [ADT] Routine Oxygen Therapy [RC] PRN Up With Assistance [RC] ASDIRECTED VTE/DVT Education [RC] PER UNIT ROUTINE Vital Signs [RC] Q4H Sodium Chloride 0.9% [Saline Flush] 10 ml FLUSH ASDIRECTED PRN Zolpidem [Ambien] 5 mg PO BEDTIME PRN Saline Lock Insert [OM.PC] Routine Resuscitation Status Routine 12/24/17 15:24 Antiembolic Hose [OM.PC] Per Unit Routine 12/24/17 15:30 Nicotine [Habitrol] 14 mg TRDERM DAILY methylPREDNISolone Sod Succ [Solu-MEDROL] 40 mg IVPUSH Q8HR 12/24/17 16:00 Azithromycin [Zithromax] 500 mg Sodium Chloride 0.9% [Normal Saline] 250 ml IV Q24H 12/24/17 17:00 Albuterol/Ipratropium [DuoNeb 3.0-0.5 MG/3 ML] 3 ml NEB QIDRT 12/24/17 18:00 Budesonide [Pulmicort] 0.5 mg NEB BIDRT 12/24/17 18:50 CULTURE SPUTUM + SMEAR [RM] Routine 12/24/17 21:00 Metoprolol Tartrate [Lopressor] 50 mg PO BID 12/24/17 22:00 Heparin Sodium 5,000 units SUBCUT Q8HR 12/24/17 23:36 Acetaminophen [Tylenol] 650 mg PO Q4H PRN 12/24/17 Dinner Regular Diet [DIET] 12/25/17 06:00 Levothyroxine 75 mcg PO ACBREAKFAST 12/25/17 15:30 Furosemide [Lasix] 20 mg PO BIDDIURETIC - Plan Plan:: The patient is a 72-year-old lady with a history of COPD, chronic oxygen and steroid dependent. The patient on out of prednisone about a week ago. She presented with increasing shortness of breath, cough. She was noted to have hypoxemia when not wearing her oxygen at the clinic. Acute COPD exacerbation continue to give IV steroids, inhaled steroids. Use DuoNeb scheduled and as needed Use Pulmicort Chronic hypoxemic respiratory failure The patient will likely need oxygen with activity as well We'll monitor and adjust oxygen as needed Cough, subjective fever No apparent pneumonia on chest x-ray Possible bronchitis putum culture: pending Start azithromycin. Hypertension Treat with atenolol DVT prophylaxis with subcutaneous heparin discussed smoking cessation
[2017-12-25] MEDS: Furosemide 20 MG Tab PO SCH ×2 (14:14→15:58)
[2017-12-25] MEDS: Azithromycin 500 MG in Sodium Chloride 0.9% 250 ML IV SCH (16:17)
[2017-12-26] MEDS: Heparin Sodium 5,000 Units/ML Vial SUBCUT SCH ×3 (05:58→21:25)
[2017-12-26] MEDS: methylPREDNISolone Sodium Succinate 40 MG/1 ML SDV IVPUSH SCH ×3 (06:01→21:27)
[2017-12-26] MEDS: Sodium Chloride 0.9% 10 ML Syringe FLUSH PRN ×5 (06:01→21:32)
[2017-12-26] MEDS: Levothyroxine 75 MCG Tab PO SCH (06:09)
[2017-12-26] MEDS: Budesonide 0.5 MG/2 ML Neb Susp NEB SCH ×2 (07:24→18:26)
[2017-12-26] MEDS: Albuterol/Ipratropium 3.0-0.5 MG/3 ML Neb Soln NEB SCH ×4 (07:24→21:22)
[2017-12-26] MEDS: Metoprolol Tartrate 50 MG Tab PO SCH ×2 (08:32→21:20)
[2017-12-26] MEDS: Furosemide 20 MG Tab PO SCH ×2 (08:32→14:11)
[2017-12-26] MEDS: Nicotine 14 MG/24 Hr Patch TRDERM SCH (08:33)
--- NOTE | 2017-12-26 10:10 | PCM.PN ---
- General Info Date of Service: 12/26/17 Admission Dx/Problem (Free Text): Admission Diagnosis/Problem Admission Diagnosis/Problem Shortness of breath Subjective Update: feeling better. Still sob associated with cough. Was more short of breath this morning. Improved with the nebulizer sob started days prior to admission no fever. no CP no abd pain Thinking about diet, thinking about moving into assisted living facility. Functional Status: Reports: Pain Controlled - Review of Systems General: Reports: Weakness. Denies: Fever Pulmonary: Reports: Shortness of Breath, Cough Cardiovascular: Denies: Chest Pain Gastrointestinal: Denies: Abdominal Pain Neurological: Denies: Confusion - Patient Data Vitals - Most Recent: Last Vital Signs Temp 36.7 C 12/26/17 07:00 Pulse 74 12/26/17 08:32 Resp 18 12/26/17 07:00 BP 139/80 12/26/17 08:32 Pulse Ox 95 12/26/17 07:25 Weight - Most Recent: 93.349 kg I&O - Last 24 Hours: Intake & Output 12/25/17 12/26/17 12/26/17 22:59 06:59 14:59 Intake Total 1093 500 660 Output Total 1400 700 200 Balance -307 -200 460 Lab Results Last 24 Hours: Laboratory Results - last 24 hr 12/26/17 12/26/17 Range/Units 06:05 06:05 WBC 20.2 H (5.0-10.0) 10^3/uL RBC 3.72 L (4.2-5.4) 10^6/uL Hgb 12.0 (12.0-16.0) g/dL Hct 37.0 (37.0-47.0) % MCV 99.5 (80-100) fL MCH 32.3 (27.0-34.0) pg MCHC 32.4 L (33.0-35.0) g/dL Plt Count 229 (150-450) 10^3/uL Neut % (Auto) 91.7 H (42.2-75.2) % Lymph % (Auto) 5.5 L (20.5-50.1) % [place] % (Auto) 2.8 (2-8) % Eos % (Auto) 0.0 L (1.0-3.0) % Baso % (Auto) 0.0 (0.0-1.0) % Sodium 139 (135-145) mmol/L Potassium 4.5 (3.6-5.0) mmol/L Chloride 106 (101-111) mmol/L Carbon Dioxide 25.0 (21.0-31.0) mmol/L Anion Gap 12.5 BUN 34 H (7-18) mg/dL Creatinine 1.5 H (0.6-1.3) mg/dL Est Cr Clr Drug Dosing 27.22 mL/min Estimated GFR (MDRD) 34 Glucose 183 H (74-105) mg/dL Calcium 9.4 (8.4-10.2) mg/dl Kamran Results Last 24 Hours: Microbiology 12/24/17 12:25 Aerobic Blood Culture - Preliminary Blood - Venous - Lab Draw NO GROWTH AFTER 1 DAY Anaerobic Blood Culture - Preliminary NO GROWTH AFTER 1 DAY 12/24/17 12:16 Aerobic Blood Culture - Preliminary Blood - Venous NO GROWTH AFTER 1 DAY Anaerobic Blood Culture - Preliminary NO GROWTH AFTER 1 DAY Med Orders - Current: Current Medications Acetaminophen (Tylenol) 650 mg PO Q4H PRN PRN Reason: Pain Last Admin: 12/24/17 23:59 Dose: 650 mg Albuterol (Proventil Neb Soln) 2.5 mg NEB Q4HRRT PRN PRN Reason: sob Albuterol/Ipratropium (Duoneb 3.0-0.5 Mg/3 Ml) 3 ml NEB QIDRT [facility] Last Admin: 12/26/17 07:24 Dose: 3 ml Budesonide (Pulmicort) 0.5 mg NEB BIDRT [facility] Last Admin: 12/26/17 07:24 Dose: 0.5 mg Furosemide (Lasix) 20 mg PO BIDDIURETIC [facility] Last Admin: 12/26/17 08:32 Dose: 20 mg Heparin Sodium (Porcine) (Heparin Sodium) 5,000 units SUBCUT Q8HR [facility] Last Admin: 12/26/17 05:58 Dose: 5,000 units Azithromycin 500 mg/ Sodium (Chloride) 250 mls @ 250 mls/hr IV Q24H [facility] Last Infusion: 12/25/17 17:42 Dose: 150 mls/hr Levothyroxine Sodium (Levothyroxine) 75 mcg PO ACBREAKFAST [facility] Last Admin: 12/26/17 06:09 Dose: 75 mcg Methylprednisolone Sodium Succinate (Solu-Medrol) 40 mg IVPUSH Q8HR [facility] Last Admin: 12/26/17 06:01 Dose: 40 mg Metoprolol Tartrate (Lopressor) 50 mg PO BID [facility] Last Admin: 12/26/17 08:32 Dose: 50 mg Nicotine (Habitrol) 14 mg TRDERM DAILY [facility] Last Admin: 12/26/17 08:33 Dose: 14 mg Sodium Chloride (Saline Flush) 10 ml FLUSH ASDIRECTED PRN PRN Reason: Keep Vein Open Last Admin: 12/26/17 06:01 Dose: 10 ml Sodium Chloride (Saline Flush) 10 ml FLUSH ASDIRECTED PRN PRN Reason: Keep Vein Open Zolpidem Tartrate (Ambien) 5 mg PO BEDTIME PRN PRN Reason: Sleep Discontinued Medications Albuterol/Ipratropium (Duoneb 3.0-0.5 Mg/3 Ml) 3 ml NEB ONETIME ONE Stop: 12/24/17 11:56 Last Admin: 12/24/17 11:58 Dose: 3 ml Methylprednisolone Sodium Succinate (Solu-Medrol) 125 mg IVPUSH ONETIME ONE Stop: 12/24/17 11:56 Last Admin: 12/24/17 12:56 Dose: 125 mg - Exam General: Alert, Oriented Neck: Supple Lungs: Normal Respiratory Effort, Wheezing Cardiovascular: Regular Rate, Regular Rhythm GI/Abdominal Exam: Normal Bowel Sounds, Soft, Non-Tender Extremities: Pedal Edema (Trace bilateral) - Problem List & Annotations (1) Acute exacerbation of chronic obstructive pulmonary disease (COPD) SNOMED Code(s): 864534804 Code(s): J44.1 - CHRONIC OBSTRUCTIVE PULMONARY DISEASE W (ACUTE) EXACERBATION Status: Acute Priority: High Current Visit: No (2) Hypoxia SNOMED Code(s): 520262297 Code(s): R09.02 - HYPOXEMIA Status: Acute Current Visit: No - Problem List Review Problem List Initiated/Reviewed/Updated: Yes - My Orders Last 24 Hours: My Active Orders 12/25/17 15:30 Furosemide [Lasix] 20 mg PO BIDDIURETIC - Plan Plan:: The patient is a 72-year-old lady with a history of COPD, chronic oxygen and steroid dependent. The patient on out of prednisone about a week ago. She presented with increasing shortness of breath, cough. She was noted to have hypoxemia when not wearing her oxygen at the clinic. Acute COPD exacerbation continue to give IV steroids, inhaled steroids. Use DuoNeb scheduled and as needed Use Pulmicort Chronic hypoxemic respiratory failure The patient will likely need oxygen with activity as well We'll monitor and adjust oxygen as needed Cough, subjective fever Increasing Leukocytosis is likely related to steroids No apparent pneumonia on chest x-ray Possible bronchitis sputum culture: pending Blood culture pending Treat with azithromycin. Hypertension Treat with Lasix, metoprolol DVT prophylaxis with subcutaneous heparin discussed smoking cessation, weight loss She is thinking about moving into an assisted living facility.
[2017-12-26] MEDS: Albuterol 0.083% 2.5 MG/3 ML Neb Soln NEB PRN (13:29)
[2017-12-26] MEDS: Azithromycin 500 MG in Sodium Chloride 0.9% 250 ML IV SCH (15:35)
[2017-12-27] MEDS: Albuterol 0.083% 2.5 MG/3 ML Neb Soln NEB PRN (04:05)
[2017-12-27] MEDS: Levothyroxine 75 MCG Tab PO SCH (06:11)
[2017-12-27] MEDS: Heparin Sodium 5,000 Units/ML Vial SUBCUT SCH ×2 (06:11→15:02)
[2017-12-27] MEDS: methylPREDNISolone Sodium Succinate 40 MG/1 ML SDV IVPUSH SCH (06:14)
[2017-12-27] MEDS: Sodium Chloride 0.9% 10 ML Syringe FLUSH PRN ×2 (06:14→06:18)
[2017-12-27] MEDS: Albuterol/Ipratropium 3.0-0.5 MG/3 ML Neb Soln NEB SCH ×2 (07:39→15:01)
[2017-12-27] MEDS: Budesonide 0.5 MG/2 ML Neb Susp NEB SCH (07:39)
[2017-12-27] MEDS: Furosemide 20 MG Tab PO SCH ×2 (08:31→15:02)
[2017-12-27] MEDS: Metoprolol Tartrate 50 MG Tab PO SCH (08:31)
[2017-12-27] MEDS: Nicotine 14 MG/24 Hr Patch TRDERM SCH (08:31)
--- NOTE | 2017-12-27 10:23 | PCM.PN ---
- General Info Date of Service: 12/27/17 Admission Dx/Problem (Free Text): Admission Diagnosis/Problem Admission Diagnosis/Problem Shortness of breath Subjective Update: feeling better. Still sob associated with cough. sob started days prior to admission, worse after activity Improved since admission no fever. no CP no abd pain Functional Status: Reports: Pain Controlled, Tolerating Diet - Review of Systems General: Denies: Fever Pulmonary: Reports: Shortness of Breath Cardiovascular: Denies: Chest Pain Gastrointestinal: Reports: Other (Had good bowel movement yesterday). Denies: Abdominal Pain Skin: Reports: No Symptoms Neurological: Denies: Confusion - Patient Data Vitals - Most Recent: Last Vital Signs Temp 36.7 C 12/27/17 08:33 Pulse 81 12/27/17 08:33 Resp 20 12/27/17 08:33 BP 150/86 H 12/27/17 08:33 Pulse Ox 97 12/27/17 08:33 Weight - Most Recent: 93.349 kg I&O - Last 24 Hours: Intake & Output 12/26/17 12/27/17 12/27/17 22:59 06:59 14:59 Intake Total 1295 800 Output Total 1900 1300 Balance -605 -500 Lab Results Last 24 Hours: Laboratory Results - last 24 hr 12/27/17 12/27/17 Range/Units 05:40 05:40 WBC 17.1 H (5.0-10.0) 10^3/uL RBC 3.68 L (4.2-5.4) 10^6/uL Hgb 12.0 (12.0-16.0) g/dL Hct 36.6 L (37.0-47.0) % MCV 99.5 (80-100) fL MCH 32.6 (27.0-34.0) pg MCHC 32.8 L (33.0-35.0) g/dL Plt Count 224 (150-450) 10^3/uL Neut % (Auto) 91.8 H (42.2-75.2) % Lymph % (Auto) 5.2 L (20.5-50.1) % [place] % (Auto) 3.0 (2-8) % Eos % (Auto) 0.0 L (1.0-3.0) % Baso % (Auto) 0.0 (0.0-1.0) % Add Manual Diff Yes Neutrophils % (Manual) 80 H (42-75) % Band Neutrophils % 4 % Lymphocytes % (Manual) 12 L (20-50) % Monocytes % (Manual) 3 (2-8) % Eosinophils % (Manual) 1 (1-3) % Sodium 139 (135-145) mmol/L Potassium 4.0 (3.6-5.0) mmol/L Chloride 105 (101-111) mmol/L Carbon Dioxide 26.0 (21.0-31.0) mmol/L Anion Gap 12.0 BUN 38 H (7-18) mg/dL Creatinine 1.4 H (0.6-1.3) mg/dL Est Cr Clr Drug Dosing 29.16 mL/min Estimated GFR (MDRD) 37 Glucose 214 H (74-105) mg/dL Calcium 8.9 (8.4-10.2) mg/dl Kamran Results Last 24 Hours: Microbiology 12/24/17 18:50 Gram Stain - Final Sputum - Expectorated Sputum Culture - Final Normal Radha 12/24/17 12:25 Aerobic Blood Culture - Preliminary Blood - Venous - Lab Draw NO GROWTH AFTER 2 DAYS Anaerobic Blood Culture - Preliminary NO GROWTH AFTER 2 DAYS 12/24/17 12:16 Aerobic Blood Culture - Preliminary Blood - Venous NO GROWTH AFTER 2 DAYS Anaerobic Blood Culture - Preliminary NO GROWTH AFTER 2 DAYS Med Orders - Current: Current Medications Acetaminophen (Tylenol) 650 mg PO Q4H PRN PRN Reason: Pain Last Admin: 12/24/17 23:59 Dose: 650 mg Albuterol (Proventil Neb Soln) 2.5 mg NEB Q4HRRT PRN PRN Reason: sob Last Admin: 12/27/17 04:05 Dose: 2.5 mg Albuterol/Ipratropium (Duoneb 3.0-0.5 Mg/3 Ml) 3 ml NEB QIDRT [facility] Last Admin: 12/27/17 07:39 Dose: 3 ml Budesonide (Pulmicort) 0.5 mg NEB BIDRT [facility] Last Admin: 12/27/17 07:39 Dose: 0.5 mg Furosemide (Lasix) 20 mg PO BIDDIURETIC [facility] Last Admin: 12/27/17 08:31 Dose: 20 mg Heparin Sodium (Porcine) (Heparin Sodium) 5,000 units SUBCUT Q8HR [facility] Last Admin: 12/27/17 06:11 Dose: 5,000 units Azithromycin 500 mg/ Sodium (Chloride) 250 mls @ 250 mls/hr IV Q24H [facility] Last Infusion: 12/26/17 17:23 Dose: Infused Levothyroxine Sodium (Levothyroxine) 75 mcg PO ACBREAKFAST [facility] Last Admin: 12/27/17 06:11 Dose: 75 mcg Methylprednisolone Sodium Succinate (Solu-Medrol) 40 mg IVPUSH Q12H [facility] Metoprolol Tartrate (Lopressor) 50 mg PO BID [facility] Last Admin: 12/27/17 08:31 Dose: 50 mg Nicotine (Habitrol) 14 mg TRDERM DAILY [facility] Last Admin: 12/27/17 08:31 Dose: 14 mg Sodium Chloride (Saline Flush) 10 ml FLUSH ASDIRECTED PRN PRN Reason: Keep Vein Open Last Admin: 12/27/17 06:18 Dose: 10 ml Sodium Chloride (Saline Flush) 10 ml FLUSH ASDIRECTED PRN PRN Reason: Keep Vein Open Zolpidem Tartrate (Ambien) 5 mg PO BEDTIME PRN PRN Reason: Sleep Discontinued Medications Albuterol/Ipratropium (Duoneb 3.0-0.5 Mg/3 Ml) 3 ml NEB ONETIME ONE Stop: 12/24/17 11:56 Last Admin: 12/24/17 11:58 Dose: 3 ml Methylprednisolone Sodium Succinate (Solu-Medrol) 125 mg IVPUSH ONETIME ONE Stop: 12/24/17 11:56 Last Admin: 12/24/17 12:56 Dose: 125 mg Methylprednisolone Sodium Succinate (Solu-Medrol) 40 mg IVPUSH Q8HR [facility] Last Admin: 12/27/17 06:14 Dose: 40 mg - Exam General: Alert, Oriented Neck: Supple Lungs: Normal Respiratory Effort, Decreased Breath Sounds. No: Wheezing Cardiovascular: Regular Rate, Regular Rhythm Extremities: No Pedal Edema - Problem List & Annotations (1) Acute exacerbation of chronic obstructive pulmonary disease (COPD) SNOMED Code(s): 809888608 Code(s): J44.1 - CHRONIC OBSTRUCTIVE PULMONARY DISEASE W (ACUTE) EXACERBATION Status: Acute Priority: High Current Visit: No (2) Hypoxia SNOMED Code(s): 687416084 Code(s): R09.02 - HYPOXEMIA Status: Acute Current Visit: No - Problem List Review Problem List Initiated/Reviewed/Updated: Yes - My Orders Last 24 Hours: My Active Orders 12/27/17 18:00 methylPREDNISolone Sod Succ [Solu-MEDROL] 40 mg IVPUSH Q12H 12/28/17 05:15 BASIC METABOLIC PANEL,BMP [CHEM] AM - Plan Plan:: The patient is a 72-year-old lady with a history of COPD, chronic oxygen and steroid dependent. The patient on out of prednisone about a week ago. She presented with increasing shortness of breath, cough. She was noted to have hypoxemia when not wearing her oxygen at the clinic. Acute COPD exacerbation continue to give IV steroids, inhaled steroids. Taper IV steroids Use DuoNeb scheduled and as needed Use Pulmicort Chronic hypoxemic respiratory failure The patient will likely need oxygen with activity as well We'll monitor and adjust oxygen as needed She has home concentrator but no portable oxygen at home Cough, subjective fever Increasing Leukocytosis is likely related to steroids No apparent pneumonia on chest x-ray Possible bronchitis sputum culture: pending Blood culture pending Treat with azithromycin. Hypertension Treat with Lasix, metoprolol DVT prophylaxis with subcutaneous heparin discussed smoking cessation, weight loss She is thinking about moving into an assisted living facility. Discussed with systems planner
[2017-12-28] MEDS: Heparin Sodium 5,000 Units/ML Vial SUBCUT SCH ×2 (03:12→05:50)
[2017-12-28] MEDS: methylPREDNISolone Sodium Succinate 40 MG/1 ML SDV IVPUSH SCH ×2 (03:12→05:52)
[2017-12-28] MEDS: Budesonide 0.5 MG/2 ML Neb Susp NEB SCH ×2 (03:12→07:26)
[2017-12-28] MEDS: Metoprolol Tartrate 50 MG Tab PO SCH ×2 (03:12→08:55)
[2017-12-28] MEDS: Albuterol/Ipratropium 3.0-0.5 MG/3 ML Neb Soln NEB SCH ×3 (03:12→11:01)
[2017-12-28] MEDS: Azithromycin 500 MG in Sodium Chloride 0.9% 250 ML IV SCH (03:12)
[2017-12-28] MEDS: Levothyroxine 75 MCG Tab PO SCH (05:51)
[2017-12-28] MEDS: Sodium Chloride 0.9% 10 ML Syringe FLUSH PRN (05:52)
[2017-12-28] MEDS: Nicotine 14 MG/24 Hr Patch TRDERM SCH (08:55)
[2017-12-28] MEDS: Furosemide 20 MG Tab PO SCH (08:55)
--- NOTE | 2017-12-28 10:44 | PCM.DCSUM1 ---
Discharge Summary - Hospital Course Free Text/Narrative:: The patient is a 72-year-old lady with a history of COPD, chronic oxygen and steroid dependent. The patient on out of prednisone about a week ago. She presented with increasing shortness of breath, cough. She was noted to have hypoxemia when not wearing her oxygen at the clinic. Acute COPD exacerbation Was treated with IV steroids, inhaled steroids. Taper steroids Start formoterol Continue Pulmicort, DuoNeb as needed Chronic hypoxemic respiratory failure The patient has been previously on home oxygen but has been using it only at night and at rest. Oxygen desaturation testing on 28 December was performed. The patient's oxygen saturation remained above 90 at rest and with activity on room air. Cough, subjective fever No apparent pneumonia on chest x-ray Possible bronchitis sputum culture: pending Blood culture negative for now Treated with azithromycin. Finish levofloxacin treatment Hypertension Treat with Lasix, metoprolol discussed smoking cessation, weight loss - Discharge Data Discharge Date: 12/28/17 Discharge Disposition: Home, Self-Care 01 Condition: Fair - Discharge Diagnosis/Problem(s) (1) Acute exacerbation of chronic obstructive pulmonary disease (COPD) SNOMED Code(s): 828463240 ICD Code: J44.1 - CHRONIC OBSTRUCTIVE PULMONARY DISEASE W (ACUTE) EXACERBATION Status: Acute Priority: High Current Visit: No (2) Hypoxia SNOMED Code(s): 146283690 ICD Code: R09.02 - HYPOXEMIA Status: Acute Current Visit: No - Patient Instructions Diet: Weight Loss Diet Activity: As Tolerated - Discharge Plan Prescriptions/Med Rec: Budesonide [Pulmicort] 0.5 mg NEB BIDRT #60 neb Formoterol [Foradil] 1 puff INH BID #1 kit Levofloxacin [Levaquin] 500 mg PO DAILY #5 tab Prednisone [IJD: Prednisone] 10 mg PO DAILY #30 tab Home Medications: Home Meds Albuterol Sulfate [Proventil Hfa] 2 puff IH Q4HR PRN 10/21/16 [History] Levothyroxine Sodium [Synthroid] 75 mcg PO ACBREAKFAST 10/21/16 [History] Furosemide [Lasix] 20 mg PO BID 04/03/17 [History] Metoprolol Tartrate 50 mg PO BID 04/03/17 [History] Albuterol [IJD: Albuterol] 3 ml INH Q4HR PRN 12/24/17 [History] Albuterol/Ipratropium [DuoNeb 3.0-0.5 MG/3 ML] 3 ml NEB BID 12/24/17 [History] Budesonide [Pulmicort] 0.5 mg NEB BIDRT #60 neb 12/28/17 [Rx] Formoterol [Foradil] 1 puff INH BID #1 kit 12/28/17 [Rx] Levofloxacin [Levaquin] 500 mg PO DAILY #5 tab 12/28/17 [Rx] Prednisone [IJD: Prednisone] 10 mg PO DAILY #30 tab 12/28/17 [Rx] Patient Handouts: Chronic Obstructive Pulmonary Disease Exacerbation, Easy-to- Read, Budesonide inhalation solution, Formoterol inhalation powder, Levofloxacin tablets, Prednisone tablets Forms: ED Department Discharge Referrals: PCP,Unobtain [Ordering Only Provider] - - Discharge Summary/Plan Comment DC Time >30 min.: Yes (Arranging oxygen desaturation test and home oxygen.) - General Info Date of Service: 12/28/17 Subjective Update: feeling better. sob has much improved no fever. no CP no abd pain Functional Status: Reports: Pain Controlled - Review of Systems General: Denies: Fever, Weakness Pulmonary: Reports: Shortness of Breath (At baseline), Wheezing (At baseline per patient) Cardiovascular: Denies: Chest Pain Gastrointestinal: Denies: Abdominal Pain Neurological: Denies: Confusion - Patient Data Vitals - Most Recent: Last Vital Signs Temp 36.6 C 12/28/17 07:59 Pulse 76 12/28/17 08:55 Resp 20 12/28/17 07:59 BP 151/89 H 12/28/17 08:55 Pulse Ox 94 L 12/28/17 07:59 Weight - Most Recent: 91.898 kg I&O - Last 24 hours: Intake & Output 12/27/17 12/28/17 12/28/17 22:59 06:59 14:59 Intake Total 600 Output Total 900 Balance -900 600 Lab Results - Last 24 hrs: Laboratory Results - last 24 hr 12/28/17 Range/Units 05:00 Sodium 139 (135-145) mmol/L Potassium 3.7 (3.6-5.0) mmol/L Chloride 103 (101-111) mmol/L Carbon Dioxide 26.0 (21.0-31.0) mmol/L Anion Gap 13.7 BUN 38 H (7-18) mg/dL Creatinine 1.4 H (0.6-1.3) mg/dL Est Cr Clr Drug Dosing 29.16 mL/min Estimated GFR (MDRD) 37 Glucose 180 H (74-105) mg/dL Calcium 9.0 (8.4-10.2) mg/dl VICKY Results - Last 24 hrs: Microbiology 12/24/17 12:25 Aerobic Blood Culture - Preliminary Blood - Venous - Lab Draw NO GROWTH AFTER 3 DAYS Anaerobic Blood Culture - Preliminary NO GROWTH AFTER 3 DAYS 12/24/17 12:16 Aerobic Blood Culture - Preliminary Blood - Venous NO GROWTH AFTER 3 DAYS Anaerobic Blood Culture - Preliminary NO GROWTH AFTER 3 DAYS 12/24/17 18:50 Gram Stain - Final Sputum - Expectorated Sputum Culture - Final Normal Radha Med Orders - Current: Current Medications Acetaminophen (Tylenol) 650 mg PO Q4H PRN PRN Reason: Pain Last Admin: 12/24/17 23:59 Dose: 650 mg Albuterol (Proventil Neb Soln) 2.5 mg NEB Q4HRRT PRN PRN Reason: sob Last Admin: 12/27/17 04:05 Dose: 2.5 mg Albuterol/Ipratropium (Duoneb 3.0-0.5 Mg/3 Ml) 3 ml NEB QIDRT [facility] Last Admin: 12/28/17 07:26 Dose: 3 ml Budesonide (Pulmicort) 0.5 mg NEB BIDRT [facility] Last Admin: 12/28/17 07:26 Dose: 0.5 mg Furosemide (Lasix) 20 mg PO BIDDIURETIC [facility] Last Admin: 12/28/17 08:55 Dose: 20 mg Heparin Sodium (Porcine) (Heparin Sodium) 5,000 units SUBCUT Q8HR [facility] Last Admin: 12/28/17 05:50 Dose: 5,000 units Azithromycin 500 mg/ Sodium (Chloride) 250 mls @ 250 mls/hr IV Q24H [facility] Last Admin: 12/28/17 03:12 Dose: Not Given Levothyroxine Sodium (Levothyroxine) 75 mcg PO ACBREAKFAST [facility] Last Admin: 12/28/17 05:51 Dose: 75 mcg Methylprednisolone Sodium Succinate (Solu-Medrol) 40 mg IVPUSH Q12H [facility] Last Admin: 12/28/17 05:52 Dose: 40 mg Metoprolol Tartrate (Lopressor) 50 mg PO BID [facility] Last Admin: 12/28/17 08:55 Dose: 50 mg Nicotine (Habitrol) 14 mg TRDERM DAILY [facility] Last Admin: 12/28/17 08:55 Dose: 14 mg Sodium Chloride (Saline Flush) 10 ml FLUSH ASDIRECTED PRN PRN Reason: Keep Vein Open Last Admin: 12/28/17 05:52 Dose: 10 ml Sodium Chloride (Saline Flush) 10 ml FLUSH ASDIRECTED PRN PRN Reason: Keep Vein Open Zolpidem Tartrate (Ambien) 5 mg PO BEDTIME PRN PRN Reason: Sleep Discontinued Medications Albuterol/Ipratropium (Duoneb 3.0-0.5 Mg/3 Ml) 3 ml NEB ONETIME ONE Stop: 12/24/17 11:56 Last Admin: 12/24/17 11:58 Dose: 3 ml Methylprednisolone Sodium Succinate (Solu-Medrol) 125 mg IVPUSH ONETIME ONE Stop: 12/24/17 11:56 Last Admin: 12/24/17 12:56 Dose: 125 mg Methylprednisolone Sodium Succinate (Solu-Medrol) 40 mg IVPUSH Q8HR [facility] Last Admin: 12/27/17 06:14 Dose: 40 mg - Exam Quality Assessment: Reports: Supplemental Oxygen General: Reports: Alert, Oriented Lungs: Reports: Normal Respiratory Effort, Wheezing (Mild bilateral) Cardiovascular: Reports: Regular Rate, Regular Rhythm GI/Abdominal Exam: Normal Bowel Sounds, Soft, Non-Tender Extremities: No Pedal Edema Skin: Reports: Warm, Dry Neurological: Reports: No New Focal Deficit Psy/Mental Status: Reports: Alert, Normal Affect, Normal Mood
[2017-12-28 11:34] VITALS: BP 148/86
--- NOTE | 2017-12-28 14:10 | EKG ---
12/24/2017- ELKIN ALFRED E - FINDINGS: EKG per my reading, shows sinus rhythm at a rate of 74 with inferior Q-waves. MOD /[id number]
== END 2017-12-28 13:00 | disposition home or self-care (01) | DRG 191 ==
LOC: DL.ED 11:17 → DL.MS 13:46 → UNDOADMIN 13:46 → DL.MS 15:23
PROVIDERS: ADMIT Internal Medicine; ATTEND Internal Medicine
DX: J44.1 Chronic obstructive pulmonary disease with (acute) exacerbation (principal); R09.02 Hypoxemia; J96.11 Chronic respiratory failure with hypoxia; F17.200 Nicotine dependence, unspecified, uncomplicated; H54.7 Unspecified visual loss; H35.30 Unspecified macular degeneration; I11.0 Hypertensive heart disease with heart failure; I50.9 Heart failure, unspecified; R32 Unspecified urinary incontinence; M06.9 Rheumatoid arthritis, unspecified; F41.9 Anxiety disorder, unspecified; F32.9 Major depressive disorder, single episode, unspecified; E66.9 Obesity, unspecified; E89.0 Postprocedural hypothyroidism; I25.2 Old myocardial infarction; Z68.36 Body mass index [BMI] 36.0-36.9, adult; Z90.49 Acquired absence of other specified parts of digestive tract; Z99.81 Dependence on supplemental oxygen; Z91.14 Patient's other noncompliance with medication regimen; Z79.52 Long term (current) use of systemic steroids; Z88.0 Allergy status to penicillin; Z88.8 Allergy status to other drugs, medicaments and biological substances; Z79.82 Long term (current) use of aspirin; R06.00 Dyspnea, unspecified; R05 Cough; R06.02 Shortness of breath; Z79.899 Other long term (current) drug therapy; Z28.21 Immunization not carried out because of patient refusal
CPT/HCPCS: 36415; 71046; 80053; 81001; 83605; 83880; 84484; 85025; 87040 ×2; 93005; 93010; 94640; 96374; 99285; J2930; J7050; 80048; 87070; 87205; A9270-GY; J0456; J1644; J2920; J7620-GY

== ENCOUNTER 2019-01-08 11:22 | Inpatient (IN) | payer MEDICARE, SELFPAY ==
[2019-01-08] MEDS: Sodium Chloride 0.9% 10 ML Syringe FLUSH PRN ×2 (11:30→22:57)
[2019-01-08] MEDS ORDERED: Budesonide 0.5 MG/2 ML Neb Susp NEB ONE (12:04)
[2019-01-08] MEDS ORDERED: Albuterol/Ipratropium 3.0-0.5 MG/3 ML Neb Soln NEB ONE (12:10)
[2019-01-08] MEDS ORDERED: Albuterol/Ipratropium 3.0-0.5 MG/3 ML Neb Soln ONE (12:11)
[2019-01-08 12:14] LABS: ANION GAP 16.7
--- NOTE | 2019-01-08 12:29 | EDM.PDOC ---
ED HPI GENERAL MEDICAL PROBLEM - General Chief Complaint: Respiratory Problem Stated Complaint: SOB Time Seen by Provider: 01/08/19 11:55 Source of Information: Reports: Patient, Family, RN, RN Notes Reviewed History Limitations: Reports: No Limitations - History of Present Illness INITIAL COMMENTS - FREE TEXT/NARRATIVE: Pt to ER with c/o increased SOB and abdominal distention which has gotten worse over the past few days. Patient admits to COPD, CHF, HTN. Patient states she has had diarrhea for the past 5 months, denies having the issue worked up by primary provider. She denies fever or chills. Onset: Gradual Duration: Constant, Getting Worse Location: Reports: Chest, Abdomen abdomen Pain Score (Numeric/FACES): 10 - Related Data Allergies Allergy/AdvReac Type Severity Reaction Status Date / Time amlodipine [From Norvasc] Allergy Cannot Verified 01/08/19 11:35 Remember cetirizine [From Zyrtec] Allergy Abdominal Verified 01/08/19 11:35 Pain Penicillins Allergy Rash Verified 01/08/19 11:35 simvastatin [From Zocor] Allergy Cannot Verified 01/08/19 11:35 Remember Home Meds: Home Meds Albuterol Sulfate [Proventil Hfa] 2 puff IH Q4HR PRN 10/21/16 [History] Levothyroxine Sodium [Synthroid] 75 mcg PO ACBREAKFAST 10/21/16 [History] Furosemide [Lasix] 20 mg PO BID 04/03/17 [History] Metoprolol Tartrate 50 mg PO BID 04/03/17 [History] Albuterol [IJD: Albuterol] 3 ml INH Q4HR PRN 12/24/17 [History] Albuterol/Ipratropium [DuoNeb 3.0-0.5 MG/3 ML] 3 ml NEB QID 12/24/17 [History] Prednisone [IJD: Prednisone] 10 mg PO DAILY #30 tab 12/28/17 [Rx] Past Medical History HEENT History: Reports: Impaired Vision, Macular Degeneration, Other (See Below) Other HEENT History: wears glasses Cardiovascular History: Reports: Heart Failure, Hypertension, PA, SOB on Exertion Respiratory History: Reports: COPD Gastrointestinal History: Reports: Chronic Diarrhea Genitourinary History: Reports: Urinary Incontinence [employer]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[employer] RETAIL History: Reports: Musculoskeletal History: Reports: Fracture, RA Neurological History: Reports: None Psychiatric History: Reports: Anxiety, Depression Endocrine/Metabolic History: Reports: Hypothyroidism, Obesity/BMI 30+ Hematologic History: Reports: None Immunologic History: Reports: None Oncologic (Cancer) History: Reports: Other (See Below) Other Oncologic History: simple vulvectomy - cancer Dermatologic History: Reports: None - Infectious Disease History Infectious Disease History: Reports: Chicken Pox, Measles, Mumps - Past Surgical History HEENT Surgical History: Reports: None Cardiovascular Surgical History: Reports: None Respiratory Surgical History: Reports: None GI Surgical History: Reports: Appendectomy, Cholecystectomy Female Surgical History: Reports: Tubal Ligation, Other (See Below) Other Female Surgeries/Procedures: simple vulvectomy Endocrine Surgical History: Reports: Thyroidectomy Neurological Surgical History: Reports: None Musculoskeletal Surgical History: Reports: None Social & Family History - Family History Family Medical History: Noncontributory Cardiac: Reports: PA Respiratory: Reports: COPD Neurological: Reports: CVA - Tobacco Use Smoking Status *Q: Current Every Day Smoker Years of Tobacco use: 60 Packs/Tins Daily: 1 Second Hand Smoke Exposure: No - Caffeine Use Caffeine Use: Reports: Coffee - Recreational Drug Use Recreational Drug Use: No - Living Situation & Occupation Living situation: Reports: with Family Occupation: Retired ED ROS GENERAL - Review of Systems Review Of Systems: ROS reveals no pertinent complaints other than HPI. ED EXAM, GENERAL - Physical Exam Exam: See Below Exam Limited By: No Limitations General Appearance: Alert, WD/WN, Moderate Distress Eye Exam: Bilateral Eye: EOMI, Normal Inspection Ears: Normal External Exam, Hearing Grossly Normal Nose: Normal Inspection Throat/Mouth: Normal Inspection, Normal Voice, No Airway Compromise Head: Atraumatic, Normocephalic Neck: Normal Inspection, Supple, Non-Tender, Full Range of Motion Respiratory/Chest: Decreased Breath Sounds, Crackles (throughout), Wheezing ( insp) Cardiovascular: Normal Peripheral Pulses, Regular Rate, Rhythm, No Edema, No Gallop, No JVD, No Murmur, No Rub Peripheral Pulses: 1+: Radial (L), Radial (R) GI/Abdominal: Normal Bowel Sounds, Soft, Distended (Female) Exam: Deferred Rectal (Female) Exam: Deferred Back Exam: Normal Inspection, Full Range of Motion, NT Extremities: Normal Inspection, Normal Range of Motion, Non-Tender, Normal Capillary Refill, No Pedal Edema Neurological: Alert, Oriented, CN II-XII Intact, Normal Cognition, Normal Gait, Normal Reflexes, No Motor/Sensory Deficits Psychiatric: Normal Affect, Normal Mood Skin Exam: Warm, Dry, Intact, Normal Color, No Rash Lymphatic: No Adenopathy Course - Vital Signs Last Recorded V/S: Last Vital Signs Temp 98.0 F 01/08/19 11:32 Pulse 84 01/08/19 12:10 Resp 19 01/08/19 11:32 BP 146/87 H 01/08/19 11:32 Pulse Ox 96 01/08/19 12:10 - Orders/Labs/Meds Orders: Active Orders 24 hr Category Date Time Status EKG Documentation Completion [RC] STAT Care 01/08/19 11:47 Active Peripheral IV Care [RC] . DIRECTED Care 01/08/19 11:57 Active RT Aerosol Therapy [RC] ASDIRECTED Care 01/08/19 12:04 Inactive RT Aerosol Therapy [RC] ASDIRECTED Care 01/08/19 12:10 Active CLOSTRIDIUM DIFFICILE TOX RFLX [MREF] Stat Lab 01/08/19 11:57 Ordered CULTURE BLOOD [BC] Stat Lab 01/08/19 12:25 Received CULTURE BLOOD [BC] Stat Lab 01/08/19 12:29 Received UA RFX VICKY AND CULT IF INDIC [URIN] Stat Lab 01/08/19 11:57 Ordered Sodium Chloride 0.9% [Saline Flush] Med 01/08/19 11:53 Active 10 ml FLUSH ASDIRECTED PRN Blood Culture x2 Reflex Set [OM.PC] Stat Oth 01/08/19 12:11 Ordered Isolation [COMM] Stat Oth 01/08/19 11:57 Ordered Peripheral IV Insertion Adult [OM.PC] Stat Oth 01/08/19 11:53 Ordered Medication Orders Sodium Chloride (Saline Flush) 10 ml FLUSH ASDIRECTED PRN PRN Reason: Keep Vein Open Last Admin: 01/08/19 11:30 Dose: 10 ml Labs: Laboratory Tests 01/08/19 01/08/19 01/08/19 Range/Units 11:34 11:34 11:34 WBC 17.0 H (5.0-10.0) 10^3/uL RBC 4.28 (4.2-5.4) 10^6/uL Hgb 13.7 (12.0-16.0) g/dL Hct 41.2 (37.0-47.0) % MCV 96.3 (80-100) fL MCH 32.0 (27.0-34.0) pg MCHC 33.3 (33.0-35.0) g/dL Plt Count 246 (150-450) 10^3/uL Neut % (Auto) 82.6 H (42.2-75.2) % Lymph % (Auto) 11.1 L (20.5-50.1) % [place] % (Auto) 5.5 (2-8) % Eos % (Auto) 0.6 L (1.0-3.0) % Baso % (Auto) 0.2 (0.0-1.0) % Sodium 136 (135-145) mmol/L Potassium 3.7 (3.6-5.0) mmol/L Chloride 99 L (101-111) mmol/L Carbon Dioxide 24.0 (21.0-31.0) mmol/L Anion Gap 16.7 BUN 22 H (7-18) mg/dL Creatinine 1.5 H (0.6-1.3) mg/dL Est Cr Clr Drug Dosing 27.98 mL/min Estimated GFR (MDRD) 34 BUN/Creatinine Ratio 14.66 Glucose 150 H (74-105) mg/dL Lactic Acid (0.5-2.2) mmol/L Calcium 9.1 (8.4-10.2) mg/dl Total Bilirubin 1.1 H (0.2-1.0) mg/dL AST 19 (10-42) IU/L ALT 11 (10-60) IU/L Alkaline Phosphatase 56 (42-121) IU/L Troponin I 0.03 H* (0.00-0.02) ng/ml B-Natriuretic Peptide 170 H (0-100) pg/ml Total Protein 7.6 (6.7-8.2) g/dl Albumin 3.7 (3.2-5.5) g/dl Globulin 3.9 Albumin/Globulin Ratio 0.95 01/08/19 Range/Units 12:25 WBC (5.0-10.0) 10^3/uL RBC (4.2-5.4) 10^6/uL Hgb (12.0-16.0) g/dL Hct (37.0-47.0) % MCV (80-100) fL MCH (27.0-34.0) pg MCHC (33.0-35.0) g/dL Plt Count (150-450) 10^3/uL Neut % (Auto) (42.2-75.2) % Lymph % (Auto) (20.5-50.1) % [place] % (Auto) (2-8) % Eos % (Auto) (1.0-3.0) % Baso % (Auto) (0.0-1.0) % Sodium (135-145) mmol/L Potassium (3.6-5.0) mmol/L Chloride (101-111) mmol/L Carbon Dioxide (21.0-31.0) mmol/L Anion Gap BUN (7-18) mg/dL Creatinine (0.6-1.3) mg/dL Est Cr Clr Drug Dosing mL/min Estimated GFR (MDRD) BUN/Creatinine Ratio Glucose (74-105) mg/dL Lactic Acid 1.5 (0.5-2.2) mmol/L Calcium (8.4-10.2) mg/dl Total Bilirubin (0.2-1.0) mg/dL AST (10-42) IU/L ALT (10-60) IU/L Alkaline Phosphatase (42-121) IU/L Troponin I (0.00-0.02) ng/ml B-Natriuretic Peptide (0-100) pg/ml Total Protein (6.7-8.2) g/dl Albumin (3.2-5.5) g/dl Globulin Albumin/Globulin Ratio Meds: Medications Generic Name Dose Route Start Last Admin Trade Name Freq PRN Reason Stop Dose Admin Sodium Chloride 10 ml 01/08/19 11:53 01/08/19 11:30 Saline Flush FLUSH 10 ml ASDIRECTED PRN Administration Keep Vein Open Discontinued Medications Generic Name Dose Route Start Last Admin Trade Name Freq PRN Reason Stop Dose Admin Albuterol/Ipratropium 3 ml 01/08/19 12:10 01/08/19 12:14 Duoneb 3.0-0.5 Mg/3 Ml NEB 01/08/19 12:11 3 ml ONETIME ONE Administration Albuterol/Ipratropium Confirm 01/08/19 12:11 01/08/19 12:34 Duoneb 3.0-0.5 Mg/3 Ml Administered 01/08/19 12:12 Not Given Dose 3 ml .ROUTE .STK-MED ONE Budesonide 0.5 mg 01/08/19 12:04 01/08/19 12:33 Pulmicort NEB 01/08/19 12:05 Not Given ONETIME ONE - Radiology Interpretation Free Text/Narrative:: Chest xray: FINDINGS: Lungs: Lungs are hyperinflated consistent with COPD. Pleural space: Unremarkable. No pleural effusion. No pneumothorax. Heart/Mediastinum: There is mild cardiomegaly. Vasculature: Atheromatous calcifications of the aorta are present. Bones/joints: Unremarkable. IMPRESSION: No acute process is present within the chest. Thank you for allowing us to participate in the care of your patient. Dictated and Authenticated by: Lane Barajas MD 01/08/2019 1:28 PM Central Time ([place] & [place]) Abdomen/Pelvis CT wo contrast: FINDINGS: ABDOMEN: Liver: Normal. No mass. Gallbladder and bile ducts: Normal. No calcified stones. No ductal dilation. Pancreas: Normal. No ductal dilation. Spleen: Normal. No splenomegaly. Adrenals: Normal. No mass. Kidneys and ureters: Renal cyst(s) are present with the largest measuring 1.6 cm. Subtle calcifications within both kidneys could represent nonobstructing renal calculi versus partial calcification of the cyst. Stomach and bowel: Normal. No obstruction. No mucosal thickening. Appendix: No evidence of appendicitis. PELVIS: Bladder: Unremarkable as visualized. Reproductive: Unremarkable as visualized. ABDOMEN and PELVIS: Intraperitoneal space: Normal. No free air. No significant fluid collection. Bones/joints: No acute fracture. No dislocation. Soft tissues: There is a left inguinal hernia containing fat. Vasculature: Coronary artery calcifications are present. 4.5 cm abdominal aortic aneurysm without leak or rupture. Lymph nodes: Normal. No enlarged lymph nodes. IMPRESSION: 1. No acute process. 2. 4.5 cm abdominal aortic aneurysm without leak or rupture. COMMENT: Consistent with the [employer] [place] [employer]'s Incidental Findings Committee Report (J Am Sandi Radiol 2010): Unless the patient's specific circumstances suggest otherwise , any liver lesion 0.5 cm or less, any cystic kidney lesion less than 1.0 cm, and/or any adrenal lesion 1.0 cm or less not otherwise characterized in this report as possessing suspicious or indeterminate imaging features is/are highly likely to be benign and do not require follow-up imaging or biopsy. Thank you for allowing us to participate in the care of your patient. Dictated and Authenticated by: Lane Barajas MD 01/08/2019 1:27 PM Central Time ([place] & [place]) See rad report Departure - Departure Time of Disposition: 13:52 Disposition: Refer to Observation Condition: Fair Clinical Impression: COPD with exacerbation, Distended abdomen Diarrhea Qualifiers: Diarrhea type: unspecified type Qualified Code(s): R19.7 - Diarrhea, unspecified AAA (abdominal aortic aneurysm) Qualifiers: Presence of rupture: without rupture Qualified Code(s): I71.4 - Abdominal aortic aneurysm, without rupture Leukocytosis Qualifiers: Leukocytosis type: unspecified Qualified Code(s): D72.829 - Elevated white blood cell count, unspecified CHF (congestive heart failure) Qualifiers: Heart failure type: unspecified Heart failure chronicity: chronic Qualified Code(s): I50.9 - Heart failure, unspecified - Discharge Information *PRESCRIPTION DRUG MONITORING PROGRAM REVIEWED*: No *COPY OF PRESCRIPTION DRUG MONITORING REPORT IN PATIENT [place]: No Forms: ED Department Discharge - My Orders Last 24 Hours: My Active Orders 01/08/19 11:47 EKG Documentation Completion [RC] STAT 01/08/19 11:53 Sodium Chloride 0.9% [Saline Flush] 10 ml FLUSH ASDIRECTED PRN Peripheral IV Insertion Adult [OM.PC] Stat 01/08/19 11:57 Peripheral IV Care [RC] . DIRECTED CLOSTRIDIUM DIFFICILE TOX RFLX [MREF] Stat UA RFX VICKY AND CULT IF INDIC [URIN] Stat Isolation [COMM] Stat 01/08/19 12:04 RT Aerosol Therapy [RC] ASDIRECTED 01/08/19 12:10 RT Aerosol Therapy [RC] ASDIRECTED 01/08/19 12:11 Blood Culture x2 Reflex Set [OM.PC] Stat 01/08/19 12:25 CULTURE BLOOD [BC] Stat 01/08/19 12:29 CULTURE BLOOD [BC] Stat - Assessment/Plan Last 24 Hours: My Active Orders 01/08/19 11:47 EKG Documentation Completion [RC] STAT 01/08/19 11:53 Sodium Chloride 0.9% [Saline Flush] 10 ml FLUSH ASDIRECTED PRN Peripheral IV Insertion Adult [OM.PC] Stat 01/08/19 11:57 Peripheral IV Care [RC] . DIRECTED CLOSTRIDIUM DIFFICILE TOX RFLX [MREF] Stat UA RFX VICKY AND CULT IF INDIC [URIN] Stat Isolation [COMM] Stat 01/08/19 12:04 RT Aerosol Therapy [RC] ASDIRECTED 01/08/19 12:10 RT Aerosol Therapy [RC] ASDIRECTED 01/08/19 12:11 Blood Culture x2 Reflex Set [OM.PC] Stat 01/08/19 12:25 CULTURE BLOOD [BC] Stat 01/08/19 12:29 CULTURE BLOOD [BC] Stat
[2019-01-08] MEDS ORDERED: Ondansetron 4 MG Tab.DIS PO PRN (14:50)
[2019-01-08] MEDS ORDERED: Albuterol 0.083% 2.5 MG/3 ML Neb Soln INH PRN (14:58)
[2019-01-08] MEDS ORDERED: Levofloxacin/Dextrose 5%-Water 500 MG in Premix Bag 1 BAG IV SCH (15:00)
[2019-01-08] MEDS ORDERED: Budesonide 0.5 MG/2 ML Neb Susp ONE (15:11)
[2019-01-08] MEDS: Budesonide 0.5 MG/2 ML Neb Susp NEB SCH ×2 (15:15→17:03)
[2019-01-08] MEDS: Albuterol/Ipratropium 3.0-0.5 MG/3 ML Neb Soln NEB SCH ×3 (15:16→21:12)
[2019-01-08] MEDS: Furosemide 20 MG Tab PO SCH (15:33)
[2019-01-08] MEDS: methylPREDNISolone Sodium Succinate 125 MG/2 ML SDV IVPUSH SCH ×2 (15:34→22:56)
[2019-01-08] MEDS: Acetaminophen 325 MG Tab PO PRN (19:30)
[2019-01-08] MEDS: Metoprolol Tartrate 50 MG Tab PO SCH (21:11)
[2019-01-08] MEDS: Heparin Sodium 5,000 Units/ML Vial SUBCUT SCH (22:07)
[2019-01-09] MEDS: Acetaminophen 325 MG Tab PO PRN ×2 (03:10→08:29)
[2019-01-09] MEDS: Heparin Sodium 5,000 Units/ML Vial SUBCUT SCH ×3 (05:51→22:32)
[2019-01-09] MEDS: Levothyroxine 75 MCG Tab PO SCH (05:52)
[2019-01-09] MEDS: methylPREDNISolone Sodium Succinate 125 MG/2 ML SDV IVPUSH SCH ×3 (06:46→22:33)
[2019-01-09 06:47] LABS: ANION GAP 16.2
[2019-01-09] MEDS: Budesonide 0.5 MG/2 ML Neb Susp NEB SCH ×2 (07:06→17:07)
[2019-01-09] MEDS: Albuterol/Ipratropium 3.0-0.5 MG/3 ML Neb Soln NEB SCH ×4 (07:06→22:32)
[2019-01-09] MEDS: Metoprolol Tartrate 50 MG Tab PO SCH ×2 (08:28→22:34)
[2019-01-09] MEDS: Aspirin 81 MG Tab.Chew PO SCH (08:28)
[2019-01-09] MEDS: Furosemide 20 MG Tab PO SCH (08:28)
[2019-01-09] MEDS ORDERED: Sodium Chloride 0.9% 1,000 ML IV SCH (10:15)
[2019-01-09] MEDS: Sodium Chloride 0.9% 10 ML Syringe FLUSH PRN (11:09)
--- NOTE | 2019-01-09 11:15 | HP ---
CHIEF COMPLAINT: Increasing shortness of breath. HISTORY OF PRESENTING ILLNESS: Mrs. Bri Fuller is a 73-year-old female with a medical history significant for hypertension, hyperlipidemia, chronic congestive heart failure, chronic obstructive pulmonary disease, chronic hypoxic respiratory failure, and chronic tobacco use; presented to the ER with complaints of increasing shortness of breath. The patient says that the shortness of breath has been going on for the last 2 days which has been progressively getting worse. She grades the shortness of breath as some tightness in the chest, 8/10 in intensity, aggravated on exertion, relieved with rest. She continues to use oxygen at home which is around 2.5 L by nasal cannula. She also complains of having cough with sputum, which is whitish in color. Two weeks back her great-grand kid was sick with the flu and she is not sure if she got any viral illness at the time, but she felt cold at that time. She denies any abdominal pain. No nausea, no vomiting but has some diarrhea. The patient complains that she has been having diarrhea on chronic basis for the last few months. She denies any hematemesis, hematochezia, or melenic stools. She denies any fevers or chills at home. No complaints of headaches or changes in the vision. She denies any dizziness. The patient denied any history of chest pains on exertion but has mild dyspnea on exertion. No history of orthopnea or paroxysmal nocturnal dyspnea. The patient denied any history of hematemesis, hematochezia, or melenic stools. Normal bowel and bladder habits otherwise but for the last few months, she has been experiencing loose stools after each time she eats. REVIEW OF SYSTEMS: A complete review of system including skin; ear, nose, and throat; cardiovascular system; respiratory system; gastrointestinal system; genitourinary system; hematology/oncology; neurology; allergy; immunology; endocrinology; and constitutional were all evaluated and were negative except for the above-said notes. PAST MEDICAL HISTORY: Significant for hypertension, hyperlipidemia, hypothyroidism, chronic congestive heart failure, ischemic cardiomyopathy, coronary artery disease, chronic obstructive pulmonary disease, chronic hypoxic respiratory failure, and obesity. PAST SURGICAL HISTORY: Significant for cholecystectomy, appendicectomy, and vulvectomy. FAMILY HISTORY: Significant for heart disease in her cousin. ALLERGIES: The patient noted to have allergies to Norvasc, penicillin, Zocor, and Zyrtec. SOCIAL HISTORY: The patient continues to smoke, though she is trying to cut down on the smoking. No history of alcohol intake. HOME MEDICATIONS: Include: 1. Aspirin 81 mg daily. 2. Albuterol 2 puffs inhalation every 4 hours as needed. 3. Metoprolol 50 mg twice a day. 4. Levothyroxine 75 mcg daily. 5. Lasix 20 mg twice a day. 6. Prednisone 10 mg daily. 7. Albuterol 3 mL inhalation 4 times a day as needed. PHYSICAL EXAMINATION: Vital Signs: Temperature of 99.1, pulse of 87, blood pressure of 143/97, respiratory rate of 22, and saturating at 97% on 2.5 L of oxygen. General Appearance: The patient is well oriented to time, place, and person. Follows commands spontaneously. Cardiovascular System: S1, S2 heard with normal intensity. No gallops. Respiratory System: Bilateral wheeze noted. Bilateral crepitations noted. Abdomen: Soft. Bowel sounds positive. Nontender. No rigidity. Extremities: No edema in bilateral lower extremities. NEUROLOGIC: No gross focal neurological deficit. DATA: WBC 17, hemoglobin 13.7, hematocrit 41.2, and platelet count 246. Sodium 136, potassium 3.7, chloride 99, bicarbonate 24, BUN 22, creatinine 1.5, and glucose 150. AST 19, ALT 11, and alkaline phosphatase 56. Troponin 0.03, B-natriuretic peptide 170. Urinalysis: Leukocyte esterase trace, nitrites negative. Chest x-ray shows chronic changes, no acute infiltrates. Abdominal CT scan, preliminary report suggests no acute pathology. ASSESSMENT: 1. Acute chronic obstructive pulmonary disease exacerbation. 2. Acute bronchitis. 3. Acute on chronic hypoxic respiratory failure. 4. Hypertension. 5. Hyperlipidemia. 6. Chronic congestive heart failure with diastolic dysfunction. PLAN: 1. Acute COPD exacerbation. The patient presents with increasing shortness of breath. She is noted to have wheeze on physical exam, but she will be started on DuoNeb and Pulmicort nebulizer. She will be started on IV methylprednisone, and we will closely follow. We will have her on incentive spirometer and flutter valve for better pulmonary toileting. 2. Acute bronchitis. The patient noted to have sputum production which is whitish in color. We will obtain blood cultures and sputum culture. We will empirically start her on intravenous antibiotic with Levaquin. She is allergic to penicillins. 3. Hypertension. The patient's blood pressure seems to be in acceptable range. Continue with current antihypertensive medications. She is noted to be on beta karo and Lasix, continue the same. 4. Chronic congestive heart failure, remains stable. Her BNP is at 170. Chest x-ray shows pulmonary congestion, mild in nature. Continue with Lasix, avoid any intravenous hydration for now. 5. Diarrhea. The patient complains of having diarrhea for the last few months. She will need GI consultation as an outpatient. She does not have any hematemesis, hematochezia, or melenic stools. 6. DVT prophylaxis. We will have her on heparin for DVT prophylaxis. 7. Acute on chronic hypoxic respiratory failure. Continue with supplemental oxygen to maintain a saturation of 95%. 8. Code status. The patient wants to be DNR/DNI. 9. Discussed with Rosario Armstrong NP, ER staff regarding the plan of care. Reviewed the labs and medications. Reviewed the old charts. [facility] /[id number]
--- NOTE | 2019-01-09 12:51 | PN ---
DATE: 01/09/2019 HISTORY: Mrs. Bri Fuller is a 73-year-old female with a medical history significant for hypertension, hyperlipidemia, chronic congestive heart failure, chronic obstructive pulmonary disease, chronic hypoxic respiratory failure, chronic tobacco use admitted with increasing shortness of breath. For the last 24 hours, the patient is continued on nebulizer treatment, IV methylprednisone and also IV antibiotics. Her shortness of breath slightly improved. She continues to have cough which is whitish in color. She denies any ongoing chest pain. No abdominal pain. No nausea. No vomiting. No diarrhea. REVIEW OF SYSTEMS: Cardiovascular; respiratory; gastrointestinal; neurology; constitutional were all evaluated. PHYSICAL EXAMINATION: Vital Signs: Temperature of 97.8, pulse of 96, blood pressure 135/88, respiratory rate of 20, saturating at 93% on 2 L of oxygen. General Appearance: The patient is well-oriented to time, place, and person. Follows commands spontaneously. Cardiovascular: S1 and S2 heard with normal intensity. No gallops. Respiratory: Mild crepitations at the bases. No wheeze. Abdomen: Soft. Bowel sounds positive. Nontender. No rigidity. Extremities: No edema of bilateral lower extremities. MEDICATIONS: Reviewed. Continue with: 1. DuoNeb 3 mL nebulizer 4 times a day. 2. Aspirin 81 mg daily. 3. Pulmicort 0.5 mg neb twice a day. 4. Lasix 20 mg twice a day from tomorrow. 5. Levofloxacin IV daily. 6. Levothyroxine 75 mcg daily. 7. Solu-Medrol 80 mg IV q.8 hourly. 8. Metoprolol 50 mg twice a day. LABORATORY DATA: WBC is 14.4, hemoglobin 12.4, hematocrit 37.7, platelet count 215. Sodium 135, potassium 4.2, chloride 100, bicarb 23, BUN 30, creatinine 1.7, glucose 219. Urinalysis; trace leukocyte esterase, WBC 5 to 10. Microbiology: Negative for influenza A and B. Urine mixed danielle suggestive of contamination. Sputum culture normal danielle. ASSESSMENT: 1. Acute chronic obstructive pulmonary disease exacerbation. 2. Acute bronchitis, possible viral. 3. [id number] hypoxic respiratory failure. 4. Hypertension. 5. Hyperlipidemia. 6. Chronic congestive heart failure with diastolic dysfunction. 7. Chronic kidney disease. 8. Abdominal aortic aneurysm. PLAN: 1. Acute COPD exacerbation. The patient is started on nebulizer treatment, DuoNeb, and Pulmicort nebulizer and IV steroids and antibiotics for COPD exacerbation, seems to be improved; though she continues to have cough with sputum and also shortness of breath on exertion. We will continue with incentive spirometer and flutter valve for better pulmonary toileting. 2. Acute bronchitis. The patient great granddaughter was having viral bronchitis; unsure the patient has a viral bronchitis at this time. Her influenza screen remained negative. Continue with current antibiotic regimen. X-ray of the chest which did not show any acute pneumonia. 3. Abdominal aortic aneurysm, remains stable. The patient does not want to be further evaluated. She is at high risk for any surgical procedure secondary to respiratory failure and COPD. 4. Hypertension. Patient blood pressure seems to be in acceptable range. Continue with current antihypertensive medication. 5. Chronic congestive heart failure, remains stable. The patient appears to be little dehydrated as she is noted to have slightly elevated creatinine and BUN. We will hold the Lasix for today. We will give her mild IV fluids and recheck a basic metabolic panel in a.m. 6. Chronic congestive heart failure. Be cautious regarding IV hydration. Maintain euvolemic status. Restart the Lasix in a.m. 7. Diarrhea, improved. No diarrhea at this time. 8. Ivhav-hy-arfjutl hypoxic respiratory failure. She has continued on supplemental oxygen. Try to maintain saturations around 95%. 9. Chronic tobacco use. The patient is educated about tobacco cessation on this admission. [facility] /[id number]
[2019-01-09] MEDS: Levofloxacin/Dextrose 5%-Water 250 MG in Premix Bag 1 BAG IV SCH (14:24)
[2019-01-09] MEDS: guaiFENesin 100 MG/5 ML Soln 5 ML UD Cup PO PRN (22:48)
[2019-01-10] MEDS: Levothyroxine 75 MCG Tab PO SCH (05:08)
[2019-01-10] MEDS: Heparin Sodium 5,000 Units/ML Vial SUBCUT SCH ×3 (05:08→22:18)
[2019-01-10 06:50] LABS: ANION GAP 16.2
[2019-01-10] MEDS: Budesonide 0.5 MG/2 ML Neb Susp NEB SCH ×2 (07:17→18:08)
[2019-01-10] MEDS: Albuterol/Ipratropium 3.0-0.5 MG/3 ML Neb Soln NEB SCH ×3 (07:17→20:57)
[2019-01-10] MEDS: methylPREDNISolone Sodium Succinate 125 MG/2 ML SDV IVPUSH SCH (07:38)
[2019-01-10] MEDS: Sodium Chloride 0.9% 10 ML Syringe FLUSH PRN ×2 (07:38→13:31)
[2019-01-10] MEDS: Aspirin 81 MG Tab.Chew PO SCH (08:55)
[2019-01-10] MEDS: Metoprolol Tartrate 50 MG Tab PO SCH ×2 (08:55→20:56)
[2019-01-10] MEDS ORDERED: Albuterol/Ipratropium 3.0-0.5 MG/3 ML Neb Soln NEB SCH (11:00)
[2019-01-10] MEDS: methylPREDNISolone Sodium Succinate 40 MG/1 ML SDV IVPUSH SCH ×2 (13:34→22:19)
[2019-01-10] MEDS: Levofloxacin/Dextrose 5%-Water 250 MG in Premix Bag 1 BAG IV SCH (13:35)
--- NOTE | 2019-01-10 13:57 | PN ---
DATE: 01/10/2019 SUBJECTIVE: Mrs. Bri Fuller is a 73-year-old female with a medical history significant for hypertension, hyperlipidemia, chronic congestive heart failure, chronic obstructive pulmonary disease, chronic hypoxic respiratory failure, chronic tobacco use, admitted with increasing shortness of breath and noted to have acute bronchitis with acute COPD exacerbation. For the last 24 hours, the patient was continued on supplemental oxygen. She claims that the shortness of breath has slightly improved, but continues to have dyspnea on exertion, 3 to 4/10 in intensity, aggravated on exertion, relieved with rest. Denies any chest pain. No abdominal pain. No nausea. No vomiting. No diarrhea. REVIEW OF SYSTEMS: Cardiovascular, respiratory, gastrointestinal, neurology, and constitutional were all evaluated. PHYSICAL EXAMINATION: Vital Signs: Temperature of 98.5, pulse of 79, blood pressure of 120/67, respiratory rate of 20, saturating at 91% on 2 L of oxygen. General Appearance: The patient is well oriented to time, place, and person. Follows commands spontaneously. Cardiovascular System: S1, S2 heard with normal intensity. No gallops. Respiratory System: Clear to auscultation bilaterally except for decreased breath sounds at the bases, mostly on the right side. GI: Abdomen is soft, nontender. No rigidity. No guarding. No rebound tenderness. Extremities: No edema in bilateral lower extremities. MEDICATIONS: Reviewed, continue with: 1. DuoNeb 3 mL 3 times a day. 2. Pulmicort twice a day. 3. Lasix 20 mg daily. 4. Heparin 5000 subcutaneous q.8 hourly. 5. Levaquin 250 mg daily. 6. Levothyroxine 75 mcg daily. 7. Methylprednisone 40 mg IV q.8 hourly. 8. Metoprolol 50 mg twice a day. LABORATORY DATA: WBC 22.8, hemoglobin 12.3, hematocrit 37.3, platelet count 252. Sodium 135, potassium 4.2, chloride 103, bicarbonate 20. BUN 41, creatinine 1.7. ASSESSMENT: 1. Acute bronchitis. 2. Acute COPD exacerbation. 3. Chronic kidney disease. 4. Acute on chronic hypoxic respiratory failure. 5. Hypertension. 6. Hyperlipidemia. 7. Chronic congestive heart failure with diastolic dysfunction. 8. Abdominal aortic aneurysm. PLAN: 1. Acute COPD exacerbation. The patient is responding well to the treatment. Continue with DuoNeb and Pulmicort nebulizer. We will gradually wean her off the steroids and decrease IV methylprednisone to 40 mg q.8 hourly. The patient will be encouraged to use incentive spirometer and flutter valve for better pulmonary toileting. 2. Acute bronchitis. The patient could have underlying bronchitis. She is started on IV Levaquin. We will continue the same dose adjusted for renal function. 3. Acute on chronic hypoxic respiratory failure, improving. She is able to saturate well on room air. We will help her with incentive spirometer and flutter valve for better pulmonary toileting. Continue with supplemental oxygen. Ashlee to be consulted to provide her with portable oxygen system. 4. Chronic congestive heart failure with diastolic dysfunction. The patient has been on Lasix, but she is noted to have slightly elevated BUN. We will decrease the Lasix to 20 mg daily. Avoid any hypotensive episodes. Maintain euvolemic status. 5. Abdominal aortic aneurysm. She had a CT scan of the abdomen and pelvis on this admission which showed an abdominal aortic aneurysm of 4.5 cm. No evidence of rupture or leak noted at this time. The patient and family members made aware of the diagnosis and this will be followed as an outpatient. 6. Hypertension. The patient's blood pressure seems to be in acceptable range. Continue with beta karo. Try to keep the blood pressure around 120 systolic given her abdominal aortic aneurysm. [facility] /[id number]
[2019-01-10] MEDS ORDERED: Furosemide 20 MG Tab PO SCH (15:00)
[2019-01-10] MEDS: guaiFENesin 100 MG/5 ML Soln 5 ML UD Cup PO PRN (22:43)
[2019-01-11] MEDS: Heparin Sodium 5,000 Units/ML Vial SUBCUT SCH ×4 (05:26→21:44)
[2019-01-11] MEDS: Levothyroxine 75 MCG Tab PO SCH (05:26)
[2019-01-11] MEDS: methylPREDNISolone Sodium Succinate 40 MG/1 ML SDV IVPUSH SCH ×3 (05:27→21:44)
[2019-01-11 07:00] LABS: ANION GAP 16.3
[2019-01-11] MEDS: Albuterol/Ipratropium 3.0-0.5 MG/3 ML Neb Soln NEB SCH ×3 (07:21→20:55)
[2019-01-11] MEDS: Budesonide 0.5 MG/2 ML Neb Susp NEB SCH ×2 (07:21→17:44)
[2019-01-11] MEDS: Aspirin 81 MG Tab.Chew PO SCH (09:18)
[2019-01-11] MEDS: Metoprolol Tartrate 50 MG Tab PO SCH ×2 (09:19→20:50)
[2019-01-11] MEDS: Furosemide 20 MG Tab PO SCH (09:23)
--- NOTE | 2019-01-11 10:50 | PCM.PN ---
- General Info Date of Service: 01/11/19 - Review of Systems General: Reports: Weakness Pulmonary: Reports: Shortness of Breath, Cough Cardiovascular: Reports: Dyspnea on Exertion Gastrointestinal: Reports: No Symptoms Musculoskeletal: Reports: No Symptoms - Patient Data Vitals - Most Recent: Last Vital Signs Temp 37.0 C 01/10/19 20:14 Pulse 66 01/11/19 09:19 Resp 20 01/10/19 20:14 BP 145/91 H 01/11/19 09:19 Pulse Ox 97 01/10/19 20:14 Weight - Most Recent: 95.164 kg I&O - Last 24 Hours: Intake & Output 01/10/19 01/11/19 01/11/19 22:59 06:59 14:59 Intake Total 375 300 Output Total 200 950 Balance 175 -650 Lab Results Last 24 Hours: Laboratory Results - last 24 hr 01/11/19 01/11/19 Range/Units 06:14 06:14 WBC 16.3 H (5.0-10.0) 10^3/uL RBC 3.77 L (4.2-5.4) 10^6/uL Hgb 11.9 L (12.0-16.0) g/dL Hct 36.6 L (37.0-47.0) % MCV 97.1 (80-100) fL MCH 31.6 (27.0-34.0) pg MCHC 32.5 L (33.0-35.0) g/dL Plt Count 239 (150-450) 10^3/uL Sodium 134 L (135-145) mmol/L Potassium 4.3 (3.6-5.0) mmol/L Chloride 102 (101-111) mmol/L Carbon Dioxide 20.0 L (21.0-31.0) mmol/L Anion Gap 16.3 BUN 45 H (7-18) mg/dL Creatinine 1.6 H (0.6-1.3) mg/dL Est Cr Clr Drug Dosing 26.23 mL/min Estimated GFR (MDRD) 31 Glucose 236 H (74-105) mg/dL Calcium 9.0 (8.4-10.2) mg/dl Kamran Results Last 24 Hours: Microbiology 01/08/19 17:39 Gram Stain - Final Sputum - Expectorated Sputum Culture - Preliminary 01/08/19 12:29 Aerobic Blood Culture - Preliminary Blood - Venous - Lab Draw NO GROWTH AFTER 2 DAYS Anaerobic Blood Culture - Preliminary NO GROWTH AFTER 2 DAYS 01/08/19 12:25 Aerobic Blood Culture - Preliminary Blood - Venous NO GROWTH AFTER 2 DAYS Anaerobic Blood Culture - Preliminary NO GROWTH AFTER 2 DAYS 01/08/19 18:00 Clostridioides difficile (PCR) - Final Stool / Feces 01/08/19 14:00 Urine Culture - Final Urine, Voided MIXED CANDIS SUGGESTIVE OF CONTAMINATION. Med Orders - Current: Current Medications Acetaminophen (Tylenol) 650 mg PO Q4H PRN PRN Reason: Pain (Mild 1-3)/fever Last Admin: 01/09/19 08:29 Dose: 650 mg Albuterol (Proventil Neb Soln) 2.5 mg INH Q4HRRT PRN PRN Reason: Shortness of Breath Albuterol/Ipratropium (Duoneb 3.0-0.5 Mg/3 Ml) 3 ml NEB TIDRT [facility] Last Admin: 01/11/19 07:21 Dose: 3 ml Aspirin (Aspirin) 81 mg PO DAILY [facility] Last Admin: 01/11/19 09:18 Dose: 81 mg Budesonide (Pulmicort) 0.5 mg NEB BIDRT [facility] Last Admin: 01/11/19 07:21 Dose: 0.5 mg Furosemide (Lasix) 20 mg PO DAILY [facility] Last Admin: 01/11/19 09:23 Dose: 20 mg Guaifenesin (Robitussin) 100 mg PO Q8H PRN PRN Reason: Cough Last Admin: 01/10/19 22:43 Dose: 100 mg Heparin Sodium (Porcine) (Heparin Sodium) 5,000 units SUBCUT Q8HR [facility] Last Admin: 01/11/19 05:26 Dose: 5,000 units Levofloxacin/Dextrose 250 mg/ (Premix) 50 mls @ 50 mls/hr IV Q24H [facility] Last Infusion: 01/10/19 14:27 Dose: 50 mls/hr Levothyroxine Sodium (Levothyroxine) 75 mcg PO ACBREAKFAST [facility] Last Admin: 01/11/19 05:26 Dose: 75 mcg Methylprednisolone Sodium Succinate (Solu-Medrol) 40 mg IVPUSH Q8HR [facility] Last Admin: 01/11/19 05:27 Dose: 40 mg Metoprolol Tartrate (Lopressor) 50 mg PO BID [facility] Last Admin: 01/11/19 09:19 Dose: 50 mg Ondansetron HCl (Zofran Odt) 4 mg PO Q4H PRN PRN Reason: nausea, able to take PO Sodium Chloride (Saline Flush) 10 ml FLUSH ASDIRECTED PRN PRN Reason: Keep Vein Open Last Admin: 01/10/19 13:31 Dose: 10 ml Discontinued Medications Albuterol (Proventil Neb Soln) 2.5 mg INH Q4H PRN PRN Reason: Shortness of Breath Albuterol/Ipratropium (Duoneb 3.0-0.5 Mg/3 Ml) 3 ml NEB ONETIME ONE Stop: 01/08/19 12:11 Last Admin: 01/08/19 12:14 Dose: 3 ml Albuterol/Ipratropium (Duoneb 3.0-0.5 Mg/3 Ml) Confirm Administered Dose 3 ml .ROUTE .STK-MED ONE Stop: 01/08/19 12:12 Last Admin: 01/08/19 12:34 Dose: Not Given Albuterol/Ipratropium (Duoneb 3.0-0.5 Mg/3 Ml) 3 ml NEB QIDRT [facility] Last Admin: 01/10/19 07:17 Dose: 3 ml Budesonide (Pulmicort) 0.5 mg NEB ONETIME ONE Stop: 01/08/19 12:05 Last Admin: 01/08/19 12:33 Dose: Not Given Budesonide (Pulmicort) Confirm Administered Dose 0.5 mg .ROUTE .STK-MED ONE Stop: 01/08/19 15:12 Last Admin: 01/08/19 15:16 Dose: Not Given Furosemide (Lasix) 20 mg PO BIDDIURETIC [facility] Last Admin: 01/09/19 08:28 Dose: 20 mg Furosemide (Lasix) 20 mg PO BIDDIURETIC [facility] Levofloxacin/Dextrose 500 mg/ (Premix) 100 mls @ 100 mls/hr IV Q24H [facility] Stop: 01/08/19 23:55 Last Infusion: 01/08/19 17:25 Dose: Infused Sodium Chloride (Normal Saline) 1,000 mls @ 75 mls/hr IV CONTINUOUS [facility] Stop: 01/09/19 23:59 Last Admin: 01/09/19 11:09 Dose: 75 mls/hr Methylprednisolone Sodium Succinate (Solu-Medrol) 80 mg IVPUSH Q8H [facility] Last Admin: 01/10/19 07:38 Dose: 80 mg - Exam Quality Assessment: Supplemental Oxygen General: Alert, Oriented, Cooperative Neck: Supple Lungs: Decreased Breath Sounds, Wheezing Cardiovascular: Regular Rate, Regular Rhythm GI/Abdominal Exam: Normal Bowel Sounds, Soft, Non-Tender, No Organomegaly, No Distention, No Abnormal Bruit, No Mass, Pelvis Stable Extremities: Normal Range of Motion, Non-Tender - Problem List Review Problem List Initiated/Reviewed/Updated: Yes - Assessment Assessment:: Assessment/plan: 1 acute exacerbation of COPD #. Acute bronchitis #. Acute on chronic hypoxemic respiratory failure #. Chronic diastolic congestive heart failure #. Chronic kidney disease Baseline creatinine has been about 1.6 #. Hypertension Blood pressure is intermittently elevated Plan: Gradually wean down oxygen as tolerated The patient intravenous Solu Medrol Incentive spirometry Encourage increased ambulation Continue nebulized bronchodilators We'll plan for walking desaturation start
[2019-01-11] MEDS: Sodium Chloride 0.9% 10 ML Syringe FLUSH PRN (14:58)
[2019-01-11] MEDS: Levofloxacin/Dextrose 5%-Water 250 MG in Premix Bag 1 BAG IV SCH (15:02)
[2019-01-12] MEDS: Albuterol 0.083% 2.5 MG/3 ML Neb Soln INH PRN (03:03)
[2019-01-12] MEDS: Heparin Sodium 5,000 Units/ML Vial SUBCUT SCH ×3 (05:26→21:01)
[2019-01-12] MEDS: methylPREDNISolone Sodium Succinate 40 MG/1 ML SDV IVPUSH SCH ×3 (05:27→21:01)
[2019-01-12] MEDS: Levothyroxine 75 MCG Tab PO SCH (05:28)
[2019-01-12] MEDS: Albuterol/Ipratropium 3.0-0.5 MG/3 ML Neb Soln NEB SCH ×3 (07:05→20:59)
[2019-01-12] MEDS: Budesonide 0.5 MG/2 ML Neb Susp NEB SCH ×2 (07:05→17:42)
[2019-01-12] MEDS ORDERED: Nitroglycerin 0.4 MG Tab.SL SL ONE (07:33)
[2019-01-12] MEDS: Aspirin 81 MG Tab.Chew PO SCH (08:00)
[2019-01-12] MEDS ORDERED: Furosemide 40 MG/4 ML VIAL IVPUSH ONE (09:20)
[2019-01-12] MEDS: Metoprolol Tartrate 50 MG Tab PO SCH ×2 (09:24→21:00)
[2019-01-12] MEDS: Furosemide 20 MG Tab PO SCH (09:25)
--- NOTE | 2019-01-12 10:01 | PCM.PN ---
- General Info Date of Service: 01/12/19 Subjective Update: The patient began to have increased shortness of breath and wheezing this morning while receiving nebulized bronchodilators. Started having chest pain which she described as sharp in nature. Still having shortness of breath with activity. Patient was given nitroglycerin. Troponin came back mildly elevated at 0.03. BNP is elevated at greater than 400 - Review of Systems General: Reports: Weakness Pulmonary: Reports: Wheezing Cardiovascular: Reports: Chest Pain, Dyspnea on Exertion Gastrointestinal: Reports: No Symptoms Musculoskeletal: Reports: No Symptoms Skin: Reports: No Symptoms Psychiatric: Reports: No Symptoms - Patient Data Vitals - Most Recent: Last Vital Signs Temp 36.4 C 01/12/19 07:00 Pulse 64 01/12/19 09:24 Resp 22 H 01/12/19 07:25 BP 144/81 H 01/12/19 09:24 Pulse Ox 92 L 01/12/19 07:25 Weight - Most Recent: 95.708 kg I&O - Last 24 Hours: Intake & Output 01/11/19 01/12/19 01/12/19 22:59 06:59 14:59 Intake Total 880 850 525 Output Total 1650 1200 Balance -770 -350 525 Lab Results Last 24 Hours: Laboratory Results - last 24 hr 01/12/19 Range/Units 07:50 Troponin I 0.03 H* (0.00-0.02) ng/ml B-Natriuretic Peptide 461 H (0-100) pg/ml Kamran Results Last 24 Hours: Microbiology 01/08/19 12:29 Aerobic Blood Culture - Preliminary Blood - Venous - Lab Draw NO GROWTH AFTER 3 DAYS Anaerobic Blood Culture - Preliminary NO GROWTH AFTER 3 DAYS 01/08/19 12:25 Aerobic Blood Culture - Preliminary Blood - Venous NO GROWTH AFTER 3 DAYS Anaerobic Blood Culture - Preliminary NO GROWTH AFTER 3 DAYS 01/08/19 17:39 Gram Stain - Final Sputum - Expectorated Sputum Culture - Preliminary Med Orders - Current: Current Medications Acetaminophen (Tylenol) 650 mg PO Q4H PRN PRN Reason: Pain (Mild 1-3)/fever Last Admin: 01/09/19 08:29 Dose: 650 mg Albuterol (Proventil Neb Soln) 2.5 mg INH Q4HRRT PRN PRN Reason: Shortness of Breath Last Admin: 01/12/19 03:03 Dose: 2.5 mg Albuterol/Ipratropium (Duoneb 3.0-0.5 Mg/3 Ml) 3 ml NEB TIDRT [facility] Last Admin: 01/12/19 07:05 Dose: 3 ml Aspirin (Aspirin) 81 mg PO DAILY [facility] Last Admin: 01/12/19 08:00 Dose: 81 mg Budesonide (Pulmicort) 0.5 mg NEB BIDRT [facility] Last Admin: 01/12/19 07:05 Dose: 0.5 mg Furosemide (Lasix) 20 mg PO DAILY [facility] Last Admin: 01/12/19 09:25 Dose: 20 mg Guaifenesin (Robitussin) 100 mg PO Q8H PRN PRN Reason: Cough Last Admin: 01/10/19 22:43 Dose: 100 mg Heparin Sodium (Porcine) (Heparin Sodium) 5,000 units SUBCUT Q8HR [facility] Last Admin: 01/12/19 05:26 Dose: 5,000 units Levofloxacin/Dextrose 250 mg/ (Premix) 50 mls @ 50 mls/hr IV Q24H [facility] Last Infusion: 01/11/19 15:59 Dose: Infused Levothyroxine Sodium (Levothyroxine) 75 mcg PO ACBREAKFAST [facility] Last Admin: 01/12/19 05:28 Dose: 75 mcg Methylprednisolone Sodium Succinate (Solu-Medrol) 40 mg IVPUSH Q8HR [facility] Last Admin: 01/12/19 05:27 Dose: 40 mg Metoprolol Tartrate (Lopressor) 50 mg PO BID [facility] Last Admin: 01/12/19 09:24 Dose: 50 mg Ondansetron HCl (Zofran Odt) 4 mg PO Q4H PRN PRN Reason: nausea, able to take PO Sodium Chloride (Saline Flush) 10 ml FLUSH ASDIRECTED PRN PRN Reason: Keep Vein Open Last Admin: 01/11/19 14:58 Dose: 10 ml Discontinued Medications Albuterol (Proventil Neb Soln) 2.5 mg INH Q4H PRN PRN Reason: Shortness of Breath Albuterol/Ipratropium (Duoneb 3.0-0.5 Mg/3 Ml) 3 ml NEB ONETIME ONE Stop: 01/08/19 12:11 Last Admin: 01/08/19 12:14 Dose: 3 ml Albuterol/Ipratropium (Duoneb 3.0-0.5 Mg/3 Ml) Confirm Administered Dose 3 ml .ROUTE .STK-MED ONE Stop: 01/08/19 12:12 Last Admin: 01/08/19 12:34 Dose: Not Given Albuterol/Ipratropium (Duoneb 3.0-0.5 Mg/3 Ml) 3 ml NEB QIDRT [facility] Last Admin: 01/10/19 07:17 Dose: 3 ml Budesonide (Pulmicort) 0.5 mg NEB ONETIME ONE Stop: 01/08/19 12:05 Last Admin: 01/08/19 12:33 Dose: Not Given Budesonide (Pulmicort) Confirm Administered Dose 0.5 mg .ROUTE .STK-MED ONE Stop: 01/08/19 15:12 Last Admin: 01/08/19 15:16 Dose: Not Given Furosemide (Lasix) 20 mg PO BIDDIURETIC [facility] Last Admin: 01/09/19 08:28 Dose: 20 mg Furosemide (Lasix) 20 mg PO BIDDIURETIC [facility] Furosemide (Lasix) 40 mg IVPUSH NOW ONE Stop: 01/12/19 09:21 Last Admin: 01/12/19 09:31 Dose: 40 mg Levofloxacin/Dextrose 500 mg/ (Premix) 100 mls @ 100 mls/hr IV Q24H [facility] Stop: 01/08/19 23:55 Last Infusion: 01/08/19 17:25 Dose: Infused Sodium Chloride (Normal Saline) 1,000 mls @ 75 mls/hr IV CONTINUOUS [facility] Stop: 01/09/19 23:59 Last Admin: 01/09/19 11:09 Dose: 75 mls/hr Methylprednisolone Sodium Succinate (Solu-Medrol) 80 mg IVPUSH Q8H [facility] Last Admin: 01/10/19 07:38 Dose: 80 mg Nitroglycerin (Nitrostat) 0.4 mg SL ONETIME ONE Stop: 01/12/19 07:34 Last Admin: 01/12/19 07:43 Dose: 0.4 mg - Exam Quality Assessment: Supplemental Oxygen General: Alert, Oriented, Cooperative Lungs: Decreased Breath Sounds, Wheezing Cardiovascular: Regular Rate, Regular Rhythm GI/Abdominal Exam: Normal Bowel Sounds, Soft, Non-Tender, No Organomegaly, No Distention, No Abnormal Bruit, No Mass, Pelvis Stable Extremities: Normal Inspection, Normal Range of Motion, Non-Tender, No Pedal Edema, Normal Capillary Refill - Problem List Review Problem List Initiated/Reviewed/Updated: Yes - My Orders Last 24 Hours: My Active Orders 01/12/19 07:36 EKG 12 Lead [EKG Documentation Completion] [RC] ROUTINE 01/12/19 14:00 TROPONIN I [CHEM] Routine 01/13/19 09:19 CBC W/O DIFF,HEMOGRAM [HEME] Routine 01/13/19 09:20 BASIC METABOLIC PANEL,BMP [CHEM] Routine - Assessment Assessment:: Assessment/plan: #. acute exacerbation of COPD Patient developed increased shortness of breath and was wheezing this morning I sent sample for brain natruretic peptide and it came back up more than 400 I will proceed to give a stat dose of intravenous Lasix 40 mg now #. Acute bronchitis Continue antibiotics #. Acute on chronic hypoxemic respiratory failure Wean down oxygen as tolerated Walking desaturation study #. Chronic diastolic congestive heart failure give a start his of intravenous Lasix 40 mg now #. Chronic kidney disease Baseline creatinine has been about 1.6 #. Hypertension Blood pressure is intermittently elevated Monitor vital signs every 4 hours Continue oral antihypertensives
[2019-01-12] MEDS: Levofloxacin/Dextrose 5%-Water 250 MG in Premix Bag 1 BAG IV SCH (13:57)
[2019-01-12] MEDS: Sodium Chloride 0.9% 10 ML Syringe FLUSH PRN (21:02)
[2019-01-13] MEDS: Albuterol 0.083% 2.5 MG/3 ML Neb Soln INH PRN (03:22)
[2019-01-13] MEDS: Levothyroxine 75 MCG Tab PO SCH (05:51)
[2019-01-13] MEDS: Sodium Chloride 0.9% 10 ML Syringe FLUSH PRN (05:52)
[2019-01-13] MEDS: methylPREDNISolone Sodium Succinate 40 MG/1 ML SDV IVPUSH SCH (05:52)
[2019-01-13] MEDS: Heparin Sodium 5,000 Units/ML Vial SUBCUT SCH (05:52)
[2019-01-13 06:38] LABS: ANION GAP 18.3
[2019-01-13] MEDS: Albuterol/Ipratropium 3.0-0.5 MG/3 ML Neb Soln NEB SCH (07:14)
[2019-01-13] MEDS: Budesonide 0.5 MG/2 ML Neb Susp NEB SCH (07:14)
[2019-01-13] MEDS: Metoprolol Tartrate 50 MG Tab PO SCH (08:40)
[2019-01-13] MEDS: Furosemide 20 MG Tab PO SCH (08:40)
[2019-01-13] MEDS: Aspirin 81 MG Tab.Chew PO SCH (08:41)
--- NOTE | 2019-01-13 10:45 | PCM.DCSUM1 ---
Discharge Summary - Hospital Course Free Text/Narrative:: The patient is a 73-year-old female with medical history of COPD, chronic hypoxemic respiratory failure, hypertension, dyslipidemia, chronic tobacco use disorder. The patient was admitted with COPD exacerbation secondary to acute bronchitis. Was started on intravenous steroids antibiotics and nebulized bronchodilators. Also was noted to have increased shortness of breath and elevated BNP. Because of that her dose of diuretics was increased. The patient is feeling better I will be discharged home #. acute exacerbation of COPD #. Acute bronchitis #. Acute on chronic hypoxemic respiratory failure Does of diuretics increased to 40 mg daily Walking desaturation study #. Probable acute on Chronic diastolic congestive heart failure #. Chronic kidney disease Baseline creatinine has been about 1.6 #. Hypertension - Discharge Data Discharge Date: 01/13/19 Discharge Disposition: Home, Self-Care 01 Condition: Good - Patient Summary/Data Consults: Consultations 01/10/19 11:11 OT Evaluation and Treatment [CONS] Routine PT Evaluation and Treatment [CONS] Routine - Discharge Plan *PRESCRIPTION DRUG MONITORING PROGRAM REVIEWED*: No *COPY OF PRESCRIPTION DRUG MONITORING REPORT IN PATIENT CATRACHO: No Prescriptions/Med Rec: Furosemide [Lasix] 40 mg PO BID #60 tablet Furosemide [Lasix] 40 mg PO DAILY #60 tablet levoFLOXacin [Levofloxacin] 250 mg PO DAILY #7 tablet Home Medications: Home Meds Albuterol Sulfate [Proventil Hfa] 2 puff IH Q4HR PRN 10/21/16 [History] Levothyroxine Sodium [Synthroid] 75 mcg PO ACBREAKFAST 10/21/16 [History] Metoprolol Tartrate 50 mg PO BID 04/03/17 [History] Albuterol [IJD: Albuterol] 3 ml INH Q4HR PRN 12/24/17 [History] Albuterol/Ipratropium [DuoNeb 3.0-0.5 MG/3 ML] 3 ml NEB QID 12/24/17 [History] Prednisone [IJD: Prednisone] 10 mg PO DAILY #30 tab 12/28/17 [Rx] Aspirin 81 mg PO DAILY 01/08/19 [History] Furosemide [Lasix] 40 mg PO BID #60 tablet 01/13/19 [Rx] Furosemide [Lasix] 40 mg PO DAILY #60 tablet 01/13/19 [Rx] levoFLOXacin [Levofloxacin] 250 mg PO DAILY #7 tablet 01/13/19 [Rx] Forms: ED Department Discharge Referrals: PCP,None [Primary Care Provider] - - Discharge Summary/Plan Comment DC Time >30 min.: Yes - Review of Systems General: Reports: No Symptoms Pulmonary: Reports: Cough Cardiovascular: Reports: No Symptoms Gastrointestinal: Reports: No Symptoms - Patient Data Vitals - Most Recent: Last Vital Signs Temp 35.8 C 01/13/19 08:32 Pulse 65 01/13/19 08:40 Resp 18 01/13/19 08:32 BP 110/49 L 01/13/19 08:40 Pulse Ox 98 01/13/19 08:32 Weight - Most Recent: 94.256 kg I&O - Last 24 hours: Intake & Output 01/12/19 01/13/19 01/13/19 22:59 06:59 14:59 Intake Total 850 800 360 Output Total 2650 1100 Balance -1800 -300 360 Lab Results - Last 24 hrs: Laboratory Results - last 24 hr 01/12/19 01/13/19 01/13/19 Range/Units 13:50 05:47 05:47 WBC 15.7 H (5.0-10.0) 10^3/uL RBC 4.10 L (4.2-5.4) 10^6/uL Hgb 12.9 (12.0-16.0) g/dL Hct 39.3 (37.0-47.0) % MCV 95.9 (80-100) fL MCH 31.5 (27.0-34.0) pg MCHC 32.8 L (33.0-35.0) g/dL Plt Count 234 (150-450) 10^3/uL Sodium 136 (135-145) mmol/L Potassium 4.3 (3.6-5.0) mmol/L Chloride 98 L (101-111) mmol/L Carbon Dioxide 24.0 (21.0-31.0) mmol/L Anion Gap 18.3 BUN 52 H (7-18) mg/dL Creatinine 1.9 H (0.6-1.3) mg/dL Est Cr Clr Drug Dosing 22.09 mL/min Estimated GFR (MDRD) 26 Glucose 299 H (74-105) mg/dL Calcium 9.1 (8.4-10.2) mg/dl Troponin I 0.03 H* (0.00-0.02) ng/ml VICKY Results - Last 24 hrs: Microbiology 01/08/19 17:39 Bacterial Identification - Preliminary Sputum - Expectorated Gram Negative Rods 01/08/19 12:29 Aerobic Blood Culture - Preliminary Blood - Venous - Lab Draw NO GROWTH AFTER 4 DAYS Anaerobic Blood Culture - Preliminary NO GROWTH AFTER 4 DAYS 01/08/19 12:25 Aerobic Blood Culture - Preliminary Blood - Venous NO GROWTH AFTER 4 DAYS Anaerobic Blood Culture - Preliminary NO GROWTH AFTER 4 DAYS Med Orders - Current: Current Medications Acetaminophen (Tylenol) 650 mg PO Q4H PRN PRN Reason: Pain (Mild 1-3)/fever Last Admin: 01/09/19 08:29 Dose: 650 mg Albuterol (Proventil Neb Soln) 2.5 mg INH Q4HRRT PRN PRN Reason: Shortness of Breath Last Admin: 01/13/19 03:22 Dose: 2.5 mg Albuterol/Ipratropium (Duoneb 3.0-0.5 Mg/3 Ml) 3 ml NEB TIDRT [facility] Last Admin: 01/13/19 07:14 Dose: 3 ml Aspirin (Aspirin) 81 mg PO DAILY [facility] Last Admin: 01/13/19 08:41 Dose: 81 mg Budesonide (Pulmicort) 0.5 mg NEB BIDRT [facility] Last Admin: 01/13/19 07:14 Dose: 0.5 mg Furosemide (Lasix) 20 mg PO DAILY [facility] Last Admin: 01/13/19 08:40 Dose: 20 mg Guaifenesin (Robitussin) 100 mg PO Q8H PRN PRN Reason: Cough Last Admin: 01/10/19 22:43 Dose: 100 mg Heparin Sodium (Porcine) (Heparin Sodium) 5,000 units SUBCUT Q8HR [facility] Last Admin: 01/13/19 05:52 Dose: 5,000 units Levofloxacin/Dextrose 250 mg/ (Premix) 50 mls @ 50 mls/hr IV Q24H [facility] Last Admin: 01/12/19 13:57 Dose: 50 mls/hr Levothyroxine Sodium (Levothyroxine) 75 mcg PO ACBREAKFAST [facility] Last Admin: 01/13/19 05:51 Dose: 75 mcg Methylprednisolone Sodium Succinate (Solu-Medrol) 40 mg IVPUSH Q8HR [facility] Last Admin: 01/13/19 05:52 Dose: 40 mg Metoprolol Tartrate (Lopressor) 50 mg PO BID [facility] Last Admin: 01/13/19 08:40 Dose: 50 mg Ondansetron HCl (Zofran Odt) 4 mg PO Q4H PRN PRN Reason: nausea, able to take PO Sodium Chloride (Saline Flush) 10 ml FLUSH ASDIRECTED PRN PRN Reason: Keep Vein Open Last Admin: 01/13/19 05:52 Dose: 10 ml Discontinued Medications Albuterol (Proventil Neb Soln) 2.5 mg INH Q4H PRN PRN Reason: Shortness of Breath Albuterol/Ipratropium (Duoneb 3.0-0.5 Mg/3 Ml) 3 ml NEB ONETIME ONE Stop: 01/08/19 12:11 Last Admin: 01/08/19 12:14 Dose: 3 ml Albuterol/Ipratropium (Duoneb 3.0-0.5 Mg/3 Ml) Confirm Administered Dose 3 ml .ROUTE .STK-MED ONE Stop: 01/08/19 12:12 Last Admin: 01/08/19 12:34 Dose: Not Given Albuterol/Ipratropium (Duoneb 3.0-0.5 Mg/3 Ml) 3 ml NEB QIDRT [facility] Last Admin: 01/10/19 07:17 Dose: 3 ml Budesonide (Pulmicort) 0.5 mg NEB ONETIME ONE Stop: 01/08/19 12:05 Last Admin: 01/08/19 12:33 Dose: Not Given Budesonide (Pulmicort) Confirm Administered Dose 0.5 mg .ROUTE .STK-MED ONE Stop: 01/08/19 15:12 Last Admin: 01/08/19 15:16 Dose: Not Given Furosemide (Lasix) 20 mg PO BIDDIURETIC [facility] Last Admin: 01/09/19 08:28 Dose: 20 mg Furosemide (Lasix) 20 mg PO BIDDIURETIC [facility] Furosemide (Lasix) 40 mg IVPUSH NOW ONE Stop: 01/12/19 09:21 Last Admin: 01/12/19 09:31 Dose: 40 mg Levofloxacin/Dextrose 500 mg/ (Premix) 100 mls @ 100 mls/hr IV Q24H [facility] Stop: 01/08/19 23:55 Last Infusion: 01/08/19 17:25 Dose: Infused Sodium Chloride (Normal Saline) 1,000 mls @ 75 mls/hr IV CONTINUOUS [facility] Stop: 01/09/19 23:59 Last Admin: 01/09/19 11:09 Dose: 75 mls/hr Methylprednisolone Sodium Succinate (Solu-Medrol) 80 mg IVPUSH Q8H [facility] Last Admin: 01/10/19 07:38 Dose: 80 mg Nitroglycerin (Nitrostat) 0.4 mg SL ONETIME ONE Stop: 01/12/19 07:34 Last Admin: 01/12/19 07:43 Dose: 0.4 mg - Exam Quality Assessment: Reports: Supplemental Oxygen General: Reports: Alert, Oriented, Cooperative Lungs: Reports: Decreased Breath Sounds Cardiovascular: Reports: Regular Rate, Regular Rhythm GI/Abdominal Exam: Normal Bowel Sounds, Soft, Non-Tender, No Organomegaly, No Distention, No Abnormal Bruit, No Mass, Pelvis Stable Extremities: Normal Inspection, Normal Range of Motion, Non-Tender, No Pedal Edema, Normal Capillary Refill Skin: Reports: Warm, Dry, Intact
[2019-01-13 11:56] VITALS: BP 148/84; PULSE 71
--- NOTE | 2019-01-18 18:33 | EKG ---
01/12/2019 - ELKIN ALFRED E - FINDINGS: EKG shows normal sinus rhythm. There is poor R-wave progression. There is Q-wave in leads III and aVF suggesting prior inferior wall myocardial infarction. [facility] /[id number]
== END 2019-01-13 14:00 | disposition home or self-care (01) | DRG 190 ==
LOC: DL.ED 11:22 → DL.MS 14:10 → OBSVTOIN 14:50
PROVIDERS: ADMIT Internal Medicine; ATTEND Hospitalist
DX: J44.0 Chronic obstructive pulmonary disease with (acute) lower respiratory infection (principal); J96.01 Acute respiratory failure with hypoxia; I50.33 Acute on chronic diastolic (congestive) heart failure; I13.0 Hypertensive heart and chronic kidney disease with heart failure and stage 1 through stage 4 chronic kidney disease, or unspecified chronic kidney disease; J44.1 Chronic obstructive pulmonary disease with (acute) exacerbation; J20.9 Acute bronchitis, unspecified; N18.9 Chronic kidney disease, unspecified; E78.5 Hyperlipidemia, unspecified; I25.10 Atherosclerotic heart disease of native coronary artery without angina pectoris; E03.9 Hypothyroidism, unspecified; R14.0 Abdominal distension (gaseous); R06.02 Shortness of breath; Z66 Do not resuscitate; I50.9 Heart failure, unspecified; I11.0 Hypertensive heart disease with heart failure; R19.7 Diarrhea, unspecified; Z88.0 Allergy status to penicillin; Z88.8 Allergy status to other drugs, medicaments and biological substances; Z79.890 Hormone replacement therapy; Z79.52 Long term (current) use of systemic steroids; Z68.35 Body mass index [BMI] 35.0-35.9, adult; Z79.82 Long term (current) use of aspirin; Z79.899 Other long term (current) drug therapy; H54.7 Unspecified visual loss; H35.30 Unspecified macular degeneration; Z98.51 Tubal ligation status; I25.2 Old myocardial infarction; K52.9 Noninfective gastroenteritis and colitis, unspecified; R32 Unspecified urinary incontinence; M06.9 Rheumatoid arthritis, unspecified; F41.9 Anxiety disorder, unspecified; F32.9 Major depressive disorder, single episode, unspecified; E66.9 Obesity, unspecified; Z85.44 Personal history of malignant neoplasm of other female genital organs; E89.0 Postprocedural hypothyroidism; Z90.49 Acquired absence of other specified parts of digestive tract; F17.210 Nicotine dependence, cigarettes, uncomplicated; I71.4 Abdominal aortic aneurysm, without rupture; D72.829 Elevated white blood cell count, unspecified
CPT/HCPCS: 36415; 71046; 74176; 80048; 80053; 81001; 83605; 83735; 83880; 84484; 85025; 85027; 87040; 87070; 87077; 87086; 87186; 87205; 87324; 87493; 87804; 93005; 94010; 94618; 94640; 94667; 97116-GP; 97162-GP; 97165-GO; 97530-GO; 99284; 99285-25; A4217; A9270-GY; J1644; J1940; J1956; J2920; J2930; J7030; J7613-GY; J7620-GY

== ENCOUNTER → 2019-02-03 | Outpatient (CLI) | payer MEDICARE, SELFPAY ==
[2019-02-03 15:00] LABS: ANION GAP 18.2; CHLORIDE,CL 94 mmol/L (101-111); SODIUM,NA 131 mmol/L (135-145)
== END ==
LOC: DL.CLIN 13:42
PROVIDERS: ATTEND Physician Assistant Medical
DX: I50.9 Heart failure, unspecified (principal)
CPT/HCPCS: 80053; 83880; 99213

== ENCOUNTER 2019-05-03 15:16 | Observation (INO) | payer MEDICARE, OTHER ==
[2019-05-03] MEDS ORDERED: Albuterol/Ipratropium 3.0-0.5 MG/3 ML Neb Soln NEB ONE (15:29)
[2019-05-03] MEDS: Sodium Chloride 0.9% 10 ML Syringe FLUSH PRN ×2 (15:45→20:27)
[2019-05-03] MEDS ORDERED: methylPREDNISolone Sodium Succinate 125 MG/2 ML SDV IVPUSH ONE (15:54)
[2019-05-03] MEDS ORDERED: Furosemide 40 MG/4 ML VIAL IVPUSH ONE (15:58)
[2019-05-03 15:59] LABS: ANION GAP 14.4; CHLORIDE,CL 95 mmol/L (101-111); SODIUM,NA 138 mmol/L (135-145)
--- NOTE | 2019-05-03 16:16 | EDM.PDOC ---
"Scribed by Mary Grace Graves 05/03/19 [id number] for Noel Alcazar MD ED HPI GENERAL MEDICAL PROBLEM - General Chief Complaint: Respiratory Problem Stated Complaint: HEAD TIME BREATHING PER PT Time Seen by Provider: 05/03/19 15:33 Source of Information: Reports: Patient, RN, RN Notes Reviewed History Limitations: Reports: No Limitations - History of Present Illness INITIAL COMMENTS - FREE TEXT/NARRATIVE: Patient arrives to ER by private vehicle with complaint of onset of shortness of breath and increasing cough yesterday. Patient states that she continues to smoke heavily, but today has been so short of breath that she has only managed to complete 2 cigarettes. Denies fevers, chills, or increasing edema. Patient states that she has a pulse oximeter at home but due to eye sight she could not make out the oxygen level, so she believes it was low. She was able to see that her heart rate had dropped to the 50s, which concerned her. She denies chest pain but admits to a heavy sensation through her chest particularly with breathing. Onset Date: 05/02/19 Duration: Getting Worse Location: Reports: Chest Severity: Moderate Improves with: Reports: None Worsens with: Reports: Other (coughing and exertion) Associated Symptoms: Reports: No Other Symptoms - Related Data Allergies Allergy/AdvReac Type Severity Reaction Status Date / Time amlodipine [From Norvasc] Allergy Cannot Verified 01/08/19 14:31 Remember cetirizine [From Zyrtec] Allergy Abdominal Verified 01/08/19 14:31 Pain Penicillins Allergy Rash Verified 01/08/19 14:31 simvastatin [From Zocor] Allergy Cannot Verified 01/08/19 14:31 Remember Home Meds: Home Meds Albuterol Sulfate [Proventil Hfa] 2 puff IH Q4HR PRN 10/21/16 [History] Levothyroxine Sodium [Synthroid] 75 mcg PO ACBREAKFAST 10/21/16 [History] Metoprolol Tartrate 50 mg PO BID 04/03/17 [History] Albuterol [IJD: Albuterol] 3 ml INH Q4HR PRN 12/24/17 [History] Albuterol/Ipratropium [DuoNeb 3.0-0.5 MG/3 ML] 3 ml NEB QID 05/04/18 [History] Prednisone [IJD: Prednisone] 10 mg PO DAILY #30 tab 12/28/17 [Rx] Aspirin 81 mg PO DAILY 01/08/19 [History] Furosemide [Lasix] 40 mg PO BID #60 tablet 01/13/19 [Rx] Furosemide [Lasix] 40 mg PO DAILY #60 tablet 01/13/19 [Rx] levoFLOXacin [Levofloxacin] 250 mg PO DAILY #7 tablet 01/13/19 [Rx] Past Medical History HEENT History: Reports: Impaired Vision, Macular Degeneration, Other (See Below) Other HEENT History: wears glasses Cardiovascular History: Reports: Aneurysm, Heart Failure, Hypertension, [place], SOB on Exertion Respiratory History: Reports: COPD Gastrointestinal History: Reports: Chronic Diarrhea Genitourinary History: Reports: Urinary Incontinence SERVICE PROVIDER History: Reports: Musculoskeletal History: Reports: Fracture, RA Neurological History: Reports: None Psychiatric History: Reports: Anxiety, Depression Endocrine/Metabolic History: Reports: Hypothyroidism, Obesity/BMI 30+ Hematologic History: Reports: None Immunologic History: Reports: None Oncologic (Cancer) History: Reports: Other (See Below) Other Oncologic History: simple vulvectomy - cancer Dermatologic History: Reports: None - Infectious Disease History Infectious Disease History: Reports: Chicken Pox, Measles, Mumps - Past Surgical History HEENT Surgical History: Reports: None Cardiovascular Surgical History: Reports: None Respiratory Surgical History: Reports: None GI Surgical History: Reports: Appendectomy, Cholecystectomy Female Surgical History: Reports: Tubal Ligation, Other (See Below) Other Female Surgeries/Procedures: simple vulvectomy Endocrine Surgical History: Reports: Thyroidectomy Neurological Surgical History: Reports: None Musculoskeletal Surgical History: Reports: None Social & Family History - Family History Family Medical History: Noncontributory Cardiac: Reports: [place] Respiratory: Reports: COPD Neurological: Reports: CVA - Tobacco Use Smoking Status *Q: Heavy Tobacco Smoker Tobacco Use Within Last Twelve Months: Cigarettes - Caffeine Use Caffeine Use: Reports: Coffee - Living Situation & Occupation Living situation: Reports: with Family Occupation: Retired ED ROS GENERAL - Review of Systems Review Of Systems: ROS reveals no pertinent complaints other than HPI. ED EXAM, GENERAL - Physical Exam Exam: See Below Exam Limited By: No Limitations General Appearance: Alert, No Apparent Distress, Obese Nose: Normal Inspection Throat/Mouth: Normal Inspection, Normal Lips, Normal Teeth, Normal Gums, Normal Oropharynx, Normal Voice, No Airway Compromise Head: Atraumatic, Normocephalic Neck: Normal Inspection, Supple, Non-Tender, Full Range of Motion Respiratory/Chest: No Respiratory Distress, No Accessory Muscle Use, Chest Non- Tender, Decreased Breath Sounds, Crackles, Rales, Wheezing. No: Rhonchi, Stridor Cardiovascular: Regular Rate, Rhythm, Other (Trace pedal edema.) GI/Abdominal: Normal Bowel Sounds, Soft, Non-Tender, No Distention, Other ( Benign obese abdomen) Extremities: Normal Range of Motion, Non-Tender, Normal Capillary Refill, Pedal Edema (Trace). No: Lucille's Sign Neurological: Alert, Oriented, CN II-XII Intact, Normal Cognition, No Motor/ Sensory Deficits Psychiatric: Normal Mood Skin Exam: Warm, Dry, Intact, Normal Color, No Rash EKG INTERPRETATION EKG Date: 05/03/19 Time: 15:23 Rhythm: Other (sinus rhythm with ventricular trigeminy) Rate (Beats/Min): 64 [place]: Normal P-Wave: Present QRS: LBBB (incomplete) ST-T: Normal QT: Normal Comparison: No Change Course - Vital Signs Last Recorded V/S: Last Vital Signs Temp 96.8 F 05/03/19 16:07 Pulse 71 05/03/19 16:07 Resp 22 H 05/03/19 16:07 BP 137/77 05/03/19 16:07 Pulse Ox 93 L 05/03/19 16:07 - Orders/Labs/Meds Orders: Active Orders 24 hr Category Date Time Status EKG 12 Lead [EKG Documentation Completion] [RC] STAT Care 05/03/19 15:30 Active Peripheral IV Care [RC] . DIRECTED Care 05/03/19 15:31 Active RT Aerosol Therapy [RC] ASDIRECTED Care 05/03/19 15:29 Active Chest 1V Frontal [CR] Stat Exams 05/03/19 15:30 Taken CULTURE BLOOD [BC] Stat Lab 05/03/19 15:32 Received Sodium Chloride 0.9% [Saline Flush] Med 05/03/19 15:31 Active 10 ml FLUSH ASDIRECTED PRN Peripheral IV Insertion Adult [OM.PC] Stat Oth 05/03/19 15:30 Ordered Medication Orders Sodium Chloride (Saline Flush) 10 ml FLUSH ASDIRECTED PRN PRN Reason: Keep Vein Open Last Admin: 05/03/19 15:45 Dose: 10 ml Labs: Laboratory Tests 05/03/19 05/03/19 05/03/19 Range/Units 15:32 15:32 15:32 WBC 12.5 H (5.0-10.0) 10^3/uL RBC 3.93 L (4.2-5.4) 10^6/uL Hgb 12.8 D (12.0-16.0) g/dL Hct 38.3 (37.0-47.0) % MCV 97.5 (80-100) fL MCH 32.6 (27.0-34.0) pg MCHC 33.4 (33.0-35.0) g/dL Plt Count 256 (150-450) 10^3/uL Neut % (Auto) 80.4 H (42.2-75.2) % Lymph % (Auto) 14.1 L (20.5-50.1) % [place] % (Auto) 4.6 (2-8) % Eos % (Auto) 0.7 L (1.0-3.0) % Baso % (Auto) 0.2 (0.0-1.0) % Sodium 138 (135-145) mmol/L Potassium 3.4 L (3.6-5.0) mmol/L Chloride 95 L (101-111) mmol/L Carbon Dioxide 32.0 H D (21.0-31.0) mmol/L Anion Gap 14.4 BUN 22 H (7-18) mg/dL Creatinine 1.6 H (0.6-1.3) mg/dL Est Cr Clr Drug Dosing TNP Estimated GFR (MDRD) 31 BUN/Creatinine Ratio 13.75 Glucose 197 H (74-105) mg/dL Lactic Acid 2.2 (0.5-2.2) mmol/L Calcium 8.8 (8.4-10.2) mg/dl Total Bilirubin 0.6 (0.2-1.0) mg/dL AST 22 (10-42) IU/L ALT 13 (10-60) IU/L Alkaline Phosphatase 50 (42-121) IU/L Troponin I 0.05 H* (0.00-0.02) ng/ml B-Natriuretic Peptide 281 H (0-100) pg/ml Total Protein 6.8 (6.7-8.2) g/dl Albumin 3.6 (3.2-5.5) g/dl Globulin 3.2 Albumin/Globulin Ratio 1.13 Meds: Medications Generic Name Dose Route Start Last Admin Trade Name Freq PRN Reason Stop Dose Admin Sodium Chloride 10 ml 05/03/19 15:31 05/03/19 15:45 Saline Flush FLUSH 10 ml ASDIRECTED PRN Administration Keep Vein Open Discontinued Medications Generic Name Dose Route Start Last Admin Trade Name Freq PRN Reason Stop Dose Admin Albuterol/Ipratropium 3 ml 05/03/19 15:29 05/03/19 15:44 Duoneb 3.0-0.5 Mg/3 Ml NEB 05/03/19 15:30 3 ml ONETIME ONE Administration Furosemide 40 mg 05/03/19 15:58 05/03/19 16:07 Lasix IVPUSH 05/03/19 15:59 40 mg NOW ONE Administration Methylprednisolone Sodium Succinate 125 mg 05/03/19 15:54 05/03/19 16:07 Solu-Medrol IVPUSH 05/03/19 15:55 125 mg ONETIME ONE Administration - Radiology Interpretation Free Text/Narrative:: [facility] Final Radiology Report Call: [phone] assistance Online chat: [email or web address] Name: ELKIN ALFRED Age: 74Years F Date: 05/03/2019 SSN: -- : 1945 Study: XR CHEST 1 VIEW FRONTAL Requesting Physician: NOEL ALCAZAR Images: 1 Addl Studies: Provided Clinical History: Contrast: Contrast Medium: Contrast Amount: Contrast Method: Page 1 of 2 EXAM: XR Chest, 1 View EXAM DATE/TIME: 05/03/2019 3:38 PM CLINICAL HISTORY: 74 years old, female; Patient HX: Chest pain shortness of breath. Copd. TECHNIQUE: Imaging protocol: XR of the chest Views: 1 view. COMPARISON: CR Chest 2V 01/08/2019 12:42 PM FINDINGS: Tubes, catheters and devices: EKG leads overlie the chest. Lungs: There is mild nonspecific prominence of the pulmonary vasculature. The lungs are normal. Pleural space: There are no pleural effusions present. Heart/Mediastinum: The heart demonstrates mild diffuse enlargement. Bones/joints: Unremarkable IMPRESSION: Cardiomegaly and pulmonary vascular prominence consistent with volume overload or congestive heart failure. Thank you for allowing us to participate in the care of your patient. Dictated and Authenticated by: Dakota Askew MD JOHNSON, NONA | Final Radiology Report CONFIDENTIALITY STATEMENT This report is intended only for use by the referring physician, and only in accordance with law. If you received this in error, call [phone]. Page 2 of 2 05/03/2019 3:50 PM Central Time ([place] & [place]) Departure - Departure Time of Disposition: 16:15 (admitt to Dr. Seymour) Disposition: Refer to Observation Condition: Fair Clinical Impression: Acute exacerbation of chronic obstructive pulmonary disease (COPD) Pulmonary edema Qualifiers: Chronicity: acute Qualified Code(s): J81.0 - Acute pulmonary edema - Discharge Information Forms: ED Department Discharge - My Orders Last 24 Hours: My Active Orders 05/03/19 15:29 RT Aerosol Therapy [RC] ASDIRECTED 05/03/19 15:30 EKG 12 Lead [EKG Documentation Completion] [RC] STAT Chest 1V Frontal [CR] Stat Peripheral IV Insertion Adult [OM.PC] Stat 05/03/19 15:31 Peripheral IV Care [RC] . DIRECTED Sodium Chloride 0.9% [Saline Flush] 10 ml FLUSH ASDIRECTED PRN 05/03/19 15:32 CULTURE BLOOD [BC] Stat - Assessment/Plan Last 24 Hours: My Active Orders 05/03/19 15:29 RT Aerosol Therapy [RC] ASDIRECTED 05/03/19 15:30 EKG 12 Lead [EKG Documentation Completion] [RC] STAT Chest 1V Frontal [CR] Stat Peripheral IV Insertion Adult [OM.PC] Stat 05/03/19 15:31 Peripheral IV Care [RC] . DIRECTED Sodium Chloride 0.9% [Saline Flush] 10 ml FLUSH ASDIRECTED PRN 05/03/19 15:32 CULTURE BLOOD [BC] Stat I have read and agree with the documentation that has been completed regarding this visit. By signing this record, I attest that the documentation was completed in my physical presence and is an accurate record of the encounter."
[2019-05-03] MEDS ORDERED: Sodium Chloride 0.9% 10 ML Syringe FLUSH PRN ×2 (17:50)
[2019-05-03] MEDS ORDERED: Albuterol 0.083% 2.5 MG/3 ML Neb Soln NEB PRN (17:50)
--- NOTE | 2019-05-03 18:04 | PCM.HP ---
H&P History of Present Illness - General Date of Service: 05/03/19 Admit Problem/Dx: Admission Diagnosis/Problem Admission Diagnosis/Problem Congestive heart failure Source of Information: Patient History Limitations: Reports: No Limitations - History of Present Illness Initial Comments - Free Text/Narative: 74 yo F with PMH of CHF, COPD, cigarette smoker, obesity who presents with cough , SOB. Symptoms started two days ago Cough is productive of whitish sputum Patient also has associated weakness There is also some mild leg swelling No fever, no chest pain, no nausea, no vomiting, no abd pain, no urinary symptoms. Was seen in the ED and noted to desat with activity CXR showed pulm congestion BNP was elevated Improved with duonebs and IV lasix Still smokes daily. - Related Data Allergies/Adverse Reactions: Allergies Allergy/AdvReac Type Severity Reaction Status Date / Time amlodipine [From Norvasc] Allergy Cannot Verified 05/03/19 16:29 Remember cetirizine [From Zyrtec] Allergy Abdominal Verified 05/03/19 16:29 Pain Penicillins Allergy Rash Verified 05/03/19 16:29 simvastatin [From Zocor] Allergy Cannot Verified 05/03/19 16:29 Remember Home Medications: Home Meds Albuterol Sulfate [Proventil Hfa] 2 puff IH Q4HR PRN 10/21/16 [History] Metoprolol Tartrate 25 mg PO BID 04/03/17 [History] Albuterol [IJD: Albuterol] 3 ml INH Q4HR PRN 12/24/17 [History] Albuterol/Ipratropium [DuoNeb 3.0-0.5 MG/3 ML] 3 ml NEB 02,06,10,14,18,22 [History] Aspirin 81 mg PO DAILY 01/08/19 [History] Furosemide [Lasix] 40 mg PO BID #60 tablet 01/13/19 [Rx] Fluticasone/Vilanterol [Breo Ellipta 100-25 MCG Inhalation Kit] 1 puff INH 1200 05/03/19 [History] Levothyroxine 75 mcg PO ACBREAKFAST 05/03/19 [History] Vit A/Vit C/Vit E/Zinc/Copper [Preservision] 1 each PO DAILY 05/03/19 [History] predniSONE [Prednisone] 5 mg PO DAILY 05/03/19 [History] Past Medical History HEENT History: Reports: Impaired Vision, Macular Degeneration, Other (See Below) Other HEENT History: wears glasses Cardiovascular History: Reports: Aneurysm, Heart Failure, Hypertension, [place], SOB on Exertion Respiratory History: Reports: COPD, SOB Gastrointestinal History: Reports: Chronic Diarrhea Genitourinary History: Reports: Urinary Incontinence [employer]ER History: Reports: Musculoskeletal History: Reports: Fracture, RA Neurological History: Reports: None Psychiatric History: Reports: Anxiety, Depression Endocrine/Metabolic History: Reports: Hypothyroidism, Obesity/BMI 30+ Hematologic History: Reports: None Immunologic History: Reports: None Oncologic (Cancer) History: Reports: Other (See Below) Other Oncologic History: simple vulvectomy - cancer Dermatologic History: Reports: None - Infectious Disease History Infectious Disease History: Reports: Chicken Pox, Measles, Mumps - Past Surgical History HEENT Surgical History: Reports: None Cardiovascular Surgical History: Reports: None Respiratory Surgical History: Reports: None GI Surgical History: Reports: Appendectomy, Cholecystectomy Female Surgical History: Reports: Tubal Ligation, Other (See Below) Other Female Surgeries/Procedures: simple vulvectomy Endocrine Surgical History: Reports: Thyroidectomy Neurological Surgical History: Reports: None Musculoskeletal Surgical History: Reports: None Social & Family History - Family History Family Medical History: Noncontributory Cardiac: Reports: [place] Respiratory: Reports: COPD Neurological: Reports: CVA - Tobacco Use Smoking Status *Q: Current Every Day Smoker Years of Tobacco use: 60 Packs/Tins Daily: 10 Used Tobacco, but Quit: No - Caffeine Use Caffeine Use: Reports: Coffee - Recreational Drug Use Recreational Drug Use: No - Living Situation & Occupation Living situation: Reports: with Family Occupation: Retired H&P Review of Systems - Review of Systems: Review Of Systems: See Below General: Denies: Fever HEENT: Reports: No Symptoms Pulmonary: Reports: Shortness of Breath, Cough Cardiovascular: Reports: No Symptoms. Denies: Chest Pain Gastrointestinal: Reports: No Symptoms. Denies: Abdominal Pain Genitourinary: Reports: No Symptoms Musculoskeletal: Reports: No Symptoms Skin: Reports: No Symptoms Psychiatric: Reports: No Symptoms Neurological: Reports: No Symptoms Exam - Exam Exam: See Below - Vital Signs Vital Signs: Last Vital Signs Temp 36.2 C 05/03/19 16:22 Pulse 71 05/03/19 16:22 Resp 24 H 05/03/19 16:22 BP 144/88 H 05/03/19 16:22 Pulse Ox 98 05/03/19 16:22 Weight: 93.984 kg - Exam General: Alert, Oriented HEENT: Conjunctiva Clear, EACs Clear Neck: Supple, Trachea Midline Lungs: Clear to Auscultation, Crackles, Other (bibasal crackles) Cardiovascular: Regular Rate, Regular Rhythm GI/Abdominal Exam: Normal Bowel Sounds, Soft, Non-Tender Extremities: Normal Inspection, Normal Range of Motion, Non-Tender, Pedal Edema - Patient Data Lab Results Last 24 hrs: Laboratory Results - last 24 hr 05/03/19 05/03/19 05/03/19 Range/Units 15:32 15:32 15:32 WBC 12.5 H (5.0-10.0) 10^3/uL RBC 3.93 L (4.2-5.4) 10^6/uL Hgb 12.8 D (12.0-16.0) g/dL Hct 38.3 (37.0-47.0) % MCV 97.5 (80-100) fL MCH 32.6 (27.0-34.0) pg MCHC 33.4 (33.0-35.0) g/dL Plt Count 256 (150-450) 10^3/uL Neut % (Auto) 80.4 H (42.2-75.2) % Lymph % (Auto) 14.1 L (20.5-50.1) % [place] % (Auto) 4.6 (2-8) % Eos % (Auto) 0.7 L (1.0-3.0) % Baso % (Auto) 0.2 (0.0-1.0) % Sodium 138 (135-145) mmol/L Potassium 3.4 L (3.6-5.0) mmol/L Chloride 95 L (101-111) mmol/L Carbon Dioxide 32.0 H D (21.0-31.0) mmol/L Anion Gap 14.4 BUN 22 H (7-18) mg/dL Creatinine 1.6 H (0.6-1.3) mg/dL Est Cr Clr Drug Dosing TNP Estimated GFR (MDRD) 31 BUN/Creatinine Ratio 13.75 Glucose 197 H (74-105) mg/dL Lactic Acid 2.2 (0.5-2.2) mmol/L Calcium 8.8 (8.4-10.2) mg/dl Total Bilirubin 0.6 (0.2-1.0) mg/dL AST 22 (10-42) IU/L ALT 13 (10-60) IU/L Alkaline Phosphatase 50 (42-121) IU/L Troponin I 0.05 H* (0.00-0.02) ng/ml B-Natriuretic Peptide 281 H (0-100) pg/ml Total Protein 6.8 (6.7-8.2) g/dl Albumin 3.6 (3.2-5.5) g/dl Globulin 3.2 Albumin/Globulin Ratio 1.13 Result Diagrams: 05/03/19 15:32 05/03/19 15:32 Problem List Initiated/Reviewed/Updated: Yes Orders Last 24hrs: Active Orders 24 hr Category Date Time Status Admission Diagnosis [ADT] Routine ADT 05/03/19 16:13 Ordered Admission Status [Patient Status] [ADT] Routine ADT 05/03/19 16:13 Active Patient Status [ADT] Routine ADT 05/03/19 17:50 Ordered Ambulate [RC] ASDIRECTED Care 05/03/19 17:50 Ordered Height and Weight [RC] DAILY Care 05/03/19 17:50 Ordered Oxygen Therapy [RC] PRN Care 05/03/19 17:50 Ordered Peripheral IV Care [RC] . DIRECTED Care 05/03/19 17:50 Ordered Peripheral IV Care [RC] 08,20 Care 05/03/19 15:31 Active RT Aerosol Therapy [RC] ASDIRECTED Care 05/03/19 15:29 Active RT Chest Physiotherapy [RC] ASDIRECTED Care 05/03/19 17:50 Ordered RT Incentive Spirometry [RC] ASDIRECTED Care 05/03/19 17:50 Ordered Up With Assistance [RC] ASDIRECTED Care 05/03/19 17:50 Ordered VTE/DVT Education [RC] PER UNIT ROUTINE Care 05/03/19 17:50 Ordered Vital Signs [RC] Q4H Care 05/03/19 17:50 Ordered OT Evaluation and Treatment [CONS] Routine Cons 05/03/19 17:50 Ordered PT Evaluation and Treatment [CONS] Routine Cons 05/03/19 17:50 Ordered Regular Diet [DIET] Diet 05/03/19 Dinner Ordered Chest 1V Frontal [CR] Stat Exams 05/03/19 15:30 Taken CULTURE BLOOD [BC] Stat Lab 05/03/19 15:32 Received CULTURE SPUTUM + SMEAR [RM] Routine Lab 05/03/19 17:53 Ordered Albuterol [Proventil Neb Soln] Med 05/03/19 17:50 Ordered 2.5 mg NEB Q6HRRT PRN Albuterol/Ipratropium [DuoNeb 3.0-0.5 MG/3 ML] Med 05/03/19 18:00 Ordered 3 ml NEB Q6HRRT Aspirin Med 05/04/19 09:00 Ordered 81 mg PO DAILY Azithromycin [Zithromax] Med 05/03/19 17:51 Ordered 500 mg PO DAILY Fluticasone/Vilanterol Med 05/04/19 12:00 Ordered 1 puff INH 1200 Furosemide [Lasix] Med 05/04/19 08:00 Ordered 40 mg IVPUSH BIDDIURETIC Levothyroxine Med 05/04/19 06:00 Ordered 75 mcg PO ACBREAKFAST Metoprolol Tartrate [Lopressor] Med 05/03/19 21:00 Ordered 25 mg PO BID Mometasone/Formoterol [Dulera 200-5 MCG] Med 05/03/19 18:00 Ordered 2 puff IH BIDRT Sodium Chloride 0.9% [Saline Flush] Med 05/03/19 15:31 Active 10 ml FLUSH ASDIRECTED PRN Sodium Chloride 0.9% [Saline Flush] Med 05/03/19 17:50 Ordered 10 ml FLUSH ASDIRECTED PRN Sodium Chloride 0.9% [Saline Flush] Med 05/03/19 17:50 Ordered 10 ml FLUSH ASDIRECTED PRN Vit A/Vit C/Vit E/Zinc/Copper [Preservision] Med 05/04/19 09:00 Ordered 1 each PO DAILY predniSONE Med 05/03/19 17:51 Ordered 50 mg PO WITHBREAKFAST Peripheral IV Insertion Adult [OM.PC] Routine Oth 05/03/19 17:50 Ordered Peripheral IV Insertion Adult [OM.PC] Stat Oth 05/03/19 15:30 Ordered Saline Lock Insert [OM.PC] Routine Oth 05/03/19 17:50 Ordered Resuscitation Status Routine Resus Stat 05/03/19 17:50 Ordered Medication Orders Albuterol (Proventil Neb Soln) 2.5 mg NEB Q6HRRT PRN PRN Reason: Shortness of Breath Albuterol/Ipratropium (Duoneb 3.0-0.5 Mg/3 Ml) 3 ml NEB Q6HRRT [facility] Aspirin (Aspirin) 81 mg PO DAILY [place] Azithromycin (Zithromax) 500 mg PO DAILY [place] Furosemide (Lasix) 40 mg IVPUSH BIDDIURETIC [place] Levothyroxine Sodium (Levothyroxine) 75 mcg PO ACBREAKFAST [place] Metoprolol Tartrate (Lopressor) 25 mg PO BID [place] Mometasone Furoate/Formoterol Fumar (Dulera 200-5 Mcg) 2 puff IH BIDRT [place] Non-Formulary Medication (Vit A/Vit C/Vit E/Zinc/Copper [Preservision]) 1 each PO DAILY [place] Non-Formulary Medication (Fluticasone/Vilanterol) 1 puff INH 1200 [place] Prednisone (Prednisone) 50 mg PO WITHBREAKFAST [facility] Sodium Chloride (Saline Flush) 10 ml FLUSH ASDIRECTED PRN PRN Reason: Keep Vein Open Last Admin: 05/03/19 15:45 Dose: 10 ml Sodium Chloride (Saline Flush) 10 ml FLUSH ASDIRECTED PRN PRN Reason: Keep Vein Open Sodium Chloride (Saline Flush) 10 ml FLUSH ASDIRECTED PRN PRN Reason: Keep Vein Open Assessment/Plan Comment:: #SOB/Cough #Multifactorial: CHF exacerbation, COPD exacerbation -IV lasix bid -ICS/LABA -3 day azithromycin course -duonebs prn and atc -fluid restriction -salt restriction #Mild hypokalemia -replace potassium orally # Cigarette Smoking - Counseled on the health risks of tobacco smoking - Counseled on the available resources to enable patient to quit - Offer patient the nicotine patch while he is on the inpatient service. #DVT ppx SC heparin COde status: ANGELIA
[2019-05-03] MEDS ORDERED: Potassium Chloride 10 MEQ Tab.ER PO ONE (18:06)
[2019-05-03] MEDS: predniSONE 20 MG Tab PO SCH (18:25)
[2019-05-03] MEDS: Formoterol/Mometasone 200-5 MCG 8.8 GM Inhaler IH SCH (18:26)
[2019-05-03] MEDS: Azithromycin 250 MG Tab PO SCH (18:26)
[2019-05-03] MEDS: Albuterol/Ipratropium 3.0-0.5 MG/3 ML Neb Soln NEB SCH (18:26)
[2019-05-03] MEDS: Heparin Sodium 5,000 Units/ML Vial SUBCUT SCH (20:26)
[2019-05-03] MEDS: Metoprolol Tartrate 25 MG Tab PO SCH (20:27)
[2019-05-04] MEDS: Albuterol/Ipratropium 3.0-0.5 MG/3 ML Neb Soln NEB SCH ×4 (01:01→17:26)
[2019-05-04] MEDS: Levothyroxine 75 MCG Tab PO SCH (05:49)
[2019-05-04] MEDS: Formoterol/Mometasone 200-5 MCG 8.8 GM Inhaler IH SCH (06:37)
[2019-05-04 07:20] LABS: ANION GAP 17.8
[2019-05-04] MEDS: Lutein/Minerals/Vit A,C & E Tab PO SCH (08:20)
[2019-05-04] MEDS: predniSONE 20 MG Tab PO SCH (08:21)
[2019-05-04] MEDS: Aspirin 81 MG Tab.Chew PO SCH (08:21)
[2019-05-04] MEDS: Metoprolol Tartrate 25 MG Tab PO SCH ×2 (08:22→20:31)
[2019-05-04] MEDS: Azithromycin 250 MG Tab PO SCH (08:22)
[2019-05-04] MEDS: Furosemide 40 MG/4 ML VIAL IVPUSH SCH ×2 (08:23→14:03)
[2019-05-04] MEDS: Sodium Chloride 0.9% 10 ML Syringe FLUSH PRN ×3 (08:23→20:57)
[2019-05-04] MEDS: Heparin Sodium 5,000 Units/ML Vial SUBCUT SCH ×2 (08:23→20:34)
--- NOTE | 2019-05-04 10:42 | PCM.PN ---
- General Info Date of Service: 05/04/19 Admission Dx/Problem (Free Text): Admission Diagnosis/Problem Admission Diagnosis/Problem Congestive heart failure Subjective Update: SOB is improved Leg swelling is improved No new complaints this morning - Review of Systems General: Reports: No Symptoms HEENT: Reports: No Symptoms Pulmonary: Reports: Shortness of Breath Cardiovascular: Reports: No Symptoms Gastrointestinal: Reports: No Symptoms Genitourinary: Reports: No Symptoms Musculoskeletal: Reports: No Symptoms Skin: Reports: No Symptoms - Patient Data Vitals - Most Recent: Last Vital Signs Temp 36.7 C 05/04/19 07:34 Pulse 82 05/04/19 08:22 Resp 20 05/04/19 07:34 BP 109/88 05/04/19 08:22 Pulse Ox 96 05/04/19 07:34 Weight - Most Recent: 93.803 kg I&O - Last 24 Hours: Intake & Output 05/03/19 05/04/19 05/04/19 22:59 06:59 14:59 Intake Total 1340 750 540 Output Total 1350 330 500 Balance -10 420 40 Lab Results Last 24 Hours: Laboratory Results - last 24 hr 05/03/19 05/03/19 05/03/19 Range/Units 15:32 15:32 15:32 WBC 12.5 H (5.0-10.0) 10^3/uL RBC 3.93 L (4.2-5.4) 10^6/uL Hgb 12.8 D (12.0-16.0) g/dL Hct 38.3 (37.0-47.0) % MCV 97.5 (80-100) fL MCH 32.6 (27.0-34.0) pg MCHC 33.4 (33.0-35.0) g/dL Plt Count 256 (150-450) 10^3/uL Neut % (Auto) 80.4 H (42.2-75.2) % Lymph % (Auto) 14.1 L (20.5-50.1) % [place] % (Auto) 4.6 (2-8) % Eos % (Auto) 0.7 L (1.0-3.0) % Baso % (Auto) 0.2 (0.0-1.0) % Sodium 138 (135-145) mmol/L Potassium 3.4 L (3.6-5.0) mmol/L Chloride 95 L (101-111) mmol/L Carbon Dioxide 32.0 H D (21.0-31.0) mmol/L Anion Gap 14.4 BUN 22 H (7-18) mg/dL Creatinine 1.6 H (0.6-1.3) mg/dL Est Cr Clr Drug Dosing TNP Estimated GFR (MDRD) 31 BUN/Creatinine Ratio 13.75 Glucose 197 H (74-105) mg/dL Lactic Acid 2.2 (0.5-2.2) mmol/L Calcium 8.8 (8.4-10.2) mg/dl Magnesium (1.8-2.5) mg/dL Total Bilirubin 0.6 (0.2-1.0) mg/dL AST 22 (10-42) IU/L ALT 13 (10-60) IU/L Alkaline Phosphatase 50 (42-121) IU/L Troponin I 0.05 H* (0.00-0.02) ng/ml B-Natriuretic Peptide 281 H (0-100) pg/ml Total Protein 6.8 (6.7-8.2) g/dl Albumin 3.6 (3.2-5.5) g/dl Globulin 3.2 Albumin/Globulin Ratio 1.13 05/04/19 05/04/19 Range/Units 06:15 06:15 WBC 12.1 H (5.0-10.0) 10^3/uL RBC 3.61 L (4.2-5.4) 10^6/uL Hgb 11.9 L (12.0-16.0) g/dL Hct 35.3 L (37.0-47.0) % MCV 97.8 (80-100) fL MCH 33.0 (27.0-34.0) pg MCHC 33.7 (33.0-35.0) g/dL Plt Count 231 (150-450) 10^3/uL Neut % (Auto) (42.2-75.2) % Lymph % (Auto) (20.5-50.1) % [place] % (Auto) (2-8) % Eos % (Auto) (1.0-3.0) % Baso % (Auto) (0.0-1.0) % Sodium 136 (135-145) mmol/L Potassium 3.8 (3.6-5.0) mmol/L Chloride 95 L (101-111) mmol/L Carbon Dioxide 27.0 (21.0-31.0) mmol/L Anion Gap 17.8 BUN 27 H (7-18) mg/dL Creatinine 1.7 H (0.6-1.3) mg/dL Est Cr Clr Drug Dosing 24.31 Estimated GFR (MDRD) 29 BUN/Creatinine Ratio Glucose 259 H (74-105) mg/dL Lactic Acid (0.5-2.2) mmol/L Calcium 8.9 (8.4-10.2) mg/dl Magnesium 1.7 L (1.8-2.5) mg/dL Total Bilirubin (0.2-1.0) mg/dL AST (10-42) IU/L ALT (10-60) IU/L Alkaline Phosphatase (42-121) IU/L Troponin I (0.00-0.02) ng/ml B-Natriuretic Peptide (0-100) pg/ml Total Protein (6.7-8.2) g/dl Albumin (3.2-5.5) g/dl Globulin Albumin/Globulin Ratio Kamran Results Last 24 Hours: Microbiology 05/03/19 17:15 Gram Stain - Final Sputum - Expectorated Med Orders - Current: Current Medications Albuterol (Proventil Neb Soln) 2.5 mg NEB Q6HRRT PRN PRN Reason: Shortness of Breath Albuterol/Ipratropium (Duoneb 3.0-0.5 Mg/3 Ml) 3 ml NEB Q6HRRT [facility] Last Admin: 05/04/19 07:26 Dose: 3 ml Aspirin (Aspirin) 81 mg PO DAILY [facility] Last Admin: 05/04/19 08:21 Dose: 81 mg Azithromycin (Zithromax) 500 mg PO DAILY [facility] Last Admin: 05/04/19 08:22 Dose: 500 mg Furosemide (Lasix) 40 mg IVPUSH BIDDIURETIC [facility] Last Admin: 05/04/19 08:23 Dose: 40 mg Heparin Sodium (Porcine) (Heparin Sodium) 5,000 units SUBCUT Q12HR [facility] Last Admin: 05/04/19 08:23 Dose: 5,000 units Levothyroxine Sodium (Levothyroxine) 75 mcg PO ACBREAKFAST [facility] Last Admin: 05/04/19 05:49 Dose: 75 mcg Metoprolol Tartrate (Lopressor) 25 mg PO BID [facility] Last Admin: 05/04/19 08:22 Dose: 25 mg Mometasone Furoate/Formoterol Fumar (Dulera 200-5 Mcg) 2 puff IH BIDRT [facility] Last Admin: 05/04/19 06:37 Dose: 2 puff Multivitamins/Minerals (I-Inés) 1 each PO DAILY [facility] Last Admin: 05/04/19 08:20 Dose: 1 each Prednisone (Prednisone) 50 mg PO WITHBREAKFAST [facility] Last Admin: 05/04/19 08:21 Dose: 50 mg Sodium Chloride (Saline Flush) 10 ml FLUSH ASDIRECTED PRN PRN Reason: Keep Vein Open Last Admin: 05/04/19 08:23 Dose: 10 ml Discontinued Medications Albuterol/Ipratropium (Duoneb 3.0-0.5 Mg/3 Ml) 3 ml NEB ONETIME ONE Stop: 05/03/19 15:30 Last Admin: 05/03/19 15:44 Dose: 3 ml Furosemide (Lasix) 40 mg IVPUSH NOW ONE Stop: 05/03/19 15:59 Last Admin: 05/03/19 16:07 Dose: 40 mg Methylprednisolone Sodium Succinate (Solu-Medrol) 125 mg IVPUSH ONETIME ONE Stop: 05/03/19 15:55 Last Admin: 05/03/19 16:07 Dose: 125 mg Non-Formulary Medication (Fluticasone/Vilanterol) 1 puff INH 1200 [facility] Potassium Chloride (Klor-Con 10) 40 meq PO ONETIME ONE Stop: 05/03/19 18:07 Last Admin: 05/03/19 18:26 Dose: 40 meq Sodium Chloride (Saline Flush) 10 ml FLUSH ASDIRECTED PRN PRN Reason: Keep Vein Open Sodium Chloride (Saline Flush) 10 ml FLUSH ASDIRECTED PRN PRN Reason: Keep Vein Open - Exam General: Alert, Oriented HEENT: Pupils Equal, Pupils Reactive, EOMI Lungs: Wheezing Cardiovascular: Regular Rate, Regular Rhythm GI/Abdominal Exam: Normal Bowel Sounds, Soft, Non-Tender Extremities: Pedal Edema (mild bilateral) - Problem List Review Problem List Initiated/Reviewed/Updated: Yes - My Orders Last 24 Hours: My Active Orders 05/03/19 17:15 CULTURE SPUTUM + SMEAR [RM] Routine 05/03/19 17:50 Patient Status [ADT] Routine Ambulate [RC] ASDIRECTED Height and Weight [RC] DAILY Oxygen Therapy [RC] PRN Peripheral IV Care [RC] RT Chest Physiotherapy [RC] ASDIRECTED RT Incentive Spirometry [RC] ASDIRECTED Up With Assistance [RC] ASDIRECTED VTE/DVT Education [RC] PER UNIT ROUTINE Vital Signs [RC] Q4H OT Evaluation and Treatment [CONS] Routine PT Evaluation and Treatment [CONS] Routine Albuterol [Proventil Neb Soln] 2.5 mg NEB Q6HRRT PRN Peripheral IV Insertion Adult [OM.PC] Routine Saline Lock Insert [OM.PC] Routine Resuscitation Status Routine 05/03/19 17:51 Azithromycin [Zithromax] 500 mg PO DAILY predniSONE 50 mg PO WITHBREAKFAST 05/03/19 18:00 Albuterol/Ipratropium [DuoNeb 3.0-0.5 MG/3 ML] 3 ml NEB Q6HRRT Mometasone/Formoterol [Dulera 200-5 MCG] 2 puff IH BIDRT 05/03/19 21:00 Heparin Sodium 5,000 units SUBCUT Q12HR Metoprolol Tartrate [Lopressor] 25 mg PO BID 05/03/19 Dinner Regular Diet [DIET] 05/04/19 06:00 Levothyroxine 75 mcg PO ACBREAKFAST 05/04/19 08:00 Furosemide [Lasix] 40 mg IVPUSH BIDDIURETIC 05/04/19 09:00 Aspirin 81 mg PO DAILY Lutein/Minerals/Vit A,C & E [I-Inés] 1 each PO DAILY 05/05/19 05:11 BASIC METABOLIC PANEL,BMP [CHEM] AM CBC W/O DIFF,HEMOGRAM [HEME] AM MAGNESIUM [CHEM] AM 05/06/19 05:11 BASIC METABOLIC PANEL,BMP [CHEM] AM CBC W/O DIFF,HEMOGRAM [HEME] AM MAGNESIUM [CHEM] AM - Plan Plan:: #SOB/Cough #Multifactorial: CHF exacerbation, COPD exacerbation -IV lasix bid -ICS/LABA -3 day azithromycin course -duonebs prn and atc -fluid restriction -salt restriction # Cigarette Smoking - Counseled on the health risks of tobacco smoking - Counseled on the available resources to enable patient to quit - Offer patient the nicotine patch while he is on the inpatient service. #DVT ppx SC heparin COde status: FC
[2019-05-04] MEDS ORDERED: Non-Formulary Medication 1 Each (Fluticasone/Vilanterol 1 PUFF) INH SCH (12:00)
[2019-05-04] MEDS ORDERED: Acetaminophen 325 MG Tab PO PRN (21:22)
[2019-05-05] MEDS: Albuterol/Ipratropium 3.0-0.5 MG/3 ML Neb Soln NEB SCH ×2 (00:19→07:26)
[2019-05-05] MEDS: Levothyroxine 75 MCG Tab PO SCH (06:38)
[2019-05-05 07:10] LABS: ANION GAP 15.4
[2019-05-05 07:28] VITALS: PULSE 77
[2019-05-05 08:18] VITALS: BP 125/65
[2019-05-05] MEDS ORDERED: Potassium Chloride 10 MEQ Tab.ER PO ONE (08:31)
[2019-05-05] MEDS: Azithromycin 250 MG Tab PO SCH (09:47)
[2019-05-05] MEDS: Heparin Sodium 5,000 Units/ML Vial SUBCUT SCH (09:47)
[2019-05-05] MEDS: Aspirin 81 MG Tab.Chew PO SCH (09:48)
[2019-05-05] MEDS: Lutein/Minerals/Vit A,C & E Tab PO SCH (09:48)
[2019-05-05] MEDS: predniSONE 20 MG Tab PO SCH (09:48)
[2019-05-05] MEDS: Metoprolol Tartrate 25 MG Tab PO SCH (09:53)
[2019-05-05] MEDS: Furosemide 40 MG/4 ML VIAL IVPUSH SCH ×2 (09:54→15:14)
--- NOTE | 2019-05-05 11:43 | PCM.DCSUM1 ---
Discharge Summary - Hospital Course Free Text/Narrative:: 74 yo F with PMH of CHF, COPD, cigarette smoker, obesity who presents with cough , SOB. Symptoms started two days ago Cough is productive of whitish sputum Patient also has associated weakness There is also some mild leg swelling No fever, no chest pain, no nausea, no vomiting, no abd pain, no urinary symptoms. Was seen in the ED and noted to desat with activity CXR showed pulm congestion BNP was elevated Improved with duonebs and IV lasix Still smokes daily. Counselled to quit smoking Complete short course of high dose steroids Follow up with PCP Continue lasix Follow up with cardiology clinic (should obtain referral from PCP) Diagnosis: Stroke: No Modified Kristy Scale: No Symptoms at All Modified Kristy Scale Score: 0 - Discharge Data Discharge Date: 05/05/19 Discharge Disposition: Home, Self-Care 01 Condition: Good - Referral to Home Health Primary Care Physician: PCP Unknown - Patient Summary/Data Consults: Consultations 05/03/19 17:50 OT Evaluation and Treatment [CONS] Routine PT Evaluation and Treatment [CONS] Routine - Patient Instructions Diet: Usual Diet as Tolerated Activity: As Tolerated - Discharge Plan Prescriptions/Med Rec: predniSONE 50 mg PO WITHBREAKFAST 5 Days #15 tablet Home Medications: Home Meds Albuterol Sulfate [Proventil Hfa] 2 puff IH Q4HR PRN 10/21/16 [History] Metoprolol Tartrate 25 mg PO BID 04/03/17 [History] Albuterol [IJD: Albuterol] 3 ml INH Q4HR PRN 12/24/17 [History] Albuterol/Ipratropium [DuoNeb 3.0-0.5 MG/3 ML] 3 ml NEB 02,06,10,14,18,22 [History] Aspirin 81 mg PO DAILY 01/08/19 [History] Furosemide [Lasix] 40 mg PO BID #60 tablet 01/13/19 [Rx] Fluticasone/Vilanterol [Breo Ellipta 100-25 MCG Inhalation Kit] 1 puff INH 1200 05/03/19 [History] Levothyroxine 75 mcg PO ACBREAKFAST 05/03/19 [History] Vit A/Vit C/Vit E/Zinc/Copper [Preservision] 1 each PO DAILY 05/03/19 [History] predniSONE [Prednisone] 5 mg PO DAILY 05/03/19 [History] predniSONE 50 mg PO WITHBREAKFAST 5 Days #15 tablet 05/05/19 [Rx] Oxygen Therapy Mode: Nasal Cannula Oxygen Flow Rate (L/min): 2 Patient Handouts: Chronic Obstructive Pulmonary Disease Exacerbation, Easy-to- Read, Heart Failure, [id number] - Discharge Summary/Plan Comment DC Time >30 min.: Yes - General Info Date of Service: 05/05/19 Admission Dx/Problem (Free Text: Admission Diagnosis/Problem Admission Diagnosis/Problem Congestive heart failure Subjective Update: SOB is improved Leg swelling is improved No new complaints this morning - Review of Systems General: Denies: Fever HEENT: Reports: No Symptoms Pulmonary: Reports: No Symptoms Cardiovascular: Reports: No Symptoms Gastrointestinal: Reports: No Symptoms Genitourinary: Reports: No Symptoms Musculoskeletal: Reports: No Symptoms - Patient Data Vitals - Most Recent: Last Vital Signs Temp 36.3 C 05/05/19 07:00 Pulse 77 05/05/19 09:53 Resp 20 05/05/19 07:00 BP 125/65 05/05/19 09:53 Pulse Ox 97 05/05/19 07:00 Weight - Most Recent: 93.803 kg I&O - Last 24 hours: Intake & Output 05/04/19 05/05/19 05/05/19 22:59 06:59 14:59 Intake Total 680 700 Output Total 1000 200 Balance -320 500 Lab Results - Last 24 hrs: Laboratory Results - last 24 hr 05/05/19 05/05/19 Range/Units 06:08 06:08 WBC 14.7 H (5.0-10.0) 10^3/uL RBC 3.49 L (4.2-5.4) 10^6/uL Hgb 11.3 L (12.0-16.0) g/dL Hct 34.3 L (37.0-47.0) % MCV 98.3 (80-100) fL MCH 32.4 (27.0-34.0) pg MCHC 32.9 L (33.0-35.0) g/dL Plt Count 222 (150-450) 10^3/uL Sodium 141 (135-145) mmol/L Potassium 3.4 L (3.6-5.0) mmol/L Chloride 100 L (101-111) mmol/L Carbon Dioxide 29.0 (21.0-31.0) mmol/L Anion Gap 15.4 BUN 39 H (7-18) mg/dL Creatinine 1.7 H (0.6-1.3) mg/dL Est Cr Clr Drug Dosing 24.31 mL/min Estimated GFR (MDRD) 29 Glucose 160 H (74-105) mg/dL Calcium 9.1 (8.4-10.2) mg/dl Magnesium 1.9 (1.8-2.5) mg/dL VICKY Results - Last 24 hrs: Microbiology 05/03/19 15:32 Aerobic Blood Culture - Preliminary Blood NO GROWTH AFTER 1 DAY Anaerobic Blood Culture - Preliminary NO GROWTH AFTER 1 DAY Med Orders - Current: Current Medications Acetaminophen (Tylenol) 650 mg PO Q6H PRN PRN Reason: Pain Last Admin: 05/04/19 21:52 Dose: 650 mg Albuterol (Proventil Neb Soln) 2.5 mg NEB Q6HRRT PRN PRN Reason: Shortness of Breath Albuterol/Ipratropium (Duoneb 3.0-0.5 Mg/3 Ml) 3 ml NEB Q6HRRT [facility] Last Admin: 05/05/19 07:26 Dose: 3 ml Aspirin (Aspirin) 81 mg PO DAILY [facility] Last Admin: 05/05/19 09:48 Dose: 81 mg Azithromycin (Zithromax) 500 mg PO DAILY [facility] Last Admin: 05/05/19 09:47 Dose: 500 mg Furosemide (Lasix) 40 mg IVPUSH BIDDIURETIC [facility] Last Admin: 05/05/19 09:54 Dose: 40 mg Heparin Sodium (Porcine) (Heparin Sodium) 5,000 units SUBCUT Q12HR [facility] Last Admin: 05/05/19 09:47 Dose: 5,000 units Levothyroxine Sodium (Levothyroxine) 75 mcg PO ACBREAKFAST [facility] Last Admin: 05/05/19 06:38 Dose: 75 mcg Metoprolol Tartrate (Lopressor) 25 mg PO BID [facility] Last Admin: 05/05/19 09:53 Dose: 25 mg Multivitamins/Minerals (I-Inés) 1 each PO DAILY [facility] Last Admin: 05/05/19 09:48 Dose: 1 each Prednisone (Prednisone) 50 mg PO WITHBREAKFAST [facility] Last Admin: 05/05/19 09:48 Dose: 50 mg Sodium Chloride (Saline Flush) 10 ml FLUSH ASDIRECTED PRN PRN Reason: Keep Vein Open Last Admin: 05/04/19 20:57 Dose: 10 ml Discontinued Medications Albuterol/Ipratropium (Duoneb 3.0-0.5 Mg/3 Ml) 3 ml NEB ONETIME ONE Stop: 05/03/19 15:30 Last Admin: 05/03/19 15:44 Dose: 3 ml Furosemide (Lasix) 40 mg IVPUSH NOW ONE Stop: 05/03/19 15:59 Last Admin: 05/03/19 16:07 Dose: 40 mg Methylprednisolone Sodium Succinate (Solu-Medrol) 125 mg IVPUSH ONETIME ONE Stop: 05/03/19 15:55 Last Admin: 05/03/19 16:07 Dose: 125 mg Mometasone Furoate/Formoterol Fumar (Dulera 200-5 Mcg) 2 puff IH BIDRT [facility] Last Admin: 05/04/19 06:37 Dose: 2 puff Non-Formulary Medication (Fluticasone/Vilanterol) 1 puff INH 1200 [facility] Potassium Chloride (Klor-Con 10) 40 meq PO ONETIME ONE Stop: 05/03/19 18:07 Last Admin: 05/03/19 18:26 Dose: 40 meq Potassium Chloride (Klor-Con 10) 40 meq PO ONETIME ONE Stop: 05/05/19 08:32 Last Admin: 05/05/19 09:58 Dose: 40 meq Sodium Chloride (Saline Flush) 10 ml FLUSH ASDIRECTED PRN PRN Reason: Keep Vein Open Sodium Chloride (Saline Flush) 10 ml FLUSH ASDIRECTED PRN PRN Reason: Keep Vein Open - Exam General: Reports: Alert, Oriented HEENT: Reports: Pupils Equal, Pupils Reactive Neck: Reports: Supple Lungs: Reports: Clear to Auscultation, Normal Respiratory Effort Cardiovascular: Reports: Regular Rate, Regular Rhythm GI/Abdominal Exam: Normal Bowel Sounds, Soft, Non-Tender, No Organomegaly Extremities: Normal Inspection, Normal Range of Motion, Non-Tender, No Pedal Edema
== END 2019-05-05 15:20 | disposition home or self-care (01) ==
LOC: DL.ED 15:16 → DL.MS 16:13 → UNDOADMOB 16:13 → DL.ED 16:14 → UNDOADMOB 16:20 → DL.MS 16:20
PROVIDERS: ADMIT Hospitalist; ATTEND Hospitalist
DX: I11.0 Hypertensive heart disease with heart failure (principal); I50.9 Heart failure, unspecified; J44.1 Chronic obstructive pulmonary disease with (acute) exacerbation; E87.6 Hypokalemia; I25.2 Old myocardial infarction; E03.9 Hypothyroidism, unspecified; F17.210 Nicotine dependence, cigarettes, uncomplicated; Z88.0 Allergy status to penicillin; Z88.8 Allergy status to other drugs, medicaments and biological substances; Z79.82 Long term (current) use of aspirin; Z79.51 Long term (current) use of inhaled steroids; Z79.52 Long term (current) use of systemic steroids; Z79.899 Other long term (current) drug therapy
CPT/HCPCS: 36415; 71045; 80048; 80053; 83605; 83735; 83880; 84484; 85025; 85027; 87040; 87070; 87205; 93005; 94640; 96374; 96375; 97162; 97165; 99285; A9270; J1644; J1940; J2930; 96372; 96376; G0378; J7620-GY

== ENCOUNTER 2019-06-28 11:51 | Emergency (ER) | payer MEDICARE, OTHER ==
[2019-06-28 12:20] VITALS: BP 132/75; PULSE 96
[2019-06-28] MEDS ORDERED: Sodium Chloride 0.9% 10 ML Syringe FLUSH PRN (12:20)
--- NOTE | 2019-06-28 12:20 | EDM.PDOC ---
ED HPI GENERAL MEDICAL PROBLEM - General Chief Complaint: Respiratory Problem Stated Complaint: HARD TIME BREATHING Time Seen by Provider: 06/28/19 12:20 Source of Information: Reports: Patient, Old Records, RN, RN Notes Reviewed History Limitations: Reports: No Limitations - History of Present Illness INITIAL COMMENTS - FREE TEXT/NARRATIVE: Pt presents to ER from home by POV with c/o cough with progressively worsening dyspnea on exertion, and increased clear to yellowish sputum production. Pt denies fever or chills. Denies chest pain, but admit to constant chest heaviness since her breathing has worsened. She report increased edema in her feet despite compliance with her Furosemide. She states she has been using her nebulizer as prescribed, but it isn't helping like it usually does. Onset: Gradual Duration: Day(s): (3-4), Chronic, Constant, Getting Worse Location: Reports: Chest Quality: Reports: Pressure Severity: Moderate Improves with: Reports: None Worsens with: Reports: None Associated Symptoms: Reports: No Other Symptoms - Related Data Allergies Allergy/AdvReac Type Severity Reaction Status Date / Time amlodipine [From Norvasc] Allergy Cannot Verified 06/28/19 12:18 Remember cetirizine [From Zyrtec] Allergy Abdominal Verified 06/28/19 12:18 Pain Penicillins Allergy Rash Verified 06/28/19 12:18 simvastatin [From Zocor] Allergy Cannot Verified 06/28/19 12:18 Remember Home Meds: Home Meds Albuterol Sulfate [Proventil Hfa] 2 puff IH Q4HR PRN 10/21/16 [History] Metoprolol Tartrate 25 mg PO BID 04/03/17 [History] Albuterol [IJD: Albuterol] 3 ml INH Q4HR PRN 12/24/17 [History] Albuterol/Ipratropium [DuoNeb 3.0-0.5 MG/3 ML] 3 ml NEB 02,06,10,14,18,22 [History] Aspirin 81 mg PO DAILY 01/08/19 [History] Furosemide [Lasix] 40 mg PO BID #60 tablet 01/13/19 [Rx] Fluticasone/Vilanterol [Breo Ellipta 100-25 MCG Inhalation Kit] 1 puff INH 1200 05/03/19 [History] Levothyroxine 75 mcg PO ACBREAKFAST 05/03/19 [History] Vit A/Vit C/Vit E/Zinc/Copper [Preservision] 1 each PO DAILY 05/03/19 [History] predniSONE [Prednisone] 5 mg PO DAILY 05/03/19 [History] predniSONE 50 mg PO WITHBREAKFAST 5 Days #15 tablet 05/05/19 [Rx] Past Medical History HEENT History: Reports: Impaired Vision, Macular Degeneration, Other (See Below) Other HEENT History: wears glasses Cardiovascular History: Reports: Aneurysm, Heart Failure, Hypertension, [place], SOB on Exertion Respiratory History: Reports: COPD, SOB Gastrointestinal History: Reports: Chronic Diarrhea Genitourinary History: Reports: Urinary Incontinence 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: Musculoskeletal History: Reports: Fracture, RA Neurological History: Reports: None Psychiatric History: Reports: Anxiety, Depression Endocrine/Metabolic History: Reports: Hypothyroidism, Obesity/BMI 30+ Hematologic History: Reports: None Immunologic History: Reports: None Oncologic (Cancer) History: Reports: Other (See Below) Other Oncologic History: simple vulvectomy - cancer Dermatologic History: Reports: None - Infectious Disease History Infectious Disease History: Reports: Chicken Pox, Measles, Mumps - Past Surgical History HEENT Surgical History: Reports: None Cardiovascular Surgical History: Reports: None Respiratory Surgical History: Reports: None GI Surgical History: Reports: Appendectomy, Cholecystectomy Female Surgical History: Reports: Tubal Ligation, Other (See Below) Other Female Surgeries/Procedures: simple vulvectomy Endocrine Surgical History: Reports: Thyroidectomy Neurological Surgical History: Reports: None Musculoskeletal Surgical History: Reports: None Social & Family History - Family History Family Medical History: Noncontributory Cardiac: Reports: [place] Respiratory: Reports: COPD Neurological: Reports: CVA - Tobacco Use Smoking Status *Q: Current Every Day Smoker Tobacco Use Within Last Twelve Months: Cigarettes Years of Tobacco use: 51 Packs/Tins Daily: 1 - Caffeine Use Caffeine Use: Reports: Coffee - Living Situation & Occupation Living situation: Reports: with Family Occupation: Retired ED ROS GENERAL - Review of Systems Review Of Systems: ROS reveals no pertinent complaints other than HPI. ED EXAM, GENERAL - Physical Exam Exam: See Below Exam Limited By: No Limitations General Appearance: Alert, No Apparent Distress, Obese, Other (Chronically ill but non-toxic appearing) Eye Exam: Bilateral Eye: Normal Inspection Nose: No Blood, Other (mild nasal congestion) Throat/Mouth: Normal Inspection, Normal Lips, Normal Oropharynx, Normal Voice, No Airway Compromise Head: Atraumatic, Normocephalic Neck: Normal Inspection, Supple, Non-Tender, Full Range of Motion. No: Lymphadenopathy (L), Lymphadenopathy (R) Respiratory/Chest: No Respiratory Distress, No Accessory Muscle Use, Chest Non- Tender, Decreased Breath Sounds, Crackles, Rales, Wheezing. No: Rhonchi, Stridor Cardiovascular: Regular Rate, Rhythm, No JVD GI/Abdominal: Normal Bowel Sounds, Soft, Non-Tender, Other (Benign obese abdomen ) (Female) Exam: Deferred Rectal (Female) Exam: Deferred Back Exam: Normal Inspection Extremities: Normal Range of Motion, Non-Tender, Pedal Edema. No: Lucille's Sign , Increased Warmth, Mottled, Pallor, Redness Neurological: Alert, Oriented, No Motor/Sensory Deficits Psychiatric: Normal Mood Skin Exam: Warm, Dry, Intact, Normal Color, No Rash EKG INTERPRETATION EKG Date: 06/28/19 Time: 12:59 Rhythm: Other (SR) Rate (Beats/Min): 64 [place]: LAD-Left [place] Deviation P-Wave: Present QRS: LBBB (Incomplete LBBB, PVCs) ST-T: Normal QT: Normal Comparison: No Change Course - Vital Signs Last Recorded V/S: Last Vital Signs Temp 97.0 F 06/28/19 12:18 Pulse 96 06/28/19 12:18 Resp 20 06/28/19 12:18 BP 132/75 06/28/19 12:18 Pulse Ox 96 06/28/19 12:18 - Orders/Labs/Meds Orders: Active Orders 24 hr Category Date Time Status EKG 12 Lead [EKG Documentation Completion] [RC] STAT Care 06/28/19 12:20 Active Peripheral IV Care [RC] . DIRECTED Care 06/28/19 12:21 Active RT Aerosol Therapy [RC] ASDIRECTED Care 06/28/19 12:21 Active Chest 2V [CR] Stat Exams 06/28/19 12:20 Taken Sodium Chloride 0.9% [Saline Flush] Med 06/28/19 12:20 Active 10 ml FLUSH ASDIRECTED PRN Peripheral IV Insertion Adult [OM.PC] Stat Oth 06/28/19 12:20 Ordered Medication Orders Sodium Chloride (Saline Flush) 10 ml FLUSH ASDIRECTED PRN PRN Reason: Keep Vein Open Last Admin: 06/28/19 12:40 Dose: 10 ml Labs: Laboratory Tests 06/28/19 06/28/19 Range/Units 12:30 12:30 WBC 12.9 H (5.0-10.0) 10^3/uL RBC 3.99 L (4.2-5.4) 10^6/uL Hgb 12.7 (12.0-16.0) g/dL Hct 38.4 (37.0-47.0) % MCV 96.2 (80-100) fL MCH 31.8 (27.0-34.0) pg MCHC 33.1 (33.0-35.0) g/dL Plt Count 246 (150-450) 10^3/uL Neut % (Auto) 83.7 H (42.2-75.2) % Lymph % (Auto) 10.5 L (20.5-50.1) % [place] % (Auto) 4.7 (2-8) % Eos % (Auto) 0.9 L (1.0-3.0) % Baso % (Auto) 0.2 (0.0-1.0) % Sodium 138 (135-145) mmol/L Potassium 3.5 L (3.6-5.0) mmol/L Chloride 97 L (101-111) mmol/L Carbon Dioxide 30.0 (21.0-31.0) mmol/L Anion Gap 14.5 BUN 26 H (7-18) mg/dL Creatinine 1.6 H (0.6-1.3) mg/dL Est Cr Clr Drug Dosing 25.83 mL/min Estimated GFR (MDRD) 31 BUN/Creatinine Ratio 16.25 Glucose 175 H (74-105) mg/dL Calcium 9.1 (8.4-10.2) mg/dl Total Bilirubin 0.9 (0.2-1.0) mg/dL AST 18 (10-42) IU/L ALT 13 (10-60) IU/L Alkaline Phosphatase 52 (42-121) IU/L Troponin I 0.04 H* (0.00-0.02) ng/ml B-Natriuretic Peptide 244 H (0-100) pg/ml Total Protein 6.6 L (6.7-8.2) g/dl Albumin 3.6 (3.2-5.5) g/dl Globulin 3.0 Albumin/Globulin Ratio 1.20 Meds: Medications Generic Name Dose Route Start Last Admin Trade Name Freq PRN Reason Stop Dose Admin Sodium Chloride 10 ml 06/28/19 12:20 06/28/19 12:40 Saline Flush FLUSH 10 ml ASDIRECTED PRN Administration Keep Vein Open Discontinued Medications Generic Name Dose Route Start Last Admin Trade Name Freq PRN Reason Stop Dose Admin Albuterol/Ipratropium 3 ml 06/28/19 12:21 06/28/19 12:40 Duoneb 3.0-0.5 Mg/3 Ml NEB 06/28/19 12:22 3 ml ONETIME ONE Administration Furosemide 40 mg 06/28/19 12:21 06/28/19 12:40 Lasix IVPUSH 06/28/19 12:22 40 mg NOW ONE Administration Methylprednisolone Sodium Succinate 125 mg 06/28/19 12:21 06/28/19 12:40 Solu-Medrol IVPUSH 06/28/19 12:22 125 mg ONETIME ONE Administration - Radiology Interpretation Free Text/Narrative:: [facility] Final Radiology Report Call: [phone] assistance Online chat: [email or web address] Name: ELKIN ALFRED Age: 74Years F Date: 06/28/2019 SSN: -- : 1945 Study: XR CHEST 2 VIEWS FRONTAL & LAT Requesting Physician: NOEL KLEIN Images: 2 Addl Studies: Provided Clinical History: cough, dyspnea Contrast: Contrast Medium: Contrast Amount: Contrast Method: CONFIDENTIALITY STATEMENT This report is intended only for use by the referring physician, and only in accordance with law. If you received this in error, call [phone]. Page 1 of 1 PROCEDURE INFORMATION: Exam: XR Chest, 2 Views Exam date and time: 06/28/2019 1:09 PM Clinical history: 74 years old, female; Cough; Additional info: Cough, dyspnea TECHNIQUE: Imaging protocol: XR of the chest Views: 2 views. COMPARISON: CR Chest 2V 01/08/2019 12:42 PM FINDINGS: Lungs: Hyperinflation, no CHF. No consolidation. Pleural space: Unremarkable. No pleural effusion. No pneumothorax. Heart/Mediastinum: Borderline minimal cardiomegaly. Vasculature: Tortuosity of the thoracic aorta. Bones/joints: No acute findings. IMPRESSION: No acute findings. Thank you for allowing us to participate in the care of your patient. Dictated and Authenticated by: Reji Flower MD 06/28/2019 1:22 PM Central Time ([place] & [place]) Departure - Departure Time of Disposition: 13:53 Disposition: Home, Self-Care 01 Condition: Good Clinical Impression: Acute exacerbation of chronic obstructive pulmonary disease (COPD), URI with cough and congestion - Discharge Information *PRESCRIPTION DRUG MONITORING PROGRAM REVIEWED*: No *COPY OF PRESCRIPTION DRUG MONITORING REPORT IN PATIENT CATRACHO: No Instructions: Chronic Obstructive Pulmonary Disease Exacerbation, [id number] Forms: ED Department Discharge Additional Instructions: Rx: Prednisone 20mg Rx: Levaquin 500mg Use your nebulizer every 4 hours. Follow up in clinic in 4 to 5 days. Return to ER if worse at any time. - My Orders Last 24 Hours: My Active Orders 06/28/19 12:20 EKG 12 Lead [EKG Documentation Completion] [RC] STAT Chest 2V [CR] Stat Sodium Chloride 0.9% [Saline Flush] 10 ml FLUSH ASDIRECTED PRN Peripheral IV Insertion Adult [OM.PC] Stat 06/28/19 12:21 Peripheral IV Care [RC] . DIRECTED RT Aerosol Therapy [RC] ASDIRECTED - Assessment/Plan Last 24 Hours: My Active Orders 06/28/19 12:20 EKG 12 Lead [EKG Documentation Completion] [RC] STAT Chest 2V [CR] Stat Sodium Chloride 0.9% [Saline Flush] 10 ml FLUSH ASDIRECTED PRN Peripheral IV Insertion Adult [OM.PC] Stat 06/28/19 12:21 Peripheral IV Care [RC] . DIRECTED RT Aerosol Therapy [RC] ASDIRECTED
[2019-06-28] MEDS ORDERED: methylPREDNISolone Sodium Succinate 125 MG/2 ML SDV IVPUSH ONE (12:21)
[2019-06-28] MEDS ORDERED: Furosemide 40 MG/4 ML VIAL IVPUSH ONE (12:21)
[2019-06-28] MEDS ORDERED: Albuterol/Ipratropium 3.0-0.5 MG/3 ML Neb Soln NEB ONE (12:21)
[2019-06-28 13:03] LABS: ANION GAP 14.5
== END 2019-06-28 14:04 | disposition home or self-care (01) ==
LOC: DL.ED 11:51
DX: J44.1 Chronic obstructive pulmonary disease with (acute) exacerbation (principal); J06.9 Acute upper respiratory infection, unspecified; I10 Essential (primary) hypertension; I25.2 Old myocardial infarction; E03.9 Hypothyroidism, unspecified; F17.210 Nicotine dependence, cigarettes, uncomplicated; E66.9 Obesity, unspecified; Z68.35 Body mass index [BMI] 35.0-35.9, adult; Z79.899 Other long term (current) drug therapy; Z88.8 Allergy status to other drugs, medicaments and biological substances; Z88.0 Allergy status to penicillin; Z79.51 Long term (current) use of inhaled steroids; Z79.82 Long term (current) use of aspirin; Z79.52 Long term (current) use of systemic steroids; Z79.890 Hormone replacement therapy
CPT/HCPCS: 36415; 71046; 80053; 83880; 84484; 85025; 93005; 94640; 96374; 96375; 99285; J1940; J2930; J7620-GY

== ENCOUNTER 2019-07-29 15:26 | Inpatient (IN) | payer MEDICARE, OTHER ==
[2019-07-29] MEDS ORDERED: Albuterol/Ipratropium 3.0-0.5 MG/3 ML Neb Soln NEB ONE (16:13)
[2019-07-29] MEDS ORDERED: methylPREDNISolone Sodium Succinate 125 MG/2 ML SDV IVPUSH ONE (16:14)
[2019-07-29] MEDS ORDERED: Furosemide 40 MG/4 ML VIAL IVPUSH ONE (16:14)
[2019-07-29] MEDS: Sodium Chloride 0.9% 10 ML Syringe FLUSH PRN (16:31)
[2019-07-29 17:05] LABS: ANION GAP 14.9
--- NOTE | 2019-07-29 17:58 | EDM.PDOC ---
Scribed by Mary Grace Graves 07/29/19 1640 Noel Gonsales MD ED HPI GENERAL MEDICAL PROBLEM - General Chief Complaint: Respiratory Problem Stated Complaint: NEEDS WATER REMOVED Time Seen by Provider: 07/29/19 15:54 Source of Information: Reports: Patient, RN, RN Notes Reviewed History Limitations: Reports: No Limitations - History of Present Illness INITIAL COMMENTS - FREE TEXT/NARRATIVE: Patient presents to the ER by POV with c/o COPD and CHF exacerbation. Patient states she feels her Lasix isn't working well today. Patient states short of breath and feeling "fat". Pt admits to wheezing, severe dyspnea with minimal exertion. Reports 5lbs wt gain in the past 24 hours. Denies fever, chills, N/V, chest pain, or syncope. Onset: Gradual Duration: Getting Worse Location: Reports: Chest, Generalized Quality: Reports: Other (Denies pain) Severity: Severe Improves with: Reports: None Worsens with: Reports: None Associated Symptoms: Reports: No Other Symptoms - Related Data Allergies Allergy/AdvReac Type Severity Reaction Status Date / Time amlodipine [From Norvasc] Allergy Cannot Verified 07/29/19 16:01 Remember cetirizine [From Zyrtec] Allergy Abdominal Verified 07/29/19 16:01 Pain Penicillins Allergy Rash Verified 07/29/19 16:01 simvastatin [From Zocor] Allergy Cannot Verified 07/29/19 16:01 Remember Home Meds: Home Meds Albuterol Sulfate [Proventil Hfa] 2 puff IH Q4HR PRN 10/21/16 [History] Metoprolol Tartrate 25 mg PO BID 04/03/17 [History] Albuterol [IJD: Albuterol] 3 ml INH Q4HR PRN 12/24/17 [History] Albuterol/Ipratropium [DuoNeb 3.0-0.5 MG/3 ML] 3 ml NEB 02,06,10,14,18,22 [History] Aspirin 81 mg PO DAILY 01/08/19 [History] Furosemide [Lasix] 40 mg PO BID #60 tablet 01/13/19 [Rx] Fluticasone/Vilanterol [Breo Ellipta 100-25 MCG Inhalation Kit] 1 puff INH 1200 05/03/19 [History] Levothyroxine 75 mcg PO ACBREAKFAST 05/03/19 [History] Vit A/Vit C/Vit E/Zinc/Copper [Preservision] 1 each PO DAILY 05/03/19 [History] predniSONE [Prednisone] 5 mg PO DAILY 05/03/19 [History] predniSONE 50 mg PO WITHBREAKFAST 5 Days #15 tablet 05/05/19 [Rx] Past Medical History HEENT History: Reports: Impaired Vision, Macular Degeneration, Other (See Below) Other HEENT History: wears glasses Cardiovascular History: Reports: Aneurysm, Heart Failure, Hypertension, [place], SOB on Exertion Respiratory History: Reports: COPD, SOB Gastrointestinal History: Reports: Chronic Diarrhea Genitourinary History: Reports: Urinary Incontinence 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: Musculoskeletal History: Reports: Fracture, RA Neurological History: Reports: None Psychiatric History: Reports: Anxiety, Depression Endocrine/Metabolic History: Reports: Hypothyroidism, Obesity/BMI 30+ Hematologic History: Reports: None Immunologic History: Reports: None Oncologic (Cancer) History: Reports: Other (See Below) Other Oncologic History: simple vulvectomy - cancer Dermatologic History: Reports: None - Infectious Disease History Infectious Disease History: Reports: Chicken Pox, Measles, Mumps - Past Surgical History HEENT Surgical History: Reports: None Cardiovascular Surgical History: Reports: None Respiratory Surgical History: Reports: None GI Surgical History: Reports: Appendectomy, Cholecystectomy Female Surgical History: Reports: Tubal Ligation, Other (See Below) Other Female Surgeries/Procedures: simple vulvectomy Endocrine Surgical History: Reports: Thyroidectomy Neurological Surgical History: Reports: None Musculoskeletal Surgical History: Reports: None Social & Family History - Family History Family Medical History: Noncontributory Cardiac: Reports: [place] Respiratory: Reports: COPD Neurological: Reports: CVA - Tobacco Use Smoking Status *Q: Current Every Day Smoker Tobacco Use Within Last Twelve Months: Cigarettes - Caffeine Use Caffeine Use: Reports: Coffee - Alcohol Use Alcohol Use History: No - Living Situation & Occupation Living situation: Reports: with Family Occupation: Retired ED ROS GENERAL - Review of Systems Review Of Systems: Comprehensive ROS is negative, except as noted in HPI. ED EXAM, GENERAL - Physical Exam Exam: See Below Exam Limited By: No Limitations General Appearance: Alert, No Apparent Distress, Obese Eye Exam: Right Eye: Other (Rt subconjunctival hemorrhage), Bilateral Eye: EOMI , PERRL Ears: Normal External Exam Nose: Normal Inspection, Normal Mucosa, No Blood Throat/Mouth: Normal Inspection, Normal Lips, Normal Teeth, Normal Gums, Normal Oropharynx, Normal Voice, No Airway Compromise Head: Atraumatic, Normocephalic Neck: Normal Inspection, Supple, Non-Tender, Full Range of Motion Respiratory/Chest: No Respiratory Distress, No Accessory Muscle Use, Chest Non- Tender, Decreased Breath Sounds, Crackles, Rales, Wheezing Cardiovascular: Regular Rate, Rhythm GI/Abdominal: Normal Bowel Sounds, Soft, Non-Tender, No Distention. No: Guarding, Rigid, Rebound Back Exam: Normal Inspection Extremities: Normal Range of Motion, Pedal Edema. No: Joint Swelling, Lucille's Sign Neurological: Alert, Oriented, CN II-XII Intact, Normal Cognition, No Motor/ Sensory Deficits Psychiatric: Normal Mood Skin Exam: Warm, Dry, Intact, Normal Color, No Rash EKG INTERPRETATION EKG Date: 07/29/19 Time: 16:28 Rhythm: Other (sinus rhythm with PVC) Rate (Beats/Min): 69 [place]: Normal P-Wave: Present QRS: LBBB (incomplete. Extensive motion artifact.) ST-T: Normal QT: Normal Comparison: No Change Course - Vital Signs Last Recorded V/S: Last Vital Signs Temp 97.7 F 07/29/19 15:56 Pulse 69 07/29/19 15:56 Resp 24 H 07/29/19 15:56 BP 136/76 07/29/19 15:56 Pulse Ox 98 07/29/19 16:14 - Orders/Labs/Meds Orders: Active Orders 24 hr Category Date Time Status EKG 12 Lead [EKG Documentation Completion] [RC] STAT Care 07/29/19 16:15 Active Peripheral IV Care [RC] . DIRECTED Care 07/29/19 16:15 Active RT Aerosol Therapy [RC] ASDIRECTED Care 07/29/19 16:14 Active Chest 1V Frontal [CR] Stat Exams 07/29/19 16:15 Taken CULTURE BLOOD [BC] Stat Lab 07/29/19 16:27 Received CULTURE BLOOD [BC] Stat Lab 07/29/19 16:32 Received Sodium Chloride 0.9% [Saline Flush] Med 07/29/19 16:14 Active 10 ml FLUSH ASDIRECTED PRN Blood Culture x2 Reflex Set [OM.PC] Stat Oth 12/07/19 16:15 Ordered Peripheral IV Insertion Adult [OM.PC] Stat Oth 07/29/19 16:15 Ordered Medication Orders Sodium Chloride (Saline Flush) 10 ml FLUSH ASDIRECTED PRN PRN Reason: Keep Vein Open Last Admin: 07/29/19 16:31 Dose: 10 ml Labs: Laboratory Tests 07/29/19 07/29/19 07/29/19 Range/Units 16:27 16:27 16:27 WBC 9.7 (5.0-10.0) 10^3/uL RBC 3.60 L (4.2-5.4) 10^6/uL Hgb 11.7 L (12.0-16.0) g/dL Hct 35.7 L (37.0-47.0) % MCV 99.2 (80-100) fL MCH 32.5 (27.0-34.0) pg MCHC 32.8 L (33.0-35.0) g/dL Plt Count 250 (150-450) 10^3/uL Neut % (Auto) 76.3 H (42.2-75.2) % Lymph % (Auto) 16.8 L (20.5-50.1) % [place] % (Auto) 5.5 (2-8) % Eos % (Auto) 1.0 (1.0-3.0) % Baso % (Auto) 0.4 (0.0-1.0) % Sodium 136 (135-145) mmol/L Potassium 3.9 (3.6-5.0) mmol/L Chloride 97 L (101-111) mmol/L Carbon Dioxide 28.0 (21.0-31.0) mmol/L Anion Gap 14.9 BUN 19 H (7-18) mg/dL Creatinine 1.6 H (0.6-1.3) mg/dL Est Cr Clr Drug Dosing 25.83 mL/min Estimated GFR (MDRD) 31 BUN/Creatinine Ratio 11.87 Glucose 226 H (74-105) mg/dL Lactic Acid 2.3 H (0.5-2.2) mmol/L Calcium 8.9 (8.4-10.2) mg/dl Total Bilirubin 0.9 (0.2-1.0) mg/dL AST 21 (10-42) IU/L ALT 14 (10-60) IU/L Alkaline Phosphatase 51 (42-121) IU/L Troponin I 0.03 H* (0.00-0.02) ng/ml B-Natriuretic Peptide 314 H (0-100) pg/ml Total Protein 6.7 (6.7-8.2) g/dl Albumin 3.7 (3.2-5.5) g/dl Globulin 3.0 Albumin/Globulin Ratio 1.23 Meds: Medications Generic Name Dose Route Start Last Admin Trade Name Freq PRN Reason Stop Dose Admin Sodium Chloride 10 ml 07/29/19 16:14 07/29/19 16:31 Saline Flush FLUSH 10 ml ASDIRECTED PRN Administration Keep Vein Open Discontinued Medications Generic Name Dose Route Start Last Admin Trade Name Freq PRN Reason Stop Dose Admin Albuterol/Ipratropium 3 ml 07/29/19 16:13 07/29/19 16:20 Duoneb 3.0-0.5 Mg/3 Ml NEB 07/29/19 16:14 3 ml ONETIME ONE Administration Furosemide 80 mg 07/29/19 16:14 07/29/19 16:29 Lasix IVPUSH 07/29/19 16:15 80 mg NOW ONE Administration Methylprednisolone Sodium Succinate 125 mg 07/29/19 16:14 07/29/19 16:29 Solu-Medrol IVPUSH 07/29/19 16:15 125 mg ONETIME ONE Administration - Radiology Interpretation Free Text/Narrative:: [facility] Final Radiology Report Call: [phone] assistance Online chat: [email or web address] Name: ELKIN ALFRED Age: 74Years F Date: 07/29/2019 SSN: -- : 1945 Study: XR CHEST 1 VIEW FRONTAL Requesting Physician: NOEL KLEIN Images: 1 Addl Studies: Provided Clinical History: Contrast: Contrast Medium: Contrast Amount: Contrast Method: CONFIDENTIALITY STATEMENT This report is intended only for use by the referring physician, and only in accordance with law. If you received this in error, call [phone]. Page 1 of 1 PROCEDURE INFORMATION: Exam: XR Chest, 1 View Exam date and time: 07/29/2019 5:42 PM Age: 74 years old Clinical history: Other: Dyspnea, cough, edema wheezing TECHNIQUE: Imaging protocol: XR of the chest Views: 1 view. COMPARISON: CR Chest 2V 06/28/2019 1:09 PM FINDINGS: Tubes, catheters and devices: EKG leads overlie the chest. Lungs: The lungs are normal. Pleural space: There are no pleural effusions present. Heart/Mediastinum: The heart demonstrates mild diffuse enlargement. The pulmonary arteries are not enlarged. Bones/joints: The spine, ribs, and pectoral girdles are normal. IMPRESSION: Mild cardiomegaly. Thank you for allowing us to participate in the care of your patient. Dictated and Authenticated by: Dakota Askew MD 07/29/2019 5:47 PM Central Time ([place] & [place]) Departure - Departure Time of Disposition: 17:57 (admitted to Dr. Sinclair) Disposition: Admitted As Inpatient 64 Condition: Fair, Serious Clinical Impression: Acute exacerbation of chronic obstructive pulmonary disease (COPD), History of CHF (congestive heart failure) - Discharge Information *PRESCRIPTION DRUG MONITORING PROGRAM REVIEWED*: No *COPY OF PRESCRIPTION DRUG MONITORING REPORT IN PATIENT CATRACHO: No Forms: ED Department Discharge - My Orders Last 24 Hours: My Active Orders 07/29/19 16:14 RT Aerosol Therapy [RC] ASDIRECTED Sodium Chloride 0.9% [Saline Flush] 10 ml FLUSH ASDIRECTED PRN 07/29/19 16:15 EKG 12 Lead [EKG Documentation Completion] [RC] STAT Peripheral IV Care [RC] . DIRECTED Chest 1V Frontal [CR] Stat Blood Culture x2 Reflex Set [OM.PC] Stat Peripheral IV Insertion Adult [OM.PC] Stat 07/29/19 16:27 CULTURE BLOOD [BC] Stat 07/29/19 16:32 CULTURE BLOOD [BC] Stat - Assessment/Plan Last 24 Hours: My Active Orders 07/29/19 16:14 RT Aerosol Therapy [RC] ASDIRECTED Sodium Chloride 0.9% [Saline Flush] 10 ml FLUSH ASDIRECTED PRN 07/29/19 16:15 EKG 12 Lead [EKG Documentation Completion] [RC] STAT Peripheral IV Care [RC] . DIRECTED Chest 1V Frontal [CR] Stat Blood Culture x2 Reflex Set [OM.PC] Stat Peripheral IV Insertion Adult [OM.PC] Stat 07/29/19 16:27 CULTURE BLOOD [BC] Stat 07/29/19 16:32 CULTURE BLOOD [BC] Stat I have read and agree with the documentation that has been completed regarding this visit. By signing this record, I attest that the documentation was completed in my physical presence and is an accurate record of the encounter.
[2019-07-29] MEDS ORDERED: Ondansetron 4 MG Tab.DIS PO PRN (20:13)
[2019-07-29] MEDS ORDERED: Zolpidem 5 MG Tab PO PRN (20:13)
[2019-07-29] MEDS ORDERED: Acetaminophen/HYDROcodone 325-10 MG Tab PO PRN (20:13)
[2019-07-29] MEDS ORDERED: Docusate Sodium 100 MG Cap PO PRN (20:13)
--- NOTE | 2019-07-29 20:22 | PCM.HP ---
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 Has had multiple Inpatient and outpatient treatment in the past few month for "COPD exacerbation". Patient has been through multiple antibiotic regimen. She is on home prednisone, home oxygen at night. In the past she did not require oxygen with activity. In the past few days he noticed the 5 pounds weight gain, lower extremity edema. She says her belly is bigger than usual. He has been wheezing as well. She denies chest pain. She has cough, clear sputum. No fever. No abdominal pain. No diarrhea. No fever. In the emergency room the patient was noted to have 88% oxygen saturation with little activity. - Related Data Allergies/Adverse Reactions: Allergies Allergy/AdvReac Type Severity Reaction Status Date / Time amlodipine [From Norvasc] Allergy Cannot Verified 07/29/19 16:01 Remember cetirizine [From Zyrtec] Allergy Abdominal Verified 07/29/19 16:01 Pain Penicillins Allergy Rash Verified 07/29/19 16:01 simvastatin [From Zocor] Allergy Cannot Verified 07/29/19 16:01 Remember Home Medications: Home Meds Albuterol Sulfate [Proventil Hfa] 2 puff IH Q4HR PRN 10/21/16 [History] Metoprolol Tartrate 25 mg PO BID 04/03/17 [History] Albuterol [IJD: Albuterol] 3 ml INH Q4HR PRN 12/24/17 [History] Albuterol/Ipratropium [DuoNeb 3.0-0.5 MG/3 ML] 3 ml NEB 02,06,10,14,18,22 [History] Aspirin 81 mg PO DAILY 01/08/19 [History] Furosemide [Lasix] 40 mg PO BID #60 tablet 01/13/19 [Rx] Fluticasone/Vilanterol [Breo Ellipta 100-25 MCG Inhalation Kit] 1 puff INH 1200 05/03/19 [History] Levothyroxine 75 mcg PO ACBREAKFAST 05/03/19 [History] predniSONE [Prednisone] 5 mg PO DAILY 05/03/19 [History] Omeprazole 20 mg PO DAILY 07/29/19 [History] predniSONE 50 mg PO WITHBREAKFAST 5 Days #15 tablet 07/29/19 [Rx] Past Medical History HEENT History: Reports: Cataract, Impaired Vision, Macular Degeneration, Other ( See Below) Other HEENT History: wears glasses Cardiovascular History: Reports: Aneurysm, Heart Failure, Hypertension, [place], SOB on Exertion Other Cardiovascular History: November 29, 2000 ([place]) Respiratory History: Reports: COPD, SOB Gastrointestinal History: Reports: Chronic Diarrhea Genitourinary History: Reports: Urinary Incontinence B[employer]ING [employer] STITCHER History: Reports: Other OB/BYN History: 5 kids Musculoskeletal History: Reports: Fracture, RA Other Musculoskeletal History: skull, collarbone Neurological History: Reports: None Psychiatric History: Reports: Anxiety, Depression Endocrine/Metabolic History: Reports: Hypothyroidism, Obesity/BMI 30+ Hematologic History: Reports: None Immunologic History: Reports: None Oncologic (Cancer) History: Reports: Other (See Below) Other Oncologic History: simple vulvectomy - cancer Dermatologic History: Reports: None - Infectious Disease History Infectious Disease History: Reports: Chicken Pox, Measles, Mumps - Past Surgical History HEENT Surgical History: Reports: None Cardiovascular Surgical History: Reports: None Respiratory Surgical History: Reports: None GI Surgical History: Reports: Appendectomy, Cholecystectomy Female Surgical History: Reports: Tubal Ligation, Other (See Below) Other Female Surgeries/Procedures: simple vulvectomy Endocrine Surgical History: Reports: Thyroidectomy Neurological Surgical History: Reports: None Musculoskeletal Surgical History: Reports: None Social & Family History - Family History Family Medical History: Noncontributory Cardiac: Reports: [place] Respiratory: Reports: COPD Neurological: Reports: CVA - Tobacco Use Smoking Status *Q: Current Every Day Smoker Years of Tobacco use: 61 Packs/Tins Daily: 0.5 Used Tobacco, but Quit: No Second Hand Smoke Exposure: No - Caffeine Use Caffeine Use: Reports: Coffee - Recreational Drug Use Recreational Drug Use: No - Living Situation & Occupation Living situation: Reports: with Family Occupation: Retired H&P Review of Systems - Review of Systems: Review Of Systems: See Below General: Reports: Malaise, Weight Gain. Denies: Fever Pulmonary: Reports: Shortness of Breath, Wheezing, Cough, Sputum. Denies: Hemoptysis Cardiovascular: Reports: Edema. Denies: Chest Pain Gastrointestinal: Denies: Abdominal Pain Genitourinary: Denies: Dysuria Psychiatric: Denies: Confusion Exam - Exam Exam: See Below - Vital Signs Vital Signs: Last Vital Signs Temp 36.5 C 07/29/19 15:56 Pulse 69 07/29/19 15:56 Resp 24 H 07/29/19 15:56 BP 136/76 07/29/19 15:56 Pulse Ox 98 07/29/19 16:14 Weight: 94.166 kg - Exam Quality Assessment: Supplemental Oxygen General: Alert, Oriented HEENT: EOMI Neck: Supple Lungs: Decreased Breath Sounds, Rhonchi, Wheezing Cardiovascular: Regular Rate, Regular Rhythm GI/Abdominal Exam: Normal Bowel Sounds, Soft, Non-Tender Extremities: Pedal Edema (1+ bilateral) Skin: Warm, Dry Neuro Extensive - Mental Status: Alert, Oriented x3, Normal Mood/Affect - Patient Data Lab Results Last 24 hrs: Laboratory Results - last 24 hr 07/29/19 07/29/19 07/29/19 Range/Units 16:27 16:27 16:27 WBC 9.7 (5.0-10.0) 10^3/uL RBC 3.60 L (4.2-5.4) 10^6/uL Hgb 11.7 L (12.0-16.0) g/dL Hct 35.7 L (37.0-47.0) % MCV 99.2 (80-100) fL MCH 32.5 (27.0-34.0) pg MCHC 32.8 L (33.0-35.0) g/dL Plt Count 250 (150-450) 10^3/uL Neut % (Auto) 76.3 H (42.2-75.2) % Lymph % (Auto) 16.8 L (20.5-50.1) % [place] % (Auto) 5.5 (2-8) % Eos % (Auto) 1.0 (1.0-3.0) % Baso % (Auto) 0.4 (0.0-1.0) % Sodium 136 (135-145) mmol/L Potassium 3.9 (3.6-5.0) mmol/L Chloride 97 L (101-111) mmol/L Carbon Dioxide 28.0 (21.0-31.0) mmol/L Anion Gap 14.9 BUN 19 H (7-18) mg/dL Creatinine 1.6 H (0.6-1.3) mg/dL Est Cr Clr Drug Dosing 25.83 mL/min Estimated GFR (MDRD) 31 BUN/Creatinine Ratio 11.87 Glucose 226 H (74-105) mg/dL Lactic Acid 2.3 H (0.5-2.2) mmol/L Calcium 8.9 (8.4-10.2) mg/dl Total Bilirubin 0.9 (0.2-1.0) mg/dL AST 21 (10-42) IU/L ALT 14 (10-60) IU/L Alkaline Phosphatase 51 (42-121) IU/L Troponin I 0.03 H* (0.00-0.02) ng/ml B-Natriuretic Peptide 314 H (0-100) pg/ml Total Protein 6.7 (6.7-8.2) g/dl Albumin 3.7 (3.2-5.5) g/dl Globulin 3.0 Albumin/Globulin Ratio 1.23 Result Diagrams: 07/29/19 16:27 07/29/19 16:27 - Problem List (1) Acute exacerbation of chronic obstructive pulmonary disease (COPD) SNOMED Code(s): 752785783 ICD Code: J44.1 - CHRONIC OBSTRUCTIVE PULMONARY DISEASE W (ACUTE) EXACERBATION Status: Acute Priority: High Current Visit: No (2) CHF (congestive heart failure) SNOMED Code(s): 45937187 ICD Code: I50.9 - HEART FAILURE, UNSPECIFIED Status: Acute Current Visit : No Qualifiers: Heart failure type: unspecified Heart failure chronicity: chronic Qualified Code(s): I50.9 - Heart failure, unspecified Problem List Initiated/Reviewed/Updated: Yes Orders Last 24hrs: Active Orders 24 hr Category Date Time Status Admission Status [Patient Status] [ADT] Routine ADT 07/29/19 18:05 Active Antiembolic Devices [RC] PER UNIT ROUTINE Care 07/29/19 20:14 Ordered Glucose [Blood Glucose Check, Bedside] [RC] QIDACANDBED Care 07/29/19 20:12 Ordered Oxygen Therapy [RC] PRN Care 07/29/19 20:13 Ordered RT Aerosol Therapy [RC] ASDIRECTED Care 07/29/19 16:14 Active RT Aerosol Therapy [RC] ASDIRECTED Care 07/29/19 20:10 Ordered Up With Assistance [RC] ASDIRECTED Care 07/29/19 20:13 Ordered VTE/DVT Education [RC] PER UNIT ROUTINE Care 07/29/19 20:13 Ordered Vital Signs [RC] Q4H Care 07/29/19 20:13 Ordered Regular Diet [DIET] Diet 07/29/19 Breakfast Ordered Chest 1V Frontal [CR] Stat Exams 07/29/19 16:15 Taken BASIC METABOLIC PANEL,BMP [CHEM] AM Lab 07/30/19 05:15 Ordered CBC WITH AUTO DIFF [HEME] AM Lab 07/30/19 05:15 Ordered CULTURE BLOOD [BC] Stat Lab 07/29/19 16:27 Received CULTURE BLOOD [BC] Stat Lab 07/29/19 16:32 Received LACTIC ACID [CHEM] AM Lab 07/30/19 05:11 Ordered PROCALCITONIN [REF] Routine Lab 07/29/19 20:11 Ordered TROPONIN I [CHEM] AM Lab 07/30/19 05:11 Ordered Acetaminophen [Tylenol] Med 07/29/19 20:13 Ordered 650 mg PO Q4H PRN Acetaminophen/HYDROcodone [[place]ath[place] 325-10 MG] Med 07/29/19 20:13 Ordered 0.5 tab PO Q4H PRN Albuterol/Ipratropium [DuoNeb 3.0-0.5 MG/3 ML] Med 07/29/19 20:10 Ordered 3 ml NEB Q2H PRN Albuterol/Ipratropium [DuoNeb 3.0-0.5 MG/3 ML] Med 07/30/19 01:00 Ordered 3 ml NEB Q6HRRT Aspirin Med 07/30/19 09:00 Ordered 81 mg PO DAILY Docusate Sodium [Colace] Med 07/29/19 20:13 Ordered 100 mg PO BID PRN Furosemide [Lasix] Med 07/30/19 08:00 Ordered 40 mg IVPUSH BID Heparin Sodium Med 07/29/19 22:00 Ordered 5,000 units SUBCUT Q8HR Insulin Lispro [HumaLOG] Med 07/29/19 21:00 Ordered See Protocol SUBCUT ACBED Levothyroxine Med 07/30/19 06:00 Ordered 75 mcg PO ACBREAKFAST Metoprolol Tartrate [Lopressor] Med 07/29/19 21:00 Ordered 25 mg PO BID Omeprazole Med 07/30/19 09:00 Ordered 20 mg PO DAILY Ondansetron [Zofran ODT] Med 07/29/19 20:13 Ordered 4 mg PO Q4H PRN Sodium Chloride 0.9% [Saline Flush] Med 07/29/19 16:14 Active 10 ml FLUSH ASDIRECTED PRN Zolpidem [Ambien] Med 07/29/19 20:13 Ordered 5 mg PO BEDTIME PRN methylPREDNISolone Sod Succ [Solu-MEDROL] Med 07/29/19 20:15 Ordered 40 mg IVPUSH Q8H Antiembolic Hose [OM.PC] Per Unit Routine Oth 07/29/19 20:14 Ordered Blood Culture x2 Reflex Set [OM.PC] Stat Oth 07/29/19 16:15 Ordered Peripheral IV Insertion Adult [OM.PC] Stat Oth 07/29/19 16:15 Ordered Resuscitation Status Routine Resus Stat 07/29/19 20:13 Ordered Medication Orders Acetaminophen (Tylenol) 650 mg PO Q4H PRN PRN Reason: Pain (Mild 1-3)/fever Hydrocodone Bitart/Acetaminophen ([place] 325-10 Mg) 0.5 tab PO Q4H PRN PRN Reason: Pain (moderate 4-6) Albuterol/Ipratropium (Duoneb 3.0-0.5 Mg/3 Ml) 3 ml NEB Q2H PRN PRN Reason: sob Albuterol/Ipratropium (Duoneb 3.0-0.5 Mg/3 Ml) 3 ml NEB Q6HRRT [facility] Aspirin (Aspirin) 81 mg PO DAILY [facility] Docusate Sodium (Colace) 100 mg PO BID PRN PRN Reason: Constipation Furosemide (Lasix) 40 mg IVPUSH BID [facility] Heparin Sodium (Porcine) (Heparin Sodium) 5,000 units SUBCUT Q8HR [facility] Insulin Human Lispro (Humalog) 0 unit SUBCUT ACBED [place]; Protocol Levothyroxine Sodium (Levothyroxine) 75 mcg PO ACBREAKFAST [facility] Methylprednisolone Sodium Succinate (Solu-Medrol) 40 mg IVPUSH Q8H [facility] Metoprolol Tartrate (Lopressor) 25 mg PO BID [facility] Omeprazole (Omeprazole) 20 mg PO DAILY [facility] Ondansetron HCl (Zofran Odt) 4 mg PO Q4H PRN PRN Reason: nausea, able to take PO Sodium Chloride (Saline Flush) 10 ml FLUSH ASDIRECTED PRN PRN Reason: Keep Vein Open Last Admin: 07/29/19 16:31 Dose: 10 ml Zolpidem Tartrate (Ambien) 5 mg PO BEDTIME PRN PRN Reason: Sleep Assessment/Plan Comment:: Presented with weight gain, shortness of breath, wheezing. Acute on chronic hypoxemic respiratory failure The patient has been using oxygen during the night Oxygen saturation was 88% with little activity in the ER Well monitor oxygen need Possibly walking discussed study before discharge Acute COPD exacerbation The patient has been measuring oxygen saturations at home and they were slowly declining at home. She has cough, wheezing She has been through multiple antibiotic treatments, I doubt that this is infection related We will check pro-calcitonin level For now hold antibiotics She has been on chronic home steroid at 5 mg prednisone daily Treat with Solu-Medrol Treat with DuoNeb scheduled and as needed Acute congestive heart failure Last echocardiogram 06/2016 Interpretation Summary The left ventricle is normal in size. There is normal left ventricular wall thickness. Ejection Fraction = 50-55%. There is mild global hypokinesis of the left ventricle. There is trace mitral regurgitation. The tricuspid valve is not well visualized, but is grossly normal. Mild to moderate valvular aortic stenosis. There is no pericardial effusion. Will treat with IV diuretics The patient was on Lasix 40 mg by mouth twice a day Follow electrolytes Minimally elevated troponin Recheck in the morning Elevated lactic acid Again I doubt that there is an acute infection and sepsis Will recheck in the morning Blood cultures have been obtained Chronic kidney disease stage III On admission creatinine 1.6 This appears to be the patients baseline since May Well monitor with diuretics Htn Cont metoprolol Diabetes Elevated blood sugar of 226 noted on admission Well monitor blood sugars Use supplemental insulin as needed Hypothyroidism Continue Synthroid Dvt prophylaxis Sq heparin
[2019-07-29] MEDS: Insulin Lispro 100 Units/ML 3 ML Vial SUBCUT SCH (21:13)
[2019-07-29] MEDS: Heparin Sodium 5,000 Units/ML Vial SUBCUT SCH (21:14)
[2019-07-29] MEDS: Metoprolol Tartrate 50 MG Tab PO SCH (21:14)
[2019-07-30] MEDS: methylPREDNISolone Sodium Succinate 40 MG/1 ML SDV IVPUSH SCH ×3 (00:17→16:36)
[2019-07-30] MEDS: Albuterol/Ipratropium 3.0-0.5 MG/3 ML Neb Soln NEB SCH ×4 (00:17→18:03)
[2019-07-30] MEDS: Sodium Chloride 0.9% 10 ML Syringe FLUSH PRN ×4 (00:18→16:36)
[2019-07-30] MEDS: Albuterol/Ipratropium 3.0-0.5 MG/3 ML Neb Soln NEB PRN ×2 (04:41→19:51)
[2019-07-30] MEDS: Levothyroxine 75 MCG Tab PO SCH (06:08)
[2019-07-30] MEDS: Omeprazole 20 MG Cap.CR PO SCH (06:08)
[2019-07-30] MEDS: Acetaminophen 325 MG Tab PO PRN (06:08)
[2019-07-30] MEDS: Heparin Sodium 5,000 Units/ML Vial SUBCUT SCH ×3 (06:10→21:52)
[2019-07-30 06:54] LABS: ANION GAP 16.8
[2019-07-30] MEDS ORDERED: Furosemide 40 MG/4 ML VIAL IVPUSH SCH (08:00)
[2019-07-30] MEDS: Aspirin 81 MG Tab.Chew PO SCH (08:32)
[2019-07-30] MEDS: Metoprolol Tartrate 50 MG Tab PO SCH ×2 (08:32→20:39)
[2019-07-30] MEDS: Insulin Lispro 100 Units/ML 3 ML Vial SUBCUT SCH ×4 (08:36→21:20)
--- NOTE | 2019-07-30 13:00 | PCM.PN ---
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 Denies: Pleuritic Chest Pain, Hemoptysis Cardiovascular: Denies: Chest Pain Gastrointestinal: Denies: Abdominal Pain Genitourinary: Denies: Dysuria Neurological: Denies: Confusion - Patient Data Vitals - Most Recent: Last Vital Signs Temp 36.4 C 07/30/19 12:47 Pulse 71 07/30/19 12:53 Resp 20 07/30/19 12:47 BP 115/78 07/30/19 12:47 Pulse Ox 97 07/30/19 12:53 Weight - Most Recent: 92.261 kg I&O - Last 24 Hours: Intake & Output 07/29/19 07/30/19 07/30/19 22:59 06:59 14:59 Intake Total 689 578 8271 Output Total 300 775 300 Balance 350 -525 820 Lab Results Last 24 Hours: Laboratory Results - last 24 hr 07/29/19 07/29/19 07/29/19 Range/Units 16:27 16:27 16:27 WBC 9.7 (5.0-10.0) 10^3/uL RBC 3.60 L (4.2-5.4) 10^6/uL Hgb 11.7 L (12.0-16.0) g/dL Hct 35.7 L (37.0-47.0) % MCV 99.2 (80-100) fL MCH 32.5 (27.0-34.0) pg MCHC 32.8 L (33.0-35.0) g/dL Plt Count 250 (150-450) 10^3/uL Neut % (Auto) 76.3 H (42.2-75.2) % Lymph % (Auto) 16.8 L (20.5-50.1) % [place] % (Auto) 5.5 (2-8) % Eos % (Auto) 1.0 (1.0-3.0) % Baso % (Auto) 0.4 (0.0-1.0) % Sodium 136 (135-145) mmol/L Potassium 3.9 (3.6-5.0) mmol/L Chloride 97 L (101-111) mmol/L Carbon Dioxide 28.0 (21.0-31.0) mmol/L Anion Gap 14.9 BUN 19 H (7-18) mg/dL Creatinine 1.6 H (0.6-1.3) mg/dL Est Cr Clr Drug Dosing 25.83 mL/min Estimated GFR (MDRD) 31 BUN/Creatinine Ratio 11.87 Glucose 226 H (74-105) mg/dL POC Glucose (83-110) mg/dl Lactic Acid 2.3 H (0.5-2.2) mmol/L Calcium 8.9 (8.4-10.2) mg/dl Total Bilirubin 0.9 (0.2-1.0) mg/dL AST 21 (10-42) IU/L ALT 14 (10-60) IU/L Alkaline Phosphatase 51 (42-121) IU/L Troponin I 0.03 H* (0.00-0.02) ng/ml B-Natriuretic Peptide 314 H (0-100) pg/ml Total Protein 6.7 (6.7-8.2) g/dl Albumin 3.7 (3.2-5.5) g/dl Globulin 3.0 Albumin/Globulin Ratio 1.23 07/29/19 07/30/19 07/30/19 Range/Units 20:57 05:47 05:47 WBC (5.0-10.0) 10^3/uL RBC (4.2-5.4) 10^6/uL Hgb (12.0-16.0) g/dL Hct (37.0-47.0) % MCV (80-100) fL MCH (27.0-34.0) pg MCHC (33.0-35.0) g/dL Plt Count (150-450) 10^3/uL Neut % (Auto) (42.2-75.2) % Lymph % (Auto) (20.5-50.1) % Clare % (Auto) (2-8) % Eos % (Auto) (1.0-3.0) % Baso % (Auto) (0.0-1.0) % Sodium 137 (135-145) mmol/L Potassium 3.8 (3.6-5.0) mmol/L Chloride 97 L (101-111) mmol/L Carbon Dioxide 27.0 (21.0-31.0) mmol/L Anion Gap 16.8 BUN 23 H (7-18) mg/dL Creatinine 1.7 H (0.6-1.3) mg/dL Est Cr Clr Drug Dosing 23.29 mL/min Estimated GFR (MDRD) 29 BUN/Creatinine Ratio Glucose 283 H (74-105) mg/dL POC Glucose 234 H (83-110) mg/dl Lactic Acid 3.5 H (0.5-2.2) mmol/L Calcium 9.3 (8.4-10.2) mg/dl Total Bilirubin (0.2-1.0) mg/dL AST (10-42) IU/L ALT (10-60) IU/L Alkaline Phosphatase (42-121) IU/L Troponin I 0.03 H* (0.00-0.02) ng/ml B-Natriuretic Peptide (0-100) pg/ml Total Protein (6.7-8.2) g/dl Albumin (3.2-5.5) g/dl Globulin Albumin/Globulin Ratio 07/30/19 07/30/19 07/30/19 Range/Units 05:47 08:06 11:27 WBC 9.3 (5.0-10.0) 10^3/uL RBC 3.76 L (4.2-5.4) 10^6/uL Hgb 12.0 (12.0-16.0) g/dL Hct 36.6 L (37.0-47.0) % MCV 97.3 (80-100) fL MCH 31.9 (27.0-34.0) pg MCHC 32.8 L (33.0-35.0) g/dL Plt Count 250 (150-450) 10^3/uL Neut % (Auto) 90.4 H (42.2-75.2) % Lymph % (Auto) 8.5 L (20.5-50.1) % Clare % (Auto) 1.0 L (2-8) % Eos % (Auto) 0.0 L (1.0-3.0) % Baso % (Auto) 0.1 (0.0-1.0) % Sodium (135-145) mmol/L Potassium (3.6-5.0) mmol/L Chloride (101-111) mmol/L Carbon Dioxide (21.0-31.0) mmol/L Anion Gap BUN (7-18) mg/dL Creatinine (0.6-1.3) mg/dL Est Cr Clr Drug Dosing mL/min Estimated GFR (MDRD) BUN/Creatinine Ratio Glucose (74-105) mg/dL POC Glucose 237 H 277 H (83-110) mg/dl Lactic Acid (0.5-2.2) mmol/L Calcium (8.4-10.2) mg/dl Total Bilirubin (0.2-1.0) mg/dL AST (10-42) IU/L ALT (10-60) IU/L Alkaline Phosphatase (42-121) IU/L Troponin I (0.00-0.02) ng/ml B-Natriuretic Peptide (0-100) pg/ml Total Protein (6.7-8.2) g/dl Albumin (3.2-5.5) g/dl Globulin Albumin/Globulin Ratio Med Orders - Current: Current Medications Acetaminophen (Tylenol) 650 mg PO Q4H PRN PRN Reason: Pain (Mild 1-3)/fever Last Admin: 07/30/19 06:08 Dose: 650 mg Hydrocodone Bitart/Acetaminophen ([place] 325-10 Mg) 0.5 tab PO Q4H PRN PRN Reason: Pain (moderate 4-6) Albuterol/Ipratropium (Duoneb 3.0-0.5 Mg/3 Ml) 3 ml NEB Q2H PRN PRN Reason: sob Last Admin: 07/30/19 04:41 Dose: 3 ml Albuterol/Ipratropium (Duoneb 3.0-0.5 Mg/3 Ml) 3 ml NEB Q6HRRT [facility] Last Admin: 07/30/19 12:52 Dose: 3 ml Aspirin (Aspirin) 81 mg PO DAILY [facility] Last Admin: 07/30/19 08:32 Dose: 81 mg Docusate Sodium (Colace) 100 mg PO BID PRN PRN Reason: Constipation Furosemide (Lasix) 40 mg IVPUSH BID@0800,1400 [facility] Heparin Sodium (Porcine) (Heparin Sodium) 5,000 units SUBCUT Q8HR [facility] Last Admin: 07/30/19 06:10 Dose: 5,000 units Insulin Human Lispro (Humalog) 0 unit SUBCUT ACBED [facility]; Protocol Last Admin: 07/30/19 12:06 Dose: 3 unit Levothyroxine Sodium (Levothyroxine) 75 mcg PO ACBREAKFAST [facility] Last Admin: 07/30/19 06:08 Dose: 75 mcg Methylprednisolone Sodium Succinate (Solu-Medrol) 40 mg IVPUSH Q8H [facility] Last Admin: 07/30/19 08:35 Dose: 40 mg Metoprolol Tartrate (Lopressor) 25 mg PO BID [facility] Last Admin: 07/30/19 08:32 Dose: 25 mg Omeprazole (Omeprazole) 20 mg PO ACBREAKFAST [facility] Last Admin: 07/30/19 06:08 Dose: 20 mg Ondansetron HCl (Zofran Odt) 4 mg PO Q4H PRN PRN Reason: nausea, able to take PO Sodium Chloride (Saline Flush) 10 ml FLUSH ASDIRECTED PRN PRN Reason: Keep Vein Open Last Admin: 07/30/19 08:35 Dose: 10 ml Zolpidem Tartrate (Ambien) 5 mg PO BEDTIME PRN PRN Reason: Sleep Discontinued Medications Albuterol/Ipratropium (Duoneb 3.0-0.5 Mg/3 Ml) 3 ml NEB ONETIME ONE Stop: 07/29/19 16:14 Last Admin: 07/29/19 16:20 Dose: 3 ml Furosemide (Lasix) 80 mg IVPUSH NOW ONE Stop: 07/29/19 16:15 Last Admin: 07/29/19 16:29 Dose: 80 mg Furosemide (Lasix) 40 mg IVPUSH BID [facility] Last Admin: 07/30/19 08:35 Dose: 40 mg Methylprednisolone Sodium Succinate (Solu-Medrol) 125 mg IVPUSH ONETIME ONE Stop: 07/29/19 16:15 Last Admin: 07/29/19 16:29 Dose: 125 mg - Exam Quality Assessment: Supplemental Oxygen General: Alert, Oriented Neck: Supple Lungs: Normal Respiratory Effort, Wheezing (clears with cough) Cardiovascular: Regular Rate, Regular Rhythm GI/Abdominal Exam: Soft, Non-Tender Extremities: No Pedal Edema Skin: Warm, Dry Neurological: No New Focal Deficit Psy/Mental Status: Alert, Normal Affect, Normal Mood - Problem List & Annotations (1) Acute exacerbation of chronic obstructive pulmonary disease (COPD) SNOMED Code(s): 403128972 Code(s): J44.1 - CHRONIC OBSTRUCTIVE PULMONARY DISEASE W (ACUTE) EXACERBATION Status: Acute Priority: High Current Visit: No (2) CHF (congestive heart failure) SNOMED Code(s): 01644525 Code(s): I50.9 - HEART FAILURE, UNSPECIFIED Status: Acute Current Visit: No Qualifiers: Heart failure type: unspecified Heart failure chronicity: chronic Qualified Code(s): I50.9 - Heart failure, unspecified - Problem List Review Problem List Initiated/Reviewed/Updated: Yes - My Orders Last 24 Hours: My Active Orders 07/29/19 20:10 RT Aerosol Therapy [RC] ASDIRECTED Albuterol/Ipratropium [DuoNeb 3.0-0.5 MG/3 ML] 3 ml NEB Q2H PRN 07/29/19 20:12 Glucose [Blood Glucose Check, Bedside] [RC] QIDACANDBED 07/29/19 20:13 Oxygen Therapy [RC] PRN Up With Assistance [RC] ASDIRECTED VTE/DVT Education [RC] PER UNIT ROUTINE Vital Signs [RC] Q4H Acetaminophen [Tylenol] 650 mg PO Q4H PRN Acetaminophen/HYDROcodone [[place] 325-10 MG] 0.5 tab PO Q4H PRN Docusate Sodium [Colace] 100 mg PO BID PRN Ondansetron [Zofran ODT] 4 mg PO Q4H PRN Zolpidem [Ambien] 5 mg PO BEDTIME PRN Resuscitation Status Routine 07/29/19 20:14 Antiembolic Devices [RC] 09,21 Antiembolic Hose [OM.PC] Per Unit Routine 07/29/19 20:30 PROCALCITONIN [REF] Routine 07/29/19 21:00 Insulin Lispro [HumaLOG] See Protocol SUBCUT ACBED Metoprolol Tartrate [Lopressor] 25 mg PO BID 07/29/19 22:00 Heparin Sodium 5,000 units SUBCUT Q8HR 07/30/19 00:00 methylPREDNISolone Sod Succ [Solu-MEDROL] 40 mg IVPUSH Q8H 07/30/19 01:00 Albuterol/Ipratropium [DuoNeb 3.0-0.5 MG/3 ML] 3 ml NEB Q6HRRT 07/30/19 06:00 Levothyroxine 75 mcg PO ACBREAKFAST Omeprazole 20 mg PO ACBREAKFAST 07/30/19 09:00 Aspirin 81 mg PO DAILY 07/30/19 14:00 Furosemide [Lasix] 40 mg IVPUSH BID@0800,1400 07/31/19 05:15 BASIC METABOLIC PANEL,BMP [CHEM] AM CBC WITH AUTO DIFF [HEME] AM - Plan Plan:: Presented with weight gain, shortness of breath, wheezing. Acute on chronic hypoxemic respiratory failure The patient has been using oxygen during the night Oxygen saturation was 88% with little activity in the ER Well monitor oxygen need Possibly walking desat study before discharge Acute COPD exacerbation The patient has been measuring oxygen saturations at home and they were slowly declining at home. She has cough, wheezing She has been through multiple antibiotic treatments, I doubt that this is infection related We will check pro-calcitonin level For now hold antibiotics She has been on chronic home steroid at 5 mg prednisone daily Treat with Solu-Medrol IV Treat with DuoNeb scheduled and as needed Acute congestive heart failure Last echocardiogram 06/2016 Interpretation Summary The left ventricle is normal in size. There is normal left ventricular wall thickness. Ejection Fraction = 50-55%. There is mild global hypokinesis of the left ventricle. There is trace mitral regurgitation. The tricuspid valve is not well visualized, but is grossly normal. Mild to moderate valvular aortic stenosis. There is no pericardial effusion. Will treat with IV diuretics The patient was on Lasix 40 mg by mouth twice a day Follow electrolytes Minimally elevated troponin stable - likely baseline with CKD Elevated lactic acid still present I doubt that there is an acute infection and sepsis Will recheck in the morning Blood cultures have been obtained Chronic kidney disease stage III On admission creatinine 1.6 This appears to be the patients baseline since December 2018 Well monitor with diuretics Htn Cont metoprolol Diabetes exacerbated by steroids Elevated blood sugar of 226 noted on admission Well monitor blood sugars Use supplemental insulin as needed check A1c Hypothyroidism Continue Synthroid Dvt prophylaxis Sq heparin
[2019-07-30] MEDS: Furosemide 40 MG/4 ML VIAL IVPUSH SCH (14:18)
[2019-07-31] MEDS: methylPREDNISolone Sodium Succinate 40 MG/1 ML SDV IVPUSH SCH ×3 (00:22→17:10)
[2019-07-31] MEDS: Albuterol/Ipratropium 3.0-0.5 MG/3 ML Neb Soln NEB SCH ×4 (00:28→18:25)
[2019-07-31] MEDS: Omeprazole 20 MG Cap.CR PO SCH (06:04)
[2019-07-31] MEDS: Levothyroxine 75 MCG Tab PO SCH (06:04)
[2019-07-31] MEDS: Heparin Sodium 5,000 Units/ML Vial SUBCUT SCH ×3 (06:05→22:14)
[2019-07-31 06:50] LABS: ANION GAP 17.6
[2019-07-31] MEDS: Insulin Lispro 100 Units/ML 3 ML Vial SUBCUT SCH ×4 (08:15→20:56)
[2019-07-31] MEDS: Aspirin 81 MG Tab.Chew PO SCH (08:17)
[2019-07-31] MEDS: Furosemide 40 MG/4 ML VIAL IVPUSH SCH (08:17)
[2019-07-31] MEDS: Metoprolol Tartrate 50 MG Tab PO SCH ×2 (08:18→20:43)
[2019-07-31] MEDS ORDERED: Levofloxacin/Dextrose 5%-Water 750 MG in Premix Bag 1 BAG IV ONE (10:02)
--- NOTE | 2019-07-31 10:13 | PCM.PN ---
- General Info Date of Service: 07/31/19 Admission Dx/Problem (Free Text): Admission Diagnosis/Problem Admission Diagnosis/Problem Exacerbation of chronic obstructive pulmonary disease Subjective Update: still sob no edema has cough, no sputum, has been present for weeks no fever no associated cp has been up and walking - Review of Systems General: Denies: Fever Pulmonary: Reports: Shortness of Breath Cardiovascular: Denies: Chest Pain, Palpitations Gastrointestinal: Denies: Abdominal Pain Skin: Reports: No Symptoms Neurological: Denies: Confusion - Patient Data Vitals - Most Recent: Last Vital Signs Temp 36.5 C 07/31/19 08:24 Pulse 75 07/31/19 08:24 Resp 20 07/31/19 08:24 BP 113/50 L 07/31/19 08:24 Pulse Ox 96 07/31/19 08:24 Weight - Most Recent: 93.168 kg I&O - Last 24 Hours: Intake & Output 07/30/19 07/31/19 07/31/19 22:59 06:59 14:59 Intake Total 540 Output Total 1000 300 Balance -460 -300 Lab Results Last 24 Hours: Laboratory Results - last 24 hr 07/30/19 07/30/19 07/30/19 Range/Units 11:27 16:42 21:09 WBC (5.0-10.0) 10^3/uL RBC (4.2-5.4) 10^6/uL Hgb (12.0-16.0) g/dL Hct (37.0-47.0) % MCV (80-100) fL MCH (27.0-34.0) pg MCHC (33.0-35.0) g/dL Plt Count (150-450) 10^3/uL Neut % (Auto) (42.2-75.2) % Lymph % (Auto) (20.5-50.1) % [place] % (Auto) (2-8) % Eos % (Auto) (1.0-3.0) % Baso % (Auto) (0.0-1.0) % Add Manual Diff Neutrophils % (Manual) (42-75) % Band Neutrophils % % Lymphocytes % (Manual) (20-50) % Monocytes % (Manual) (2-8) % Sodium (135-145) mmol/L Potassium (3.6-5.0) mmol/L Chloride (101-111) mmol/L Carbon Dioxide (21.0-31.0) mmol/L Anion Gap BUN (7-18) mg/dL Creatinine (0.6-1.3) mg/dL Est Cr Clr Drug Dosing mL/min Estimated GFR (MDRD) Glucose (74-105) mg/dL POC Glucose 277 H 236 H 296 H (83-110) mg/dl Lactic Acid (0.5-2.2) mmol/L Calcium (8.4-10.2) mg/dl 07/31/19 07/31/19 07/31/19 Range/Units 05:13 05:13 05:13 WBC 18.5 H (5.0-10.0) 10^3/uL RBC 3.54 L (4.2-5.4) 10^6/uL Hgb 11.4 L (12.0-16.0) g/dL Hct 34.9 L (37.0-47.0) % MCV 98.6 (80-100) fL MCH 32.2 (27.0-34.0) pg MCHC 32.7 L (33.0-35.0) g/dL Plt Count 263 (150-450) 10^3/uL Neut % (Auto) 91.8 H (42.2-75.2) % Lymph % (Auto) 5.1 L (20.5-50.1) % [place] % (Auto) 3.0 (2-8) % Eos % (Auto) 0.0 L (1.0-3.0) % Baso % (Auto) 0.1 (0.0-1.0) % Add Manual Diff Yes Neutrophils % (Manual) 90 H (42-75) % Band Neutrophils % 2 % Lymphocytes % (Manual) 5 L (20-50) % Monocytes % (Manual) 3 (2-8) % Sodium 136 (135-145) mmol/L Potassium 3.6 (3.6-5.0) mmol/L Chloride 97 L (101-111) mmol/L Carbon Dioxide 25.0 (21.0-31.0) mmol/L Anion Gap 17.6 BUN 38 H (7-18) mg/dL Creatinine 2.0 H (0.6-1.3) mg/dL Est Cr Clr Drug Dosing 19.79 mL/min Estimated GFR (MDRD) 24 Glucose 316 H (74-105) mg/dL POC Glucose (83-110) mg/dl Lactic Acid 3.7 H (0.5-2.2) mmol/L Calcium 9.4 (8.4-10.2) mg/dl 07/31/19 Range/Units 07:48 WBC (5.0-10.0) 10^3/uL RBC (4.2-5.4) 10^6/uL Hgb (12.0-16.0) g/dL Hct (37.0-47.0) % MCV (80-100) fL MCH (27.0-34.0) pg MCHC (33.0-35.0) g/dL Plt Count (150-450) 10^3/uL Neut % (Auto) (42.2-75.2) % Lymph % (Auto) (20.5-50.1) % [place] % (Auto) (2-8) % Eos % (Auto) (1.0-3.0) % Baso % (Auto) (0.0-1.0) % Add Manual Diff Neutrophils % (Manual) (42-75) % Band Neutrophils % % Lymphocytes % (Manual) (20-50) % Monocytes % (Manual) (2-8) % Sodium (135-145) mmol/L Potassium (3.6-5.0) mmol/L Chloride (101-111) mmol/L Carbon Dioxide (21.0-31.0) mmol/L Anion Gap BUN (7-18) mg/dL Creatinine (0.6-1.3) mg/dL Est Cr Clr Drug Dosing mL/min Estimated GFR (MDRD) Glucose (74-105) mg/dL POC Glucose 263 H (83-110) mg/dl Lactic Acid (0.5-2.2) mmol/L Calcium (8.4-10.2) mg/dl Kamran Results Last 24 Hours: Microbiology 07/29/19 16:32 Aerobic Blood Culture - Preliminary Blood - Venous - Lab Draw NO GROWTH AFTER 1 DAY Anaerobic Blood Culture - Preliminary NO GROWTH AFTER 1 DAY 07/29/19 16:27 Aerobic Blood Culture - Preliminary Blood - Venous NO GROWTH AFTER 1 DAY Anaerobic Blood Culture - Preliminary NO GROWTH AFTER 1 DAY Med Orders - Current: Current Medications Acetaminophen (Tylenol) 650 mg PO Q4H PRN PRN Reason: Pain (Mild 1-3)/fever Last Admin: 07/30/19 06:08 Dose: 650 mg Hydrocodone Bitart/Acetaminophen ([place] 325-10 Mg) 0.5 tab PO Q4H PRN PRN Reason: Pain (moderate 4-6) Albuterol/Ipratropium (Duoneb 3.0-0.5 Mg/3 Ml) 3 ml NEB Q2H PRN PRN Reason: sob Last Admin: 07/30/19 19:51 Dose: 3 ml Albuterol/Ipratropium (Duoneb 3.0-0.5 Mg/3 Ml) 3 ml NEB Q6HRRT [facility] Last Admin: 07/31/19 07:28 Dose: 3 ml Aspirin (Aspirin) 81 mg PO DAILY [facility] Last Admin: 07/31/19 08:17 Dose: 81 mg Docusate Sodium (Colace) 100 mg PO BID PRN PRN Reason: Constipation Furosemide (Lasix) 40 mg PO BIDDIURETIC [facility] Heparin Sodium (Porcine) (Heparin Sodium) 5,000 units SUBCUT Q8HR [facility] Last Admin: 07/31/19 06:05 Dose: 5,000 units Levofloxacin/Dextrose 750 mg/ (Premix) 150 mls @ 100 mls/hr IV Q48H [facility] Levofloxacin/Dextrose 750 mg/ (Premix) 150 mls @ 100 mls/hr IV ONETIME ONE Stop: 07/31/19 11:31 Insulin Human Lispro (Humalog) 0 unit SUBCUT ACBED [facility]; Protocol Last Admin: 07/31/19 08:15 Dose: 3 unit Levothyroxine Sodium (Levothyroxine) 75 mcg PO ACBREAKFAST [facility] Last Admin: 07/31/19 06:04 Dose: 75 mcg Methylprednisolone Sodium Succinate (Solu-Medrol) 40 mg IVPUSH Q8H [facility] Last Admin: 07/31/19 08:17 Dose: 40 mg Metoprolol Tartrate (Lopressor) 25 mg PO BID [facility] Last Admin: 07/31/19 08:18 Dose: 25 mg Omeprazole (Omeprazole) 20 mg PO ACBREAKFAST [facility] Last Admin: 07/31/19 06:04 Dose: 20 mg Ondansetron HCl (Zofran Odt) 4 mg PO Q4H PRN PRN Reason: nausea, able to take PO Sodium Chloride (Saline Flush) 10 ml FLUSH ASDIRECTED PRN PRN Reason: Keep Vein Open Last Admin: 07/30/19 16:36 Dose: 10 ml Zolpidem Tartrate (Ambien) 5 mg PO BEDTIME PRN PRN Reason: Sleep Discontinued Medications Albuterol/Ipratropium (Duoneb 3.0-0.5 Mg/3 Ml) 3 ml NEB ONETIME ONE Stop: 07/29/19 16:14 Last Admin: 07/29/19 16:20 Dose: 3 ml Furosemide (Lasix) 80 mg IVPUSH NOW ONE Stop: 07/29/19 16:15 Last Admin: 07/29/19 16:29 Dose: 80 mg Furosemide (Lasix) 40 mg IVPUSH BID [facility] Last Admin: 07/30/19 08:35 Dose: 40 mg Furosemide (Lasix) 40 mg IVPUSH BID@0800,1400 [facility] Last Admin: 07/31/19 08:17 Dose: 40 mg Methylprednisolone Sodium Succinate (Solu-Medrol) 125 mg IVPUSH ONETIME ONE Stop: 07/29/19 16:15 Last Admin: 07/29/19 16:29 Dose: 125 mg - Exam Quality Assessment: Supplemental Oxygen General: Alert, Oriented HEENT: Other (r. eye blloody conjunctive small area) Neck: Supple Lungs: Decreased Breath Sounds, Wheezing Cardiovascular: Regular Rate, Regular Rhythm. No: Tachycardia GI/Abdominal Exam: Soft, Non-Tender, Other (obese) Extremities: No Pedal Edema Skin: Warm, Dry, Other (forehead, midline erythema) Neurological: No New Focal Deficit Psy/Mental Status: Alert, Normal Affect, Normal Mood - Problem List & Annotations (1) Acute exacerbation of chronic obstructive pulmonary disease (COPD) SNOMED Code(s): 800878700 Code(s): J44.1 - CHRONIC OBSTRUCTIVE PULMONARY DISEASE W (ACUTE) EXACERBATION Status: Acute Priority: High Current Visit: No (2) CHF (congestive heart failure) SNOMED Code(s): 73777522 Code(s): I50.9 - HEART FAILURE, UNSPECIFIED Status: Acute Current Visit: No Qualifiers: Heart failure type: unspecified Heart failure chronicity: chronic Qualified Code(s): I50.9 - Heart failure, unspecified - Problem List Review Problem List Initiated/Reviewed/Updated: Yes - My Orders Last 24 Hours: My Active Orders 07/31/19 05:13 GLYCOSYLATED HEMOGLOBIN (HA1C) [REF] AM 07/31/19 10:02 Levofloxacin/Dextrose 5%-Water [Levaquin in D5W 750 MG/150 ML] 750 mg Premix Bag 1 bag IV ONETIME 07/31/19 10:15 Levofloxacin/Dextrose 5%-Water [Levaquin in D5W 750 MG/150 ML] 750 mg Premix Bag 1 bag IV Q48H 07/31/19 14:00 Furosemide [Lasix] 40 mg PO BIDDIURETIC 08/01/19 05:15 BASIC METABOLIC PANEL,BMP [CHEM] AM CBC WITH AUTO DIFF [HEME] AM - Plan Plan:: Presented with weight gain, shortness of breath, wheezing. Acute on chronic hypoxemic respiratory failure The patient has been using oxygen during the night Oxygen saturation was 88% with little activity in the ER Well monitor oxygen need Possibly walking desat study before discharge Acute COPD exacerbation The patient has been measuring oxygen saturations at home and they were slowly declining at home. She has cough, wheezing She has been through multiple antibiotic treatments, I doubt that this is infection related pro-calcitonin level: pending given the possible cellulitis, start levofloxacin She has been on chronic home steroid at 5 mg prednisone daily Treat with Solu-Medrol IV Treat with DuoNeb scheduled and as needed Acute congestive heart failure Last echocardiogram 06/2016 Interpretation Summary The left ventricle is normal in size. There is normal left ventricular wall thickness. Ejection Fraction = 50-55%. There is mild global hypokinesis of the left ventricle. There is trace mitral regurgitation. The tricuspid valve is not well visualized, but is grossly normal. Mild to moderate valvular aortic stenosis. There is no pericardial effusion. Will treat with IV diuretics The patient was on Lasix 40 mg by mouth twice a day Follow electrolytes Minimally elevated troponin stable - likely baseline with CKD Elevated lactic acid leukocytosis - likely related to steroids still present I doubt that there is sepsis Blood cultures have been obtained forehead erythema might represent cellulitis start levofloxacin Chronic kidney disease stage III now with PAVEL On admission creatinine 1.6 This appears to be the patients baseline since December 2018 will cut back diuretics to home 40 mg PO BID lasix dose Well monitor Htn Cont metoprolol Diabetes exacerbated by steroids Elevated blood sugar of 226 noted on admission Well monitor blood sugars Use supplemental insulin as needed check A1c Hypothyroidism Continue Synthroid Dvt prophylaxis Sq heparin
[2019-07-31] MEDS ORDERED: Levofloxacin/Dextrose 5%-Water 750 MG in Premix Bag 1 BAG IV SCH (12:00)
[2019-07-31] MEDS: Furosemide 40 MG Tab PO SCH (15:09)
[2019-08-01] MEDS: Albuterol/Ipratropium 3.0-0.5 MG/3 ML Neb Soln NEB SCH ×4 (00:19→18:43)
[2019-08-01] MEDS: methylPREDNISolone Sodium Succinate 40 MG/1 ML SDV IVPUSH SCH ×3 (00:20→08:34)
[2019-08-01] MEDS: Acetaminophen 325 MG Tab PO PRN (03:37)
[2019-08-01] MEDS: Omeprazole 20 MG Cap.CR PO SCH (06:05)
[2019-08-01] MEDS: Levothyroxine 75 MCG Tab PO SCH (06:05)
[2019-08-01] MEDS: Heparin Sodium 5,000 Units/ML Vial SUBCUT SCH ×3 (06:05→21:59)
[2019-08-01 06:32] LABS: ANION GAP 17.6
[2019-08-01] MEDS: Insulin Lispro 100 Units/ML 3 ML Vial SUBCUT SCH ×4 (08:32→21:57)
[2019-08-01] MEDS: Metoprolol Tartrate 50 MG Tab PO SCH ×2 (08:33→21:56)
[2019-08-01] MEDS: Aspirin 81 MG Tab.Chew PO SCH (08:33)
[2019-08-01] MEDS: Furosemide 40 MG Tab PO SCH ×2 (08:34→13:28)
[2019-08-01] MEDS ORDERED: Levofloxacin 500 MG Tab PO SCH (10:45)
--- NOTE | 2019-08-01 10:54 | PCM.PN ---
- General Info Date of Service: 08/01/19 - Review of Systems General: Denies: Fever, Weakness Pulmonary: Reports: Shortness of Breath, Cough, Wheezing. Denies: Hemoptysis Cardiovascular: Denies: Chest Pain, Edema Gastrointestinal: Denies: Abdominal Pain Genitourinary: Denies: Dysuria - Patient Data Vitals - Most Recent: Last Vital Signs Temp 36.9 C 07/31/19 20:00 Pulse 74 08/01/19 08:33 Resp 20 07/31/19 20:00 BP 105/70 08/01/19 08:33 Pulse Ox 96 07/31/19 20:00 Weight - Most Recent: 93.621 kg I&O - Last 24 Hours: Intake & Output 07/31/19 08/01/19 08/01/19 22:59 06:59 14:59 Intake Total 1540 Output Total 1700 Balance -160 Lab Results Last 24 Hours: Laboratory Results - last 24 hr 07/29/19 07/31/19 07/31/19 Range/Units 20:30 05:13 11:15 WBC (5.0-10.0) 10^3/uL RBC (4.2-5.4) 10^6/uL Hgb (12.0-16.0) g/dL Hct (37.0-47.0) % MCV (80-100) fL MCH (27.0-34.0) pg MCHC (33.0-35.0) g/dL Plt Count (150-450) 10^3/uL Neut % (Auto) (42.2-75.2) % Lymph % (Auto) (20.5-50.1) % [place] % (Auto) (2-8) % Eos % (Auto) (1.0-3.0) % Baso % (Auto) (0.0-1.0) % Add Manual Diff Neutrophils % (Manual) (42-75) % Band Neutrophils % % Lymphocytes % (Manual) (20-50) % Monocytes % (Manual) (2-8) % Sodium (135-145) mmol/L Potassium (3.6-5.0) mmol/L Chloride (101-111) mmol/L Carbon Dioxide (21.0-31.0) mmol/L Anion Gap BUN (7-18) mg/dL Creatinine (0.6-1.3) mg/dL Est Cr Clr Drug Dosing mL/min Estimated GFR (MDRD) Glucose (74-105) mg/dL POC Glucose 296 H (83-110) mg/dl Estimat Average Glucose 177 mg/dl Hemoglobin A1c 7.8 H (4.4-6.3) % Calcium (8.4-10.2) mg/dl Procalcitonin <0.05 (<0.10) ng/mL 07/31/19 07/31/19 08/01/19 Range/Units 16:46 20:50 05:07 WBC 16.9 H (5.0-10.0) 10^3/uL RBC 3.46 L (4.2-5.4) 10^6/uL Hgb 11.2 L (12.0-16.0) g/dL Hct 34.6 L (37.0-47.0) % MCV 100.0 (80-100) fL MCH 32.4 (27.0-34.0) pg MCHC 32.4 L (33.0-35.0) g/dL Plt Count 242 (150-450) 10^3/uL Neut % (Auto) 89.7 H (42.2-75.2) % Lymph % (Auto) 5.6 L (20.5-50.1) % [place] % (Auto) 4.7 (2-8) % Eos % (Auto) 0.0 L (1.0-3.0) % Baso % (Auto) 0.0 (0.0-1.0) % Add Manual Diff Yes Neutrophils % (Manual) 81 H (42-75) % Band Neutrophils % 7 % Lymphocytes % (Manual) 7 L (20-50) % Monocytes % (Manual) 5 (2-8) % Sodium (135-145) mmol/L Potassium (3.6-5.0) mmol/L Chloride (101-111) mmol/L Carbon Dioxide (21.0-31.0) mmol/L Anion Gap BUN (7-18) mg/dL Creatinine (0.6-1.3) mg/dL Est Cr Clr Drug Dosing mL/min Estimated GFR (MDRD) Glucose (74-105) mg/dL POC Glucose 282 H 367 H (83-110) mg/dl Estimat Average Glucose mg/dl Hemoglobin A1c (4.4-6.3) % Calcium (8.4-10.2) mg/dl Procalcitonin (<0.10) ng/mL 08/01/19 08/01/19 Range/Units 05:07 07:48 WBC (5.0-10.0) 10^3/uL RBC (4.2-5.4) 10^6/uL Hgb (12.0-16.0) g/dL Hct (37.0-47.0) % MCV (80-100) fL MCH (27.0-34.0) pg MCHC (33.0-35.0) g/dL Plt Count (150-450) 10^3/uL Neut % (Auto) (42.2-75.2) % Lymph % (Auto) (20.5-50.1) % [place] % (Auto) (2-8) % Eos % (Auto) (1.0-3.0) % Baso % (Auto) (0.0-1.0) % Add Manual Diff Neutrophils % (Manual) (42-75) % Band Neutrophils % % Lymphocytes % (Manual) (20-50) % Monocytes % (Manual) (2-8) % Sodium 136 (135-145) mmol/L Potassium 3.6 (3.6-5.0) mmol/L Chloride 96 L (101-111) mmol/L Carbon Dioxide 26.0 (21.0-31.0) mmol/L Anion Gap 17.6 BUN 49 H (7-18) mg/dL Creatinine 2.0 H (0.6-1.3) mg/dL Est Cr Clr Drug Dosing 19.79 mL/min Estimated GFR (MDRD) 24 Glucose 384 H (74-105) mg/dL POC Glucose 280 H (83-110) mg/dl Estimat Average Glucose mg/dl Hemoglobin A1c (4.4-6.3) % Calcium 9.2 (8.4-10.2) mg/dl Procalcitonin (<0.10) ng/mL Kamran Results Last 24 Hours: Microbiology 07/29/19 16:32 Aerobic Blood Culture - Preliminary Blood - Venous - Lab Draw NO GROWTH AFTER 2 DAYS Anaerobic Blood Culture - Preliminary NO GROWTH AFTER 2 DAYS 07/29/19 16:27 Aerobic Blood Culture - Preliminary Blood - Venous NO GROWTH AFTER 2 DAYS Anaerobic Blood Culture - Preliminary NO GROWTH AFTER 2 DAYS Med Orders - Current: Current Medications Acetaminophen (Tylenol) 650 mg PO Q4H PRN PRN Reason: Pain (Mild 1-3)/fever Last Admin: 08/01/19 03:37 Dose: 650 mg Hydrocodone Bitart/Acetaminophen ([place] 325-10 Mg) 0.5 tab PO Q4H PRN PRN Reason: Pain (moderate 4-6) Albuterol/Ipratropium (Duoneb 3.0-0.5 Mg/3 Ml) 3 ml NEB Q2H PRN PRN Reason: sob Last Admin: 07/30/19 19:51 Dose: 3 ml Albuterol/Ipratropium (Duoneb 3.0-0.5 Mg/3 Ml) 3 ml NEB Q6HRRT [facility] Last Admin: 08/01/19 07:24 Dose: 3 ml Aspirin (Aspirin) 81 mg PO DAILY [facility] Last Admin: 08/01/19 08:33 Dose: 81 mg Docusate Sodium (Colace) 100 mg PO BID PRN PRN Reason: Constipation Furosemide (Lasix) 40 mg PO BIDDIURETIC [facility] Last Admin: 08/01/19 08:34 Dose: 40 mg Heparin Sodium (Porcine) (Heparin Sodium) 5,000 units SUBCUT Q8HR [facility] Last Admin: 08/01/19 06:05 Dose: 5,000 units Insulin Human Lispro (Humalog) 0 unit SUBCUT ACBED [facility]; Protocol Last Admin: 08/01/19 08:32 Dose: 3 unit Levofloxacin (Levaquin) 750 mg PO Q48H [facility] Levothyroxine Sodium (Levothyroxine) 75 mcg PO ACBREAKFAST [facility] Last Admin: 08/01/19 06:05 Dose: 75 mcg Metoprolol Tartrate (Lopressor) 25 mg PO BID [facility] Last Admin: 08/01/19 08:33 Dose: 25 mg Omeprazole (Omeprazole) 20 mg PO ACBREAKFAST [facility] Last Admin: 08/01/19 06:05 Dose: 20 mg Ondansetron HCl (Zofran Odt) 4 mg PO Q4H PRN PRN Reason: nausea, able to take PO Prednisone (Prednisone) 40 mg PO BID [facility] Zolpidem Tartrate (Ambien) 5 mg PO BEDTIME PRN PRN Reason: Sleep Discontinued Medications Albuterol/Ipratropium (Duoneb 3.0-0.5 Mg/3 Ml) 3 ml NEB ONETIME ONE Stop: 07/29/19 16:14 Last Admin: 07/29/19 16:20 Dose: 3 ml Furosemide (Lasix) 80 mg IVPUSH NOW ONE Stop: 07/29/19 16:15 Last Admin: 07/29/19 16:29 Dose: 80 mg Furosemide (Lasix) 40 mg IVPUSH BID [facility] Last Admin: 07/30/19 08:35 Dose: 40 mg Furosemide (Lasix) 40 mg IVPUSH BID@0800,1400 [facility] Last Admin: 07/31/19 08:17 Dose: 40 mg Levofloxacin/Dextrose 750 mg/ (Premix) 150 mls @ 100 mls/hr IV Q48H [facility] Last Infusion: 07/31/19 13:17 Dose: Infused Levofloxacin (Levaquin) 750 mg PO Q24H [facility] Methylprednisolone Sodium Succinate (Solu-Medrol) 125 mg IVPUSH ONETIME ONE Stop: 07/29/19 16:15 Last Admin: 07/29/19 16:29 Dose: 125 mg Methylprednisolone Sodium Succinate (Solu-Medrol) 40 mg IVPUSH Q8H [facility] Last Admin: 08/01/19 08:34 Dose: Not Given Sodium Chloride (Saline Flush) 10 ml FLUSH ASDIRECTED PRN PRN Reason: Keep Vein Open Last Admin: 07/30/19 16:36 Dose: 10 ml - Exam Quality Assessment: Supplemental Oxygen General: Alert, Oriented Neck: Supple Lungs: Wheezing Cardiovascular: Regular Rate, Regular Rhythm GI/Abdominal Exam: Normal Bowel Sounds, Soft, Non-Tender Extremities: No: Pedal Edema Sepsis Event Note - Evaluation Sepsis Screening Result: No Definite Risk - Focused Exam Vital Signs: Vital Signs Pulse Pulse BP 08/01/19 08:33 74 105/70 08/01/19 07:25 80 Date Exam was Performed: 08/01/19 Time Exam was Performed: 10:50 - Problem List & Annotations (1) Acute exacerbation of chronic obstructive pulmonary disease (COPD) SNOMED Code(s): 562675711 Code(s): J44.1 - CHRONIC OBSTRUCTIVE PULMONARY DISEASE W (ACUTE) EXACERBATION Status: Acute Priority: High Current Visit: No (2) CHF (congestive heart failure) SNOMED Code(s): 48547203 Code(s): I50.9 - HEART FAILURE, UNSPECIFIED Status: Acute Current Visit: No Qualifiers: Heart failure type: unspecified Heart failure chronicity: chronic Qualified Code(s): I50.9 - Heart failure, unspecified - Problem List Review Problem List Initiated/Reviewed/Updated: Yes - My Orders Last 24 Hours: My Active Orders 07/31/19 14:00 Furosemide [Lasix] 40 mg PO BIDDIURETIC 08/01/19 11:00 levoFLOXacin [Levaquin] 750 mg PO Q48H 08/01/19 21:00 predniSONE 40 mg PO BID 08/02/19 05:15 BASIC METABOLIC PANEL,BMP [CHEM] AM CBC WITH AUTO DIFF [HEME] AM - Plan Plan:: Presented with weight gain, shortness of breath, wheezing. Acute on chronic hypoxemic respiratory failure The patient has been using oxygen during the night Oxygen saturation was 88% with little activity in the ER Well monitor oxygen need Possibly walking desat study before discharge Acute COPD exacerbation The patient has been measuring oxygen saturations at home and they were slowly declining at home. She has cough, wheezing She has been through multiple antibiotic treatments, I doubt that this is infection related pro-calcitonin level: pending given the possible cellulitis, start levofloxacin She has been on chronic home steroid at 5 mg prednisone daily switch Solu-Medrol IV to PO prednisone Treat with DuoNeb scheduled and as needed Acute congestive heart failure Last echocardiogram 06/2016 Interpretation Summary The left ventricle is normal in size. There is normal left ventricular wall thickness. Ejection Fraction = 50-55%. There is mild global hypokinesis of the left ventricle. There is trace mitral regurgitation. The tricuspid valve is not well visualized, but is grossly normal. Mild to moderate valvular aortic stenosis. There is no pericardial effusion. Will treat with IV diuretics The patient was on Lasix 40 mg by mouth twice a day Follow electrolytes Minimally elevated troponin stable - likely baseline with CKD Elevated lactic acid leukocytosis - likely related to steroids still present I doubt that there is sepsis Blood cultures have been obtained forehead erythema might represent cellulitis started levofloxacin - she does not want IV - will switch to PO Chronic kidney disease stage III now with PAVEL On admission creatinine 1.6 now stable at 2.0 This appears to be the patients baseline since December 2018 will cut back diuretics to home 40 mg PO BID lasix dose Well monitor Htn Cont metoprolol Diabetes exacerbated by steroids Elevated blood sugar of 226 noted on admission Well monitor blood sugars Use supplemental insulin as needed check A1c Hypothyroidism Continue Synthroid Dvt prophylaxis Sq heparin
[2019-08-01] MEDS: predniSONE 20 MG Tab PO SCH ×2 (11:30→21:55)
[2019-08-01] MEDS ORDERED: guaiFENesin 100 MG/5 ML Soln 5 ML UD Cup PO PRN (20:58)
[2019-08-01] MEDS ORDERED: Benzonatate 100 MG Cap PO PRN (20:58)
[2019-08-01] MEDS: Albuterol/Ipratropium 3.0-0.5 MG/3 ML Neb Soln NEB PRN (23:40)
[2019-08-02] MEDS: Albuterol/Ipratropium 3.0-0.5 MG/3 ML Neb Soln NEB SCH ×4 (05:55→17:49)
[2019-08-02] MEDS: Heparin Sodium 5,000 Units/ML Vial SUBCUT SCH ×3 (05:55→21:04)
[2019-08-02] MEDS: Omeprazole 20 MG Cap.CR PO SCH (05:56)
[2019-08-02] MEDS: Levothyroxine 75 MCG Tab PO SCH (05:56)
[2019-08-02] MEDS: Insulin Lispro 100 Units/ML 3 ML Vial SUBCUT SCH ×4 (08:57→21:03)
[2019-08-02] MEDS: predniSONE 20 MG Tab PO SCH (08:58)
[2019-08-02] MEDS: Furosemide 40 MG Tab PO SCH (08:59)
[2019-08-02] MEDS: Aspirin 81 MG Tab.Chew PO SCH (08:59)
[2019-08-02] MEDS: Metoprolol Tartrate 50 MG Tab PO SCH ×2 (09:08→20:44)
[2019-08-02] MEDS: Levofloxacin 500 MG Tab PO SCH (09:09)
--- NOTE | 2019-08-02 15:05 | PN ---
DATE: 08/02/2019 SUBJECTIVE: Mrs. Bri Fuller is a 74-year-old female with a medical history significant for hypertension, hyperlipidemia, chronic obstructive pulmonary airway disease, chronic hypoxic respiratory failure requiring home oxygen, admitted to the hospital with complaints of increasing shortness of breath and noted to have COPD exacerbation with possible acute on chronic congestive heart failure and acute on chronic hypoxic respiratory failure. For the last 24 hours, the patient continues to have shortness of breath, 5/10 in intensity, aggravated on exertion, relieved with rest, associated with some chest discomfort. Denies any nausea or vomiting. No diarrhea. No abdominal pain. REVIEW OF SYSTEMS: Cardiovascular, respiratory, gastrointestinal, neurology, constitutional were all evaluated. PHYSICAL EXAMINATION: Vital Signs: Temperature of 98.3, pulse of 112, blood pressure 124/96, respiratory rate of 22, saturating at 98% on 2 L of oxygen. General Appearance: The patient is well oriented to time, place, and person, follows commands spontaneously. Cardiovascular System: S1 and S2 heard with normal intensity. No gallops. Respiratory System: Clear to auscultation bilaterally except for crepitations at the base. No wheeze. Abdomen: Soft. Bowel sounds positive. Nontender. No rigidity. Extremities: No edema in bilateral lower extremities. MEDICATIONS: Reviewed. Continue with DuoNeb every 2 hours as needed for shortness of breath along with schedules every 6 hours; aspirin 81 mg daily; Lasix changed to 40 mg daily; heparin 5000 subcutaneous q.8 hourly; Humalog as needed; Levaquin 750 mg every 48 hours; levothyroxine 75 mcg daily; Lopressor 25 mg twice a day; omeprazole 20 mg daily; prednisone 40 mg twice a day; Ambien as needed at bedtime. LABORATORY DATA: Reviewed. WBC 14.7, hemoglobin 11.8, hematocrit 36.7, platelet count 240. Sodium 137, potassium 4, chloride 97, bicarb 27, BUN 51, creatinine 2.1, and glucose 321. ASSESSMENT: 1. Acute chronic obstructive pulmonary disease exacerbation. 2. Acute on chronic congestive heart failure with diastolic dysfunction, recent ejection fraction of 50% to 55%. 3. Acute on chronic hypoxic respiratory failure. 4. Hypertension. 5. Hyperlipidemia. 6. Type 2 diabetes mellitus, uncontrolled. 7. Hypothyroidism. PLAN: 1. Acute COPD exacerbation, improving. Continue with nebulizer treatments. She is switched to oral prednisone. We will change it to oral prednisone once a day, and we will closely follow. The patient is encouraged to use incentive spirometer and flutter valve for better pulmonary toileting. 2. Acute on chronic hypoxic respiratory failure, seems to be improving. Continue with supplemental oxygen to maintain a saturation of 95%. 3. Acute on chronic congestive heart failure. Remains stable. The patient's edema seems to be resolved. Change the Lasix to 40 mg daily as she is noted to have elevated creatinine. 4. Hypertension, stable. Continue with current antihypertensive medication. 5. Type 2 diabetes mellitus, uncontrolled. This could be steroid induced. The patient is currently on correction dose insulin. Continue the same. 6. Acute on chronic renal failure. The patient noted to have elevated creatinine up to 2.1, elevated BUN up to 51. Her baseline creatinine was 1.6 at the time of admission. This could be resulting from overdiuresis. We will cut down the Lasix to 40 mg daily. The patient is encouraged to have good oral intake. We will recheck a BMP in the a.m. 7. DVT prophylaxis. Continue with heparin for DVT prophylaxis. 8. Possible bronchitis versus pneumonia. The patient is currently on IV antibiotic with levofloxacin. Continue the same. [facility] /[id number]
[2019-08-03] MEDS ORDERED: Aspirin 81 MG Tab.Chew PO ONE (01:30)
[2019-08-03] MEDS: Albuterol/Ipratropium 3.0-0.5 MG/3 ML Neb Soln NEB SCH ×5 (01:35→23:55)
[2019-08-03] MEDS: Heparin Sodium 5,000 Units/ML Vial SUBCUT SCH ×3 (05:49→22:00)
[2019-08-03] MEDS: Omeprazole 20 MG Cap.CR PO SCH (05:50)
[2019-08-03] MEDS: Levothyroxine 75 MCG Tab PO SCH (05:50)
[2019-08-03 06:52] LABS: ANION GAP 16.4
[2019-08-03] MEDS ORDERED: predniSONE 20 MG Tab PO SCH (09:00)
[2019-08-03] MEDS ORDERED: Furosemide 40 MG Tab PO SCH (09:00)
[2019-08-03] MEDS: Metoprolol Tartrate 50 MG Tab PO SCH ×2 (09:03→21:56)
[2019-08-03] MEDS: predniSONE 20 MG Tab PO SCH (09:03)
[2019-08-03] MEDS: Insulin Lispro 100 Units/ML 3 ML Vial SUBCUT SCH ×4 (09:05→21:58)
[2019-08-03] MEDS: Aspirin 81 MG Tab.Chew PO SCH (09:05)
--- NOTE | 2019-08-03 12:35 | PN ---
DATE: 08/03/2019 HISTORY OF PRESENT ILLNESS: Ms. Bri Fuller is a 74-year-old female with a medical history significant for hypertension, hyperlipidemia, chronic obstructive pulmonary airway disease, chronic hypoxic respiratory failure requiring home oxygen, admitted with increasing shortness of breath. Noted to have COPD exacerbation with acute on chronic congestive heart failure and acute on chronic hypoxic respiratory failure. For the last 24 hours, the patient had episode of chest tightness last night, which prompted us to do troponins and 12-lead EKG. She denies any ongoing chest pain this morning. She denies any abdominal pain. No nausea. No vomiting. No diarrhea. REVIEW OF SYSTEMS: Cardiovascular, respiratory, gastrointestinal, neurology, constitutional were all evaluated. PHYSICAL EXAMINATION: Vital Signs: Temperature of 97.2, pulse of 68, blood pressure 130/76, respiratory rate of 20, saturating at 98% on 2 L of oxygen. General Appearance: The patient is well oriented to time, place, and person. Follows commands spontaneously. Cardiovascular System: S1, S2 heard with normal intensity. Respiratory System: Bilateral wheeze noted, mostly at the bases. Mild crepitations at the bases. Abdomen: Soft. Bowel sounds positive. Nontender. No rigidity. Extremities: No edema of bilateral lower extremities. MEDICATIONS: Reviewed. Continue the DuoNeb and Pulmicort nebulizer. Continue with Lasix 20 mg daily, Humalog supplemental scale, Levaquin 750 q.48 hours, levothyroxine 75 mcg daily, omeprazole 20 mg daily, prednisone 20 mg daily. LABORATORY DATA: Reviewed. Troponin 0.04. WBC 15.6, hemoglobin 11.8, hematocrit 36.1, platelet count 229. Sodium 139, potassium 4.4, chloride 98, bicarb 29, BUN 57, creatinine 2. Creatinine at the time of admission, 1.6. ASSESSMENT: 1. Acute on chronic renal failure. 2. Acute chronic obstructive pulmonary disease exacerbation. 3. Acute on chronic congestive heart failure. 4. Acute on chronic hypoxic respiratory failure. 5. Hypertension. 6. Chest pain. 7. Type 2 diabetes mellitus. PLAN: 1. Chest pain. The patient had episode of chest pain last night. Her troponins remained negative, though slightly elevated as per labs here, but she denies any ongoing chest pain. Her chest pain could be resulting from COPD exacerbation. 2. Acute COPD exacerbation. The patient is currently on steroids, nebulizers, antibiotics. Continue the same. She will be encouraged to use incentive spirometer and flutter valve. 3. Acute on chronic hypoxic respiratory failure. Continue with supplemental oxygen. She is back to baseline. 4. Acute on chronic congestive heart failure. The patient was noted to be on Lasix. This has increased her creatinine. We will further dose adjust the Lasix to 20 mg daily, and we will closely follow the BMP in a.m. 5. Acute on chronic renal failure. The patient had a slightly elevated creatinine up to 2 from her baseline function of 1.6. Avoid nephrotoxic agents. Dose adjust medications for renal function. Dose adjust the Lasix. 6. Hypertension, well controlled. Continue with current antihypertensive medication. 7. Type 2 diabetes mellitus. Continue with supplemental scale insulin. She is noted to be on steroids which could have led to uncontrolled diabetes. 8. Hypothyroidism. Continue with current dose of levothyroxine. 9. DVT prophylaxis. Continue with heparin for DVT prophylaxis. [facility] /[id number]
[2019-08-03] MEDS ORDERED: Insulin Lispro 100 Units/ML 3 ML Vial SUBCUT ONE (16:49)
[2019-08-04] MEDS: Albuterol/Ipratropium 3.0-0.5 MG/3 ML Neb Soln NEB SCH ×4 (00:02→18:00)
[2019-08-04] MEDS: Omeprazole 20 MG Cap.CR PO SCH (06:30)
[2019-08-04] MEDS: Levothyroxine 75 MCG Tab PO SCH (06:30)
[2019-08-04] MEDS: Heparin Sodium 5,000 Units/ML Vial SUBCUT SCH ×3 (06:32→22:27)
[2019-08-04 06:37] LABS: ANION GAP 12.5
[2019-08-04] MEDS: Aspirin 81 MG Tab.Chew PO SCH (08:13)
[2019-08-04] MEDS: predniSONE 20 MG Tab PO SCH (08:13)
[2019-08-04] MEDS: Metoprolol Tartrate 50 MG Tab PO SCH ×2 (08:14→22:25)
[2019-08-04] MEDS: Furosemide 40 MG Tab PO SCH (08:16)
[2019-08-04] MEDS: Levofloxacin 500 MG Tab PO SCH (08:20)
[2019-08-04] MEDS: Insulin Lispro 100 Units/ML 3 ML Vial SUBCUT SCH ×4 (08:22→22:23)
[2019-08-04] MEDS ORDERED: glipiZIDE 5 MG Tab.ER PO SCH (13:18)
[2019-08-04] MEDS: Potassium Chloride 10 MEQ Tab.ER PO SCH ×2 (13:46→17:20)
[2019-08-04] MEDS: glipiZIDE 5 MG Tab PO SCH ×2 (13:46→17:20)
--- NOTE | 2019-08-04 14:22 | PN ---
DATE: 08/04/2019 HISTORY OF PRESENT ILLNESS: Ms. Bri Fuller is a 74-year-old female with a medical history significant for hypertension, hyperlipidemia, chronic obstructive pulmonary airway disease, chronic hypoxic respiratory failure requiring home oxygen, admitted with increasing shortness of breath. Noted to have COPD exacerbation, acute on chronic congestive heart failure, acute on chronic hypoxic respiratory failure, and uncontrolled diabetes. For the last 24 hours, the patient is continued on nebulizer treatments and nasal cannula oxygen. She is also noted to have uncontrolled diabetes requiring supplemental scale insulin. She denies any ongoing chest pains. Her shortness of breath is slightly improved. Denies any abdominal pain. REVIEW OF SYSTEMS: Cardiovascular, respiratory, gastrointestinal, neurology, constitutional were all evaluated. PHYSICAL EXAMINATION: Vital Signs: Temperature of 97.5, pulse of 71, blood pressure 120/66, respiratory rate of 20, saturating at 97% on 2 L of oxygen. General Appearance: The patient is well oriented to time, place, and person. Follows commands spontaneously. Cardiovascular System: S1, S2 heard with normal intensity. No gallops. Respiratory System: Clear to auscultation bilaterally except for mild crepitations at the base. No wheeze. Abdomen: Soft. Bowel sounds positive. Nontender. No rigidity. Extremities: Mild edema. MEDICATIONS: Reviewed. Continue with DuoNeb nebulizer q.6 hourly, aspirin 81 mg daily, Tessalon Perles as needed, Lasix changed to 20 mg daily, Robitussin as needed for cough, heparin subcutaneous q.8 hourly, Levaquin 750 mg every 48 hours, Humalog supplemental scale, omeprazole 20 mg daily, potassium chloride 20 mEq 3 times a day, prednisone 20 mg daily. LABORATORY DATA: Reviewed. WBC 11.7, hemoglobin 11.4, hematocrit 34.9, platelet count 200. Sodium 138, potassium 3.5, chloride 100, BUN 51, creatinine 1.7, glucose 205. ASSESSMENT: 1. Acute chronic obstructive pulmonary disease exacerbation. 2. Acute on chronic hypoxic respiratory failure. 3. Acute on chronic congestive heart failure secondary diastolic dysfunction. 4. Acute on chronic renal failure, improved. 5. Type 2 diabetes mellitus, uncontrolled. 6. Hypertension. 7. Hyperlipidemia. PLAN: 1. Acute COPD exacerbation. Improved. The patient is currently on nebulizers with DuoNeb and Pulmicort nebulizer and also prednisone dosing. Her wheezing is much improved. The patient is encouraged to use incentive spirometer and flutter valve for better pulmonary toileting. 2. Acute on chronic hypoxic respiratory failure. The patient is back to her baseline function. Continue supplemental oxygen. She has home oxygen. 3. Acute on chronic renal failure. This is mainly from over diuresis. Her kidney function has worsened on this admission from a baseline function of 1.6 to 2.1. Her creatinine is now 1.7. We dose adjusted her Lasix to 20 mg daily. Her BUN is also improving. We will closely follow. 4. Type 2 diabetes mellitus, uncontrolled. The patient has hemoglobin A1c of 7.8, suggestive of uncontrolled diabetes. We will add glipizide today, and we will closely follow. She is also noted to be on Humalog supplemental scale. The patient has not been on any medications. We will educate the patient on diabetes and also to check her fingersticks at home. She would need an outpatient fuller brush man consultation. 5. Hypokalemia. We will replace with oral potassium chloride. Recheck a basic metabolic panel in the a.m. 6. Acute on chronic congestive heart failure. Remains stable. We actually decrease the Lasix to avoid any nephrotoxicity. 7. Hypertension. The patient's blood pressure seems to be well controlled. Continue with current antihypertensive medications. 8. DVT prophylaxis. Continue with the heparin for DVT prophylaxis. [facility] /[id number]
[2019-08-04] MEDS: Acetaminophen 325 MG Tab PO PRN (19:51)
[2019-08-04] MEDS ORDERED: Carboxymethylcellulose Sodium 1% Ophth Gel 0.4 ML UD EYEBOTH PRN (21:13)
[2019-08-05] MEDS: Albuterol/Ipratropium 3.0-0.5 MG/3 ML Neb Soln NEB SCH ×3 (00:10→12:48)
[2019-08-05] MEDS: Levothyroxine 75 MCG Tab PO SCH (05:25)
[2019-08-05] MEDS: Omeprazole 20 MG Cap.CR PO SCH (05:25)
[2019-08-05] MEDS: Heparin Sodium 5,000 Units/ML Vial SUBCUT SCH (05:30)
[2019-08-05] MEDS ORDERED: glipiZIDE 5 MG Tab PO SCH (08:00)
[2019-08-05] MEDS: Insulin Lispro 100 Units/ML 3 ML Vial SUBCUT SCH ×2 (08:09→12:14)
[2019-08-05] MEDS: Furosemide 40 MG Tab PO SCH (08:53)
[2019-08-05] MEDS: Potassium Chloride 10 MEQ Tab.ER PO SCH ×2 (08:53→12:34)
[2019-08-05] MEDS: Metoprolol Tartrate 50 MG Tab PO SCH (08:54)
[2019-08-05] MEDS: Aspirin 81 MG Tab.Chew PO SCH (08:54)
[2019-08-05] MEDS: predniSONE 20 MG Tab PO SCH (08:55)
[2019-08-05 11:14] VITALS: BP 121/63
[2019-08-05 12:51] VITALS: PULSE 80
--- NOTE | 2019-08-05 13:56 | DISCH ---
ADMITTING DIAGNOSES: 1. Acute on chronic hypoxic respiratory failure. 2. Acute chronic obstructive pulmonary disease exacerbation. 3. Acute on chronic congestive heart failure with diastolic dysfunction, recent ejection fraction of 50% to 55%. 4. Type 2 diabetes mellitus, uncontrolled. DISCHARGE DIAGNOSES: 1. Acute chronic obstructive pulmonary disease exacerbation, resolved. 2. Possible bronchitis, on oral antibiotics. 3. Acute on chronic hypoxic respiratory failure, improved. 4. Acute on chronic congestive heart failure, improved, with diastolic dysfunction. 5. Type 2 diabetes mellitus, uncontrolled; requiring oral agent with a glipizide 5 mg twice a day dosing. HISTORY OF PRESENTING ILLNESS: Ms. Bri Fuller is a 74-year-old female with a medical history significant for hypertension, hyperlipidemia, type 2 diabetes mellitus. Was diet controlled in the past, but currently noted to have uncontrolled diabetes with a hemoglobin A1c of 7.8, suggestive of uncontrolled diabetes. The patient was added on glipizide on this admission. Her COPD exacerbation and CHF exacerbation got resolved. She will continue with her nebulizer treatment and Lasix at home. She was empirically started on antibiotic for possible bronchitis. Her symptoms are much better at this time. She is able to ambulate well. The patient has a chronic history of COPD and hypoxic respiratory failure, requiring home oxygen, which makes her homebound status, and the patient is newly added with a glipizide. She will need nursing home care at home for checking her blood glucose and monitoring her blood glucose and then guiding her through the treatment. So we made a referral to home health care to assist in nursing home cares and with ambulation as she has a hypoxic respiratory failure with underlying COPD. She is discharged home in stable condition. She is advised to follow with her primary care physician next 1 week of time. DISCHARGE MEDICATIONS: Include: 1. Albuterol 2 puffs inhalation every 4 hours as needed. 2. Albuterol 3 mL inhalation for shortness of breath. 3. DuoNeb 3 mL nebulizer 4 times a day. 4. Aspirin 81 mg daily. 5. Fluticasone 1 puff inhalation daily. 6. Lasix 40 mg daily. 7. Levothyroxine 75 mcg daily. 8. Metoprolol 25 mg twice a day. 9. Omeprazole 20 mg daily. 10.Glipizide 5 mg twice a day. 11.Levaquin 250 mg daily for next 5 days. 12.Prednisone 5 mg daily. 13. Prednisone 10 mg twice a day for next 5 days. PHYSICAL EXAMINATION ON THE DAY OF DISCHARGE: Vitals: Temperature of 97.8, pulse of 70, blood pressure 121/63, respiratory rate of 20, saturating at 100% on 2 L of oxygen. General Appearance: The patient is well oriented to time, place, and person. Follows commands spontaneously. Cardiovascular System: S1, S2 heard with normal intensity. No gallops. Respiratory System: Clear to auscultation bilaterally. No wheeze. No crepitations. Abdomen: Soft. Bowel sounds positive. Nontender. No rigidity. Extremities: No edema of bilateral lower extremities. Neurology: No gross focal neurological deficits. CONDITION ON ADMISSION: Poor. CONDITION ON DISCHARGE: Stable. DISPOSITION: Discharged to Home with Home health care. DIET: Cardiac healthy diet and consistent carbohydrate diet. ACTIVITY: As tolerated. FOLLOWUP: Follow with primary care physician next 1 week of time. I spent over 35 minutes of time in evaluating and treating this patient and making discharge plans. [facility] /[id number] [place]
--- NOTE | 2019-08-08 19:00 | EKG ---
08/03/2019 - ELKIN ALFRED - 12-lead EKG shows normal sinus rhythm with heart rate of 72 with multiple premature ventricular complexes. No acute ST elevation or ST depression noted on this 12-lead EKG. Possible bundle-branch block. [facility] /[id number]
== END 2019-08-05 14:05 | disposition home or self-care (01) | DRG 291 ==
LOC: DL.ED 15:26 → DL.MS 18:05 → UNDOADMIN 18:16 → DL.MS 19:26
PROVIDERS: ADMIT Internal Medicine; ATTEND Internal Medicine
DX: I13.0 Hypertensive heart and chronic kidney disease with heart failure and stage 1 through stage 4 chronic kidney disease, or unspecified chronic kidney disease (principal); I11.0 Hypertensive heart disease with heart failure; I50.9 Heart failure, unspecified; H54.7 Unspecified visual loss; K52.9 Noninfective gastroenteritis and colitis, unspecified; R32 Unspecified urinary incontinence; M06.9 Rheumatoid arthritis, unspecified; J96.21 Acute and chronic respiratory failure with hypoxia; I50.33 Acute on chronic diastolic (congestive) heart failure; J44.1 Chronic obstructive pulmonary disease with (acute) exacerbation; E89.0 Postprocedural hypothyroidism; N17.9 Acute kidney failure, unspecified; Z85.89 Personal history of malignant neoplasm of other organs and systems; J40 Bronchitis, not specified as acute or chronic; E11.65 Type 2 diabetes mellitus with hyperglycemia; F41.9 Anxiety disorder, unspecified; F32.9 Major depressive disorder, single episode, unspecified; E66.9 Obesity, unspecified; E03.9 Hypothyroidism, unspecified; E11.22 Type 2 diabetes mellitus with diabetic chronic kidney disease; N18.3 Chronic kidney disease, stage 3 (moderate); E87.6 Hypokalemia; E78.5 Hyperlipidemia, unspecified; F17.210 Nicotine dependence, cigarettes, uncomplicated; Z88.0 Allergy status to penicillin; Z88.8 Allergy status to other drugs, medicaments and biological substances; Z79.82 Long term (current) use of aspirin; Z68.36 Body mass index [BMI] 36.0-36.9, adult; Z79.890 Hormone replacement therapy; Z79.52 Long term (current) use of systemic steroids; Z79.899 Other long term (current) drug therapy; I25.2 Old myocardial infarction; Z98.49 Cataract extraction status, unspecified eye; Z90.49 Acquired absence of other specified parts of digestive tract
CPT/HCPCS: 36415; 71045; 80053; 83605; 83880; 84484; 85025; 87040 ×2; 93005; 93010; 94640; 96374; 96375; 99284; 99285; J1940; J2930; 80048; 82962; 83036; 84145; 85027; 94010; 94667; 94760; A9270-GY; J1644; J1815; J1956; J2920; J7620-GY

== ENCOUNTER 2019-09-14 10:27 | Emergency (ER) | payer MEDICARE, MEDICAID ==
[2019-09-14 10:52] VITALS: BP 141/88; PULSE 95
[2019-09-14] MEDS ORDERED: Albuterol/Ipratropium 3.0-0.5 MG/3 ML Neb Soln NEB ONE (11:03)
--- NOTE | 2019-09-14 11:15 | EDM.PDOC ---
ED HPI GENERAL MEDICAL PROBLEM - General Chief Complaint: Respiratory Problem Stated Complaint: SOB Time Seen by Provider: 09/14/19 10:53 Source of Information: Reports: Patient, RN History Limitations: Reports: No Limitations Thoracic Pain Score (Numeric/FACES): 4 - Related Data Allergies Allergy/AdvReac Type Severity Reaction Status Date / Time amlodipine [From Norvasc] Allergy Cannot Verified 09/14/19 10:38 Remember cetirizine [From Zyrtec] Allergy Abdominal Verified 09/14/19 10:38 Pain Penicillins Allergy Rash Verified 09/14/19 10:38 simvastatin [From Zocor] Allergy Cannot Verified 09/14/19 10:38 Remember Home Meds: Home Meds Albuterol Sulfate [Proventil Hfa] 2 puff IH Q4HR PRN 10/21/16 [History] Metoprolol Tartrate 25 mg PO BID 04/03/17 [History] Albuterol [IJD: Albuterol] 3 ml INH Q4HR PRN 12/24/17 [History] Albuterol/Ipratropium [DuoNeb 3.0-0.5 MG/3 ML] 3 ml NEB 02,06,10,14,18,22 [History] Aspirin 81 mg PO DAILY 01/08/19 [History] Fluticasone/Vilanterol [Breo Ellipta 100-25 MCG Inhalation Kit] 1 puff INH 1200 05/03/19 [History] Levothyroxine 75 mcg PO ACBREAKFAST 05/03/19 [History] predniSONE [Prednisone] 5 mg PO DAILY 05/03/19 [History] Omeprazole 20 mg PO DAILY 07/29/19 [History] Furosemide [Lasix] 40 mg PO DAILY #60 tablet 08/05/19 [Rx] glipiZIDE [Glucotrol] 5 mg PO BID 30 Days #60 tablet 08/05/19 [Rx] levoFLOXacin [Levaquin] 250 mg PO DAILY 5 Days #5 tablet 08/05/19 [Rx] predniSONE [Prednisone] 10 mg PO DAILY 5 Days #5 tablet 08/05/19 [Rx] Past Medical History HEENT History: Reports: Cataract, Impaired Vision, Macular Degeneration, Other ( See Below) Other HEENT History: wears glasses Cardiovascular History: Reports: Aneurysm, Heart Failure, Hypertension, SD, SOB on Exertion Other Cardiovascular History: November 29, 2000 (SD) Respiratory History: Reports: COPD, SOB Gastrointestinal History: Reports: Chronic Diarrhea Genitourinary History: Reports: Urinary Incontinence FOUNDER 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: Reports: 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: 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 Musculoskeletal History: Reports: Fracture, RA Other Musculoskeletal History: skull, collarbone Neurological History: Reports: None Psychiatric History: Reports: Anxiety, Depression Endocrine/Metabolic History: Reports: Hypothyroidism, Obesity/BMI 30+ Hematologic History: Reports: None Immunologic History: Reports: None Oncologic (Cancer) History: Reports: Other (See Below) Other Oncologic History: simple vulvectomy - cancer Dermatologic History: Reports: None - Infectious Disease History Infectious Disease History: Reports: Chicken Pox, Measles, Mumps - Past Surgical History Head Surgeries/Procedures: Reports: None HEENT Surgical History: Reports: None Cardiovascular Surgical History: Reports: None Respiratory Surgical History: Reports: None GI Surgical History: Reports: Appendectomy, Cholecystectomy Female Surgical History: Reports: Tubal Ligation, Other (See Below) Other Female Surgeries/Procedures: simple vulvectomy Endocrine Surgical History: Reports: Thyroidectomy Neurological Surgical History: Reports: None Musculoskeletal Surgical History: Reports: None Social & Family History - Family History Family Medical History: Noncontributory Cardiac: Reports: SD Respiratory: Reports: COPD Neurological: Reports: CVA - Tobacco Use Smoking Status *Q: Current Every Day Smoker Years of Tobacco use: 60 Packs/Tins Daily: 0.5 Used Tobacco, but Quit: No Second Hand Smoke Exposure: No - Caffeine Use Caffeine Use: Reports: Coffee Other Caffeine Use: 1 cup/day - Recreational Drug Use Recreational Drug Use: No - Living Situation & Occupation Living situation: Reports: with Family Occupation: Retired Course - Vital Signs Last Recorded V/S: Last Vital Signs Temp 97.7 F 09/14/19 10:39 Pulse 95 09/14/19 10:39 Resp 18 09/14/19 10:39 BP 141/88 H 09/14/19 10:39 Pulse Ox 95 09/14/19 10:39 - Orders/Labs/Meds Orders: Active Orders 24 hr Category Date Time Status EKG 12 Lead [EKG Documentation Completion] [RC] URGENT Care 09/14/19 11:02 Active RT Aerosol Therapy [RC] ASDIRECTED Care 09/14/19 11:03 Ordered Chest 2V [CR] Urgent Exams 09/14/19 11:01 Ordered B-TYPE NATRIURETIC PEPTIDE,BNP [CHEM] Stat Lab 09/14/19 11:01 Ordered CBC WITH AUTO DIFF [HEME] Urgent Lab 09/14/19 11:00 Ordered COMPREHENSIVE METABOLIC PN,CMP [CHEM] Urgent Lab 09/14/19 11:00 Ordered TROPONIN I [CHEM] Stat Lab 09/14/19 11:03 Ordered Meds: Medications Discontinued Medications Generic Name Dose Route Start Last Admin Trade Name Bryce PRN Reason Stop Dose Admin Albuterol/Ipratropium 3 ml 09/14/19 11:03 Duoneb 3.0-0.5 Mg/3 Ml NEB 09/14/19 11:04 ONETIME ONE Departure - Discharge Information Sepsis Event Note - Evaluation Sepsis Screening Result: No Definite Risk - Focused Exam Vital Signs: Vital Signs Temp Pulse Resp BP Pulse Ox 09/14/19 10:39 97.7 F 95 18 141/88 H 95 Date Exam was Performed: 09/14/19 Time Exam was Performed: 11:05 - My Orders Last 24 Hours: My Active Orders 09/14/19 11:00 CBC WITH AUTO DIFF [HEME] Urgent COMPREHENSIVE METABOLIC PN,CMP [CHEM] Urgent 09/14/19 11:01 Chest 2V [CR] Urgent B-TYPE NATRIURETIC PEPTIDE,BNP [CHEM] Stat 09/14/19 11:02 EKG 12 Lead [EKG Documentation Completion] [RC] URGENT 09/14/19 11:03 RT Aerosol Therapy [RC] ASDIRECTED TROPONIN I [CHEM] Stat - Assessment/Plan Last 24 Hours: My Active Orders 09/14/19 11:00 CBC WITH AUTO DIFF [HEME] Urgent COMPREHENSIVE METABOLIC PN,CMP [CHEM] Urgent 09/14/19 11:01 Chest 2V [CR] Urgent B-TYPE NATRIURETIC PEPTIDE,BNP [CHEM] Stat 09/14/19 11:02 EKG 12 Lead [EKG Documentation Completion] [RC] URGENT 09/14/19 11:03 RT Aerosol Therapy [RC] ASDIRECTED TROPONIN I [CHEM] Stat
[2019-09-14 11:28] LABS: ANION GAP 14.3
--- NOTE | 2019-09-14 12:21 | EDM.PDOC ---
ED HPI GENERAL MEDICAL PROBLEM - General Chief Complaint: Respiratory Problem Stated Complaint: SOB Time Seen by Provider: 09/14/19 10:53 Source of Information: Reports: Patient, RN History Limitations: Reports: No Limitations - History of Present Illness INITIAL COMMENTS - FREE TEXT/NARRATIVE: 74 year female with a PMH significant for CHF, COPD, NSTEMI and pulmonary edema presents to the ER with shortness of breath for three days. She reports eating fried spam three days ago and start becoming SOB. She has tried her her duoneb with no relief. She denies any chest pain, palpitations, fever, chills, abdominal discomfort, N/V, diarrhea, and constipation. She does complaint of increased lower extremity swelling and cough. She has been coughing up clear sputum. . Onset: Gradual Duration: Day(s): (3), Getting Worse Location: Reports: Chest, Lower Extremity, Left, Lower Extremity, Right Severity: Moderate Associated Symptoms: Reports: Shortness of Breath Thoracic Pain Score (Numeric/FACES): 4 - Related Data Allergies Allergy/AdvReac Type Severity Reaction Status Date / Time amlodipine [From Norvasc] Allergy Cannot Verified 09/14/19 10:38 Remember cetirizine [From Zyrtec] Allergy Abdominal Verified 09/14/19 10:38 Pain Penicillins Allergy Rash Verified 09/14/19 10:38 simvastatin [From Zocor] Allergy Cannot Verified 09/14/19 10:38 Remember Home Meds: Home Meds Albuterol Sulfate [Proventil Hfa] 2 puff IH Q4HR PRN 10/21/16 [History] Metoprolol Tartrate 25 mg PO BID 04/03/17 [History] Albuterol [IJD: Albuterol] 3 ml INH Q4HR PRN 12/24/17 [History] Albuterol/Ipratropium [DuoNeb 3.0-0.5 MG/3 ML] 3 ml NEB 02,06,10,14,18,22 [History] Aspirin 81 mg PO DAILY 01/08/19 [History] Fluticasone/Vilanterol [Breo Ellipta 100-25 MCG Inhalation Kit] 1 puff INH 1200 05/03/19 [History] Levothyroxine 75 mcg PO ACBREAKFAST 05/03/19 [History] predniSONE [Prednisone] 5 mg PO DAILY 05/03/19 [History] Omeprazole 20 mg PO DAILY 07/29/19 [History] Furosemide [Lasix] 40 mg PO DAILY #60 tablet 08/05/19 [Rx] glipiZIDE [Glucotrol] 5 mg PO BID 30 Days #60 tablet 08/05/19 [Rx] Past Medical History HEENT History: Reports: Cataract, Impaired Vision, Macular Degeneration, Other ( See Below) Other HEENT History: wears glasses Cardiovascular History: Reports: Aneurysm, Heart Failure, Hypertension, MS, SOB on Exertion Other Cardiovascular History: November 29, 2000 ([place]) Respiratory History: Reports: COPD, SOB Gastrointestinal History: Reports: Chronic Diarrhea Genitourinary History: Reports: Urinary Incontinence 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 Musculoskeletal History: Reports: Fracture, RA Other Musculoskeletal History: skull, collarbone Neurological History: Reports: None Psychiatric History: Reports: Anxiety, Depression Endocrine/Metabolic History: Reports: Hypothyroidism, Obesity/BMI 30+ Hematologic History: Reports: None Immunologic History: Reports: None Oncologic (Cancer) History: Reports: Other (See Below) Other Oncologic History: simple vulvectomy - cancer Dermatologic History: Reports: None - Infectious Disease History Infectious Disease History: Reports: Chicken Pox, Measles, Mumps - Past Surgical History Head Surgeries/Procedures: Reports: None HEENT Surgical History: Reports: None Cardiovascular Surgical History: Reports: None Respiratory Surgical History: Reports: None GI Surgical History: Reports: Appendectomy, Cholecystectomy Female Surgical History: Reports: Tubal Ligation, Other (See Below) Other Female Surgeries/Procedures: simple vulvectomy Endocrine Surgical History: Reports: Thyroidectomy Neurological Surgical History: Reports: None Musculoskeletal Surgical History: Reports: None Social & Family History - Family History Family Medical History: Noncontributory Cardiac: Reports: MS Respiratory: Reports: COPD Neurological: Reports: CVA - Tobacco Use Smoking Status *Q: Current Every Day Smoker Years of Tobacco use: 60 Packs/Tins Daily: 0.5 Used Tobacco, but Quit: No Second Hand Smoke Exposure: No - Caffeine Use Caffeine Use: Reports: Coffee Other Caffeine Use: 1 cup/day - Recreational Drug Use Recreational Drug Use: No - Living Situation & Occupation Living situation: Reports: with Family Occupation: Retired ED ROS GENERAL - Review of Systems Review Of Systems: Comprehensive ROS is negative, except as noted in HPI. ED EXAM, GENERAL - Physical Exam Exam: See Below Exam Limited By: No Limitations General Appearance: Alert, Moderate Distress Eye Exam: Bilateral Eye: Normal Inspection, PERRL Ears: Normal External Exam, Normal Canal, Hearing Grossly Normal, Normal TMs Nose: Normal Inspection, Normal Mucosa, No Blood Throat/Mouth: Normal Inspection, Normal Lips, Normal Teeth, Normal Gums, Normal Oropharynx, Normal Voice, No Airway Compromise Head: Atraumatic, Normocephalic Neck: Normal Inspection, Supple, Non-Tender, Full Range of Motion Respiratory/Chest: No Accessory Muscle Use, Chest Non-Tender, Crackles, Rhonchi , Wheezing Cardiovascular: Normal Peripheral Pulses, No Gallop, No JVD, No Murmur Peripheral Pulses: 2+: Posterior Tibial (L), Posterior Tibial (R), Dorsalis Pedis (L), Dorsalis Pedis (R) GI/Abdominal: Normal Bowel Sounds, Soft, Non-Tender, No Organomegaly, No Distention, No Abnormal Bruit, No Mass (Female) Exam: Deferred Rectal (Female) Exam: Deferred Extremities: Normal Range of Motion, Normal Capillary Refill, Pedal Edema ( Bilateral 1 + pitting) Neurological: Alert, Oriented Psychiatric: Normal Affect, Normal Mood Skin Exam: Warm, Intact Lymphatic: No Adenopathy Course - Vital Signs Last Recorded V/S: Last Vital Signs Temp 97.7 F 09/14/19 10:39 Pulse 95 09/14/19 10:39 Resp 18 09/14/19 10:39 BP 141/88 H 09/14/19 10:39 Pulse Ox 95 09/14/19 10:39 - Orders/Labs/Meds Orders: Active Orders 24 hr Category Date Time Status EKG 12 Lead [EKG Documentation Completion] [RC] URGENT Care 09/14/19 11:02 Active RT Aerosol Therapy [RC] ASDIRECTED Care 09/14/19 11:03 Active Labs: Laboratory Tests 09/14/19 09/14/19 Range/Units 10:47 10:47 WBC 10.3 H (5.0-10.0) 10^3/uL RBC 3.55 L (4.2-5.4) 10^6/uL Hgb 11.4 L (12.0-16.0) g/dL Hct 34.6 L (37.0-47.0) % MCV 97.5 (80-100) fL MCH 32.1 (27.0-34.0) pg MCHC 32.9 L (33.0-35.0) g/dL Plt Count 267 (150-450) 10^3/uL Neut % (Auto) 71.6 (42.2-75.2) % Lymph % (Auto) 20.0 L (20.5-50.1) % [place] % (Auto) 5.9 (2-8) % Eos % (Auto) 2.1 (1.0-3.0) % Baso % (Auto) 0.4 (0.0-1.0) % Sodium 140 (135-145) mmol/L Potassium 3.3 L (3.6-5.0) mmol/L Chloride 102 (101-111) mmol/L Carbon Dioxide 27.0 (21.0-31.0) mmol/L Anion Gap 14.3 BUN 17 D (7-18) mg/dL Creatinine 1.6 H (0.6-1.3) mg/dL Est Cr Clr Drug Dosing 25.83 mL/min Estimated GFR (MDRD) 31 BUN/Creatinine Ratio 10.62 Glucose 87 (74-105) mg/dL Calcium 9.1 (8.4-10.2) mg/dl Total Bilirubin 0.8 (0.2-1.0) mg/dL AST 20 (10-42) IU/L ALT 13 (10-60) IU/L Alkaline Phosphatase 53 (42-121) IU/L Troponin I 0.04 H* (0.00-0.02) ng/ml B-Natriuretic Peptide 451 H (0-100) pg/ml Total Protein 6.6 L (6.7-8.2) g/dl Albumin 3.7 (3.2-5.5) g/dl Globulin 2.9 Albumin/Globulin Ratio 1.28 Meds: Medications Discontinued Medications Generic Name Dose Route Start Last Admin Trade Name Freq PRN Reason Stop Dose Admin Albuterol/Ipratropium 3 ml 09/14/19 11:03 09/14/19 11:08 Duoneb 3.0-0.5 Mg/3 Ml NEB 09/14/19 11:04 3 ml ONETIME ONE Administration - Radiology Interpretation Free Text/Narrative:: chest xray: No acute findings. - Re-Assessments/Exams Free Text/Narrative Re-Assessment/Exam: Patient administered DuoNeb with some relief. Reviewed Labs, chest xray and EKG results with patient. Consulted [facility] call and patient was accepted for transfer for an NSTEMI. Patient in agreement to transfer and was transported by ambulance Departure - Departure Time of Disposition: 12:13 Disposition: DC/Tfer to Critical Access 66 Condition: Fair Clinical Impression: Hypokalemia, NSTEMI (non-ST elevated myocardial infarction) CHF (congestive heart failure) Qualifiers: Heart failure type: unspecified Heart failure chronicity: chronic Qualified Code(s): I50.9 - Heart failure, unspecified - Discharge Information *PRESCRIPTION DRUG MONITORING PROGRAM REVIEWED*: Not Applicable *COPY OF PRESCRIPTION DRUG MONITORING REPORT IN PATIENT CATRACHO: Not Applicable Referrals: PCP,Unobtain [Primary Care Provider] - Forms: ED Department Discharge, Interfacility Transfer EMTALA Sepsis Event Note - Evaluation Sepsis Screening Result: No Definite Risk - Focused Exam Vital Signs: Vital Signs Temp Pulse Resp BP Pulse Ox 09/14/19 10:39 97.7 F 95 18 141/88 H 95 Date Exam was Performed: 09/14/19 Time Exam was Performed: 16:01 - My Orders Last 24 Hours: My Active Orders 09/14/19 11:02 EKG 12 Lead [EKG Documentation Completion] [RC] URGENT 09/14/19 11:03 RT Aerosol Therapy [RC] ASDIRECTED - Assessment/Plan Last 24 Hours: My Active Orders 09/14/19 11:02 EKG 12 Lead [EKG Documentation Completion] [RC] URGENT 09/14/19 11:03 RT Aerosol Therapy [RC] ASDIRECTED
== END 2019-09-14 12:30 | disposition critical access hospital (66) ==
LOC: DL.ED 10:27
DX: I21.4 Non-ST elevation (NSTEMI) myocardial infarction (principal); I11.0 Hypertensive heart disease with heart failure; I50.9 Heart failure, unspecified; E87.6 Hypokalemia; J44.9 Chronic obstructive pulmonary disease, unspecified; M06.9 Rheumatoid arthritis, unspecified; E66.9 Obesity, unspecified; E03.9 Hypothyroidism, unspecified; F17.210 Nicotine dependence, cigarettes, uncomplicated; Z88.0 Allergy status to penicillin; Z88.1 Allergy status to other antibiotic agents; Z79.82 Long term (current) use of aspirin; Z79.899 Other long term (current) drug therapy; Z90.49 Acquired absence of other specified parts of digestive tract; Z98.51 Tubal ligation status
CPT/HCPCS: 36415; 71046; 80053; 83880; 84484; 85025; 93005; 94640; 99284; 99285-25; J7620-GY

== ENCOUNTER 2019-10-02 09:33 | Inpatient (IN) | payer MEDICARE ==
[2019-10-02] MEDS ORDERED: methylPREDNISolone Sodium Succinate 125 MG/2 ML SDV IVPUSH ONE (09:48)
[2019-10-02] MEDS ORDERED: Albuterol/Ipratropium 3.0-0.5 MG/3 ML Neb Soln NEB ONE (09:48)
[2019-10-02] MEDS: Sodium Chloride 0.9% 10 ML Syringe FLUSH PRN ×3 (10:01→22:20)
--- NOTE | 2019-10-02 10:24 | EDM.PDOC ---
ED HPI GENERAL MEDICAL PROBLEM - General Chief Complaint: Respiratory Problem Stated Complaint: AMBULANCE Time Seen by Provider: 10/02/19 09:55 Source of Information: Reports: Patient, EMS, Old Records, RN, RN Notes Reviewed History Limitations: Reports: No Limitations - History of Present Illness INITIAL COMMENTS - FREE TEXT/NARRATIVE: Pt arrives from home by ambulance with c/o progressively worsening shortness of breath. She has Hx of COPD and CHF. Pt is continuous home oxygen dependent at 3L /min. Pt arrived able to speak in full sentences, but states has increased shortness of breath at rest, and significantly so with even light exertion. She states she has white creamy sputum. Denies any fever, however there is a child in her family that has been diagnosed with influenza in the last two weeks. She denies nausea, vomiting, chest pain, edema, or syncope. She has been trying to quit smoking, but admits she has been sneaking cigarettes. States when she was discharged from the hospital last month she was down 10 pounds and has been steadily gaining a pound a day until this morning. She states she has gained 3 pounds since 0300HRS this morning. 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 - Related Data Allergies Allergy/AdvReac Type Severity Reaction Status Date / Time amlodipine [From Norvasc] Allergy Cannot Verified 10/02/19 09:39 Remember cetirizine [From Zyrtec] Allergy Abdominal Verified 10/02/19 09:39 Pain Penicillins Allergy Rash Verified 10/02/19 09:39 simvastatin [From Zocor] Allergy Cannot Verified 10/02/19 09:39 Remember Home Meds: Home Meds Albuterol Sulfate [Proventil Hfa] 2 puff IH Q4HR PRN 10/21/16 [History] Metoprolol Tartrate 25 mg PO BID 04/03/17 [History] Albuterol [IJD: Albuterol] 3 ml INH Q4HR PRN 12/24/17 [History] Albuterol/Ipratropium [DuoNeb 3.0-0.5 MG/3 ML] 3 ml NEB ,06,10,14,18,22 [History] Aspirin 81 mg PO DAILY 01/08/19 [History] Levothyroxine 75 mcg PO ACBREAKFAST 05/03/19 [History] predniSONE [Prednisone] 2.5 mg PO DAILY 05/03/19 [History] Omeprazole 20 mg PO DAILY 07/29/19 [History] glipiZIDE [Glucotrol] 5 mg PO BID 30 Days #60 tablet 08/05/19 [Rx] Furosemide [Lasix] 40 mg PO BID 10/02/19 [History] Spironolactone [Aldactone] 25 mg PO DAILY 10/02/19 [History] Past Medical History HEENT History: Reports: Cataract, Impaired Vision, Macular Degeneration, Other ( See Below) Other HEENT History: wears glasses Cardiovascular History: Reports: Aneurysm, Heart Failure, Hypertension, CT, SOB on Exertion Other Cardiovascular History: November 29, 2000 ([place]) Respiratory History: Reports: COPD, SOB Gastrointestinal History: Reports: Chronic Diarrhea Genitourinary History: Reports: Urinary Incontinence 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 Musculoskeletal History: Reports: Fracture, RA Other Musculoskeletal History: skull, collarbone Neurological History: Reports: None Psychiatric History: Reports: Anxiety, Depression Endocrine/Metabolic History: Reports: Hypothyroidism, Obesity/BMI 30+ Hematologic History: Reports: None Immunologic History: Reports: None Oncologic (Cancer) History: Reports: Other (See Below) Other Oncologic History: simple vulvectomy - cancer Dermatologic History: Reports: None - Infectious Disease History Infectious Disease History: Reports: Chicken Pox, Measles, Mumps - Past Surgical History Head Surgeries/Procedures: Reports: None HEENT Surgical History: Reports: None Cardiovascular Surgical History: Reports: None Respiratory Surgical History: Reports: None GI Surgical History: Reports: Appendectomy, Cholecystectomy Female Surgical History: Reports: Tubal Ligation, Other (See Below) Other Female Surgeries/Procedures: simple vulvectomy Endocrine Surgical History: Reports: Thyroidectomy Neurological Surgical History: Reports: None Musculoskeletal Surgical History: Reports: None Social & Family History - Family History Family Medical History: Noncontributory Cardiac: Reports: CT Respiratory: Reports: COPD Neurological: Reports: CVA - Tobacco Use Smoking Status *Q: Current Every Day Smoker Years of Tobacco use: 60 Packs/Tins Daily: 0.2 - Caffeine Use Caffeine Use: Reports: Coffee Other Caffeine Use: 1 cup/day - Recreational Drug Use Recreational Drug Use: No - Living Situation & Occupation Living situation: Reports: with Family Occupation: Retired ED ROS GENERAL - Review of Systems Review Of Systems: Comprehensive ROS is negative, except as noted in HPI. ED EXAM, GENERAL - Physical Exam Exam: See Below Exam Limited By: No Limitations General Appearance: Alert, No Apparent Distress, Anxious, Obese, Other ( Chronically ill appearing) Eye Exam: Bilateral Eye: Normal Inspection Nose: Normal Inspection, Normal Mucosa, No Blood Throat/Mouth: Normal Inspection, Normal Lips, Normal Oropharynx, Normal Voice, No Airway Compromise Head: Atraumatic, Normocephalic Neck: Normal Inspection, Supple, Non-Tender, Full Range of Motion Respiratory/Chest: No Respiratory Distress, No Accessory Muscle Use, Chest Non- Tender, Decreased Breath Sounds, Crackles, Wheezing (mild). No: Rales, Rhonchi , Stridor Cardiovascular: Regular Rate, Rhythm, No Edema, No Murmur GI/Abdominal: Normal Bowel Sounds, Soft, Non-Tender Back Exam: Normal Inspection Extremities: Normal Inspection, Normal Range of Motion, Non-Tender, Normal Capillary Refill, No Pedal Edema Neurological: Alert, Oriented, CN II-XII Intact, Normal Cognition, No Motor/ Sensory Deficits Psychiatric: Anxious Skin Exam: Warm, Dry, Intact, Normal Color, No Rash EKG INTERPRETATION EKG Date: 10/02/19 Time: 09:55 Rhythm: Other (SR) Rate (Beats/Min): 64 Ovid: Normal P-Wave: Present QRS: Wide (nonspecific IVCD) ST-T: Normal QT: Normal Comparison: No Change Course - Vital Signs Last Recorded V/S: Last Vital Signs Temp 97.8 F 10/02/19 09:50 Pulse 64 10/02/19 09:50 Resp 20 10/02/19 09:50 BP 113/79 10/02/19 09:50 Pulse Ox 99 10/02/19 09:50 Pt drops oxygen saturations to high 80%'s with minimal exertion. - Orders/Labs/Meds Orders: Active Orders 24 hr Category Date Time Status EKG 12 Lead [EKG Documentation Completion] [RC] STAT Care 10/02/19 09:46 Active Peripheral IV Care [RC] . DIRECTED Care 10/02/19 09:47 Active RT Aerosol Therapy [RC] ASDIRECTED Care 10/02/19 09:48 Active INFLUENZA A+B AG SCREEN [RM] Stat Lab 10/02/19 09:38 Received Sodium Chloride 0.9% [Saline Flush] Med 10/02/19 09:46 Active 10 ml FLUSH ASDIRECTED PRN Peripheral IV Insertion Adult [OM.PC] Stat Oth 10/02/19 09:46 Ordered Medication Orders Sodium Chloride (Saline Flush) 10 ml FLUSH ASDIRECTED PRN PRN Reason: Keep Vein Open Last Admin: 10/02/19 10:01 Dose: 10 ml Labs: Laboratory Tests 10/02/19 10/02/19 Range/Units 10:00 10:00 WBC 12.2 H (5.0-10.0) 10^3/uL RBC 3.67 L (4.2-5.4) 10^6/uL Hgb 11.6 L D (12.0-16.0) g/dL Hct 35.2 L (37.0-47.0) % MCV 95.9 (80-100) fL MCH 31.6 (27.0-34.0) pg MCHC 33.0 (33.0-35.0) g/dL Plt Count 174 D (150-450) 10^3/uL Neut % (Auto) 85.1 H (42.2-75.2) % Lymph % (Auto) 8.9 L (20.5-50.1) % [place] % (Auto) 4.8 (2-8) % Eos % (Auto) 1.0 (1.0-3.0) % Baso % (Auto) 0.2 (0.0-1.0) % Sodium 136 (135-145) mmol/L Potassium 3.2 L (3.6-5.0) mmol/L Chloride 97 L (101-111) mmol/L Carbon Dioxide 27.0 (21.0-31.0) mmol/L Anion Gap 15.2 BUN 19 H D (7-18) mg/dL Creatinine 1.7 H (0.6-1.3) mg/dL Est Cr Clr Drug Dosing TNP Estimated GFR (MDRD) 29 BUN/Creatinine Ratio 11.17 Glucose 191 H (74-105) mg/dL Calcium 8.7 (8.4-10.2) mg/dl Total Bilirubin 0.8 (0.2-1.0) mg/dL AST 19 (10-42) IU/L ALT 17 (10-60) IU/L Alkaline Phosphatase 51 (42-121) IU/L Troponin I 0.05 H* (0.00-0.02) ng/ml B-Natriuretic Peptide 377 H (0-100) pg/ml Total Protein 6.1 L (6.7-8.2) g/dl Albumin 3.4 (3.2-5.5) g/dl Globulin 2.7 Albumin/Globulin Ratio 1.26 Meds: Medications Generic Name Dose Route Start Last Admin Trade Name Freq PRN Reason Stop Dose Admin Sodium Chloride 10 ml 10/02/19 09:46 10/02/19 10:01 Saline Flush FLUSH 10 ml ASDIRECTED PRN Administration Keep Vein Open Discontinued Medications Generic Name Dose Route Start Last Admin Trade Name Freq PRN Reason Stop Dose Admin Albuterol/Ipratropium 3 ml 10/02/19 09:48 10/02/19 10:01 Duoneb 3.0-0.5 Mg/3 Ml NEB 10/02/19 09:49 3 ml ONETIME ONE Administration Methylprednisolone Sodium Succinate 125 mg 10/02/19 09:48 10/02/19 10:00 Solu-Medrol IVPUSH 10/02/19 09:49 125 mg ONETIME ONE Administration - Radiology Interpretation Free Text/Narrative:: [facility] Final Radiology Report Call: [phone] assistance Online chat: [email or web address] Name: ELKIN ALFRED Age: 74Years F Date: 10/02/2019 SSN: -- : 1945 Study: XR CHEST 1 VIEW FRONTAL Requesting Physician: NOEL KLEIN Images: 1 Addl Studies: Provided Clinical History: Contrast: Contrast Medium: Contrast Amount: Contrast Method: CONFIDENTIALITY STATEMENT This report is intended only for use by the referring physician, and only in accordance with law. If you received this in error, call [phone]. Page 1 of 1 PROCEDURE INFORMATION: Exam: XR Chest, 1 View Exam date and time: 10/02/2019 10:21 AM Age: 74 years old Clinical indication: Shortness of breath TECHNIQUE: Imaging protocol: XR of the chest Views: 1 view. COMPARISON: CR Chest 2V 09/14/2019 11:38 AM FINDINGS: Lungs: No consolidation. Pleural space: No significant pleural effusion. No pneumothorax. Heart/Mediastinum: Stable cardiomegaly. Vasculature: Unfolding of the thoracic aorta consistent with atherosclerotic vascular changes. Bones/joints: No acute fracture. Chronic osseous changes. IMPRESSION: Stable cardiomegaly. No consolidation. No pleural effusion. No pneumothorax. Unfolding of the thoracic aorta consistent with atherosclerotic vascular changes. Thank you for allowing us to participate in the care of your patient. Dictated and Authenticated by: Moses Bunch MD 10/02/2019 10:57 AM Central Time ([place] & [place]) Departure - Departure Time of Disposition: 11:05 (admitted pt to Dr. Arroyo) Disposition: Admitted As Inpatient 66 Condition: Fair Clinical Impression: Acute exacerbation of chronic obstructive pulmonary disease (COPD) CHF (congestive heart failure) Qualifiers: Heart failure type: unspecified Heart failure chronicity: acute on chronic Qualified Code(s): I50.9 - Heart failure, unspecified - Discharge Information *PRESCRIPTION DRUG MONITORING PROGRAM REVIEWED*: Not Applicable *COPY OF PRESCRIPTION DRUG MONITORING REPORT IN PATIENT CATRACHO: Not Applicable Forms: ED Department Discharge Sepsis Event Note - Evaluation Sepsis Screening Result: No Definite Risk - Focused Exam Vital Signs: Vital Signs Temp Pulse Resp BP Pulse Ox Pulse Ox 10/02/19 09:50 97.8 F 64 20 113/79 99 10/02/19 09:48 66 99 Date Exam was Performed: 10/02/19 Time Exam was Performed: 11:03 - My Orders Last 24 Hours: My Active Orders 10/02/19 09:38 INFLUENZA A+B AG SCREEN [RM] Stat 10/02/19 09:46 EKG 12 Lead [EKG Documentation Completion] [RC] STAT Sodium Chloride 0.9% [Saline Flush] 10 ml FLUSH ASDIRECTED PRN Peripheral IV Insertion Adult [OM.PC] Stat 10/02/19 09:47 Peripheral IV Care [RC] . DIRECTED 10/02/19 09:48 RT Aerosol Therapy [RC] ASDIRECTED - Assessment/Plan Last 24 Hours: My Active Orders 10/02/19 09:38 INFLUENZA A+B AG SCREEN [RM] Stat 10/02/19 09:46 EKG 12 Lead [EKG Documentation Completion] [RC] STAT Sodium Chloride 0.9% [Saline Flush] 10 ml FLUSH ASDIRECTED PRN Peripheral IV Insertion Adult [OM.PC] Stat 10/02/19 09:47 Peripheral IV Care [RC] . DIRECTED 10/02/19 09:48 RT Aerosol Therapy [RC] ASDIRECTED
[2019-10-02 10:29] LABS: ANION GAP 15.2; CHLORIDE,CL 97 mmol/L (101-111); SODIUM,NA 136 mmol/L (135-145)
--- NOTE | 2019-10-02 11:32 | PCM.HP ---
H&P History of Present Illness - General Date of Service: 10/02/19 Admit Problem/Dx: Admission Diagnosis/Problem Admission Diagnosis/Problem CHF, Congestive heart failure - History of Present Illness Initial Comments - Free Text/Narative: Ms. Fuller is a 74 yo female with past medical history significant for diastolic heart failure, hypothyroidism, COPD, coronary artery disease, type 2 diabetes, tobacco abuse who presented to the hospital with acute on chronic hypoxic respiratory failure. Patient said that over the past 3 to 4 days, she noticed that her urine output has been decreasing. Patient ate a salt load yesterday, and last night, she had difficult time catching her breath. Patient said that she sleeps on 2 pillows, and elevates her legs at night, but she was unable to sleep last night due to shortness of breath. She was sent to the emergency room for further care. In the ED, patient was hemodynamically stable , afebrile, slightly tachycardic. Chest x-ray showed vascular congestion labs reviewed by me. She received IV Solu-Medrol and breathing treatment. On interview, patient said that she continues to smoke approximately 5 cigarettes daily. No recent sick contacts. No change in frequency, or quality of cough. No sputum production. - Related Data Allergies/Adverse Reactions: Allergies Allergy/AdvReac Type Severity Reaction Status Date / Time amlodipine [From Norvasc] Allergy Cannot Verified 10/02/19 09:39 Remember cetirizine [From Zyrtec] Allergy Abdominal Verified 10/02/19 09:39 Pain Penicillins Allergy Rash Verified 10/02/19 09:39 simvastatin [From Zocor] Allergy Cannot Verified 10/02/19 09:39 Remember Home Medications: Home Meds Albuterol Sulfate [Proventil Hfa] 2 puff IH Q4HR PRN 10/21/16 [History] Metoprolol Tartrate 25 mg PO BID 04/03/17 [History] Albuterol [IJD: Albuterol] 3 ml INH Q4HR PRN 12/24/17 [History] Albuterol/Ipratropium [DuoNeb 3.0-0.5 MG/3 ML] 3 ml NEB 02,06,10,14,18,22 [History] Aspirin 81 mg PO DAILY 01/08/19 [History] Levothyroxine 75 mcg PO ACBREAKFAST 05/03/19 [History] predniSONE [Prednisone] 2.5 mg PO DAILY 05/03/19 [History] Omeprazole 20 mg PO DAILY 07/29/19 [History] glipiZIDE [Glucotrol] 5 mg PO BID 30 Days #60 tablet 08/05/19 [Rx] Furosemide [Lasix] 40 mg PO BID 10/02/19 [History] Spironolactone [Aldactone] 25 mg PO DAILY 10/02/19 [History] Past Medical History HEENT History: Reports: Cataract, Impaired Vision, Macular Degeneration, Other ( See Below) Other HEENT History: wears glasses Cardiovascular History: Reports: Aneurysm, Heart Failure, Hypertension, [place], SOB on Exertion Other Cardiovascular History: November 29, 2000 ([place]) Respiratory History: Reports: COPD, SOB Gastrointestinal History: Reports: Chronic Diarrhea Genitourinary History: Reports: Urinary Incontinence FLAME BURNER History: Reports: Other OB/BYN History: 5 kids Musculoskeletal History: Reports: Fracture, RA Other Musculoskeletal History: skull, collarbone Neurological History: Reports: None Psychiatric History: Reports: Anxiety, Depression Endocrine/Metabolic History: Reports: Hypothyroidism, Obesity/BMI 30+ Hematologic History: Reports: None Immunologic History: Reports: None Oncologic (Cancer) History: Reports: Other (See Below) Other Oncologic History: simple vulvectomy - cancer Dermatologic History: Reports: None - Infectious Disease History Infectious Disease History: Reports: Chicken Pox, Measles, Mumps - Past Surgical History Head Surgeries/Procedures: Reports: None HEENT Surgical History: Reports: None Cardiovascular Surgical History: Reports: None Respiratory Surgical History: Reports: None GI Surgical History: Reports: Appendectomy, Cholecystectomy Female Surgical History: Reports: Tubal Ligation, Other (See Below) Other Female Surgeries/Procedures: simple vulvectomy Endocrine Surgical History: Reports: Thyroidectomy Neurological Surgical History: Reports: None Musculoskeletal Surgical History: Reports: None Social & Family History - Family History Family Medical History: Noncontributory Cardiac: Reports: [place] Respiratory: Reports: COPD Neurological: Reports: CVA - Tobacco Use Smoking Status *Q: Current Every Day Smoker Years of Tobacco use: 60 Packs/Tins Daily: 0.2 - Caffeine Use Caffeine Use: Reports: Coffee Other Caffeine Use: 1 cup/day - Recreational Drug Use Recreational Drug Use: No - Living Situation & Occupation Living situation: Reports: with Family Occupation: Retired H&P Review of Systems - Review of Systems: Review Of Systems: See Below General: Reports: No Symptoms HEENT: Reports: No Symptoms Pulmonary: Reports: Shortness of Breath, Cough Cardiovascular: Reports: Dyspnea on Exertion, Orthopnea. Denies: Chest Pain, Palpitations, Edema Gastrointestinal: Reports: No Symptoms Genitourinary: Reports: No Symptoms Musculoskeletal: Reports: No Symptoms Skin: Reports: No Symptoms Exam - Exam Exam: See Below - Vital Signs Vital Signs: Last Vital Signs Temp 36.6 C 10/02/19 09:50 Pulse 64 10/02/19 09:50 Resp 20 10/02/19 09:50 BP 113/79 10/02/19 09:50 Pulse Ox 99 10/02/19 09:50 Weight: 91.762 kg - Exam General: Alert, Oriented HEENT: Conjunctiva Clear, EOMI Neck: Supple Lungs: Normal Respiratory Effort, Decreased Breath Sounds (Over bases), Crackles Cardiovascular: Regular Rate, Regular Rhythm GI/Abdominal Exam: Normal Bowel Sounds, Soft, Non-Tender Extremities: Normal Inspection, Pedal Edema (Faint) Skin: Warm, Dry, Intact Psychiatric: Alert, Normal Affect, Normal Mood - Patient Data Lab Results Last 24 hrs: Laboratory Results - last 24 hr 10/02/19 10/02/19 Range/Units 10:00 10:00 WBC 12.2 H (5.0-10.0) 10^3/uL RBC 3.67 L (4.2-5.4) 10^6/uL Hgb 11.6 L D (12.0-16.0) g/dL Hct 35.2 L (37.0-47.0) % MCV 95.9 (80-100) fL MCH 31.6 (27.0-34.0) pg MCHC 33.0 (33.0-35.0) g/dL Plt Count 174 D (150-450) 10^3/uL Neut % (Auto) 85.1 H (42.2-75.2) % Lymph % (Auto) 8.9 L (20.5-50.1) % [place] % (Auto) 4.8 (2-8) % Eos % (Auto) 1.0 (1.0-3.0) % Baso % (Auto) 0.2 (0.0-1.0) % Sodium 136 (135-145) mmol/L Potassium 3.2 L (3.6-5.0) mmol/L Chloride 97 L (101-111) mmol/L Carbon Dioxide 27.0 (21.0-31.0) mmol/L Anion Gap 15.2 BUN 19 H D (7-18) mg/dL Creatinine 1.7 H (0.6-1.3) mg/dL Est Cr Clr Drug Dosing TNP Estimated GFR (MDRD) 29 BUN/Creatinine Ratio 11.17 Glucose 191 H (74-105) mg/dL Calcium 8.7 (8.4-10.2) mg/dl Total Bilirubin 0.8 (0.2-1.0) mg/dL AST 19 (10-42) IU/L ALT 17 (10-60) IU/L Alkaline Phosphatase 51 (42-121) IU/L Troponin I 0.05 H* (0.00-0.02) ng/ml B-Natriuretic Peptide 377 H (0-100) pg/ml Total Protein 6.1 L (6.7-8.2) g/dl Albumin 3.4 (3.2-5.5) g/dl Globulin 2.7 Albumin/Globulin Ratio 1.26 Result Diagrams: 10/02/19 10:00 10/02/19 10:00 Problem List Initiated/Reviewed/Updated: Yes Orders Last 24hrs: Active Orders 24 hr Category Date Time Status Admission Diagnosis [ADT] Routine ADT 10/02/19 11:09 Ordered Admission Status [Patient Status] [ADT] Routine ADT 10/02/19 11:09 Active EKG 12 Lead [EKG Documentation Completion] [RC] STAT Care 10/02/19 09:46 Active Peripheral IV Care [RC] . DIRECTED Care 10/02/19 09:47 Active RT Aerosol Therapy [RC] ASDIRECTED Care 10/02/19 09:48 Active INFLUENZA A+B AG SCREEN [RM] Stat Lab 10/02/19 09:38 Received Peripheral IV Insertion Adult [OM.PC] Stat Oth 10/02/19 09:46 Ordered Assessment/Plan Comment:: Acute congestive heart failure Start IV Lasix 40 mg twice daily Cont metoprolol Patient had a recent echo that showed EF 25 to 30% COPD/chronic hypoxic respiratory failure Chronic prednisone use continue home medications Continue home oxygen supplementation Coronary artery disease Continue aspirin, metoprolol Unclear why patient is not on statin Diabetes Treat with glipizide Glucose checks before meals at bedtime CKD stage III Monitor creatinine with IV Lasix Tobacco abuse Counseling provided We will give patient nicotine patch if requested Hypothyroidism Treat with synthroid DVT prophylaxis heparin
[2019-10-02] MEDS ORDERED: Albuterol 0.083% 2.5 MG/3 ML Neb Soln INH PRN (11:35)
[2019-10-02] MEDS ORDERED: Albuterol 6.7 GM Inhaler INH PRN (11:35)
[2019-10-02] MEDS ORDERED: Acetaminophen 325 MG Tab PO PRN (11:46)
[2019-10-02] MEDS ORDERED: Ondansetron 4 MG Tab.DIS PO PRN (11:46)
[2019-10-02] MEDS: Heparin Sodium 5,000 Units/ML Vial SUBCUT SCH ×2 (13:02→22:09)
[2019-10-02] MEDS: Furosemide 40 MG/4 ML VIAL IVPUSH SCH ×2 (13:03→22:12)
[2019-10-02] MEDS: Albuterol/Ipratropium 3.0-0.5 MG/3 ML Neb Soln NEB SCH ×3 (14:34→23:39)
[2019-10-02] MEDS: glipiZIDE 5 MG Tab PO SCH (16:01)
[2019-10-02] MEDS ORDERED: Potassium Chloride 10 MEQ Tab.ER PO ONE (17:53)
[2019-10-02] MEDS: Insulin Lispro 100 Units/ML 3 ML Vial SUBCUT SCH ×2 (18:24→22:07)
[2019-10-02] MEDS ORDERED: Metoprolol Tartrate 25 MG Tab PO SCH (21:00)
[2019-10-03] MEDS: Albuterol/Ipratropium 3.0-0.5 MG/3 ML Neb Soln NEB SCH ×6 (02:36→21:43)
[2019-10-03] MEDS: glipiZIDE 5 MG Tab PO SCH ×2 (05:26→17:01)
[2019-10-03] MEDS: Levothyroxine 75 MCG Tab PO SCH (05:26)
[2019-10-03] MEDS: Omeprazole 20 MG Cap.CR PO SCH (05:27)
[2019-10-03] MEDS: Heparin Sodium 5,000 Units/ML Vial SUBCUT SCH ×3 (05:34→21:55)
[2019-10-03 06:53] LABS: ANION GAP 17.3
[2019-10-03] MEDS ORDERED: predniSONE 5 MG Tab PO SCH (08:00)
[2019-10-03] MEDS: Sodium Chloride 0.9% 10 ML Syringe FLUSH PRN ×3 (08:42→22:06)
[2019-10-03] MEDS: Furosemide 40 MG/4 ML VIAL IVPUSH SCH ×2 (08:43→21:57)
[2019-10-03] MEDS: Insulin Lispro 100 Units/ML 3 ML Vial SUBCUT SCH ×4 (08:43→21:39)
[2019-10-03] MEDS: Spironolactone 25 MG Tab PO SCH (08:44)
[2019-10-03] MEDS: Aspirin 81 MG Tab.Chew PO SCH (08:44)
[2019-10-03] MEDS: Metoprolol Tartrate 25 MG Tab PO SCH (08:44)
[2019-10-03] MEDS: predniSONE 5 MG Tab PO SCH (08:45)
--- NOTE | 2019-10-03 09:49 | PCM.PN ---
- General Info Date of Service: 10/03/19 Admission Dx/Problem (Free Text): Admission Diagnosis/Problem Admission Diagnosis/Problem CHF, Congestive heart failure Subjective Update: patient continues to have orthopnea, but she feels better compared to yesterday. no nausea, vomiting, chest pain or abdominal pain. I spoke with patient regarding intake and instructed her that her water intake needs to be decreased. - Review of Systems General: Reports: No Symptoms Pulmonary: Reports: Wheezing Cardiovascular: Reports: Orthopnea - Patient Data Vitals - Most Recent: Last Vital Signs Temp 36.2 C 10/03/19 07:42 Pulse 80 10/03/19 08:44 Resp 20 10/03/19 07:42 BP 116/69 10/03/19 08:44 Pulse Ox 97 10/03/19 07:42 Weight - Most Recent: 92.669 kg I&O - Last 24 Hours: Intake & Output 10/02/19 10/03/19 10/03/19 22:59 06:59 14:59 Intake Total 540 300 Output Total 1700 1100 Balance -1160 300 -1100 Lab Results Last 24 Hours: Laboratory Results - last 24 hr 10/02/19 10/02/19 10/02/19 Range/Units 10:00 10:00 11:58 WBC 12.2 H (5.0-10.0) 10^3/uL RBC 3.67 L (4.2-5.4) 10^6/uL Hgb 11.6 L D (12.0-16.0) g/dL Hct 35.2 L (37.0-47.0) % MCV 95.9 (80-100) fL MCH 31.6 (27.0-34.0) pg MCHC 33.0 (33.0-35.0) g/dL Plt Count 174 D (150-450) 10^3/uL Neut % (Auto) 85.1 H (42.2-75.2) % Lymph % (Auto) 8.9 L (20.5-50.1) % [place] % (Auto) 4.8 (2-8) % Eos % (Auto) 1.0 (1.0-3.0) % Baso % (Auto) 0.2 (0.0-1.0) % Sodium 136 (135-145) mmol/L Potassium 3.2 L (3.6-5.0) mmol/L Chloride 97 L (101-111) mmol/L Carbon Dioxide 27.0 (21.0-31.0) mmol/L Anion Gap 15.2 BUN 19 H D (7-18) mg/dL Creatinine 1.7 H (0.6-1.3) mg/dL Est Cr Clr Drug Dosing TNP Estimated GFR (MDRD) 29 BUN/Creatinine Ratio 11.17 Glucose 191 H (74-105) mg/dL POC Glucose 182 H (83-110) mg/dl Calcium 8.7 (8.4-10.2) mg/dl Total Bilirubin 0.8 (0.2-1.0) mg/dL AST 19 (10-42) IU/L ALT 17 (10-60) IU/L Alkaline Phosphatase 51 (42-121) IU/L Creatine Kinase (26-174) IU/L Troponin I 0.05 H* (0.00-0.02) ng/ml B-Natriuretic Peptide 377 H (0-100) pg/ml Total Protein 6.1 L (6.7-8.2) g/dl Albumin 3.4 (3.2-5.5) g/dl Globulin 2.7 Albumin/Globulin Ratio 1.26 10/02/19 10/02/19 10/03/19 Range/Units 16:39 20:41 06:10 WBC 11.5 H (5.0-10.0) 10^3/uL RBC 3.68 L (4.2-5.4) 10^6/uL Hgb 11.7 L (12.0-16.0) g/dL Hct 35.4 L (37.0-47.0) % MCV 96.2 (80-100) fL MCH 31.8 (27.0-34.0) pg MCHC 33.1 (33.0-35.0) g/dL Plt Count 177 (150-450) 10^3/uL Neut % (Auto) 89.2 H (42.2-75.2) % Lymph % (Auto) 7.0 L (20.5-50.1) % [place] % (Auto) 3.8 (2-8) % Eos % (Auto) 0.0 L (1.0-3.0) % Baso % (Auto) 0.0 (0.0-1.0) % Sodium (135-145) mmol/L Potassium (3.6-5.0) mmol/L Chloride (101-111) mmol/L Carbon Dioxide (21.0-31.0) mmol/L Anion Gap BUN (7-18) mg/dL Creatinine (0.6-1.3) mg/dL Est Cr Clr Drug Dosing Estimated GFR (MDRD) BUN/Creatinine Ratio Glucose (74-105) mg/dL POC Glucose 312 H 314 H (83-110) mg/dl Calcium (8.4-10.2) mg/dl Total Bilirubin (0.2-1.0) mg/dL AST (10-42) IU/L ALT (10-60) IU/L Alkaline Phosphatase (42-121) IU/L Creatine Kinase (26-174) IU/L Troponin I (0.00-0.02) ng/ml B-Natriuretic Peptide (0-100) pg/ml Total Protein (6.7-8.2) g/dl Albumin (3.2-5.5) g/dl Globulin Albumin/Globulin Ratio 10/03/19 10/03/19 10/03/19 Range/Units 06:10 06:10 07:47 WBC (5.0-10.0) 10^3/uL RBC (4.2-5.4) 10^6/uL Hgb (12.0-16.0) g/dL Hct (37.0-47.0) % MCV (80-100) fL MCH (27.0-34.0) pg MCHC (33.0-35.0) g/dL Plt Count (150-450) 10^3/uL Neut % (Auto) (42.2-75.2) % Lymph % (Auto) (20.5-50.1) % [place] % (Auto) (2-8) % Eos % (Auto) (1.0-3.0) % Baso % (Auto) (0.0-1.0) % Sodium 136 (135-145) mmol/L Potassium 4.3 (3.6-5.0) mmol/L Chloride 95 L (101-111) mmol/L Carbon Dioxide 28.0 (21.0-31.0) mmol/L Anion Gap 17.3 BUN 34 H (7-18) mg/dL Creatinine 2.0 H (0.6-1.3) mg/dL Est Cr Clr Drug Dosing 20.66 Estimated GFR (MDRD) 24 BUN/Creatinine Ratio Glucose 196 H (74-105) mg/dL POC Glucose 170 H (83-110) mg/dl Calcium 9.2 (8.4-10.2) mg/dl Total Bilirubin (0.2-1.0) mg/dL AST (10-42) IU/L ALT (10-60) IU/L Alkaline Phosphatase (42-121) IU/L Creatine Kinase 27 (26-174) IU/L Troponin I (0.00-0.02) ng/ml B-Natriuretic Peptide (0-100) pg/ml Total Protein (6.7-8.2) g/dl Albumin (3.2-5.5) g/dl Globulin Albumin/Globulin Ratio Kamran Results Last 24 Hours: Microbiology 10/02/19 09:38 Influenza Type A Antigen Screen - Final Nasal, Unspecified NEGATIVE INFLUENZA A VIRUS AG REFERENCE RANGE: NEGATIVE Influenza Type B Antigen Screen - Final NEGATIVE INFLUENZA B VIRUS AG REFERENCE RANGE: NEGATIVE Med Orders - Current: Current Medications Acetaminophen (Tylenol) 650 mg PO Q4H PRN PRN Reason: Pain (Mild 1-3)/fever Albuterol (Proventil Neb Soln) 2.5 mg INH Q4HR PRN PRN Reason: Shortness of Breath Albuterol (Proventil Hfa) 0 gm INH Q4HR PRN PRN Reason: Shortness of Breath Albuterol/Ipratropium (Duoneb 3.0-0.5 Mg/3 Ml) 3 ml NEB 02,06,10,14,18,22 [facility] Last Admin: 10/03/19 05:34 Dose: 3 ml Aspirin (Aspirin) 81 mg PO DAILY [facility] Last Admin: 10/03/19 08:44 Dose: 81 mg Furosemide (Lasix) 40 mg IVPUSH BID [facility] Last Admin: 10/03/19 08:43 Dose: 40 mg Glipizide (Glucotrol) 5 mg PO BIDAC [facility] Last Admin: 10/03/19 05:26 Dose: 5 mg Heparin Sodium (Porcine) (Heparin Sodium) 5,000 units SUBCUT Q8HR [facility] Last Admin: 10/03/19 05:34 Dose: 5,000 units Insulin Human Lispro (Humalog) 0 unit SUBCUT WITHMEALSANDBED [facility]; Protocol Last Admin: 10/03/19 08:43 Dose: 2 units Levothyroxine Sodium (Levothyroxine) 75 mcg PO ACBREAKFAST [facility] Last Admin: 10/03/19 05:26 Dose: 75 mcg Metoprolol Tartrate (Lopressor) 25 mg PO DAILY [facility] Last Admin: 10/03/19 08:44 Dose: 25 mg Omeprazole (Omeprazole) 20 mg PO ACBRK [facility] Last Admin: 10/03/19 05:27 Dose: 20 mg Ondansetron HCl (Zofran Odt) 4 mg PO Q4H PRN PRN Reason: nausea, able to take PO Prednisone (Prednisone) 5 mg PO WITHBREAKFAST [facility] Last Admin: 10/03/19 08:45 Dose: 5 mg Spironolactone (Aldactone) 25 mg PO DAILY [facility] Last Admin: 10/03/19 08:44 Dose: 25 mg Discontinued Medications Albuterol/Ipratropium (Duoneb 3.0-0.5 Mg/3 Ml) 3 ml NEB ONETIME ONE Stop: 10/02/19 09:49 Last Admin: 10/02/19 10:01 Dose: 3 ml Methylprednisolone Sodium Succinate (Solu-Medrol) 125 mg IVPUSH ONETIME ONE Stop: 10/02/19 09:49 Last Admin: 10/02/19 10:00 Dose: 125 mg Metoprolol Tartrate (Lopressor) 25 mg PO BID [facility] Potassium Chloride (Klor-Con 10) 40 meq PO ONETIME ONE Stop: 10/02/19 17:54 Last Admin: 10/02/19 18:23 Dose: 40 meq Prednisone (Prednisone) 2.5 mg PO DAILY@0800 [facility] Sodium Chloride (Saline Flush) 10 ml FLUSH ASDIRECTED PRN PRN Reason: Keep Vein Open Last Admin: 10/03/19 08:42 Dose: 10 ml - Exam General: Alert, Oriented Lungs: Decreased Breath Sounds, Wheezing Cardiovascular: Regular Rate, Regular Rhythm GI/Abdominal Exam: Normal Bowel Sounds, Soft, Non-Tender, No Distention Extremities: No Pedal Edema Skin: Warm, Dry, Intact Neurological: No New Focal Deficit Psy/Mental Status: Alert, Normal Affect, Normal Mood Sepsis Event Note - Evaluation Sepsis Screening Result: No Definite Risk - Focused Exam Vital Signs: Vital Signs Temp Pulse Pulse Resp BP BP BP 10/03/19 08:44 80 116/69 10/03/19 07:42 36.2 C 80 20 116/69 10/03/19 05:34 74 10/03/19 02:36 76 10/02/19 23:00 35.7 C 78 20 146/60 H Pulse Ox Pulse Ox 10/03/19 08:44 10/03/19 07:42 97 10/03/19 05:34 99 10/03/19 02:36 98 10/02/19 23:00 96 Date Exam was Performed: 10/03/19 Time Exam was Performed: 10:28 - Problem List Review Problem List Initiated/Reviewed/Updated: Yes - My Orders Last 24 Hours: My Active Orders 10/02/19 11:35 Albuterol [Proventil HFA] 0 gm INH Q4HR PRN Albuterol [Proventil Neb Soln] 2.5 mg INH Q4HR PRN 10/02/19 11:46 Blood Glucose Check, Bedside [RC] WITHMEALSANDBED Acetaminophen [Tylenol] 650 mg PO Q4H PRN Ondansetron [Zofran ODT] 4 mg PO Q4H PRN Resuscitation Status Routine 10/02/19 11:47 Oxygen Therapy [RC] 09,21 VTE/DVT Education [RC] 09,21 Vital Signs [RC] 07,11,15,19,23,03 10/02/19 12:00 Furosemide [Lasix] 40 mg IVPUSH BID 10/02/19 14:00 Albuterol/Ipratropium [DuoNeb 3.0-0.5 MG/3 ML] 3 ml NEB 02,,,14,18,22 Heparin Sodium 5,000 units SUBCUT Q8HR 10/02/19 16:00 glipiZIDE [Glucotrol] 5 mg PO BIDAC 10/02/19 18:00 Insulin Lispro [HumaLOG] See Protocol SUBCUT WITHMEALSANDBED 10/02/19 Lunch 2 Gram Sodium Diet [DIET] 10/03/19 06:00 Levothyroxine 75 mcg PO ACBREAKFAST Omeprazole 20 mg PO ACBRK 10/03/19 08:00 predniSONE 5 mg PO WITHBREAKFAST 10/03/19 09:00 Aspirin 81 mg PO DAILY Metoprolol Tartrate [Lopressor] 25 mg PO DAILY Spironolactone [Aldactone] 25 mg PO DAILY 10/04/19 05:11 BASIC METABOLIC PANEL,BMP [CHEM] AM CBC WITH AUTO DIFF [HEME] AM - Plan Plan:: Acute congestive heart failure continue IV Lasix 40 mg twice daily Cont metoprolol Patient had a recent echo that showed EF 25 to 30% troponin was likely type II NSTEMI COPD/chronic hypoxic respiratory failure Chronic prednisone use continue home medications Continue home oxygen supplementation Coronary artery disease Continue aspirin, metoprolol Unclear why patient is not on statin Diabetes Treat with glipizide Glucose checks before meals at bedtime CKD stage III Monitor creatinine with IV Lasix Tobacco abuse Counseling provided We will give patient nicotine patch if requested Hypothyroidism Treat with synthroid DVT prophylaxis heparin
[2019-10-04] MEDS: Albuterol/Ipratropium 3.0-0.5 MG/3 ML Neb Soln NEB SCH ×6 (01:48→22:08)
[2019-10-04] MEDS: glipiZIDE 5 MG Tab PO SCH ×2 (06:00→15:51)
[2019-10-04] MEDS: Levothyroxine 75 MCG Tab PO SCH (06:00)
[2019-10-04] MEDS: Omeprazole 20 MG Cap.CR PO SCH (06:00)
[2019-10-04] MEDS: Heparin Sodium 5,000 Units/ML Vial SUBCUT SCH ×3 (06:06→22:06)
[2019-10-04 06:52] LABS: ANION GAP 16.2
[2019-10-04] MEDS: predniSONE 5 MG Tab PO SCH (08:47)
[2019-10-04] MEDS: Spironolactone 25 MG Tab PO SCH (08:47)
[2019-10-04] MEDS: Insulin Lispro 100 Units/ML 3 ML Vial SUBCUT SCH ×4 (08:47→22:06)
[2019-10-04] MEDS: Aspirin 81 MG Tab.Chew PO SCH (08:48)
[2019-10-04] MEDS: Metoprolol Tartrate 25 MG Tab PO SCH (08:48)
[2019-10-04] MEDS: Furosemide 40 MG/4 ML VIAL IVPUSH SCH ×2 (08:49→20:50)
--- NOTE | 2019-10-04 10:07 | PCM.PN ---
- General Info Date of Service: 10/04/19 Admission Dx/Problem (Free Text): Admission Diagnosis/Problem Admission Diagnosis/Problem CHF, Congestive heart failure Subjective Update: Patient was seen and examined today. She still reports not feeling well. She is still complaining of shortness of breath with minimal exertion. She also endorses orthopnea. She is diuresing well. She has no other complaints. She no nausea, vomiting, chest pain or abdominal pain. Functional Status: Reports: Pain Controlled - Review of Systems General: Reports: No Symptoms HEENT: Reports: No Symptoms Pulmonary: Reports: Shortness of Breath, Wheezing Cardiovascular: Reports: No Symptoms Gastrointestinal: Reports: No Symptoms Genitourinary: Reports: No Symptoms Musculoskeletal: Reports: No Symptoms Skin: Reports: No Symptoms Neurological: Reports: No Symptoms Psychiatric: Reports: No Symptoms - Patient Data Vitals - Most Recent: Last Vital Signs Temp 97.2 F 10/04/19 08:03 Pulse 73 10/04/19 08:48 Resp 22 H 10/04/19 08:03 BP 104/58 L 10/04/19 08:48 Pulse Ox 100 10/04/19 09:00 Weight - Most Recent: 201 lb 1.6 oz I&O - Last 24 Hours: Intake & Output 10/03/19 10/04/19 10/04/19 22:59 06:59 14:59 Intake Total 1700 240 Output Total 2000 Balance -300 240 Lab Results Last 24 Hours: Laboratory Results - last 24 hr 10/03/19 10/03/19 10/03/19 Range/Units 11:35 16:49 20:55 WBC (5.0-10.0) 10^3/uL RBC (4.2-5.4) 10^6/uL Hgb (12.0-16.0) g/dL Hct (37.0-47.0) % MCV (80-100) fL MCH (27.0-34.0) pg MCHC (33.0-35.0) g/dL Plt Count (150-450) 10^3/uL Neut % (Auto) (42.2-75.2) % Lymph % (Auto) (20.5-50.1) % Bl[place] % (Auto) (2-8) % Eos % (Auto) (1.0-3.0) % Baso % (Auto) (0.0-1.0) % Sodium (135-145) mmol/L Potassium (3.6-5.0) mmol/L Chloride (101-111) mmol/L Carbon Dioxide (21.0-31.0) mmol/L Anion Gap BUN (7-18) mg/dL Creatinine (0.6-1.3) mg/dL Est Cr Clr Drug Dosing mL/min Estimated GFR (MDRD) Glucose (74-105) mg/dL POC Glucose 138 H 160 H 182 H (83-110) mg/dl Calcium (8.4-10.2) mg/dl 10/04/19 10/04/19 10/04/19 Range/Units 06:00 06:00 07:50 WBC 10.8 H (5.0-10.0) 10^3/uL RBC 3.89 L (4.2-5.4) 10^6/uL Hgb 12.2 (12.0-16.0) g/dL Hct 37.4 (37.0-47.0) % MCV 96.1 (80-100) fL MCH 31.4 (27.0-34.0) pg MCHC 32.6 L (33.0-35.0) g/dL Plt Count 188 (150-450) 10^3/uL Neut % (Auto) 76.8 H (42.2-75.2) % Lymph % (Auto) 17.1 L (20.5-50.1) % Bl[place] % (Auto) 5.3 (2-8) % Eos % (Auto) 0.6 L (1.0-3.0) % Baso % (Auto) 0.2 (0.0-1.0) % Sodium 139 (135-145) mmol/L Potassium 3.2 L (3.6-5.0) mmol/L Chloride 97 L (101-111) mmol/L Carbon Dioxide 29.0 (21.0-31.0) mmol/L Anion Gap 16.2 BUN 39 H (7-18) mg/dL Creatinine 1.8 H (0.6-1.3) mg/dL Est Cr Clr Drug Dosing 22.96 mL/min Estimated GFR (MDRD) 27 Glucose 75 (74-105) mg/dL POC Glucose 46 L* (83-110) mg/dl Calcium 9.0 (8.4-10.2) mg/dl Med Orders - Current: Current Medications Acetaminophen (Tylenol) 650 mg PO Q4H PRN PRN Reason: Pain (Mild 1-3)/fever Albuterol (Proventil Neb Soln) 2.5 mg INH Q4HR PRN PRN Reason: Shortness of Breath Albuterol (Proventil Hfa) 0 gm INH Q4HR PRN PRN Reason: Shortness of Breath Albuterol/Ipratropium (Duoneb 3.0-0.5 Mg/3 Ml) 3 ml NEB 02,06,10,14,18,22 [facility] Last Admin: 10/04/19 06:02 Dose: 3 ml Aspirin (Aspirin) 81 mg PO DAILY [facility] Last Admin: 10/04/19 08:48 Dose: 81 mg Furosemide (Lasix) 40 mg IVPUSH BID [facility] Last Admin: 10/04/19 08:49 Dose: 40 mg Glipizide (Glucotrol) 5 mg PO BIDAC [facility] Last Admin: 10/04/19 06:00 Dose: 5 mg Heparin Sodium (Porcine) (Heparin Sodium) 5,000 units SUBCUT Q8HR [facility] Last Admin: 10/04/19 06:06 Dose: 5,000 units Insulin Human Lispro (Humalog) 0 unit SUBCUT WITHMEALSANDBED [facility]; Protocol Last Admin: 10/04/19 08:47 Dose: Not Given Levothyroxine Sodium (Levothyroxine) 75 mcg PO ACBREAKFAST [facility] Last Admin: 10/04/19 06:00 Dose: 75 mcg Metoprolol Tartrate (Lopressor) 25 mg PO DAILY [facility] Last Admin: 10/04/19 08:48 Dose: 25 mg Omeprazole (Omeprazole) 20 mg PO ACBRK [facility] Last Admin: 10/04/19 06:00 Dose: 20 mg Ondansetron HCl (Zofran Odt) 4 mg PO Q4H PRN PRN Reason: nausea, able to take PO Prednisone (Prednisone) 5 mg PO WITHBREAKFAST [facility] Last Admin: 10/04/19 08:47 Dose: 5 mg Spironolactone (Aldactone) 25 mg PO DAILY [facility] Last Admin: 10/04/19 08:47 Dose: 25 mg Discontinued Medications Albuterol/Ipratropium (Duoneb 3.0-0.5 Mg/3 Ml) 3 ml NEB ONETIME ONE Stop: 10/02/19 09:49 Last Admin: 10/02/19 10:01 Dose: 3 ml Methylprednisolone Sodium Succinate (Solu-Medrol) 125 mg IVPUSH ONETIME ONE Stop: 10/02/19 09:49 Last Admin: 10/02/19 10:00 Dose: 125 mg Metoprolol Tartrate (Lopressor) 25 mg PO BID [place] Potassium Chloride (Klor-Con 10) 40 meq PO ONETIME ONE Stop: 10/02/19 17:54 Last Admin: 10/02/19 18:23 Dose: 40 meq Prednisone (Prednisone) 2.5 mg PO DAILY@0800 [place] Sodium Chloride (Saline Flush) 10 ml FLUSH ASDIRECTED PRN PRN Reason: Keep Vein Open Last Admin: 10/03/19 22:06 Dose: 10 ml - Exam Quality Assessment: Supplemental Oxygen, DVT Prophylaxis General: Alert, Oriented HEENT: Pupils Equal, Pupils Reactive, EOMI, Mucous Membr. Moist/Morris Neck: Supple Lungs: Clear to Auscultation, Normal Respiratory Effort Cardiovascular: Regular Rate, Regular Rhythm GI/Abdominal Exam: Normal Bowel Sounds, Soft, Non-Tender, No Organomegaly, No Distention, No Abnormal Bruit, No Mass, Pelvis Stable (Female) Exam: Normal External Exam, Normal Speculum Exam, Normal Bimanual Exam Back Exam: Normal Inspection, Full Range of Motion Extremities: Normal Inspection, Normal Range of Motion, Non-Tender, No Pedal Edema, Normal Capillary Refill Skin: Warm, Dry, Intact Wound/Incisions: Healing Well Neurological: No New Focal Deficit Psy/Mental Status: Alert, Normal Affect, Normal Mood Sepsis Event Note - Evaluation Sepsis Screening Result: No Definite Risk - Focused Exam Vital Signs: Vital Signs Temp Pulse Pulse Resp BP BP Pulse Ox 10/04/19 09:00 10/04/19 08:48 73 104/58 L 10/04/19 08:03 97.2 F 73 22 H 104/58 L 100 10/04/19 06:02 74 10/04/19 02:02 97.3 F 70 20 138/65 100 10/04/19 01:48 70 10/03/19 23:00 96.6 F L 78 20 113/65 100 Pulse Ox 10/04/19 09:00 100 10/04/19 08:48 10/04/19 08:03 10/04/19 06:02 100 10/04/19 02:02 10/04/19 01:48 97 10/03/19 23:00 Date Exam was Performed: 10/04/19 Time Exam was Performed: 10:04 - Problem List Review Problem List Initiated/Reviewed/Updated: Yes - Plan Plan:: Acute congestive heart failure continue IV Lasix 40 mg twice daily Cont metoprolol Patient had a recent echo that showed EF 25 to 30% troponin was likely type II NSTEMI COPD/chronic hypoxic respiratory failure Chronic prednisone use continue home medications Continue home oxygen supplementation Coronary artery disease Continue aspirin, metoprolol Unclear why patient is not on statin Diabetes Treat with glipizide Glucose checks before meals at bedtime CKD stage III Monitor creatinine with IV Lasix Tobacco abuse Counseling provided We will give patient nicotine patch if requested Hypothyroidism Treat with synthroid DVT prophylaxis heparin
[2019-10-04] MEDS ORDERED: Albuterol/Ipratropium 3.0-0.5 MG/3 ML Neb Soln ONE (15:24)
[2019-10-05] MEDS: Albuterol/Ipratropium 3.0-0.5 MG/3 ML Neb Soln NEB SCH ×3 (01:34→11:51)
[2019-10-05] MEDS: Levothyroxine 75 MCG Tab PO SCH (06:24)
[2019-10-05] MEDS: Heparin Sodium 5,000 Units/ML Vial SUBCUT SCH (06:24)
[2019-10-05] MEDS: Omeprazole 20 MG Cap.CR PO SCH (06:25)
[2019-10-05] MEDS ORDERED: glipiZIDE 5 MG Tab PO SCH (08:00)
[2019-10-05] MEDS: Insulin Lispro 100 Units/ML 3 ML Vial SUBCUT SCH ×2 (08:11→12:16)
[2019-10-05] MEDS: Aspirin 81 MG Tab.Chew PO SCH (09:03)
[2019-10-05] MEDS: Metoprolol Tartrate 25 MG Tab PO SCH (09:03)
[2019-10-05] MEDS: Spironolactone 25 MG Tab PO SCH (09:03)
[2019-10-05] MEDS: predniSONE 5 MG Tab PO SCH (09:03)
[2019-10-05] MEDS: Furosemide 40 MG/4 ML VIAL IVPUSH SCH (09:04)
--- NOTE | 2019-10-05 11:29 | PCM.DCSUM1 ---
Discharge Summary - Hospital Course Free Text/Narrative:: Ms. Fuller is a 74 yo female with past medical history significant for diastolic heart failure, hypothyroidism, COPD, coronary artery disease, type 2 diabetes, tobacco abuse who presented to the hospital with acute on chronic hypoxic respiratory failure. She was admitted for acute CHF exacerbation. Chest x-ray showed vascular congestion and COPD exacerbation. She was managed with IV diuretics and breathing treatments significant improvement. Patient was discharged in stable condition. She will follow-up with PCP. Diagnosis: Stroke: No - Discharge Data Discharge Date: 10/05/19 Discharge Disposition: Home, Self-Care 01 Condition: Good - Referral to Home Health Primary Care Physician: Susan Borges PA-C - Patient Instructions Diet: Heart Healthy Diet Driving: December Drive Today Showering/Bathing: December Shower Notify Provider of: Fever, Nausea and/or Vomiting - Discharge Plan *PRESCRIPTION DRUG MONITORING PROGRAM REVIEWED*: Not Applicable *COPY OF PRESCRIPTION DRUG MONITORING REPORT IN PATIENT [place]: Not Applicable Home Medications: Home Meds Albuterol Sulfate [Proventil Hfa] 2 puff IH Q4HR PRN 10/21/16 [History] Metoprolol Tartrate 25 mg PO DAILY 04/03/17 [History] Albuterol [IJD: Albuterol] 3 ml INH Q4HR PRN 12/24/17 [History] Albuterol/Ipratropium [DuoNeb 3.0-0.5 MG/3 ML] 3 ml NEB 02,06,10,14,18,22 [History] Aspirin 81 mg PO DAILY 01/08/19 [History] Levothyroxine 75 mcg PO ACBREAKFAST 05/03/19 [History] Omeprazole 20 mg PO DAILY 07/29/19 [History] glipiZIDE [Glucotrol] 5 mg PO BID 30 Days #60 tablet 08/05/19 [Rx] Furosemide [Lasix] 40 mg PO BID 10/02/19 [History] Spironolactone [Aldactone] 25 mg PO DAILY 10/02/19 [History] predniSONE [Prednisone] 5 mg PO DAILY 10/02/19 [History] Oxygen Therapy Mode: Nasal Cannula (At night) Forms: ED Department Discharge Referrals: PCP,Unobtain [Ordering Only Provider] - - Discharge Summary/Plan Comment DC Time >30 min.: Yes - Patient Data Vitals - Most Recent: Last Vital Signs Temp 97.2 F 10/05/19 07:30 Pulse 76 10/05/19 09:03 Resp 22 H 10/05/19 07:30 BP 119/66 10/05/19 09:03 Pulse Ox 96 10/05/19 09:00 Weight - Most Recent: 197 lb 4 oz I&O - Last 24 hours: Intake & Output 10/04/19 10/05/19 10/05/19 22:59 06:59 14:59 Intake Total 3760 775 810 Output Total 2800 1800 600 Balance 960 -1025 210 Lab Results - Last 24 hrs: Laboratory Results - last 24 hr 10/04/19 10/04/19 10/04/19 Range/Units 11:46 17:01 21:04 POC Glucose 100 145 H 155 H (83-110) mg/dl 10/05/19 Range/Units 07:43 POC Glucose 74 L (83-110) mg/dl Med Orders - Current: Current Medications Acetaminophen (Tylenol) 650 mg PO Q4H PRN PRN Reason: Pain (Mild 1-3)/fever Albuterol (Proventil Neb Soln) 2.5 mg INH Q4HR PRN PRN Reason: Shortness of Breath Albuterol (Proventil Hfa) 0 gm INH Q4HR PRN PRN Reason: Shortness of Breath Albuterol/Ipratropium (Duoneb 3.0-0.5 Mg/3 Ml) 3 ml NEB Q4H [facility] Last Admin: 10/05/19 08:00 Dose: 3 ml Aspirin (Aspirin) 81 mg PO DAILY [facility] Last Admin: 10/05/19 09:03 Dose: 81 mg Furosemide (Lasix) 40 mg IVPUSH BID [facility] Last Admin: 10/05/19 09:04 Dose: 40 mg Glipizide (Glucotrol) 5 mg PO 0800,1700 [facility] Last Admin: 10/05/19 09:04 Dose: 5 mg Heparin Sodium (Porcine) (Heparin Sodium) 5,000 units SUBCUT Q8HR [facility] Last Admin: 10/05/19 06:24 Dose: 5,000 units Insulin Human Lispro (Humalog) 0 unit SUBCUT WITHMEALSANDBED [facility]; Protocol Last Admin: 10/05/19 08:11 Dose: Not Given Levothyroxine Sodium (Levothyroxine) 75 mcg PO ACBREAKFAST [facility] Last Admin: 10/05/19 06:24 Dose: 75 mcg Metoprolol Tartrate (Lopressor) 25 mg PO DAILY [facility] Last Admin: 10/05/19 09:03 Dose: 25 mg Omeprazole (Omeprazole) 20 mg PO ACBRK [facility] Last Admin: 10/05/19 06:25 Dose: 20 mg Ondansetron HCl (Zofran Odt) 4 mg PO Q4H PRN PRN Reason: nausea, able to take PO Prednisone (Prednisone) 5 mg PO WITHBREAKFAST [facility] Last Admin: 10/05/19 09:03 Dose: 5 mg Spironolactone (Aldactone) 25 mg PO DAILY [facility] Last Admin: 10/05/19 09:03 Dose: 25 mg Discontinued Medications Albuterol/Ipratropium (Duoneb 3.0-0.5 Mg/3 Ml) 3 ml NEB ONETIME ONE Stop: 10/02/19 09:49 Last Admin: 10/02/19 10:01 Dose: 3 ml Albuterol/Ipratropium (Duoneb 3.0-0.5 Mg/3 Ml) 3 ml NEB 02,06,10,14,18,22 [facility] Last Admin: 10/05/19 01:34 Dose: 3 ml Albuterol/Ipratropium (Duoneb 3.0-0.5 Mg/3 Ml) Confirm Administered Dose 3 ml .ROUTE .STK-MED ONE Stop: 10/04/19 15:25 Last Admin: 10/04/19 15:30 Dose: 3 ml Glipizide (Glucotrol) 5 mg PO BIDAC [facility] Last Admin: 10/04/19 15:51 Dose: 5 mg Methylprednisolone Sodium Succinate (Solu-Medrol) 125 mg IVPUSH ONETIME ONE Stop: 10/02/19 09:49 Last Admin: 10/02/19 10:00 Dose: 125 mg Metoprolol Tartrate (Lopressor) 25 mg PO BID [facility] Potassium Chloride (Klor-Con 10) 40 meq PO ONETIME ONE Stop: 10/02/19 17:54 Last Admin: 10/02/19 18:23 Dose: 40 meq Prednisone (Prednisone) 2.5 mg PO DAILY@0800 [facility] Sodium Chloride (Saline Flush) 10 ml FLUSH ASDIRECTED PRN PRN Reason: Keep Vein Open Last Admin: 10/03/19 22:06 Dose: 10 ml
[2019-10-05 11:42] VITALS: BP 103/60; PULSE 71
== END 2019-10-05 13:50 | disposition home or self-care (01) | DRG 291 ==
LOC: DL.ED 09:33 → DL.MS 11:09
PROVIDERS: ADMIT Internal Medicine; ATTEND Student in an Organized Health Care Education/Training Program
DX: I13.0 Hypertensive heart and chronic kidney disease with heart failure and stage 1 through stage 4 chronic kidney disease, or unspecified chronic kidney disease (principal); I11.0 Hypertensive heart disease with heart failure; I50.9 Heart failure, unspecified; I50.33 Acute on chronic diastolic (congestive) heart failure; J96.11 Chronic respiratory failure with hypoxia; J44.1 Chronic obstructive pulmonary disease with (acute) exacerbation; R32 Unspecified urinary incontinence; M06.9 Rheumatoid arthritis, unspecified; E03.9 Hypothyroidism, unspecified; H26.9 Unspecified cataract; E11.22 Type 2 diabetes mellitus with diabetic chronic kidney disease; N18.3 Chronic kidney disease, stage 3 (moderate); I72.9 Aneurysm of unspecified site; I25.10 Atherosclerotic heart disease of native coronary artery without angina pectoris; Z85.89 Personal history of malignant neoplasm of other organs and systems; F17.210 Nicotine dependence, cigarettes, uncomplicated; H54.7 Unspecified visual loss; H35.30 Unspecified macular degeneration; Z79.890 Hormone replacement therapy; Z79.52 Long term (current) use of systemic steroids; F41.9 Anxiety disorder, unspecified; F32.9 Major depressive disorder, single episode, unspecified; E66.9 Obesity, unspecified; Z90.49 Acquired absence of other specified parts of digestive tract; Z90.89 Acquired absence of other organs; Z98.51 Tubal ligation status; Z88.8 Allergy status to other drugs, medicaments and biological substances; Z88.0 Allergy status to penicillin; I25.2 Old myocardial infarction; Z79.51 Long term (current) use of inhaled steroids; Z79.82 Long term (current) use of aspirin; Z79.84 Long term (current) use of oral hypoglycemic drugs; Z79.899 Other long term (current) drug therapy; Z99.81 Dependence on supplemental oxygen; Z68.33 Body mass index [BMI] 33.0-33.9, adult
CPT/HCPCS: 36415; 71045; 80053; 83880; 84484; 85025; 87804 ×2; 93005; 94640; 96374; 99285; J2930; 80048; 82550; 82962; 93010; 94760; 99284; A9270-GY; J1644; J1815; J1940; J7620-GY

== ENCOUNTER 2019-10-15 07:59 | Emergency (ER) | payer MEDICARE ==
[2019-10-15 08:03] VITALS: BP 121/82; PULSE 68
[2019-10-15 08:26] LABS: ANION GAP 14.1; CHLORIDE,CL 98 mmol/L (101-111); SODIUM,NA 137 mmol/L (135-145)
--- NOTE | 2019-10-15 08:32 | EDM.PDOC ---
ED HPI GENERAL MEDICAL PROBLEM - General Chief Complaint: Chest Pain Stated Complaint: AMBULANCE Time Seen by Provider: 10/15/19 08:00 Source of Information: Reports: Patient, RN History Limitations: Reports: No Limitations - History of Present Illness INITIAL COMMENTS - FREE TEXT/NARRATIVE: 74 year old female with a history of CHF, COPD, NSTEMI, CAD, DM, tobacco abuse and hypothyroidism who presents so to the ER with complaints of chest pain that has resolved. Patent states she work up from sleep 6 hours ago having non radiating chest pain and she took 81 mg of aspirin. Chest pain resolved and she was able to return to sleep. Two hours ago she got up to taking her morning medications when the chest pain worsen radiating into the left side of her neck. She states she took two 81 mg aspirin and called 911. She denies having any pain at this time. Denies any changes on baseline breathing problems. Uses 3L of oxygen [place] at home. Vital sign stable at this time. Middle Sternum Pain Score (Numeric/FACES): 1 - Related Data Allergies Allergy/AdvReac Type Severity Reaction Status Date / Time amlodipine [From Norvasc] Allergy Cannot Verified 10/15/19 08:08 Remember cetirizine [From Zyrtec] Allergy Abdominal Verified 10/15/19 08:08 Pain Penicillins Allergy Rash Verified 10/15/19 08:08 simvastatin [From Zocor] Allergy Cannot Verified 10/15/19 08:08 Remember Home Meds: Home Meds Albuterol Sulfate [Proventil Hfa] 2 puff IH Q4HR PRN 10/21/16 [History] Metoprolol Tartrate 25 mg PO DAILY 04/03/17 [History] Albuterol [IJD: Albuterol] 3 ml INH Q4HR PRN 12/24/17 [History] Aspirin 81 mg PO DAILY 01/08/19 [History] Levothyroxine 75 mcg PO ACBREAKFAST 05/03/19 [History] Omeprazole 20 mg PO DAILY 07/29/19 [History] glipiZIDE [Glucotrol] 5 mg PO BID 30 Days #60 tablet 08/05/19 [Rx] Furosemide [Lasix] 40 mg PO BID 10/02/19 [History] Spironolactone [Aldactone] 25 mg PO DAILY 10/02/19 [History] predniSONE [Prednisone] 5 mg PO DAILY 10/02/19 [History] Albuterol/Ipratropium [DuoNeb 3.0-0.5 MG/3 ML] 3 ml NEB Q4H #30 neb 10/05/19 [Rx ] Past Medical History HEENT History: Reports: Cataract, Impaired Vision, Macular Degeneration, Other ( See Below) Other HEENT History: wears glasses Cardiovascular History: Reports: Aneurysm, Heart Failure, Hypertension, [place], SOB on Exertion Other Cardiovascular History: November 29, 2000 ([place]) Respiratory History: Reports: COPD, SOB Gastrointestinal History: Reports: Chronic Diarrhea Genitourinary History: Reports: Urinary Incontinence ADMINISTRATOR OF HOME HEALTH History: Reports: Other ADMINISTRATOR OF HOME HEALTH History: 5 kids Musculoskeletal History: Reports: Fracture, RA Other Musculoskeletal History: skull, collarbone Neurological History: Reports: None Psychiatric History: Reports: Anxiety, Depression Endocrine/Metabolic History: Reports: Hypothyroidism, Obesity/BMI 30+ Hematologic History: Reports: None Immunologic History: Reports: None Oncologic (Cancer) History: Reports: Other (See Below) Other Oncologic History: simple vulvectomy - cancer Dermatologic History: Reports: None - Infectious Disease History Infectious Disease History: Reports: Chicken Pox, Measles, Mumps - Past Surgical History Head Surgeries/Procedures: Reports: None HEENT Surgical History: Reports: None Cardiovascular Surgical History: Reports: None Respiratory Surgical History: Reports: None GI Surgical History: Reports: Appendectomy, Cholecystectomy Female Surgical History: Reports: Tubal Ligation, Other (See Below) Other Female Surgeries/Procedures: simple vulvectomy Endocrine Surgical History: Reports: Thyroidectomy Neurological Surgical History: Reports: None Musculoskeletal Surgical History: Reports: None Social & Family History - Family History Family Medical History: Noncontributory Cardiac: Reports: [place] Respiratory: Reports: COPD Neurological: Reports: CVA - Tobacco Use Smoking Status *Q: Current Every Day Smoker Years of Tobacco use: 50 Packs/Tins Daily: 1 - Caffeine Use Caffeine Use: Reports: Coffee Other Caffeine Use: 1 cup/day - Recreational Drug Use Recreational Drug Use: No - Living Situation & Occupation Living situation: Reports: with Family Occupation: Retired ED ROS GENERAL - Review of Systems Review Of Systems: Comprehensive ROS is negative, except as noted in HPI. ED EXAM, GENERAL - Physical Exam Exam: See Below Exam Limited By: No Limitations General Appearance: Alert, No Apparent Distress Eye Exam: Bilateral Eye: Normal Inspection Ears: Normal External Exam, Normal Canal, Hearing Grossly Normal, Normal TMs Nose: Normal Inspection, Normal Mucosa, No Blood Throat/Mouth: Normal Inspection, Normal Lips, Normal Teeth, Normal Gums, Normal Oropharynx, Normal Voice, No Airway Compromise Head: Atraumatic, Normocephalic Neck: Normal Inspection, Supple, Non-Tender, Full Range of Motion Respiratory/Chest: No Respiratory Distress, Crackles (Basilar crackles), Wheezing (mild) Cardiovascular: Normal Peripheral Pulses GI/Abdominal: Normal Bowel Sounds, Non-Tender Back Exam: Normal Inspection Extremities: Normal Inspection, Non-Tender, Pedal Edema (1+ pitting). No: Lucille 's Sign Neurological: Alert, Oriented, CN II-XII Intact, Normal Gait Psychiatric: Normal Affect, Normal Mood Skin Exam: Warm, Intact Lymphatic: No Adenopathy Course - Vital Signs Last Recorded V/S: Last Vital Signs Temp 97 F 10/15/19 08:02 Pulse 68 10/15/19 08:02 Resp 12 10/15/19 08:02 BP 121/82 10/15/19 08:02 Pulse Ox 98 10/15/19 08:02 - Orders/Labs/Meds Orders: Active Orders 24 hr Category Date Time Status EKG Documentation Completion [RC] STAT Care 10/15/19 08:07 Active INR,PT,PROTHROMBIN TIME [[facility]] Stat Lab 10/15/19 08:00 Received Labs: Laboratory Tests 10/15/19 10/15/19 10/15/19 Range/Units 08:00 08:00 08:00 WBC 9.7 (5.0-10.0) 10^3/uL RBC 3.69 L (4.2-5.4) 10^6/uL Hgb 11.6 L (12.0-16.0) g/dL Hct 35.3 L (37.0-47.0) % MCV 95.7 (80-100) fL MCH 31.4 (27.0-34.0) pg MCHC 32.9 L (33.0-35.0) g/dL Plt Count 226 (150-450) 10^3/uL Neut % (Auto) 70.2 (42.2-75.2) % Lymph % (Auto) 22.8 (20.5-50.1) % [place] % (Auto) 5.5 (2-8) % Eos % (Auto) 1.2 (1.0-3.0) % Baso % (Auto) 0.3 (0.0-1.0) % D-Dimer, Quantitative 860 H (0-400) ng/mL Sodium 137 (135-145) mmol/L Potassium 3.1 L (3.6-5.0) mmol/L Chloride 98 L (101-111) mmol/L Carbon Dioxide 28.0 (21.0-31.0) mmol/L Anion Gap 14.1 BUN 20 H (7-18) mg/dL Creatinine 1.7 H (0.6-1.3) mg/dL Est Cr Clr Drug Dosing TNP Estimated GFR (MDRD) 29 BUN/Creatinine Ratio 11.76 Glucose 121 H (74-105) mg/dL Calcium 8.8 (8.4-10.2) mg/dl Total Bilirubin 0.7 (0.2-1.0) mg/dL AST 19 (10-42) IU/L ALT 16 (10-60) IU/L Alkaline Phosphatase 52 (42-121) IU/L Troponin I 0.05 H* (0.00-0.02) ng/ml B-Natriuretic Peptide 404 H (0-100) pg/ml Total Protein 6.4 L (6.7-8.2) g/dl Albumin 3.5 (3.2-5.5) g/dl Globulin 2.9 Albumin/Globulin Ratio 1.21 - Radiology Interpretation Free Text/Narrative:: PROCEDURE INFORMATION: Exam: XR Chest, 2 Views Exam date and time: 10/15/2019 8:29 AM Age: 74 years old Clinical indication: Chest pain; Type not specified; Additional info: Basilar crackles TECHNIQUE: Imaging protocol: XR of the chest Views: 2 views. COMPARISON: CR Chest 1V Frontal 10/02/2019 10:21 AM FINDINGS: Lungs: Linear atelectasis at the right mid and lower lung lynch. No confluent infiltrates are visualized within the pulmonary parenchyma. Pleural space: Unremarkable. No pleural effusion. No pneumothorax. Heart/Mediastinum: The heart is enlarged. Bones/joints: Unremarkable. IMPRESSION: Linear atelectasis at the right mid and lower lung lynch. Thank you for allowing us to participate in the care of your patient - Re-Assessments/Exams Free Text/Narrative Re-Assessment/Exam: Reviewed labs, EKG and chest xray results with patient. Consulted with at [facility] who accepted patient for transfer. Heparin drip initiated .Patient in agreement to plan. Departure - Departure Time of Disposition: 09:16 Disposition: DC/Tfer to [facility] 02 Reason for Transfer *Q: Primary PCI Indicated Condition: Fair Clinical Impression: Hypokalemia, NSTEMI (non-ST elevated myocardial infarction) CHF (congestive heart failure) Qualifiers: Heart failure type: unspecified Heart failure chronicity: acute on chronic Qualified Code(s): I50.9 - Heart failure, unspecified Forms: ED Department Discharge, [facility]facility [facility] Sepsis Event Note - Evaluation Sepsis Screening Result: No Definite Risk - Focused Exam Vital Signs: Vital Signs Temp Pulse Resp BP Pulse Ox 10/15/19 08:02 97 F 68 12 121/82 98 Date Exam was Performed: 10/15/19 Time Exam was Performed: 08:49 - My Orders Last 24 Hours: My Active Orders 10/15/19 08:00 INR,PT,PROTHROMBIN TIME [[facility]] Stat 10/15/19 08:07 EKG Documentation Completion [RC] STAT - Assessment/Plan Last 24 Hours: My Active Orders 10/15/19 08:00 INR,PT,PROTHROMBIN TIME [[facility]] Stat 10/15/19 08:07 EKG Documentation Completion [RC] STAT
[2019-10-15] MEDS ORDERED: Heparin Sodium 5,000 Units/ML Vial IVPUSH ONE (09:06)
[2019-10-15] MEDS ORDERED: Heparin Sodium/0.45% NaCl 25,000 UNITS/500 ML BAG IV SCH (09:15)
== END 2019-10-15 09:37 ==
LOC: DL.ED 07:59
DX: I11.0 Hypertensive heart disease with heart failure (principal); I50.9 Heart failure, unspecified; I21.4 Non-ST elevation (NSTEMI) myocardial infarction; E87.6 Hypokalemia; I25.2 Old myocardial infarction; Z88.8 Allergy status to other drugs, medicaments and biological substances; Z88.0 Allergy status to penicillin; Z79.899 Other long term (current) drug therapy; Z79.82 Long term (current) use of aspirin
CPT/HCPCS: 36415; 71046; 80053; 83880; 84484; 85025; 85379; 85610; 93005; 96374; 99285; J1644; 99284

== ENCOUNTER 2020-02-07 14:44 | Inpatient (IN) | payer MEDICARE, OTHER ==
--- NOTE | 2020-02-07 16:05 | CR ---
EXAMINATION: Chest 1V Frontal SEX: Female AGE: 74 years CLINICAL HISTORY: 74-year-old female being treated for "pneumonia" complaining of shortness of breath (SOB). Comparison CXR PA/lateral films, 29 January 2020 reported as "mild cardiac enlargement, trace bilateral pleural effusions, and bibasilar consolidation". Interpretation: Normal cardiac size with an "egg on side" configuration. Normal aortic arch. No pulmonary vascular congestion, cephalization of flow or alveolar edema. No dependent subpulmonic pleural fluid accumulation (effusions). No new lung mass, hilar lymphadenopathy or focal lobar pneumonia. No atelectasis/collapse. No pneumothorax or pneumomediastinum. No free subdiaphragmatic air. Midline tracheobronchial airway unremarkable. No foreign bodies. CONCLUSION: No acute cardiopulmonary abnormality.
[2020-02-07] MEDS ORDERED: Albuterol/Ipratropium 3.0-0.5 MG/3 ML Neb Soln NEB ONE (16:19)
--- NOTE | 2020-02-07 16:30 | EDM.PDOC ---
ED HPI GENERAL MEDICAL PROBLEM - General Chief Complaint: Skin Complaint Stated Complaint: PNEUMONIA / COGNITIVE Time Seen by Provider: 02/07/20 16:15 Source of Information: Reports: Patient History Limitations: Reports: No Limitations - History of Present Illness INITIAL COMMENTS - FREE TEXT/NARRATIVE: This 74 yo female patient reports to the ED due to increased shortness of breath and swelling in her lower extremities. The patient has been seen by her primary care facility this week (Wednesday) and was started on a 2nd course of antibiotics and prednisone. The patient reports she has noticed increased shortness of breath throughout today. The patient has also noticed increased bruising, lower extremity swelling and some redness on her forehead. Onset: Today Duration: Constant, Getting Worse Location: Reports: Chest, Lower Extremity, Left, Lower Extremity, Right Quality: Reports: Other Severity: Moderate Improves with: Reports: None Worsens with: Reports: None Associated Symptoms: Reports: Shortness of Breath - Related Data Allergies Allergy/AdvReac Type Severity Reaction Status Date / Time amlodipine [From Norvasc] Allergy Cannot Verified 02/07/20 15:23 Remember cetirizine [From Zyrtec] Allergy Abdominal Verified 02/07/20 15:23 Pain Penicillins Allergy Rash Verified 02/07/20 15:23 simvastatin [From Zocor] Allergy Cannot Verified 02/07/20 15:23 Remember Home Meds: Home Meds Albuterol Sulfate [Proventil Hfa] 2 puff IH Q4HR PRN 10/21/16 [History] Metoprolol Tartrate 25 mg PO DAILY 04/03/17 [History] Albuterol [IJD: Albuterol] 3 ml INH Q6HR PRN 12/24/17 [History] Aspirin 81 mg PO DAILY 01/08/19 [History] Levothyroxine 75 mcg PO ACBREAKFAST 05/03/19 [History] Omeprazole 20 mg PO DAILY 07/29/19 [History] glipiZIDE [Glucotrol] 5 mg PO BID 30 Days #60 tablet 08/05/19 [Rx] Furosemide [Lasix] 40 mg PO BID 10/02/19 [History] Spironolactone [Aldactone] 25 mg PO DAILY 10/02/19 [History] predniSONE [Prednisone] 10 mg PO DAILY 10/02/19 [History] Albuterol/Ipratropium [DuoNeb 3.0-0.5 MG/3 ML] 3 ml NEB BID 02/07/20 [History] Azithromycin 500 mg PO DAILY 02/07/20 [History] Budesonide [Pulmicort] 0.25 mg IH BID 02/07/20 [History] Diclofenac Sodium [Voltaren 1% Gel] 1 applic TOP BID PRN 02/07/20 [History] Past Medical History HEENT History: Reports: Cataract, Impaired Vision, Macular Degeneration, Other (See Below) Other HEENT History: wears glasses Cardiovascular History: Reports: Aneurysm, Heart Failure, Hypertension, [place], SOB on Exertion Other Cardiovascular History: November 29, 2000 ([place]) Respiratory History: Reports: COPD, SOB Gastrointestinal History: Reports: Chronic Diarrhea Genitourinary History: Reports: Urinary Incontinence CLAIM EXAMINER History: Reports: Other CLAIM EXAMINER History: 5 kids Musculoskeletal History: Reports: Fracture, RA Other Musculoskeletal History: skull, collarbone Neurological History: Reports: None Psychiatric History: Reports: Anxiety, Depression Endocrine/Metabolic History: Reports: Hypothyroidism, Obesity/BMI 30+ Hematologic History: Reports: None Immunologic History: Reports: None Oncologic (Cancer) History: Reports: Other (See Below) Other Oncologic History: simple vulvectomy - cancer Dermatologic History: Reports: None - Infectious Disease History Infectious Disease History: Reports: Measles, Mumps, Rubella - Past Surgical History Head Surgeries/Procedures: Reports: None HEENT Surgical History: Reports: None Cardiovascular Surgical History: Reports: None Respiratory Surgical History: Reports: None GI Surgical History: Reports: Appendectomy, Cholecystectomy Female Surgical History: Reports: Tubal Ligation, Other (See Below) Other Female Surgeries/Procedures: simple vulvectomy Endocrine Surgical History: Reports: Thyroidectomy Neurological Surgical History: Reports: None Musculoskeletal Surgical History: Reports: None Social & Family History - Family History Family Medical History: Noncontributory Cardiac: Reports: [place] Respiratory: Reports: COPD Neurological: Reports: CVA - Caffeine Use Caffeine Use: Reports: Coffee Other Caffeine Use: 1 cup/day - Recreational Drug Use Recreational Drug Use: No - Living Situation & Occupation Living situation: Reports: with Family Occupation: Retired ED ROS GENERAL - Review of Systems Review Of Systems: Comprehensive ROS is negative, except as noted in HPI. ED EXAM, SKIN/RASH Exam: See Below Exam Limited By: No Limitations General Appearance: Alert, WD/WN, Moderate Distress, Obese Eye Exam: Bilateral Eye: EOMI, Normal Inspection, PERRL Ears: Normal External Exam, Normal Canal, Hearing Grossly Normal, Normal TMs Nose: Normal Inspection, Normal Mucosa, No Blood Throat/Mouth: Normal Inspection, Normal Lips, Normal Teeth, Normal Gums, Normal Oropharynx, Normal Voice, No Airway Compromise Head: Atraumatic, Normocephalic Neck: Normal Inspection, Supple, Non-Tender, Full Range of Motion Respiratory/Chest: No Accessory Muscle Use, Chest Non-Tender, Decreased Breath Sounds, Rhonchi Cardiovascular: Normal Peripheral Pulses, Regular Rate, Rhythm, No Edema, No Gallop, No JVD, No Murmur, No Rub GI/Abdominal: Normal Bowel Sounds, Soft, Non-Tender, No Organomegaly, No Distention, No Abnormal Bruit, No Mass (Female) Exam: Deferred Rectal (Female) Exam: Deferred Back Exam: Normal Inspection, Full Range of Motion, NT Extremities: Other (diffuse upper extremity bruising) Neurological: Alert, Oriented, CN II-XII Intact Location, Skin: Face (forehead redness), Upper Extremity, Right (bruising), Upper Extremity, Left (bruising) Lymphatic: No Adenopathy Course - Vital Signs Last Recorded V/S: Last Vital Signs Temp 36.2 C 02/07/20 15:23 Pulse 78 02/07/20 15:23 Resp 20 02/07/20 15:23 BP 122/76 02/07/20 15:23 Pulse Ox 97 02/07/20 16:20 - Orders/Labs/Meds Orders: Active Orders 24 hr Category Date Time Status Admission Diagnosis [ADT] Urgent ADT 02/07/20 17:05 Ordered Admission Status [Patient Status] [ADT] Routine ADT 02/07/20 17:05 Ordered EKG Documentation Completion [RC] STAT Care 02/07/20 15:31 Active RT Aerosol Therapy [RC] ASDIRECTED Care 02/07/20 16:20 Active CULTURE BLOOD [BC] Stat Lab 02/07/20 15:44 Received Labs: Laboratory Tests 02/07/20 02/07/20 02/07/20 Range/Units 15:44 15:44 15:44 WBC 14.6 H (5.0-10.0) 10^3/uL RBC 4.23 (4.2-5.4) 10^6/uL Hgb 13.4 (12.0-16.0) g/dL Hct 40.4 (37.0-47.0) % MCV 95.5 (80-100) fL MCH 31.7 (27.0-34.0) pg MCHC 33.2 (33.0-35.0) g/dL Plt Count 246 (150-450) 10^3/uL Neut % (Auto) 95.5 H (42.2-75.2) % Lymph % (Auto) 3.2 L (20.5-50.1) % [place] % (Auto) 1.1 L (2-8) % Eos % (Auto) 0.1 L (1.0-3.0) % Baso % (Auto) 0.1 (0.0-1.0) % Sodium 136 (136-145) mmol/L Potassium 4.0 (3.5-5.1) mmol/L Chloride 97 L (98-107) mmol/L Carbon Dioxide 27 (21-32) mmol/L Anion Gap 16.0 H (7-13) mEq/L BUN 39 H (7-18) mg/dL Creatinine 2.49 H (0.55-1.02) mg/dL Est Cr Clr Drug Dosing 15.90 mL/min Estimated GFR (MDRD) 19 BUN/Creatinine Ratio 15.7 (No establ ref range) Glucose 282 H (74-99) mg/dL Lactic Acid 3.3 H* (0.4-2.0) mmol/L Calcium 9.0 (8.5-10.1) mg/dL Total Bilirubin 0.5 (0.2-1.0) mg/dL AST 16 (15-37) U/L ALT 21 (14-59) U/L Alkaline Phosphatase 53 (46-116) U/L Troponin I 0.031 (0.000-0.056) ng/mL B-Natriuretic Peptide 285 H (0-100) pg/ml Total Protein 6.9 (6.4-8.2) g/dL Albumin 3.4 (3.4-5.0) g/dL Globulin 3.5 Albumin/Globulin Ratio 1.0 Meds: Medications Discontinued Medications Generic Name Dose Route Start Last Admin Trade Name Freq PRN Reason Stop Dose Admin Albuterol/Ipratropium 3 ml 02/07/20 16:19 02/07/20 16:37 Duoneb 3.0-0.5 Mg/3 Ml NEB 02/07/20 16:20 3 ml ONETIME ONE Administration Departure - Departure Time of Disposition: 17:08 Disposition: Admitted As Inpatient 64 Condition: Fair Clinical Impression: Pneumonia Qualifiers: Pneumonia type: due to unspecified organism Laterality: left Lung location: lo wer lobe of lung Qualified Code(s): J18.1 - Lobar pneumonia, unspecified organism - Discharge Information *PRESCRIPTION DRUG MONITORING PROGRAM REVIEWED*: Not Applicable *COPY OF PRESCRIPTION DRUG MONITORING REPORT IN PATIENT CATRACHO: Not Applicable Care Plan Goals: Discussed the patient's history, examination, lab, previous treatment, x-ray and current treatments with Dr. Mccoy. Dr. Mccoy accepted the patient for continued evaluation and further management as an inpatient at [facility]. Sepsis Event Note (ED) - Evaluation Sepsis Screening Result: No Definite Risk - Focused Exam Vital Signs: Vital Signs Temp Pulse Resp BP Pulse Ox Pulse Ox 02/07/20 16:20 97 02/07/20 15:23 36.2 C 78 20 122/76 97 - My Orders Last 24 Hours: My Active Orders 02/07/20 15:31 EKG Documentation Completion [RC] STAT 02/07/20 15:44 CULTURE BLOOD [BC] Stat 02/07/20 16:20 RT Aerosol Therapy [RC] ASDIRECTED 02/07/20 17:05 Admission Diagnosis [ADT] Urgent Admission Status [Patient Status] [ADT] Routine - Assessment/Plan Last 24 Hours: My Active Orders 02/07/20 15:31 EKG Documentation Completion [RC] STAT 02/07/20 15:44 CULTURE BLOOD [BC] Stat 02/07/20 16:20 RT Aerosol Therapy [RC] ASDIRECTED 02/07/20 17:05 Admission Diagnosis [ADT] Urgent Admission Status [Patient Status] [ADT] Routine
[2020-02-07] MEDS ORDERED: Ondansetron 4 MG/2 ML SDV IVPUSH PRN (17:06)
[2020-02-07] MEDS ORDERED: Albuterol 0.083% 2.5 MG/3 ML Neb Soln NEB PRN (17:06)
[2020-02-07] MEDS: Albuterol/Ipratropium 3.0-0.5 MG/3 ML Neb Soln NEB SCH ×2 (18:04→22:28)
[2020-02-07] MEDS: methylPREDNISolone Sodium Succinate 40 MG/1 ML SDV IVPUSH SCH (18:19)
[2020-02-07] MEDS ORDERED: VOLTAREN 1% TOP PRN (19:08)
--- NOTE | 2020-02-07 19:16 | PCM.HP ---
H&P History of Present Illness - General Date of Service: 02/07/20 Admit Problem/Dx: Admission Diagnosis/Problem Admission Diagnosis/Problem COPD, Moderate chronic obstructive pulmonary disease Source of Information: Patient - History of Present Illness Initial Comments - Free Text/Narative: Is a 74-year-old female with medical history of COPD, chronic hypoxemic respi ratory failure, had just mellitus type II, chronic kidney disease. The patient presented to the emergency room with complaint of shortness of breath which has been going on for 2 weeks. It has gradually worsened over time. It is present at rest but worse with activity. Exercise tolerance has been limited. She has been coughing and most of the time it is unproductive. No fever chills or rigors. Pat ient has been feeling weak. Patient has been treated with 2 different antibiotics in the clinic without improvement. Has also been treated with steroids. - Related Data Allergies/Adverse Reactions: Allergies Allergy/AdvReac Type Severity Reaction Status Date / Time amlodipine [From Norvasc] Allergy Cannot Verified 02/07/20 15:23 Remember cetirizine [From Zyrtec] Allergy Abdominal Verified 02/07/20 15:23 Pain Penicillins Allergy Rash Verified 02/07/20 15:23 simvastatin [From Zocor] Allergy Cannot Verified 02/07/20 15:23 Remember Home Medications: Home Meds Albuterol Sulfate [Proventil Hfa] 2 puff IH Q4HR PRN 10/21/16 [History] Metoprolol Tartrate 25 mg PO DAILY 04/03/17 [History] Albuterol [IJD: Albuterol] 3 ml INH Q6HR PRN 12/24/17 [History] Aspirin 81 mg PO DAILY 01/08/19 [History] Levothyroxine 75 mcg PO ACBREAKFAST 05/03/19 [History] Omeprazole 20 mg PO DAILY 07/29/19 [History] glipiZIDE [Glucotrol] 5 mg PO BID 30 Days #60 tablet 08/05/19 [Rx] Furosemide [Lasix] 40 mg PO BID 10/02/19 [History] Spironolactone [Aldactone] 25 mg PO DAILY 10/02/19 [History] predniSONE [Prednisone] 10 mg PO DAILY 10/02/19 [History] Albuterol/Ipratropium [DuoNeb 3.0-0.5 MG/3 ML] 3 ml NEB BID 02/07/20 [History] Azithromycin 500 mg PO DAILY 02/07/20 [History] Budesonide [Pulmicort] 0.25 mg IH BID 02/07/20 [History] Diclofenac Sodium [Voltaren 1% Gel] 1 applic TOP BID PRN 02/07/20 [History] predniSONE 40 mg PO DAILY 02/07/20 [History] Past Medical History HEENT History: Reports: Cataract, Impaired Vision, Macular Degeneration, Other (See Below) Other HEENT History: wears glasses Cardiovascular History: Reports: Aneurysm, Heart Failure, Hypertension, [place], SOB on Exertion Other Cardiovascular History: November 29, 2000 ([place]) Respiratory History: Reports: COPD, SOB Gastrointestinal History: Reports: Chronic Diarrhea Genitourinary History: Reports: Renal Disease, Urinary Incontinence 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 OB/BYN History: 5 kids Musculoskeletal History: Reports: Fracture, RA Other Musculoskeletal History: skull, collarbone Neurological History: Reports: Head Trauma Psychiatric History: Reports: Anxiety, Depression Endocrine/Metabolic History: Reports: Diabetes, Type II, Hypothyroidism, Obesity/BMI 30+ Hematologic History: Reports: None Immunologic History: Reports: None Oncologic (Cancer) History: Reports: Other (See Below) Other Oncologic History: simple vulvectomy - cancer Dermatologic History: Reports: None - Infectious Disease History Infectious Disease History: Reports: Measles, Mumps, Rubella - Past Surgical History Head Surgeries/Procedures: Reports: None HEENT Surgical History: Reports: None Cardiovascular Surgical History: Reports: None Respiratory Surgical History: Reports: None GI Surgical History: Reports: Appendectomy, Cholecystectomy Female Surgical History: Reports: Tubal Ligation, Other (See Below) Other Female Surgeries/Procedures: simple vulvectomy Endocrine Surgical History: Reports: Thyroidectomy Neurological Surgical History: Reports: None Musculoskeletal Surgical History: Reports: None Social & Family History - Family History Family Medical History: Noncontributory Cardiac: Reports: [place] Respiratory: Reports: COPD Neurological: Reports: CVA - Tobacco Use Smoking Status *Q: Current Every Day Smoker Years of Tobacco use: 60 Packs/Tins Daily: 0.3 - Caffeine Use Caffeine Use: Reports: Coffee Other Caffeine Use: 1 cup/day - Recreational Drug Use Recreational Drug Use: No - Living Situation & Occupation Living situation: Reports: with Family Occupation: Retired H&P Review of Systems - Review of Systems: Review Of Systems: See Below General: Reports: Weakness, Fatigue HEENT: Reports: No Symptoms Pulmonary: Reports: Shortness of Breath, Wheezing Cardiovascular: Reports: No Symptoms Gastrointestinal: Reports: No Symptoms Genitourinary: Reports: No Symptoms Musculoskeletal: Reports: No Symptoms Exam - Exam Exam: See Below - Vital Signs Vital Signs: Last Vital Signs Temp 36.6 C 02/07/20 17:06 Pulse 74 02/07/20 17:06 Resp 24 H 02/07/20 17:06 BP 129/67 02/07/20 17:06 Pulse Ox 100 02/07/20 17:06 Weight: 90.356 kg - Exam Quality Assessment: Supplemental Oxygen General: Alert, Oriented, Cooperative HEENT: PERRLA, Hearing Intact, Mucosa Moist & [place], Nares Patent, Normal Nasal Septum, Posterior Pharynx Clear, Conjunctiva Clear, EOMI, EACs Clear, TMs Clear Neck: Supple, Trachea Midline, 2 Lungs: Decreased Breath Sounds, Rhonchi, Wheezing Cardiovascular: Regular Rate, Regular Rhythm GI/Abdominal Exam: Normal Bowel Sounds, Soft, Non-Tender, No Organomegaly, No Distention, No Abnormal Bruit, No Mass, Pelvis Stable Extremities: Normal Inspection, Normal Range of Motion, Non-Tender, No Pedal Edema, Normal Capillary Refill - Patient Data Lab Results Last 24 hrs: Laboratory Results - last 24 hr 02/07/20 02/07/20 02/07/20 Range/Units 15:44 15:44 15:44 WBC 14.6 H (5.0-10.0) 10^3/uL RBC 4.23 (4.2-5.4) 10^6/uL Hgb 13.4 (12.0-16.0) g/dL Hct 40.4 (37.0-47.0) % MCV 95.5 (80-100) fL MCH 31.7 (27.0-34.0) pg MCHC 33.2 (33.0-35.0) g/dL Plt Count 246 (150-450) 10^3/uL Neut % (Auto) 95.5 H (42.2-75.2) % Lymph % (Auto) 3.2 L (20.5-50.1) % [place] % (Auto) 1.1 L (2-8) % Eos % (Auto) 0.1 L (1.0-3.0) % Baso % (Auto) 0.1 (0.0-1.0) % Sodium 136 (136-145) mmol/L Potassium 4.0 (3.5-5.1) mmol/L Chloride 97 L (98-107) mmol/L Carbon Dioxide 27 (21-32) mmol/L Anion Gap 16.0 H (7-13) mEq/L BUN 39 H (7-18) mg/dL Creatinine 2.49 H (0.55-1.02) mg/dL Est Cr Clr Drug Dosing 15.90 mL/min Estimated GFR (MDRD) 19 BUN/Creatinine Ratio 15.7 (No establ ref range) Glucose 282 H (74-99) mg/dL Lactic Acid 3.3 H* (0.4-2.0) mmol/L Calcium 9.0 (8.5-10.1) mg/dL Total Bilirubin 0.5 (0.2-1.0) mg/dL AST 16 (15-37) U/L ALT 21 (14-59) U/L Alkaline Phosphatase 53 (46-116) U/L Troponin I 0.031 (0.000-0.056) ng/mL B-Natriuretic Peptide 285 H (0-100) pg/ml Total Protein 6.9 (6.4-8.2) g/dL Albumin 3.4 (3.4-5.0) g/dL Globulin 3.5 Albumin/Globulin Ratio 1.0 Result Diagrams: 02/07/20 15:44 02/07/20 15:44 Problem List Initiated/Reviewed/Updated: Yes Orders Last 24hrs: Active Orders 24 hr Category Date Time Status Admission Diagnosis [ADT] Urgent ADT 02/07/20 17:05 Ordered Admission Status [Patient Status] [ADT] Routine ADT 02/07/20 17:05 Active Patient Status [ADT] Routine ADT 02/07/20 17:06 Active Blood Glucose Check, Bedside [RC] QIDACANDBED Care 02/07/20 19:10 Ordered Cardiac Monitoring [RC] 08,20 Care 02/07/20 17:10 Active Intake and Output [RC] QSHIFT Care 02/07/20 17:10 Active Oxygen Therapy [RC] PRN Care 02/07/20 17:06 Active RT Aerosol Therapy [RC] ASDIRECTED Care 02/07/20 17:14 Active Up ad Yen [RC] ASDIRECTED Care 02/07/20 17:06 Active VTE/DVT Education [RC] PER UNIT ROUTINE Care 02/07/20 17:06 Active Vital Signs [RC] Q4H Care 02/07/20 17:06 Active Regular Diet [DIET] Diet 02/07/20 Dinner Active B-TYPE NATRIURETIC PEPTIDE,BNP [CHEM] Routine Lab 02/08/20 19:06 Ordered BASIC METABOLIC PANEL,BMP [CHEM] AM Lab 02/08/20 05:11 Ordered CBC W/O DIFF,HEMOGRAM [HEME] AM Lab 02/08/20 05:11 Ordered CULTURE BLOOD [BC] Stat Lab 02/07/20 15:44 Received CULTURE SPUTUM + SMEAR [RM] Routine Lab 02/07/20 19:08 Ordered TROPONIN I [CHEM] Routine Lab 02/07/20 20:06 Ordered Albuterol [Proventil Neb Soln] Med 02/07/20 17:06 Active 2.5 mg NEB Q2H PRN Albuterol/Ipratropium [DuoNeb 3.0-0.5 MG/3 ML] Med 02/07/20 19:00 Active 3 ml NEB Q4HRRT Aspirin Med 02/08/20 09:00 Ordered 81 mg PO DAILY Budesonide [Pulmicort] Med 02/07/20 21:00 Ordered 0.25 mg IH BID Diclofenac Sodium [Voltaren 1% Gel] Med 02/07/20 19:08 Ordered 1 applic TOP BID PRN Doxycycline [Vibramycin] Med 02/07/20 21:00 Ordered 100 mg PO Q12HR Furosemide [Lasix] Med 02/07/20 21:00 Ordered 40 mg PO BID Heparin Sodium Med 02/07/20 22:00 Active 5,000 units SUBCUT Q8HR Insulin Lispro [HumaLOG] Med 02/07/20 21:00 Ordered See Protocol SUBCUT WITHMEALSANDBED Levothyroxine Med 02/08/20 06:00 Ordered 75 mcg PO ACBREAKFAST Metoprolol Tartrate [Lopressor] Med 02/08/20 09:00 Ordered 25 mg PO DAILY Omeprazole Med 02/08/20 09:00 Ordered 20 mg PO DAILY Ondansetron [Zofran] Med 02/07/20 17:06 Active 4 mg IVPUSH Q6H PRN Sodium Chloride 0.9% [Saline Flush] Med 02/07/20 17:06 Active 10 ml FLUSH ASDIRECTED PRN Spironolactone [Aldactone] Med 02/08/20 09:00 Ordered 25 mg PO DAILY glipiZIDE [Glucotrol] Med 02/07/20 21:00 Ordered 5 mg PO BID methylPREDNISolone Sod Succ [Solu-MEDROL] Med 02/07/20 18:00 Active 40 mg IVPUSH Q8H Saline Lock Insert [OM.PC] Routine Oth 02/07/20 17:06 Ordered Resuscitation Status Routine Resus Stat 02/07/20 17:06 Ordered Medication Orders Albuterol (Proventil Neb Soln) 2.5 mg NEB Q2H PRN PRN Reason: shortness of breath/wheezing Albuterol/Ipratropium (Duoneb 3.0-0.5 Mg/3 Ml) 3 ml NEB Q4HRRT [facility] Last Admin: 02/07/20 18:04 Dose: 3 ml Documented by: NIKHIL Aspirin (Aspirin) 81 mg PO DAILY [facility] Doxycycline Hyclate (Vibramycin) 100 mg PO Q12HR [facility] Furosemide (Lasix) 40 mg PO BID [place] Glipizide (Glucotrol) 5 mg PO BID [facility] Heparin Sodium (Porcine) (Heparin Sodium) 5,000 units SUBCUT Q8HR [facility] Insulin Human Lispro (Humalog) 0 unit SUBCUT WITHMEALSANDBED [facility]; Protocol Levothyroxine Sodium (Levothyroxine) 75 mcg PO ACBREAKFAST [facility] Methylprednisolone Sodium Succinate (Solu-Medrol) 40 mg IVPUSH Q8H [facility] Last Admin: 02/07/20 18:19 Dose: 40 mg Documented by: NIKHIL Metoprolol Tartrate (Lopressor) 25 mg PO DAILY [facility] Non-Formulary Medication (Budesonide [Pulmicort]) 0.25 mg IH BID [facility] Non-Formulary Medication (Diclofenac Sodium [Voltaren 1% Gel]) 1 applic TOP BID PRN PRN Reason: Pain Omeprazole (Omeprazole) 20 mg PO DAILY [facility] Ondansetron HCl (Zofran) 4 mg IVPUSH Q6H PRN PRN Reason: Nausea/Vomiting Sodium Chloride (Saline Flush) 10 ml FLUSH ASDIRECTED PRN PRN Reason: Keep Vein Open Spironolactone (Aldactone) 25 mg PO DAILY [facility] Assessment/Plan Comment:: #. Acute exacerbation of COPD Patient does have diminished air entry bilaterally. Has bilateral expiratory rhonchi Chest x-ray ruled out pneumonia #. Acute bronchitis Chest x-ray does not show an infiltrate #. Chronic kidney disease Serum creatinine is at about 2.4 This is slightly above her baseline. #. Chronic hypoxemic respiratory failure Normally On 4 L/m of oxygen #. Hypothyroidism Levothyroxine #. Hypertension Blood pressure is intermittently elevated #. Diabetes mellitus type 2 On glipizide #. Generalized weakness Plan: Admit patient to medical floor Comments aggressive nebulization with DuoNeb every 4 hours Albuterol every 2 hours Start patient on intravenous Solu Medrol 40 mg every 8 hours Send sputum for Gram stain and cultures Start patient on doxycycline 100 mg every 12 hours Send sample for repeat brain natruretic peptide Obtain repeat complete blood count obtain repeat basic metabolic panel
[2020-02-07] MEDS: Doxycycline 100 MG Cap PO SCH (20:54)
[2020-02-07] MEDS: Furosemide 20 MG Tab PO SCH (20:55)
[2020-02-07] MEDS ORDERED: Non-Formulary Medication 1 Each (Budesonide [Pulmicort] 0.25 MG) IH SCH (21:00)
[2020-02-07] MEDS: Heparin Sodium 5,000 Units/ML Vial SUBCUT SCH (21:02)
[2020-02-07] MEDS: Sodium Chloride 0.9% 10 ML Syringe FLUSH PRN (21:03)
[2020-02-07] MEDS: Insulin Lispro 100 Units/ML 3 ML Vial SUBCUT SCH (21:25)
[2020-02-08] MEDS: Sodium Chloride 0.9% 10 ML Syringe FLUSH PRN ×3 (01:37→21:17)
[2020-02-08] MEDS: methylPREDNISolone Sodium Succinate 40 MG/1 ML SDV IVPUSH SCH ×3 (01:37→18:15)
[2020-02-08] MEDS: Albuterol/Ipratropium 3.0-0.5 MG/3 ML Neb Soln NEB SCH ×6 (03:00→23:27)
[2020-02-08] MEDS ORDERED: glipiZIDE 5 MG Tab PO SCH (06:00)
[2020-02-08] MEDS: Levothyroxine 75 MCG Tab PO SCH (06:07)
[2020-02-08] MEDS: Heparin Sodium 5,000 Units/ML Vial SUBCUT SCH ×3 (06:10→21:19)
[2020-02-08 07:12] LABS: ANION GAP 11.3 mEq/L (7-13)
[2020-02-08] MEDS: Budesonide 0.5 MG/2 ML Neb Susp NEB SCH ×2 (07:32→18:15)
[2020-02-08] MEDS: Insulin Lispro 100 Units/ML 3 ML Vial SUBCUT SCH ×4 (08:59→21:18)
[2020-02-08] MEDS: Spironolactone 25 MG Tab PO SCH (09:00)
[2020-02-08] MEDS: glipiZIDE 5 MG Tab PO SCH ×2 (09:00→16:50)
[2020-02-08] MEDS: Aspirin 81 MG Tab.Chew PO SCH (09:00)
[2020-02-08] MEDS: Metoprolol Tartrate 50 MG Tab PO SCH (09:01)
[2020-02-08] MEDS: Furosemide 20 MG Tab PO SCH ×2 (09:01→14:16)
[2020-02-08] MEDS: Doxycycline 100 MG Cap PO SCH ×2 (09:02→21:18)
--- NOTE | 2020-02-08 10:28 | PCM.PN ---
- General Info Date of Service: 02/08/20 Subjective Update: Patient has no new complaint today Still has shortness of breath. Present at rest but was with activity. She is still needing significant oxygen supplementation. Continues to wheeze - Review of Systems General: Reports: Weakness Pulmonary: Reports: Shortness of Breath, Cough, Wheezing Gastrointestinal: Reports: No Symptoms Genitourinary: Reports: No Symptoms Musculoskeletal: Reports: No Symptoms Neurological: Reports: Weakness - Patient Data Vitals - Most Recent: Last Vital Signs Temp 36.8 C 02/08/20 08:10 Pulse 77 02/08/20 09:01 Resp 20 02/08/20 08:10 BP 111/54 L 02/08/20 09:01 Pulse Ox 96 02/08/20 08:10 Weight - Most Recent: 90.628 kg I&O - Last 24 Hours: Intake & Output 02/07/20 02/08/20 02/08/20 22:59 06:59 14:59 Intake Total 1340 500 560 Output Total 200 1500 Balance 1140 -1000 560 Lab Results Last 24 Hours: Laboratory Results - last 24 hr 02/07/20 02/07/20 02/07/20 Range/Units 15:44 15:44 15:44 WBC 14.6 H (5.0-10.0) 10^3/uL RBC 4.23 (4.2-5.4) 10^6/uL Hgb 13.4 (12.0-16.0) g/dL Hct 40.4 (37.0-47.0) % MCV 95.5 (80-100) fL MCH 31.7 (27.0-34.0) pg MCHC 33.2 (33.0-35.0) g/dL Plt Count 246 (150-450) 10^3/uL Neut % (Auto) 95.5 H (42.2-75.2) % Lymph % (Auto) 3.2 L (20.5-50.1) % Converse % (Auto) 1.1 L (2-8) % Eos % (Auto) 0.1 L (1.0-3.0) % Baso % (Auto) 0.1 (0.0-1.0) % Sodium 136 (136-145) mmol/L Potassium 4.0 (3.5-5.1) mmol/L Chloride 97 L (98-107) mmol/L Carbon Dioxide 27 (21-32) mmol/L Anion Gap 16.0 H (7-13) mEq/L BUN 39 H (7-18) mg/dL Creatinine 2.49 H (0.55-1.02) mg/dL Est Cr Clr Drug Dosing 15.90 mL/min Estimated GFR (MDRD) 19 BUN/Creatinine Ratio 15.7 (No establ ref range) Glucose 282 H (74-99) mg/dL POC Glucose (83-110) mg/dl Lactic Acid 3.3 H* (0.4-2.0) mmol/L Calcium 9.0 (8.5-10.1) mg/dL Total Bilirubin 0.5 (0.2-1.0) mg/dL AST 16 (15-37) U/L ALT 21 (14-59) U/L Alkaline Phosphatase 53 (46-116) U/L Troponin I 0.031 (0.000-0.056) ng/mL B-Natriuretic Peptide 285 H (0-100) pg/ml Total Protein 6.9 (6.4-8.2) g/dL Albumin 3.4 (3.4-5.0) g/dL Globulin 3.5 Albumin/Globulin Ratio 1.0 SARS-CoV-2 RNA (RT-PCR) (NEGATIVE) 02/07/20 02/07/20 02/07/20 Range/Units 19:40 20:37 21:08 WBC (5.0-10.0) 10^3/uL RBC (4.2-5.4) 10^6/uL Hgb (12.0-16.0) g/dL Hct (37.0-47.0) % MCV (80-100) fL MCH (27.0-34.0) pg MCHC (33.0-35.0) g/dL Plt Count (150-450) 10^3/uL Neut % (Auto) (42.2-75.2) % Lymph % (Auto) (20.5-50.1) % Converse % (Auto) (2-8) % Eos % (Auto) (1.0-3.0) % Baso % (Auto) (0.0-1.0) % Sodium (136-145) mmol/L Potassium (3.5-5.1) mmol/L Chloride (98-107) mmol/L Carbon Dioxide (21-32) mmol/L Anion Gap (7-13) mEq/L BUN (7-18) mg/dL Creatinine (0.55-1.02) mg/dL Est Cr Clr Drug Dosing mL/min Estimated GFR (MDRD) BUN/Creatinine Ratio (No establ ref range) Glucose (74-99) mg/dL POC Glucose 354 H (83-110) mg/dl Lactic Acid (0.4-2.0) mmol/L Calcium (8.5-10.1) mg/dL Total Bilirubin (0.2-1.0) mg/dL AST (15-37) U/L ALT (14-59) U/L Alkaline Phosphatase (46-116) U/L Troponin I 0.020 (0.000-0.056) ng/mL B-Natriuretic Peptide (0-100) pg/ml Total Protein (6.4-8.2) g/dL Albumin (3.4-5.0) g/dL Globulin Albumin/Globulin Ratio SARS-CoV-2 RNA (RT-PCR) Negative (NEGATIVE) 02/07/20 02/08/20 02/08/20 Range/Units 22:38 06:10 06:10 WBC 12.3 H (5.0-10.0) 10^3/uL RBC 3.88 L (4.2-5.4) 10^6/uL Hgb 12.2 (12.0-16.0) g/dL Hct 37.1 (37.0-47.0) % MCV 95.6 (80-100) fL MCH 31.4 (27.0-34.0) pg MCHC 32.9 L (33.0-35.0) g/dL Plt Count 223 (150-450) 10^3/uL Neut % (Auto) (42.2-75.2) % Lymph % (Auto) (20.5-50.1) % Converse % (Auto) (2-8) % Eos % (Auto) (1.0-3.0) % Baso % (Auto) (0.0-1.0) % Sodium 137 (136-145) mmol/L Potassium 4.3 (3.5-5.1) mmol/L Chloride 99 (98-107) mmol/L Carbon Dioxide 31 (21-32) mmol/L Anion Gap 11.3 (7-13) mEq/L BUN 44 H (7-18) mg/dL Creatinine 2.32 H (0.55-1.02) mg/dL Est Cr Clr Drug Dosing 17.06 mL/min Estimated GFR (MDRD) 20 BUN/Creatinine Ratio (No establ ref range) Glucose 236 H (74-99) mg/dL POC Glucose (83-110) mg/dl Lactic Acid 4.3 H* (0.4-2.0) mmol/L Calcium 9.0 (8.5-10.1) mg/dL Total Bilirubin (0.2-1.0) mg/dL AST (15-37) U/L ALT (14-59) U/L Alkaline Phosphatase (46-116) U/L Troponin I (0.000-0.056) ng/mL B-Natriuretic Peptide (0-100) pg/ml Total Protein (6.4-8.2) g/dL Albumin (3.4-5.0) g/dL Globulin Albumin/Globulin Ratio SARS-CoV-2 RNA (RT-PCR) (NEGATIVE) 02/08/20 02/08/20 02/08/20 Range/Units 06:10 06:10 07:55 WBC (5.0-10.0) 10^3/uL RBC (4.2-5.4) 10^6/uL Hgb (12.0-16.0) g/dL Hct (37.0-47.0) % MCV (80-100) fL MCH (27.0-34.0) pg MCHC (33.0-35.0) g/dL Plt Count (150-450) 10^3/uL Neut % (Auto) (42.2-75.2) % Lymph % (Auto) (20.5-50.1) % Converse % (Auto) (2-8) % Eos % (Auto) (1.0-3.0) % Baso % (Auto) (0.0-1.0) % Sodium (136-145) mmol/L Potassium (3.5-5.1) mmol/L Chloride (98-107) mmol/L Carbon Dioxide (21-32) mmol/L Anion Gap (7-13) mEq/L BUN (7-18) mg/dL Creatinine (0.55-1.02) mg/dL Est Cr Clr Drug Dosing mL/min Estimated GFR (MDRD) BUN/Creatinine Ratio (No establ ref range) Glucose (74-99) mg/dL POC Glucose 229 H (83-110) mg/dl Lactic Acid 3.8 H* (0.4-2.0) mmol/L Calcium (8.5-10.1) mg/dL Total Bilirubin (0.2-1.0) mg/dL AST (15-37) U/L ALT (14-59) U/L Alkaline Phosphatase (46-116) U/L Troponin I (0.000-0.056) ng/mL B-Natriuretic Peptide 389 H (0-100) pg/ml Total Protein (6.4-8.2) g/dL Albumin (3.4-5.0) g/dL Globulin Albumin/Globulin Ratio SARS-CoV-2 RNA (RT-PCR) (NEGATIVE) Kamran Results Last 24 Hours: Microbiology 02/08/20 08:00 Gram Stain - Final Sputum - Expectorated Med Orders - Current: Current Medications Albuterol (Proventil Neb Soln) 2.5 mg NEB Q2H PRN PRN Reason: shortness of breath/wheezing Albuterol/Ipratropium (Duoneb 3.0-0.5 Mg/3 Ml) 3 ml NEB Q4HRRT ON LICENSE OF [facility] Last Admin: 02/08/20 07:32 Dose: 3 ml Documented by: Aspirin (Aspirin) 81 mg PO DAILY ON LICENSE OF [facility] Last Admin: 02/08/20 09:00 Dose: 81 mg Documented by: Budesonide (Pulmicort) 0.5 mg NEB BIDRT ON LICENSE OF [facility] Last Admin: 02/08/20 07:32 Dose: 0.5 mg Documented by: Doxycycline Hyclate (Vibramycin) 100 mg PO Q12HR ON LICENSE OF [facility] Last Admin: 02/08/20 09:02 Dose: 100 mg Documented by: Furosemide (Lasix) 40 mg PO BIDDIURETIC ON LICENSE OF [facility] Last Admin: 02/08/20 09:01 Dose: 40 mg Documented by: Glipizide (Glucotrol) 5 mg PO BID@0800,1700 ON LICENSE OF [facility] Last Admin: 02/08/20 09:00 Dose: 5 mg Documented by: Heparin Sodium (Porcine) (Heparin Sodium) 5,000 units SUBCUT Q8HR ON LICENSE OF [facility] Last Admin: 02/08/20 06:10 Dose: 5,000 units Documented by: Insulin Human Lispro (Humalog) 0 unit SUBCUT WITHMEALSANDBED ON LICENSE OF [facility]; Protocol Last Admin: 02/08/20 08:59 Dose: 4 units Documented by: Levothyroxine Sodium (Levothyroxine) 75 mcg PO ACBREAKFAST ON LICENSE OF [facility] Last Admin: 02/08/20 06:07 Dose: 75 mcg Documented by: Methylprednisolone Sodium Succinate (Solu-Medrol) 40 mg IVPUSH Q8H ON LICENSE OF [facility] Last Admin: 02/08/20 08:59 Dose: 40 mg Documented by: Metoprolol Tartrate (Lopressor) 25 mg PO DAILY ON LICENSE OF [facility] Last Admin: 02/08/20 09:01 Dose: 25 mg Documented by: Non-Formulary Medication (Diclofenac Sodium [Voltaren 1% Gel]) 1 applic TOP BID PRN PRN Reason: Pain Omeprazole (Omeprazole) 20 mg PO DAILY ON LICENSE OF [facility] Ondansetron HCl (Zofran) 4 mg IVPUSH Q6H PRN PRN Reason: Nausea/Vomiting Sodium Chloride (Saline Flush) 10 ml FLUSH ASDIRECTED PRN PRN Reason: Keep Vein Open Last Admin: 02/08/20 01:42 Dose: 10 ml Documented by: Spironolactone (Aldactone) 25 mg PO DAILY ON LICENSE OF [facility] Last Admin: 02/08/20 09:00 Dose: 25 mg Documented by: Discontinued Medications Albuterol/Ipratropium (Duoneb 3.0-0.5 Mg/3 Ml) 3 ml NEB ONETIME ONE Stop: 02/07/20 16:20 Last Admin: 02/07/20 16:37 Dose: 3 ml Documented by: Glipizide (Glucotrol) 5 mg PO BIDAC ON LICENSE OF [facility] Last Admin: 02/08/20 06:29 Dose: Not Given Documented by: - Exam Quality Assessment: Supplemental Oxygen General: Alert, Oriented, Cooperative, No Acute Distress Neck: Supple Lungs: Decreased Breath Sounds, Rhonchi Cardiovascular: Regular Rate, Regular Rhythm GI/Abdominal Exam: Normal Bowel Sounds, Soft, Non-Tender, No Organomegaly, No Distention, No Abnormal Bruit, No Mass, Pelvis Stable Sepsis Event Note - Evaluation Sepsis Screening Result: No Definite Risk - Focused Exam Vital Signs: Vital Signs Temp Pulse Pulse Resp BP BP BP 02/08/20 09:01 77 111/54 L 02/08/20 08:10 36.8 C 77 20 111/54 L 02/08/20 07:33 86 02/08/20 05:45 36.4 C 76 20 132/77 02/08/20 03:00 85 02/08/20 01:44 36.4 C 74 20 124/71 02/07/20 22:28 85 Pulse Ox Pulse Ox 02/08/20 09:01 02/08/20 08:10 96 02/08/20 07:33 96 02/08/20 05:45 94 L 02/08/20 03:00 98 02/08/20 01:44 95 02/07/20 22:28 94 L Date Exam was Performed: 02/08/20 Time Exam was Performed: 10:25 - Problem List Review Problem List Initiated/Reviewed/Updated: Yes - My Orders Last 24 Hours: My Active Orders 02/07/20 17:06 Patient Status [ADT] Routine Oxygen Therapy [RC] PRN Up ad Yen [RC] ASDIRECTED VTE/DVT Education [RC] PER UNIT ROUTINE Vital Signs [RC] Q4H Albuterol [Proventil Neb Soln] 2.5 mg NEB Q2H PRN Ondansetron [Zofran] 4 mg IVPUSH Q6H PRN Sodium Chloride 0.9% [Saline Flush] 10 ml FLUSH ASDIRECTED PRN Saline Lock Insert [OM.PC] Routine 02/07/20 17:10 Cardiac Monitoring [RC] Intake and Output [RC] QSHIFT 02/07/20 17:14 RT Aerosol Therapy [RC] ASDIRECTED 02/07/20 Dinner Regular Diet [DIET] 02/07/20 18:00 methylPREDNISolone Sod Succ [Solu-MEDROL] 40 mg IVPUSH Q8H 02/07/20 19:00 Albuterol/Ipratropium [DuoNeb 3.0-0.5 MG/3 ML] 3 ml NEB Q4HRRT 02/07/20 19:08 Diclofenac Sodium [Voltaren 1% Gel] 1 applic TOP BID PRN 02/07/20 19:10 Blood Glucose Check, Bedside [RC] QIDACANDBED 02/07/20 19:19 Code Status [Resuscitation Status] Routine 02/07/20 19:30 Furosemide [Lasix] 40 mg PO BIDDIURETIC 02/07/20 21:00 Doxycycline [Vibramycin] 100 mg PO Q12HR Insulin Lispro [HumaLOG] See Protocol SUBCUT WITHMEALSANDBED 02/07/20 22:00 Heparin Sodium 5,000 units SUBCUT Q8HR 02/07/20 23:13 RT Aerosol Therapy [RC] ASDIRECTED 02/08/20 06:00 Levothyroxine 75 mcg PO ACBREAKFAST 02/08/20 07:00 Budesonide [Pulmicort] 0.5 mg NEB BIDRT 02/08/20 08:00 CULTURE SPUTUM + SMEAR [RM] Routine glipiZIDE [Glucotrol] 5 mg PO BID@0800,1700 02/08/20 09:00 Aspirin 81 mg PO DAILY Metoprolol Tartrate [Lopressor] 25 mg PO DAILY Omeprazole 20 mg PO DAILY Spironolactone [Aldactone] 25 mg PO DAILY 02/08/20 10:10 LACTIC ACID [CHEM] Timed - Plan Plan:: #. Acute exacerbation of COPD Patient does have diminished air entry bilaterally. Has bilateral expiratory rhonchi Chest x-ray ruled out pneumonia #. Acute bronchitis Chest x-ray does not show an infiltrate #. Chronic kidney disease Serum creatinine is at about 2.3 This is slightly above her baseline. #. Chronic hypoxemic respiratory failure Normally On 4 L/m of oxygen #. Hypothyroidism Levothyroxine #. Hypertension Blood pressure is intermittently elevated #. Diabetes mellitus type 2 On glipizide #. Generalized weakness Plan: Patient's lactic acid is elevated. This is not because of sepsis. Likely because of broncho-dilator used Continue nebulized bronchodilators Continue steroids Obtain repeat complete blood count obtain repeat basic metabolic panel
[2020-02-09] MEDS: methylPREDNISolone Sodium Succinate 40 MG/1 ML SDV IVPUSH SCH ×3 (02:55→17:14)
[2020-02-09] MEDS: Albuterol/Ipratropium 3.0-0.5 MG/3 ML Neb Soln NEB SCH ×6 (03:01→22:50)
[2020-02-09] MEDS: Levothyroxine 75 MCG Tab PO SCH (05:50)
[2020-02-09] MEDS: Heparin Sodium 5,000 Units/ML Vial SUBCUT SCH ×3 (05:51→21:11)
[2020-02-09 06:44] LABS: ANION GAP 14.1 mEq/L (7-13)
[2020-02-09] MEDS: Budesonide 0.5 MG/2 ML Neb Susp NEB SCH ×2 (07:48→18:08)
[2020-02-09] MEDS: Insulin Lispro 100 Units/ML 3 ML Vial SUBCUT SCH ×4 (08:27→20:57)
[2020-02-09] MEDS: Metoprolol Tartrate 50 MG Tab PO SCH (08:28)
[2020-02-09] MEDS: Doxycycline 100 MG Cap PO SCH ×2 (08:28→20:56)
[2020-02-09] MEDS: Aspirin 81 MG Tab.Chew PO SCH (08:28)
[2020-02-09] MEDS: Furosemide 20 MG Tab PO SCH (08:29)
[2020-02-09] MEDS: Spironolactone 25 MG Tab PO SCH (08:29)
[2020-02-09] MEDS: glipiZIDE 5 MG Tab PO SCH ×2 (08:33→17:12)
[2020-02-09] MEDS: Sodium Chloride 0.9% 1,000 ML IV SCH (09:54)
[2020-02-09] MEDS: Sodium Chloride 0.9% 10 ML Syringe FLUSH PRN (09:55)
--- NOTE | 2020-02-09 10:14 | PCM.PN ---
- General Info Date of Service: 02/09/20 - Review of Systems General: Reports: Weakness, Malaise HEENT: Reports: No Symptoms Pulmonary: Reports: Shortness of Breath, Wheezing Cardiovascular: Reports: No Symptoms Gastrointestinal: Reports: No Symptoms Skin: Reports: No Symptoms - Patient Data Vitals - Most Recent: Last Vital Signs Temp 37.1 C 02/09/20 08:00 Pulse 78 02/09/20 08:28 Resp 22 H 02/09/20 08:00 BP 118/74 02/09/20 08:28 Pulse Ox 98 02/09/20 08:00 Weight - Most Recent: 90.809 kg I&O - Last 24 Hours: Intake & Output 02/08/20 02/09/20 02/09/20 22:59 06:59 14:59 Intake Total 300 Output Total 425 Balance 300 -425 Lab Results Last 24 Hours: Laboratory Results - last 24 hr 02/08/20 02/08/20 02/08/20 Range/Units 10:31 11:39 16:41 WBC (5.0-10.0) 10^3/uL RBC (4.2-5.4) 10^6/uL Hgb (12.0-16.0) g/dL Hct (37.0-47.0) % MCV (80-100) fL MCH (27.0-34.0) pg MCHC (33.0-35.0) g/dL Plt Count (150-450) 10^3/uL Sodium (136-145) mmol/L Potassium (3.5-5.1) mmol/L Chloride (98-107) mmol/L Carbon Dioxide (21-32) mmol/L Anion Gap (7-13) mEq/L BUN (7-18) mg/dL Creatinine (0.55-1.02) mg/dL Est Cr Clr Drug Dosing mL/min Estimated GFR (MDRD) Glucose (74-99) mg/dL POC Glucose 254 H 186 H (83-110) mg/dl Lactic Acid 4.5 H* (0.4-2.0) mmol/L Calcium (8.5-10.1) mg/dL 02/08/20 02/09/20 02/09/20 Range/Units 20:39 06:00 06:00 WBC 17.9 H (5.0-10.0) 10^3/uL RBC 3.90 L (4.2-5.4) 10^6/uL Hgb 12.4 (12.0-16.0) g/dL Hct 37.4 (37.0-47.0) % MCV 95.9 (80-100) fL MCH 31.8 (27.0-34.0) pg MCHC 33.2 (33.0-35.0) g/dL Plt Count 229 (150-450) 10^3/uL Sodium 138 (136-145) mmol/L Potassium 4.1 (3.5-5.1) mmol/L Chloride 100 (98-107) mmol/L Carbon Dioxide 28 (21-32) mmol/L Anion Gap 14.1 H (7-13) mEq/L BUN 55 H (7-18) mg/dL Creatinine 2.60 H (0.55-1.02) mg/dL Est Cr Clr Drug Dosing 15.23 mL/min Estimated GFR (MDRD) 18 Glucose 189 H (74-99) mg/dL POC Glucose 258 H (83-110) mg/dl Lactic Acid (0.4-2.0) mmol/L Calcium 9.1 (8.5-10.1) mg/dL 02/09/20 02/09/20 Range/Units 06:00 08:01 WBC (5.0-10.0) 10^3/uL RBC (4.2-5.4) 10^6/uL Hgb (12.0-16.0) g/dL Hct (37.0-47.0) % MCV (80-100) fL MCH (27.0-34.0) pg MCHC (33.0-35.0) g/dL Plt Count (150-450) 10^3/uL Sodium (136-145) mmol/L Potassium (3.5-5.1) mmol/L Chloride (98-107) mmol/L Carbon Dioxide (21-32) mmol/L Anion Gap (7-13) mEq/L BUN (7-18) mg/dL Creatinine (0.55-1.02) mg/dL Est Cr Clr Drug Dosing mL/min Estimated GFR (MDRD) Glucose (74-99) mg/dL POC Glucose 195 H (83-110) mg/dl Lactic Acid 2.7 H* (0.4-2.0) mmol/L Calcium (8.5-10.1) mg/dL Kamran Results Last 24 Hours: Microbiology 02/07/20 15:44 Aerobic Blood Culture - Preliminary Blood NO GROWTH AFTER 1 DAY Anaerobic Blood Culture - Preliminary NO GROWTH AFTER 1 DAY 02/08/20 08:00 Gram Stain - Final Sputum - Expectorated Med Orders - Current: Current Medications Albuterol (Proventil Neb Soln) 2.5 mg NEB Q2H PRN PRN Reason: shortness of breath/wheezing Albuterol/Ipratropium (Duoneb 3.0-0.5 Mg/3 Ml) 3 ml NEB Q4HRRT [facility] Last Admin: 02/09/20 07:48 Dose: 3 ml Documented by: Aspirin (Aspirin) 81 mg PO DAILY [facility] Last Admin: 02/09/20 08:28 Dose: 81 mg Documented by: Budesonide (Pulmicort) 0.5 mg NEB BIDRT [facility] Last Admin: 02/09/20 07:48 Dose: 0.5 mg Documented by: Doxycycline Hyclate (Vibramycin) 100 mg PO Q12HR [facility] Last Admin: 02/09/20 08:28 Dose: 100 mg Documented by: Glipizide (Glucotrol) 5 mg PO BID@0800,1700 [facility] Last Admin: 02/09/20 08:33 Dose: 5 mg Documented by: Heparin Sodium (Porcine) (Heparin Sodium) 5,000 units SUBCUT Q8HR [facility] Last Admin: 02/09/20 05:51 Dose: 5,000 units Documented by: Sodium Chloride (Normal Saline) 1,000 mls @ 50 mls/hr IV ASDIRECTED [facility] Last Admin: 02/09/20 09:54 Dose: 50 mls/hr Documented by: Insulin Human Lispro (Humalog) 0 unit SUBCUT WITHMEALSANDBED [facility]; Protocol Last Admin: 02/09/20 08:27 Dose: 2 units Documented by: Levothyroxine Sodium (Levothyroxine) 75 mcg PO ACBREAKFAST [facility] Last Admin: 02/09/20 05:50 Dose: 75 mcg Documented by: Methylprednisolone Sodium Succinate (Solu-Medrol) 40 mg IVPUSH Q8H [facility] Last Admin: 02/09/20 09:55 Dose: 40 mg Documented by: Metoprolol Tartrate (Lopressor) 25 mg PO DAILY [facility] Last Admin: 02/09/20 08:28 Dose: 25 mg Documented by: Non-Formulary Medication (Diclofenac Sodium [Voltaren 1% Gel]) 1 applic TOP BID PRN PRN Reason: Pain Omeprazole (Omeprazole) 20 mg PO DAILY [facility] Ondansetron HCl (Zofran) 4 mg IVPUSH Q6H PRN PRN Reason: Nausea/Vomiting Sodium Chloride (Saline Flush) 10 ml FLUSH ASDIRECTED PRN PRN Reason: Keep Vein Open Last Admin: 02/09/20 09:55 Dose: 10 ml Documented by: Discontinued Medications Albuterol/Ipratropium (Duoneb 3.0-0.5 Mg/3 Ml) 3 ml NEB ONETIME ONE Stop: 02/07/20 16:20 Last Admin: 02/07/20 16:37 Dose: 3 ml Documented by: Furosemide (Lasix) 40 mg PO BIDDIURETIC [facility] Last Admin: 02/09/20 08:29 Dose: 40 mg Documented by: Glipizide (Glucotrol) 5 mg PO BIDAC [facility] Last Admin: 02/08/20 06:29 Dose: Not Given Documented by: Spironolactone (Aldactone) 25 mg PO DAILY [facility] Last Admin: 02/09/20 08:29 Dose: 25 mg Documented by: - Exam Quality Assessment: Supplemental Oxygen General: Alert, Oriented, Cooperative, Mild Distress Neck: Supple Lungs: Decreased Breath Sounds, Rhonchi Cardiovascular: Regular Rate, Regular Rhythm GI/Abdominal Exam: Normal Bowel Sounds, Soft, Non-Tender, No Organomegaly, No Distention, No Abnormal Bruit, No Mass, Pelvis Stable Extremities: Normal Inspection, Normal Range of Motion, Non-Tender, No Pedal Edema, Normal Capillary Refill Sepsis Event Note - Evaluation Sepsis Screening Result: Severe Sepsis Risk - Focused Exam Vital Signs: Vital Signs Temp Pulse Pulse Resp BP BP Pulse Ox 02/09/20 08:28 78 118/74 02/09/20 08:00 37.1 C 78 22 H 118/74 98 02/09/20 07:49 77 02/09/20 03:05 36.3 C 79 20 114/65 98 02/08/20 23:43 36.7 C 79 20 110/59 L 98 Date Exam was Performed: 06/19/20 Time Exam was Performed: 10:14 - Problem List Review Problem List Initiated/Reviewed/Updated: Yes - My Orders Last 24 Hours: My Active Orders 02/09/20 09:00 Sodium Chloride 0.9% [Normal Saline] 1,000 ml IV ASDIRECTED 02/09/20 10:30 LACTIC ACID [CHEM] Routine 02/10/20 05:11 BASIC METABOLIC PANEL,BMP [CHEM] AM CBC W/O DIFF,HEMOGRAM [HEME] AM 02/10/20 10:07 B-TYPE NATRIURETIC PEPTIDE,BNP [CHEM] Routine - Plan Plan:: #. Acute exacerbation of COPD Patient does have diminished air entry bilaterally. Has bilateral expiratory rhonchi Chest x-ray ruled out pneumonia #. Acute bronchitis Chest x-ray does not show an infiltrate #.Acute on Chronic kidney disease Serum creatinine is worse at 2.6 This is above her baseline. #. Chronic hypoxemic respiratory failure Normally On 4 L/m of oxygen #. Hypothyroidism Levothyroxine #. Hypertension Blood pressure is intermittently elevated #. Diabetes mellitus type 2 On glipizide #. Generalized weakness Plan: Hold HCTZ Hold Furosemide Start IV fluid NS at 50 cc/hr Repeat BMP in AM Await sputum culture result. Will consider use of levofloxacin but concerning with steroid use/renal failure. Will decide based on sputum culture.
[2020-02-10] MEDS: Albuterol/Ipratropium 3.0-0.5 MG/3 ML Neb Soln NEB SCH ×5 (02:16→17:08)
[2020-02-10] MEDS: methylPREDNISolone Sodium Succinate 40 MG/1 ML SDV IVPUSH SCH ×3 (02:20→17:25)
[2020-02-10] MEDS: Sodium Chloride 0.9% 1,000 ML IV SCH (04:01)
[2020-02-10] MEDS: Levothyroxine 75 MCG Tab PO SCH (05:54)
[2020-02-10] MEDS: Heparin Sodium 5,000 Units/ML Vial SUBCUT SCH ×2 (05:54→13:08)
[2020-02-10 06:45] LABS: ANION GAP 14.1 mEq/L (7-13)
[2020-02-10] MEDS: Budesonide 0.5 MG/2 ML Neb Susp NEB SCH ×2 (07:21→17:09)
[2020-02-10] MEDS: Aspirin 81 MG Tab.Chew PO SCH (08:25)
[2020-02-10] MEDS: Metoprolol Tartrate 50 MG Tab PO SCH (08:25)
[2020-02-10] MEDS: Doxycycline 100 MG Cap PO SCH (08:25)
[2020-02-10] MEDS: glipiZIDE 5 MG Tab PO SCH ×2 (08:25→17:24)
[2020-02-10] MEDS: Insulin Lispro 100 Units/ML 3 ML Vial SUBCUT SCH ×3 (08:28→17:24)
[2020-02-10] MEDS ORDERED: Furosemide 40 MG/4 ML VIAL IVPUSH ONE (09:40)
[2020-02-10] MEDS ORDERED: Levofloxacin 500 MG Tab PO SCH (10:00)
[2020-02-10] MEDS: Sodium Chloride 0.9% 10 ML Syringe FLUSH PRN ×2 (10:10→17:25)
--- NOTE | 2020-02-10 10:15 | PCM.PN ---
- General Info Date of Service: 02/10/20 Subjective Update: The patient indicates that she is feeling worse today. She is more short of breath and feels very weak. Denies having chest pain. Still coughing. Has been wheezing a lot. - Review of Systems General: Reports: Weakness, Fatigue Pulmonary: Reports: Shortness of Breath, Cough, Wheezing Cardiovascular: Reports: No Symptoms Gastrointestinal: Reports: No Symptoms Musculoskeletal: Reports: No Symptoms - Patient Data Vitals - Most Recent: Last Vital Signs Temp 36.2 C 02/10/20 07:56 Pulse 79 02/10/20 08:25 Resp 22 H 02/10/20 09:34 BP 116/74 02/10/20 08:25 Pulse Ox 98 02/10/20 07:56 Weight - Most Recent: 92.533 kg I&O - Last 24 Hours: Intake & Output 02/09/20 02/10/20 02/10/20 22:59 06:59 14:59 Intake Total 1764 649 360 Output Total 2500 900 Balance -736 -251 360 Lab Results Last 24 Hours: Laboratory Results - last 24 hr 02/09/20 02/09/20 02/09/20 Range/Units 10:15 11:53 16:49 WBC (5.0-10.0) 10^3/uL RBC (4.2-5.4) 10^6/uL Hgb (12.0-16.0) g/dL Hct (37.0-47.0) % MCV (80-100) fL MCH (27.0-34.0) pg MCHC (33.0-35.0) g/dL Plt Count (150-450) 10^3/uL Sodium (136-145) mmol/L Potassium (3.5-5.1) mmol/L Chloride (98-107) mmol/L Carbon Dioxide (21-32) mmol/L Anion Gap (7-13) mEq/L BUN (7-18) mg/dL Creatinine (0.55-1.02) mg/dL Est Cr Clr Drug Dosing mL/min Estimated GFR (MDRD) Glucose (74-99) mg/dL POC Glucose 262 H 244 H (83-110) mg/dl Lactic Acid 5.4 H* (0.4-2.0) mmol/L Calcium (8.5-10.1) mg/dL B-Natriuretic Peptide (0-100) pg/ml 02/09/20 02/10/20 02/10/20 Range/Units 20:10 06:10 06:10 WBC 18.3 H (5.0-10.0) 10^3/uL RBC 3.79 L (4.2-5.4) 10^6/uL Hgb 12.0 (12.0-16.0) g/dL Hct 36.7 L (37.0-47.0) % MCV 96.8 (80-100) fL MCH 31.7 (27.0-34.0) pg MCHC 32.7 L (33.0-35.0) g/dL Plt Count 216 (150-450) 10^3/uL Sodium 139 (136-145) mmol/L Potassium 4.1 (3.5-5.1) mmol/L Chloride 103 (98-107) mmol/L Carbon Dioxide 26 (21-32) mmol/L Anion Gap 14.1 H (7-13) mEq/L BUN 57 H (7-18) mg/dL Creatinine 2.26 H (0.55-1.02) mg/dL Est Cr Clr Drug Dosing 17.52 mL/min Estimated GFR (MDRD) 21 Glucose 202 H (74-99) mg/dL POC Glucose 241 H (83-110) mg/dl Lactic Acid (0.4-2.0) mmol/L Calcium 8.7 (8.5-10.1) mg/dL B-Natriuretic Peptide (0-100) pg/ml 02/10/20 02/10/20 Range/Units 06:10 07:47 WBC (5.0-10.0) 10^3/uL RBC (4.2-5.4) 10^6/uL Hgb (12.0-16.0) g/dL Hct (37.0-47.0) % MCV (80-100) fL MCH (27.0-34.0) pg MCHC (33.0-35.0) g/dL Plt Count (150-450) 10^3/uL Sodium (136-145) mmol/L Potassium (3.5-5.1) mmol/L Chloride (98-107) mmol/L Carbon Dioxide (21-32) mmol/L Anion Gap (7-13) mEq/L BUN (7-18) mg/dL Creatinine (0.55-1.02) mg/dL Est Cr Clr Drug Dosing mL/min Estimated GFR (MDRD) Glucose (74-99) mg/dL POC Glucose 208 H (83-110) mg/dl Lactic Acid (0.4-2.0) mmol/L Calcium (8.5-10.1) mg/dL B-Natriuretic Peptide 389 H (0-100) pg/ml [facility] Results Last 24 Hours: Microbiology 02/08/20 08:00 Gram Stain - Final Sputum - Expectorated Sputum Culture - Preliminary NORMAL RESPIRATORY CANDIS 2 DAYS 02/07/20 15:44 Aerobic Blood Culture - Preliminary Blood NO GROWTH AFTER 2 DAYS Anaerobic Blood Culture - Preliminary NO GROWTH AFTER 2 DAYS Med Orders - Current: Current Medications Albuterol (Proventil Neb Soln) 2.5 mg NEB Q2H PRN PRN Reason: shortness of breath/wheezing Last Admin: 02/10/20 05:52 Dose: 2.5 mg Documented by: Albuterol/Ipratropium (Duoneb 3.0-0.5 Mg/3 Ml) 3 ml NEB Q4HRRT [facility] Last Admin: 02/10/20 07:21 Dose: 3 ml Documented by: Aspirin (Aspirin) 81 mg PO DAILY [facility] Last Admin: 02/10/20 08:25 Dose: 81 mg Documented by: Budesonide (Pulmicort) 0.5 mg NEB BIDRT [facility] Last Admin: 02/10/20 07:21 Dose: 0.5 mg Documented by: Glipizide (Glucotrol) 5 mg PO BID@0800,1700 [facility] Last Admin: 02/10/20 08:25 Dose: 5 mg Documented by: Heparin Sodium (Porcine) (Heparin Sodium) 5,000 units SUBCUT Q8HR [facility] Last Admin: 02/10/20 05:54 Dose: 5,000 units Documented by: Insulin Glargine (Lantus) 12 unit SUBCUT BEDTIME [facility] Insulin Human Lispro (Humalog) 0 unit SUBCUT WITHMEALSANDBED [facility]; Protocol Last Admin: 02/10/20 08:28 Dose: 4 units Documented by: Levofloxacin (Levaquin) 500 mg PO Q48H [facility] Last Admin: 02/10/20 10:09 Dose: 500 mg Documented by: Levothyroxine Sodium (Levothyroxine) 75 mcg PO ACBREAKFAST [facility] Last Admin: 02/10/20 05:54 Dose: 75 mcg Documented by: Methylprednisolone Sodium Succinate (Solu-Medrol) 40 mg IVPUSH Q8H [facility] Last Admin: 02/10/20 09:35 Dose: 40 mg Documented by: Metoprolol Tartrate (Lopressor) 25 mg PO DAILY [facility] Last Admin: 02/10/20 08:25 Dose: 25 mg Documented by: Non-Formulary Medication (Diclofenac Sodium [Voltaren 1% Gel]) 1 applic TOP BID PRN PRN Reason: Pain Omeprazole (Omeprazole) 20 mg PO DAILY [facility] Ondansetron HCl (Zofran) 4 mg IVPUSH Q6H PRN PRN Reason: Nausea/Vomiting Sodium Chloride (Saline Flush) 10 ml FLUSH ASDIRECTED PRN PRN Reason: Keep Vein Open Last Admin: 02/10/20 10:10 Dose: 10 ml Documented by: Discontinued Medications Albuterol/Ipratropium (Duoneb 3.0-0.5 Mg/3 Ml) 3 ml NEB ONETIME ONE Stop: 02/07/20 16:20 Last Admin: 02/07/20 16:37 Dose: 3 ml Documented by: Doxycycline Hyclate (Vibramycin) 100 mg PO Q12HR [facility] Last Admin: 02/10/20 08:25 Dose: 100 mg Documented by: Furosemide (Lasix) 40 mg PO BIDDIURETIC [facility] Last Admin: 02/09/20 08:29 Dose: 40 mg Documented by: Furosemide (Lasix) 40 mg IVPUSH NOW ONE Stop: 02/10/20 09:41 Last Admin: 02/10/20 10:09 Dose: 40 mg Documented by: Glipizide (Glucotrol) 5 mg PO BIDAC [facility] Last Admin: 02/08/20 06:29 Dose: Not Given Documented by: Sodium Chloride (Normal Saline) 1,000 mls @ 50 mls/hr IV ASDIRECTED [facility] Last Admin: 02/10/20 04:01 Dose: 50 mls/hr Documented by: Spironolactone (Aldactone) 25 mg PO DAILY [facility] Last Admin: 02/09/20 08:29 Dose: 25 mg Documented by: - Exam Quality Assessment: Supplemental Oxygen General: Alert, Oriented, Cooperative Neck: Supple Lungs: Decreased Breath Sounds, Rhonchi, Wheezing Cardiovascular: Regular Rate, Regular Rhythm GI/Abdominal Exam: Normal Bowel Sounds, Soft, Non-Tender, No Organomegaly, No Distention, No Abnormal Bruit, No Mass, Pelvis Stable Extremities: Normal Inspection, Normal Range of Motion, Non-Tender, No Pedal Edema, Normal Capillary Refill Sepsis Event Note - Evaluation Sepsis Screening Result: Severe Sepsis Risk - Focused Exam Vital Signs: Vital Signs Temp Pulse Pulse Resp BP BP Pulse Ox 02/10/20 09:34 22 H 02/10/20 08:25 79 116/74 02/10/20 07:56 36.2 C 79 20 116/74 98 02/10/20 07:22 80 02/10/20 05:58 83 02/10/20 02:46 37.0 C 80 24 H 118/64 98 02/10/20 02:41 80 02/09/20 23:12 83 02/09/20 23:11 36.6 C 83 24 H 129/77 99 Pulse Ox 02/10/20 09:34 02/10/20 08:25 02/10/20 07:56 02/10/20 07:22 02/10/20 05:58 98 02/10/20 02:46 02/10/20 02:41 98 02/09/20 23:12 99 02/09/20 23:11 Date Exam was Performed: 02/10/20 Time Exam was Performed: 10:12 - Problem List Review Problem List Initiated/Reviewed/Updated: Yes - My Orders Last 24 Hours: My Active Orders 02/09/20 12:46 Flutter Valve Therapy [RT Chest Physiotherapy] [RC] ASDIRECTED IS (RT) [RT Incentive Spirometry] [RC] .PRN 02/10/20 09:55 LACTIC ACID [CHEM] Routine 02/10/20 10:00 levoFLOXacin [Levaquin] 500 mg PO Q48H 02/10/20 21:00 Insulin Glarg,Human.Rec.Analog [LantUS] 12 unit SUBCUT BEDTIME 02/11/20 05:11 BASIC METABOLIC PANEL,BMP [CHEM] AM 02/11/20 09:56 B-TYPE NATRIURETIC PEPTIDE,BNP [CHEM] Routine - Plan Plan:: #. Acute exacerbation of COPD Patient does have diminished air entry bilaterally. Has bilateral expiratory rhonchi Chest x-ray ruled out pneumonia #. Acute bronchitis Chest x-ray does not show an infiltrate Sputum culture does not show any growth #.Acute on Chronic kidney disease Serum creatinine is slightly above the patient's baseline Was started on intravenous fluids #. Chronic hypoxemic respiratory failure Normally On 4 L/m of oxygen #. Hypothyroidism Levothyroxine #. Hypertension Blood pressure is intermittently elevated #. Diabetes mellitus type 2 On glipizide #. Generalized weakness Plan: The patient is not doing better today. I recommended transferring to [facility] but she does not want to go there. I would proceed to discontinue intravenous fluids. Give the patient is status of intravenous Lasix 40 mg and now Repeat serum lactic acid level Obtain repeat basic metabolic panel. Obtain repeat brain natruretic peptide
[2020-02-10] MEDS ORDERED: ALPRAZolam 0.25 MG Tab PO ONE (12:53)
[2020-02-10] MEDS ORDERED: Metoprolol Tartrate 5 MG/5 ML SDV IVPUSH ONE ×2 (13:23→17:53)
[2020-02-10] MEDS ORDERED: Omeprazole 20 MG Cap.CR PO SCH (14:00)
--- NOTE | 2020-02-10 14:20 | CR ---
PROCEDURE INFORMATION: Exam: XR Chest, 1 View Exam date and time: 02/10/2020 1:06 PM Age: 74 years old Clinical indication: Other: Worsening symptoms TECHNIQUE: Imaging protocol: XR of the chest Views: 1 view. COMPARISON: CR Chest 1V Frontal 02/07/2020 3:47 PM FINDINGS: Lungs: Mild bilateral hyperinflation is present. Interstitial prominence is noted bilaterally. Pleural space: Unremarkable. No pleural effusion. No pneumothorax. Heart/Mediastinum: The heart demonstrates mild diffuse enlargement. Mild right hilar prominence is again noted. Bones/joints: Unremarkable. IMPRESSION: 1. Mild bilateral hyperinflation is present. 2. Interstitial prominence is noted bilaterally.
[2020-02-10] MEDS ORDERED: Metoprolol Tartrate 25 MG Tab PO ONE (17:54)
[2020-02-10 19:34] VITALS: BP 119/83; PULSE 114
--- NOTE | 2020-02-10 20:13 | PCM.DCSUM1 ---
Discharge Summary - Hospital Course Free Text/Narrative:: #. Acute exacerbation of COPD Patient does have diminished air entry bilaterally. Has bilateral expiratory rhonchi Chest x-ray ruled out pneumonia #. Acute bronchitis Chest x-ray does not show an infiltrate Sputum culture does not show any growth #.Acute on Chronic kidney disease Serum creatinine is slightly above the patient's baseline Was started on intravenous fluids #. Chronic hypoxemic respiratory failure Normally On 4 L/m of oxygen #. Hypothyroidism Levothyroxine #. Hypertension Blood pressure is intermittently elevated #. Diabetes mellitus type 2 On glipizide #. Generalized weakness - Discharge Data Discharge Date: 02/10/20 Discharge Disposition: DC/Tfer to Acute Hospital 02 Condition: Good - Referral to Home Health Primary Care Physician: Susan Borges PA-C - Discharge Plan *PRESCRIPTION DRUG MONITORING PROGRAM REVIEWED*: Not Applicable *COPY OF PRESCRIPTION DRUG MONITORING REPORT IN PATIENT [place]: Not Applicable Home Medications: Home Meds Metoprolol Tartrate 25 mg PO BID 04/03/17 [History] Aspirin 81 mg PO DAILY 01/08/19 [History] Levothyroxine 75 mcg PO ACBREAKFAST 05/03/19 [History] glipiZIDE [Glucotrol] 5 mg PO BID 30 Days #60 tablet 08/05/19 [Rx] Spironolactone [Aldactone] 25 mg PO DAILY 10/02/19 [History] predniSONE [Prednisone] 5 mg PO BID 10/02/19 [History] Azithromycin 500 mg PO DAILY 02/07/20 [History] Diclofenac Sodium [Voltaren 1% Gel] 1 applic TOP BID PRN 02/07/20 [History] predniSONE 20 mg PO DAILY 02/07/20 [History] Albuterol [Ventolin HFA] 2 puff INH Q4HR PRN 02/08/20 [History] Furosemide 1 tab PO BID 02/08/20 [History] Ipratropium/Albuterol Sulfate [Iprat-Albut 0.5-3(2.5) MG/3 ML] 1 vial IH BID 02/08/20 [History] Oxygen Therapy Mode: Nasal Cannula Referrals: Johnny Cornejo DISCHARGE PLANNER [Ordering Only Provider] - - Discharge Summary/Plan Comment DC Time >30 min.: No - Review of Systems General: Reports: Weakness, Malaise Pulmonary: Reports: Shortness of Breath, Cough Cardiovascular: Reports: Dyspnea on Exertion, Edema Gastrointestinal: Reports: Decreased Appetite Musculoskeletal: Reports: No Symptoms Skin: Reports: No Symptoms - Patient Data Vitals - Most Recent: Last Vital Signs Temp 36.4 C 02/10/20 19:33 Pulse 114 H 02/10/20 19:33 Resp 24 H 02/10/20 19:33 BP 119/83 02/10/20 19:33 Pulse Ox 96 02/10/20 19:33 Weight - Most Recent: 92.533 kg I&O - Last 24 hours: Intake & Output 02/10/20 02/10/20 02/10/20 06:59 14:59 22:59 Intake Total 649 680 240 Output Total 900 7540 600 Balance -462 -9987 -023 Lab Results - Last 24 hrs: Laboratory Results - last 24 hr 02/09/20 02/10/20 02/10/20 Range/Units 20:10 06:10 06:10 WBC 18.3 H (5.0-10.0) 10^3/uL RBC 3.79 L (4.2-5.4) 10^6/uL Hgb 12.0 (12.0-16.0) g/dL Hct 36.7 L (37.0-47.0) % MCV 96.8 (80-100) fL MCH 31.7 (27.0-34.0) pg MCHC 32.7 L (33.0-35.0) g/dL Plt Count 216 (150-450) 10^3/uL Sodium 139 (136-145) mmol/L Potassium 4.1 (3.5-5.1) mmol/L Chloride 103 (98-107) mmol/L Carbon Dioxide 26 (21-32) mmol/L Anion Gap 14.1 H (7-13) mEq/L BUN 57 H (7-18) mg/dL Creatinine 2.26 H (0.55-1.02) mg/dL Est Cr Clr Drug Dosing 17.52 mL/min Estimated GFR (MDRD) 21 Glucose 202 H (74-99) mg/dL POC Glucose 241 H (83-110) mg/dl Lactic Acid (0.4-2.0) mmol/L Calcium 8.7 (8.5-10.1) mg/dL B-Natriuretic Peptide (0-100) pg/ml 02/10/20 02/10/20 02/10/20 Range/Units 06:10 07:47 10:09 WBC (5.0-10.0) 10^3/uL RBC (4.2-5.4) 10^6/uL Hgb (12.0-16.0) g/dL Hct (37.0-47.0) % MCV (80-100) fL MCH (27.0-34.0) pg MCHC (33.0-35.0) g/dL Plt Count (150-450) 10^3/uL Sodium (136-145) mmol/L Potassium (3.5-5.1) mmol/L Chloride (98-107) mmol/L Carbon Dioxide (21-32) mmol/L Anion Gap (7-13) mEq/L BUN (7-18) mg/dL Creatinine (0.55-1.02) mg/dL Est Cr Clr Drug Dosing mL/min Estimated GFR (MDRD) Glucose (74-99) mg/dL POC Glucose 208 H (83-110) mg/dl Lactic Acid 5.7 H* (0.4-2.0) mmol/L Calcium (8.5-10.1) mg/dL B-Natriuretic Peptide 389 H (0-100) pg/ml 02/10/20 02/10/20 Range/Units 11:25 16:36 WBC (5.0-10.0) 10^3/uL RBC (4.2-5.4) 10^6/uL Hgb (12.0-16.0) g/dL Hct (37.0-47.0) % MCV (80-100) fL MCH (27.0-34.0) pg MCHC (33.0-35.0) g/dL Plt Count (150-450) 10^3/uL Sodium (136-145) mmol/L Potassium (3.5-5.1) mmol/L Chloride (98-107) mmol/L Carbon Dioxide (21-32) mmol/L Anion Gap (7-13) mEq/L BUN (7-18) mg/dL Creatinine (0.55-1.02) mg/dL Est Cr Clr Drug Dosing mL/min Estimated GFR (MDRD) Glucose (74-99) mg/dL POC Glucose 266 H 178 H (83-110) mg/dl Lactic Acid (0.4-2.0) mmol/L Calcium (8.5-10.1) mg/dL B-Natriuretic Peptide (0-100) pg/ml [facility] Results - Last 24 hrs: Microbiology 02/07/20 15:44 Aerobic Blood Culture - Preliminary Blood NO GROWTH AFTER 3 DAYS Anaerobic Blood Culture - Preliminary NO GROWTH AFTER 3 DAYS 02/08/20 08:00 Gram Stain - Final Sputum - Expectorated Sputum Culture - Preliminary NORMAL RESPIRATORY C[facility] 2 DAYS Med Orders - Current: Current Medications Albuterol (Proventil Neb Soln) 2.5 mg NEB Q2H PRN PRN Reason: shortness of breath/wheezing Last Admin: 02/10/20 05:52 Dose: 2.5 mg Documented by: Albuterol/Ipratropium (Duoneb 3.0-0.5 Mg/3 Ml) 3 ml NEB QIDRT [facility] Last Admin: 02/10/20 17:08 Dose: 3 ml Documented by: Aspirin (Aspirin) 81 mg PO DAILY [facility] Last Admin: 02/10/20 08:25 Dose: 81 mg Documented by: Budesonide (Pulmicort) 0.5 mg NEB BIDRT [facility] Last Admin: 02/10/20 17:09 Dose: 0.5 mg Documented by: Glipizide (Glucotrol) 5 mg PO BID@0800,1700 [facility] Last Admin: 02/10/20 17:24 Dose: 5 mg Documented by: Heparin Sodium (Porcine) (Heparin Sodium) 5,000 units SUBCUT Q8HR [facility] Last Admin: 02/10/20 13:08 Dose: 5,000 units Documented by: Insulin Glargine (Lantus) 12 unit SUBCUT BEDTIME [facility] Insulin Human Lispro (Humalog) 0 unit SUBCUT WITHMEALSANDBED [facility]; Protocol Last Admin: 02/10/20 17:24 Dose: 2 units Documented by: Levofloxacin (Levaquin) 500 mg PO Q48H [facility] Last Admin: 02/10/20 10:09 Dose: 500 mg Documented by: Levothyroxine Sodium (Levothyroxine) 75 mcg PO ACBREAKFAST [facility] Last Admin: 02/10/20 05:54 Dose: 75 mcg Documented by: Methylprednisolone Sodium Succinate (Solu-Medrol) 40 mg IVPUSH Q8H [facility] Last Admin: 02/10/20 17:25 Dose: 40 mg Documented by: Metoprolol Tartrate (Lopressor) 25 mg PO DAILY [facility] Last Admin: 02/10/20 08:25 Dose: 25 mg Documented by: Voltaren 1% Top Gel* (*Own Med) 0 applic TOP BID PRN PRN Reason: Pain Omeprazole (Omeprazole) 20 mg PO ACBREAKFAST [facility] Last Admin: 02/10/20 13:08 Dose: 20 mg Documented by: Ondansetron HCl (Zofran) 4 mg IVPUSH Q6H PRN PRN Reason: Nausea/Vomiting Sodium Chloride (Saline Flush) 10 ml FLUSH ASDIRECTED PRN PRN Reason: Keep Vein Open Last Admin: 02/10/20 17:25 Dose: 10 ml Documented by: Discontinued Medications Albuterol/Ipratropium (Duoneb 3.0-0.5 Mg/3 Ml) 3 ml NEB ONETIME ONE Stop: 02/07/20 16:20 Last Admin: 02/07/20 16:37 Dose: 3 ml Documented by: Albuterol/Ipratropium (Duoneb 3.0-0.5 Mg/3 Ml) 3 ml NEB Q4HRRT [facility] Last Admin: 02/10/20 10:59 Dose: 3 ml Documented by: Alprazolam (Xanax) 0.25 mg PO NOW ONE Stop: 02/10/20 12:54 Last Admin: 02/10/20 13:07 Dose: 0.25 mg Documented by: Doxycycline Hyclate (Vibramycin) 100 mg PO Q12HR [facility] Last Admin: 02/10/20 08:25 Dose: 100 mg Documented by: Furosemide (Lasix) 40 mg PO BIDDIURETIC [facility] Last Admin: 02/09/20 08:29 Dose: 40 mg Documented by: Furosemide (Lasix) 40 mg IVPUSH NOW ONE Stop: 02/10/20 09:41 Last Admin: 02/10/20 10:09 Dose: 40 mg Documented by: Glipizide (Glucotrol) 5 mg PO BIDAC [facility] Last Admin: 02/08/20 06:29 Dose: Not Given Documented by: Sodium Chloride (Normal Saline) 1,000 mls @ 50 mls/hr IV ASDIRECTED [facility] Last Admin: 02/10/20 04:01 Dose: 50 mls/hr Documented by: Metoprolol Tartrate (Lopressor) 5 mg IVPUSH ONETIME ONE Stop: 02/10/20 13:24 Last Admin: 02/10/20 13:56 Dose: 5 mg Documented by: Metoprolol Tartrate (Lopressor) 5 mg IVPUSH ONETIME ONE Stop: 02/10/20 17:54 Last Admin: 02/10/20 18:05 Dose: 5 mg Documented by: Metoprolol Tartrate (Lopressor) 25 mg PO ONETIME ONE Stop: 02/10/20 17:55 Last Admin: 02/10/20 18:02 Dose: 25 mg Documented by: Spironolactone (Aldactone) 25 mg PO DAILY [facility] Last Admin: 02/09/20 08:29 Dose: 25 mg Documented by: - Exam Quality Assessment: Reports: Supplemental Oxygen General: Reports: Alert, Oriented, Cooperative, Mild Distress Neck: Reports: Supple Lungs: Reports: Decreased Breath Sounds Cardiovascular: Reports: Regular Rhythm Extremities: Normal Inspection, Normal Range of Motion, Non-Tender, No Pedal Edema, Normal Capillary Refill Skin: Reports: Warm, Dry, Intact
[2020-02-10] MEDS ORDERED: Insulin Glarg,Human.Rec.Analog 100 Unit/ML SUBCUT SCH (21:00)
== END 2020-02-10 20:43 | DRG 191 ==
LOC: DL.ED 14:44 → DL.MS 17:05 → UNDOADMIN 17:06
PROVIDERS: ADMIT Hospitalist; ATTEND Hospitalist
DX: J18.1 Lobar pneumonia, unspecified organism (principal); J44.1 Chronic obstructive pulmonary disease with (acute) exacerbation; N17.9 Acute kidney failure, unspecified; I11.0 Hypertensive heart disease with heart failure; J96.11 Chronic respiratory failure with hypoxia; I13.0 Hypertensive heart and chronic kidney disease with heart failure and stage 1 through stage 4 chronic kidney disease, or unspecified chronic kidney disease; J44.9 Chronic obstructive pulmonary disease, unspecified; J44.0 Chronic obstructive pulmonary disease with (acute) lower respiratory infection; M06.9 Rheumatoid arthritis, unspecified; J20.9 Acute bronchitis, unspecified; N18.9 Chronic kidney disease, unspecified; E03.9 Hypothyroidism, unspecified; Z85.89 Personal history of malignant neoplasm of other organs and systems; Z79.890 Hormone replacement therapy; E89.0 Postprocedural hypothyroidism; Z88.8 Allergy status to other drugs, medicaments and biological substances; Z79.84 Long term (current) use of oral hypoglycemic drugs; Z79.82 Long term (current) use of aspirin; Z79.52 Long term (current) use of systemic steroids; H54.7 Unspecified visual loss; Z79.899 Other long term (current) drug therapy; I25.2 Old myocardial infarction; R32 Unspecified urinary incontinence; F41.9 Anxiety disorder, unspecified; F32.9 Major depressive disorder, single episode, unspecified; E66.9 Obesity, unspecified; E11.22 Type 2 diabetes mellitus with diabetic chronic kidney disease; I50.9 Heart failure, unspecified; H35.30 Unspecified macular degeneration; Z90.49 Acquired absence of other specified parts of digestive tract; Z98.51 Tubal ligation status; Z68.36 Body mass index [BMI] 36.0-36.9, adult
CPT/HCPCS: 36415; 71045; 80048; 80053; 82962; 83605; 83880; 84484; 85025; 85027; 87040; 87070; 87205; 93005; 94010; 94640; 94667; 99284; 99285-25; A9270-GY; J1644; J1815-GY; J1940; J2920; J3490; J7030; J7613-GY; J7620-GY; U0002

== ENCOUNTER 2020-06-24 13:16 | Observation (INO) | payer MEDICARE, MEDICAID ==
--- NOTE | 2020-06-24 15:05 | CR ---
EXAMINATION: Chest 2V SEX: Female AGE: 75 years CLINICAL HISTORY: 75-year-old female with COPD and shortness of breath. Comparison exam 08 April 2020. Interpretation: No acute new cardiopulmonary abnormality since 08 April film. 1. Normal cardiac silhouette (size and configuration unchanged). 2. Pronounced ectasia thoracic aorta also unchanged. 3. No new pulmonary vascular congestion, cephalization of flow, alveolar edema or dependent effusion. 4. No new lung mass, hilar lymphadenopathy or focal lobar infiltrate/atelectasis. 5. No peripheral "groundglass" lung densities. 6. No pneumothorax or pneumomediastinum. Oxygen cannula but no other foreign bodies. Midline Tracheobronchial airway unremarkable.
[2020-06-24] MEDS ORDERED: Albuterol/Ipratropium 3.0-0.5 MG/3 ML Neb Soln NEB ONE (15:23)
--- NOTE | 2020-06-24 15:57 | EDM.PDOC ---
ED HPI GENERAL MEDICAL PROBLEM - General Chief Complaint: Respiratory Problem Stated Complaint: COBD/SOB/SWOLLEN FEET Time Seen by Provider: 06/24/20 14:58 Source of Information: Reports: Patient, Old Records, Provider, RN, RN Notes Reviewed History Limitations: Reports: No Limitations - History of Present Illness INITIAL COMMENTS - FREE TEXT/NARRATIVE: Patient presents to the ED via personal vehicle with complaints of increased shortness of breath. Per patient report, she was seen in clinic last Wednesday (06/21/2020), and was diagnosed with an acute COPD exacerbation. She is unsure what medications she was given for this exacerbation but states she feels no improvement. She had a follow-up with her same provider, Susan Borges, today and states "...she was on the edge of sending me to the ED, so I just came in by myself." She attest to chronic chest pressure which has slightly progressed. She denies palpitations, fever, shaking chills, nausea, vomiting, dyspepsia, nausea, vomiting, or diarrhea. She states she is currently on 4L of O2 via NC at home, at baseline. She notes Susan had increased some of her medications at her visit on Wednesday, but she is unsure which ones. - Related Data Allergies Allergy/AdvReac Type Severity Reaction Status Date / Time amlodipine [From Norvasc] Allergy Cannot Verified 02/07/20 15:23 Remember cetirizine [From Zyrtec] Allergy Abdominal Verified 02/07/20 15:23 Pain Penicillins Allergy Rash Verified 02/07/20 15:23 simvastatin [From Zocor] Allergy Cannot Verified 02/07/20 15:23 Remember Home Meds: Home Meds Metoprolol Tartrate 25 mg PO BID 04/03/17 [History] Aspirin 81 mg PO DAILY 01/08/19 [History] Levothyroxine 75 mcg PO ACBREAKFAST 05/03/19 [History] glipiZIDE [Glucotrol] 5 mg PO BID 30 Days #60 tablet 08/05/19 [Rx] Spironolactone [Aldactone] 25 mg PO DAILY 10/02/19 [History] predniSONE [Prednisone] 5 mg PO BID 10/02/19 [History] Azithromycin 500 mg PO DAILY 02/07/20 [History] Diclofenac Sodium [Voltaren 1% Gel] 1 applic TOP BID PRN 02/07/20 [History] predniSONE 20 mg PO DAILY 02/07/20 [History] Albuterol [Ventolin HFA] 2 puff INH Q4HR PRN 02/08/20 [History] Furosemide 1 tab PO BID 02/08/20 [History] Ipratropium/Albuterol Sulfate [Iprat-Albut 0.5-3(2.5) MG/3 ML] 1 vial IH BID 02/08/20 [History] Past Medical History HEENT History: Reports: Cataract, Impaired Vision, Macular Degeneration, Other (See Below) Other HEENT History: wears glasses Cardiovascular History: Reports: Aneurysm, Heart Failure, Hypertension, [place], SOB on Exertion Other Cardiovascular History: November 29, 2000 ([place]) Respiratory History: Reports: COPD, SOB Gastrointestinal History: Reports: Chronic Diarrhea Genitourinary History: Reports: Renal Disease, Urinary Incontinence HISTORIAN RESEARCH ASSISTANT History: Reports: Other HISTORIAN RESEARCH ASSISTANT History: 5 kids Musculoskeletal History: Reports: Fracture, RA Other Musculoskeletal History: skull, collarbone Neurological History: Reports: Head Trauma Psychiatric History: Reports: Anxiety, Depression Endocrine/Metabolic History: Reports: Diabetes, Type II, Hypothyroidism, Obesity/BMI 30+ Hematologic History: Reports: None Immunologic History: Reports: None Oncologic (Cancer) History: Reports: Other (See Below) Other Oncologic History: simple vulvectomy - cancer Dermatologic History: Reports: None - Infectious Disease History Infectious Disease History: Reports: Measles, Mumps, Rubella - Past Surgical History Head Surgeries/Procedures: Reports: None HEENT Surgical History: Reports: None Cardiovascular Surgical History: Reports: None Respiratory Surgical History: Reports: None GI Surgical History: Reports: Appendectomy, Cholecystectomy Female Surgical History: Reports: Tubal Ligation, Other (See Below) Other Female Surgeries/Procedures: simple vulvectomy Endocrine Surgical History: Reports: Thyroidectomy Neurological Surgical History: Reports: None Musculoskeletal Surgical History: Reports: None Social & Family History - Family History Family Medical History: Noncontributory Cardiac: Reports: [place] Respiratory: Reports: COPD Neurological: Reports: CVA - Tobacco Use Tobacco Use Status *Q: Current Every Day Tobacco User Years of Tobacco use: 60 Packs/Tins Daily: 1 - Caffeine Use Caffeine Use: Reports: Energy Drinks, Soda Other Caffeine Use: 1 cup/day - Recreational Drug Use Recreational Drug Use: No - Living Situation & Occupation Living situation: Reports: with Family Occupation: Retired ED ROS GENERAL - Review of Systems Review Of Systems: Comprehensive ROS is negative, except as noted in HPI. ED EXAM, GENERAL - Physical Exam Exam: See Below Exam Limited By: No Limitations General Appearance: Alert, WD/WN, Mild Distress Throat/Mouth: Normal Inspection, Normal Voice, No Airway Compromise Head: Atraumatic, Normocephalic Neck: Normal Inspection, Supple, Non-Tender, Full Range of Motion Respiratory/Chest: Chest Non-Tender, Rhonchi, Wheezing (To all lynch, inspiratory and expiratory), Accessory Muscle Use. No: Stridor Cardiovascular: Normal Peripheral Pulses, Regular Rate, Rhythm, No Edema, No Gallop, No Murmur, No Rub Peripheral Pulses: 2+: Radial (L), Radial (R) GI/Abdominal: Normal Bowel Sounds, Soft, Non-Tender, No Distention, No Mass Back Exam: Normal Inspection, Full Range of Motion. No: CVA Tenderness (L), CVA Tenderness (R) Extremities: Normal Range of Motion, Pedal Edema (+ 2, pitting to BLE) Neurological: Alert, Oriented, CN II-XII Intact, Normal Cognition, No Motor/Sensory Deficits Skin Exam: Warm, Dry, Intact, Normal Color, No Rash. No: Ecchymosis, Erythema, Mottled, Pallor, Petechiae, Rash Course - Vital Signs Last Recorded V/S: Last Vital Signs Temp 97.4 F 06/24/20 14:33 Pulse 61 06/24/20 15:23 Resp 18 06/24/20 14:33 BP 109/79 06/24/20 14:33 Pulse Ox 98 06/24/20 15:23 - Orders/Labs/Meds Orders: Active Orders 24 hr Category Date Time Status Admission Diagnosis [ADT] Stat ADT 06/24/20 16:34 Ordered Admission Status [Patient Status] [ADT] Routine ADT 06/24/20 16:34 Ordered EKG Documentation Completion [RC] ROUTINE Care 06/24/20 13:48 Active RT Aerosol Therapy [RC] ASDIRECTED Care 06/24/20 15:23 Active Respiratory Care Assess [CONS] Routine Cons 06/24/20 15:26 Ordered Labs: Laboratory Tests 06/24/20 06/24/20 06/24/20 Range/Units 11:40 13:48 15:48 Troponin I 0.024 (0.000-0.056) ng/mL Urine Color Yellow (YELLOW) Urine Appearance Clear (CLEAR) Urine pH 6.5 (5.0-9.0) Ur Specific [place] 1.015 (1.005-1.030) Urine Protein Negative (NEGATIVE) Urine Glucose (UA) Negative (NEGATIVE) Urine Ketones Negative (NEGATIVE) Urine Occult Blood Trace-intact H (NEGATIVE) Urine Nitrite Negative (NEGATIVE) Urine Bilirubin Negative (NEGATIVE) Urine Urobilinogen 0.2 (0.2-1.0) mg/dL Ur Leukocyte Esterase Negative (NEGATIVE) Urine RBC 0-5 /HPF Urine WBC Not seen (0-5/HPF) /HPF Ur Epithelial Cells Rare (NOT SEEN) /HPF Urine Bacteria Rare (0-FEW/HPF) /HPF SARS CoV-2 RNA Rapid KAITLIN Negative (NEGATIVE) Meds: Medications Discontinued Medications Generic Name Dose Route Start Last Admin Trade Name Freq PRN Reason Stop Dose Admin Albuterol/Ipratropium 3 ml 06/24/20 15:23 06/24/20 15:34 Duoneb 3.0-0.5 Mg/3 Ml NEB 06/24/20 15:24 3 ml ONETIME ONE Administration - Re-Assessments/Exams Free Text/Narrative Re-Assessment/Exam: 06/24/20 15:30 Spoke with Susan Borges NP from [facility] about patients recent visits. Susan states she was prescribed 1gm Rocephin and Azithromycin 500mg x5 days. She notes her WBC is improved 15.1 to 12.4 and her BNP is improved from 520 to 493. Her Bumex has been increased to 2mg BID and Spironolactone increased to 50mg. She does note a mild increase in her Creatinine to 2.2 to 2.3 06/24/20 15:59 Nebulizer treatment given; Walking desaturation study performed - lowest saturation was 92% 06/24/20 16:36 Will admit patient to OBS under the care of Dr. Puri for COPD exacerbation Departure - Departure Time of Disposition: 16:36 Disposition: Refer to Observation Condition: Good Clinical Impression: Acute exacerbation of chronic obstructive pulmonary disease (COPD) - Discharge Information Forms: ED Department Discharge Sepsis Event Note (ED) - Evaluation Sepsis Screening Result: No Definite Risk - Focused Exam Vital Signs: Vital Signs Temp Pulse Resp BP Pulse Ox Pulse Ox 06/24/20 15:23 61 98 06/24/20 14:33 97.4 F 62 18 109/79 97 - My Orders Last 24 Hours: My Active Orders 06/24/20 13:48 EKG Documentation Completion [RC] ROUTINE 06/24/20 15:23 RT Aerosol Therapy [RC] ASDIRECTED 06/24/20 15:26 Respiratory Care Assess [CONS] Routine 06/24/20 16:34 Admission Diagnosis [ADT] Stat Admission Status [Patient Status] [ADT] Routine - Assessment/Plan Last 24 Hours: My Active Orders 06/24/20 13:48 EKG Documentation Completion [RC] ROUTINE 06/24/20 15:23 RT Aerosol Therapy [RC] ASDIRECTED 06/24/20 15:26 Respiratory Care Assess [CONS] Routine 06/24/20 16:34 Admission Diagnosis [ADT] Stat Admission Status [Patient Status] [ADT] Routine
[2020-06-24] MEDS ORDERED: Acetaminophen 325 MG Tab PO PRN (16:55)
[2020-06-24] MEDS ORDERED: Ondansetron 4 MG/2 ML SDV IVPUSH PRN (16:55)
--- NOTE | 2020-06-24 17:42 | PCM.HP ---
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 She reports that symptoms have been progressive for the past 1 to 2 weeks. She has been having productive cough recently with yellowish sputum, increasing shortness of breath and worsening lower extremity edema. She reports that she has been needing to take her rescue inhaler multiple times a day. She gets winded upon transferring from bed to chair or chair to bed. She feels her breathing is worse than her baseline. She is usually on 4 L of oxygen chronically. He denies fever or chest pain. Patient was initially seen 3 days ago in clinic for these symptoms. She received 1 g of ceftriaxone and was discharged on a Z-Chao. She was seen again in clinic today but reports that her symptoms have not improved. She has not had to increase her oxygen use. Lab changes in the past 3 days include WBC from 15-12,000, creatinine from 2.09- 2.38, BNP from 5562 493. - Related Data Allergies/Adverse Reactions: Allergies Allergy/AdvReac Type Severity Reaction Status Date / Time amlodipine [From Norvasc] Allergy Cannot Verified 06/24/20 17:04 Remember cetirizine [From Zyrtec] Allergy Abdominal Verified 06/24/20 17:04 Pain Penicillins Allergy Rash Verified 06/24/20 17:04 simvastatin [From Zocor] Allergy Cannot Verified 06/24/20 17:04 Remember Home Medications: Home Meds Metoprolol Tartrate 25 mg PO BID 04/03/17 [History] Aspirin 81 mg PO DAILY 01/08/19 [History] Levothyroxine 75 mcg PO ACBREAKFAST 05/03/19 [History] glipiZIDE [Glucotrol] 5 mg PO BID 30 Days #60 tablet 08/05/19 [Rx] Spironolactone [Aldactone] 25 mg PO DAILY 10/02/19 [History] predniSONE [Prednisone] 10 mg PO DAILY 10/02/19 [History] Azithromycin 500 mg PO DAILY 02/07/20 [History] Albuterol [Ventolin HFA] 2 puff INH Q4HR PRN 02/08/20 [History] Furosemide 1 tab PO BID 02/08/20 [History] Ipratropium/Albuterol Sulfate [Iprat-Albut 0.5-3(2.5) MG/3 ML] 1 vial IH BID PRN 02/08/20 [History] Albuterol [Proventil Neb Soln] 0.63 inh NEB ASDIRECTED PRN 06/24/20 [History] Budesonide [Pulmicort] 0.5 mg INH BID PRN 06/24/20 [History] Bumetanide 1 mg PO BID 06/24/20 [History] atenoloL [Atenolol] 25 mg PO DAILY 06/24/20 [History] Past Medical History HEENT History: Reports: Cataract, Impaired Vision, Macular Degeneration, Other (See Below) Other HEENT History: wears glasses Cardiovascular History: Reports: Aneurysm, Heart Failure, Hypertension, [place], SOB on Exertion Other Cardiovascular History: November 29, 2000 ([place]) Respiratory History: Reports: COPD, SOB Gastrointestinal History: Reports: Chronic Diarrhea Genitourinary History: Reports: Renal Calculus, Renal Disease, Urinary Incontinence COURIER History: Reports: Other OB/BYN History: 5 kids Musculoskeletal History: Reports: Fracture, RA Other Musculoskeletal History: skull, collarbone Neurological History: Reports: Head Trauma Psychiatric History: Reports: Anxiety, Depression Endocrine/Metabolic History: Reports: Diabetes, Type II, Hypothyroidism, Obesity/BMI 30+ Hematologic History: Reports: None Immunologic History: Reports: None Oncologic (Cancer) History: Reports: Other (See Below) Other Oncologic History: simple vulvectomy - cancer Dermatologic History: Reports: None - Infectious Disease History Infectious Disease History: Reports: Chicken Pox, Measles, Mumps - Past Surgical History Head Surgeries/Procedures: Reports: None HEENT Surgical History: Reports: None Cardiovascular Surgical History: Reports: None Respiratory Surgical History: Reports: None GI Surgical History: Reports: Appendectomy, Cholecystectomy Female Surgical History: Reports: Tubal Ligation, Other (See Below) Other Female Surgeries/Procedures: simple vulvectomy Endocrine Surgical History: Reports: Other (See Below) Other Endocrine Surgeries/Procedures: "Radioactive Iodine capsule to thyroid" Neurological Surgical History: Reports: None Musculoskeletal Surgical History: Reports: None Oncologic Surgical History: Reports: None Social & Family History - Family History Family Medical History: Noncontributory Cardiac: Reports: [place] Respiratory: Reports: COPD Neurological: Reports: CVA - Tobacco Use Tobacco Use Status *Q: Current Every Day Tobacco User Years of Tobacco use: 60 Packs/Tins Daily: 1 - Caffeine Use Caffeine Use: Reports: Energy Drinks, Soda Other Caffeine Use: 1 cup/day - Recreational Drug Use Recreational Drug Use: No - Living Situation & Occupation Living situation: Reports: with Family Occupation: Retired H&P Review of Systems - Review of Systems: Review Of Systems: See Below General: Reports: No Symptoms HEENT: Reports: No Symptoms Pulmonary: Reports: Shortness of Breath, Cough, Sputum Cardiovascular: Reports: Edema Gastrointestinal: Reports: No Symptoms Genitourinary: Reports: No Symptoms Musculoskeletal: Reports: No Symptoms Skin: Reports: No Symptoms Psychiatric: Reports: No Symptoms Neurological: Reports: No Symptoms Hematologic/Lymphatic: Reports: No Symptoms Immunologic: Reports: No Symptoms Exam - Exam Exam: See Below - Vital Signs Vital Signs: Last Vital Signs Temp 97.8 F 06/24/20 16:56 Pulse 66 06/24/20 16:56 Resp 20 06/24/20 16:56 BP 143/86 H 06/24/20 16:56 Pulse Ox 97 06/24/20 16:56 Weight: 207 lb - Exam Quality Assessment: Supplemental Oxygen General: Alert, Oriented, 4 HEENT: PERRLA, Hearing Intact, Mucosa Moist & [place], Nares Patent, Normal Nasal Septum, Posterior Pharynx Clear, Conjunctiva Clear, EOMI, EACs Clear, TMs Clear Neck: Supple, Trachea Midline, 2 Lungs: Other (Normal respiratory effort. Poor air entry bilaterally.) Cardiovascular: Regular Rate, Regular Rhythm GI/Abdominal Exam: Normal Bowel Sounds, Soft, Non-Tender, No Organomegaly, No Distention, No Abnormal Bruit, No Mass, Pelvis Stable Back Exam: Normal Inspection, Full Range of Motion, NT Extremities: Pedal Edema (1+ pedal edema) Skin: Warm, Dry, Intact Neurological: Cranial Nerves Intact, Reflexes Equal Bilateral Neuro Extensive - Mental Status: Alert, Oriented x3, Normal Mood/Affect, Normal Cognition Neuro Extensive - Motor, Sensory, Reflexes: CN II-XII Intact, Normal Gait, Normal Reflexes Psychiatric: Alert - Patient Data Lab Results Last 24 hrs: Laboratory Results - last 24 hr 06/24/20 06/24/20 06/24/20 Range/Units 11:40 13:48 15:48 Troponin I 0.024 (0.000-0.056) ng/mL Urine Color Yellow (YELLOW) Urine Appearance Clear (CLEAR) Urine pH 6.5 (5.0-9.0) Ur Specific [place] 1.015 (1.005-1.030) Urine Protein Negative (NEGATIVE) Urine Glucose (UA) Negative (NEGATIVE) Urine Ketones Negative (NEGATIVE) Urine Occult Blood Trace-intact H (NEGATIVE) Urine Nitrite Negative (NEGATIVE) Urine Bilirubin Negative (NEGATIVE) Urine Urobilinogen 0.2 (0.2-1.0) mg/dL Ur Leukocyte Esterase Negative (NEGATIVE) Urine RBC 0-5 /HPF Urine WBC Not seen (0-5/HPF) /HPF Ur Epithelial Cells Rare (NOT SEEN) /HPF Urine Bacteria Rare (0-FEW/HPF) /HPF SARS CoV-2 RNA Rapid KAITLIN Negative (NEGATIVE) Problem List Initiated/Reviewed/Updated: Yes Orders Last 24hrs: Active Orders 24 hr Category Date Time Status Admission Diagnosis [ADT] Stat ADT 06/24/20 16:34 Ordered Admission Status [Patient Status] [ADT] Routine ADT 06/24/20 16:34 Active Antiembolic Devices [RC] Care 06/24/20 16:57 Active Oxygen Therapy [RC] .PRN Care 06/24/20 16:56 Active RT Evaluate for Home Oxygen [RC] Click to Edit Care 06/24/20 17:01 Active Up ad Yen [RC] ASDIRECTED Care 06/24/20 16:55 Active VTE/DVT Education [RC] PER UNIT ROUTINE Care 06/24/20 16:56 Active Vital Signs [RC] 00,04,08,12,16,20 Care 06/24/20 16:56 Active Respiratory Care Assess [CONS] Routine Cons 06/24/20 15:26 Ordered 2 Gram Sodium Diet [DIET] Diet 06/24/20 Dinner Active Acetaminophen [TylenoL] Med 06/24/20 16:55 Active 650 mg PO Q4H PRN Heparin Sodium Med 06/24/20 22:00 Active 5,000 units SUBCUT Q8HR Ondansetron [Zofran] Med 06/24/20 16:55 Active 4 mg IVPUSH Q4H PRN Antiembolic Hose [OM.PC] Per Unit Routine Oth 06/24/20 16:56 Ordered Resuscitation Status Routine Resus Stat 06/24/20 16:55 Ordered Medication Orders Acetaminophen (Tylenol) 650 mg PO Q4H PRN PRN Reason: Pain (Mild 1-3)/fever Heparin Sodium (Porcine) (Heparin Sodium) 5,000 units SUBCUT Q8HR R[place] Ondansetron HCl (Zofran) 4 mg IVPUSH Q4H PRN PRN Reason: Nausea/Vomiting Assessment/Plan Comment:: COPD exacerbation Chronic home oxygen Complete Z-Chao which to 250 mg azithromycin daily x2 Start prednisone 40 mg daily x5 days; will give 20 mg today as patient already got home 20 mg this morning Scheduled duo nebs 4 times daily As needed albuterol Acute on chronic diastolic and systolic CHF Last EF earlier this year was 25 to 30% Diuresis with Lasix 40 mg x 1, reevaluate tomorrow Daily weights and strict I's and O's Chronic leukocytosis is most likely steroid-induced Monitor CKD Creatinine is almost at baseline Repeat BMP tomorrow Diabetes mellitus Sliding scale insulin with hypoglycemia protocol CAD Resume home aspirin Hypothyroidism Resume home Synthroid Hypertension Resume home antihypertensives
[2020-06-24] MEDS ORDERED: predniSONE 20 MG Tab PO ONE (18:10)
[2020-06-24] MEDS ORDERED: Furosemide 40 MG/4 ML VIAL IVPUSH ONE (18:12)
[2020-06-24] MEDS ORDERED: 50% Dextrose in Water 50 ML Syringe IV PRN (18:15)
[2020-06-24] MEDS ORDERED: Glucagon,Human Recombinant 1 MG Vial IM PRN (18:15)
[2020-06-24] MEDS: Azithromycin 250 MG Tab PO SCH (19:01)
[2020-06-24] MEDS: Metoprolol Tartrate 50 MG Tab PO SCH (21:16)
[2020-06-24] MEDS: Heparin Sodium 5,000 Units/ML Vial SUBCUT SCH (21:17)
[2020-06-24] MEDS: Albuterol 6.7 GM Inhaler INH PRN (21:19)
[2020-06-24] MEDS: Insulin Lispro 100 Units/ML 3 ML Vial SUBCUT SCH (21:56)
[2020-06-25] MEDS: Albuterol/Ipratropium 3.0-0.5 MG/3 ML Neb Soln NEB SCH ×4 (00:01→17:51)
[2020-06-25] MEDS: Levothyroxine 75 MCG Tab PO SCH (05:14)
[2020-06-25] MEDS: Heparin Sodium 5,000 Units/ML Vial SUBCUT SCH ×3 (05:14→22:27)
[2020-06-25 07:02] LABS: ANION GAP 12.1 mEq/L (7-13)
[2020-06-25] MEDS: Azithromycin 250 MG Tab PO SCH (08:29)
[2020-06-25] MEDS: Aspirin 81 MG Tab.Chew PO SCH (08:29)
[2020-06-25] MEDS: Metoprolol Tartrate 50 MG Tab PO SCH ×2 (08:30→22:26)
[2020-06-25] MEDS: predniSONE 20 MG Tab PO SCH (08:30)
[2020-06-25] MEDS: Insulin Lispro 100 Units/ML 3 ML Vial SUBCUT SCH ×4 (08:31→22:25)
--- NOTE | 2020-06-25 12:35 | PCM.PN ---
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 Complains of generalized weakness. Shortness of breath improving. Leg swelling resolved. Functional Status: Reports: Pain Controlled - Review of Systems General: Reports: No Symptoms HEENT: Reports: No Symptoms Pulmonary: Reports: Shortness of Breath Cardiovascular: Reports: No Symptoms Gastrointestinal: Reports: No Symptoms Genitourinary: Reports: No Symptoms Musculoskeletal: Reports: No Symptoms Skin: Reports: No Symptoms Neurological: Reports: No Symptoms Psychiatric: Reports: No Symptoms - Patient Data Vitals - Most Recent: Last Vital Signs Temp 97.2 F 06/25/20 08:07 Pulse 92 06/25/20 08:30 Resp 20 06/25/20 08:07 BP 118/57 L 06/25/20 08:30 Pulse Ox 98 06/25/20 08:07 Weight - Most Recent: 206 lb 2.821 oz I&O - Last 24 Hours: Intake & Output 06/24/20 06/25/20 06/25/20 22:59 06:59 14:59 Intake Total 600 Output Total 1200 1000 200 Balance -600 -1000 -200 Lab Results Last 24 Hours: Laboratory Results - last 24 hr 06/24/20 06/24/20 06/24/20 Range/Units 11:40 13:48 15:48 WBC (5.0-10.0) 10^3/uL RBC (4.2-5.4) 10^6/uL Hgb (12.0-16.0) g/dL Hct (37.0-47.0) % MCV (80-100) fL MCH (27.0-34.0) pg MCHC (33.0-35.0) g/dL Plt Count (150-450) 10^3/uL Sodium (136-145) mmol/L Potassium (3.5-5.1) mmol/L Chloride (98-107) mmol/L Carbon Dioxide (21-32) mmol/L Anion Gap (7-13) mEq/L BUN (7-18) mg/dL Creatinine (0.55-1.02) mg/dL Est Cr Clr Drug Dosing mL/min Estimated GFR (MDRD) Glucose (74-99) mg/dL POC Glucose (83-110) mg/dl Calcium (8.5-10.1) mg/dL Troponin I 0.024 (0.000-0.056) ng/mL Urine Color Yellow (YELLOW) Urine Appearance Clear (CLEAR) Urine pH 6.5 (5.0-9.0) Ur Specific [place] 1.015 (1.005-1.030) Urine Protein Negative (NEGATIVE) Urine Glucose (UA) Negative (NEGATIVE) Urine Ketones Negative (NEGATIVE) Urine Occult Blood Trace-intact H (NEGATIVE) Urine Nitrite Negative (NEGATIVE) Urine Bilirubin Negative (NEGATIVE) Urine Urobilinogen 0.2 (0.2-1.0) mg/dL Ur Leukocyte Esterase Negative (NEGATIVE) Urine RBC 0-5 /HPF Urine WBC Not seen (0-5/HPF) /HPF Ur Epithelial Cells Rare (NOT SEEN) /HPF Urine Bacteria Rare (0-FEW/HPF) /HPF SARS CoV-2 RNA Rapid [place] Negative (NEGATIVE) 06/24/20 06/25/20 06/25/20 Range/Units 21:27 06:05 06:05 WBC 9.8 (5.0-10.0) 10^3/uL RBC 3.75 L (4.2-5.4) 10^6/uL Hgb 11.8 L (12.0-16.0) g/dL Hct 36.9 L (37.0-47.0) % MCV 98.4 (80-100) fL MCH 31.5 (27.0-34.0) pg MCHC 32.0 L (33.0-35.0) g/dL Plt Count 241 (150-450) 10^3/uL Sodium 140 (136-145) mmol/L Potassium 4.1 (3.5-5.1) mmol/L Chloride 99 (98-107) mmol/L Carbon Dioxide 33 H (21-32) mmol/L Anion Gap 12.1 (7-13) mEq/L BUN 42 H (7-18) mg/dL Creatinine 2.45 H (0.55-1.02) mg/dL Est Cr Clr Drug Dosing 16.60 mL/min Estimated GFR (MDRD) 19 Glucose 179 H (74-99) mg/dL POC Glucose 162 H (83-110) mg/dl Calcium 9.2 (8.5-10.1) mg/dL Troponin I (0.000-0.056) ng/mL Urine Color (YELLOW) Urine Appearance (CLEAR) Urine pH (5.0-9.0) Ur Specific [place] (1.005-1.030) Urine Protein (NEGATIVE) Urine Glucose (UA) (NEGATIVE) Urine Ketones (NEGATIVE) Urine Occult Blood (NEGATIVE) Urine Nitrite (NEGATIVE) Urine Bilirubin (NEGATIVE) Urine Urobilinogen (0.2-1.0) mg/dL Ur Leukocyte Esterase (NEGATIVE) Urine RBC /HPF Urine WBC (0-5/HPF) /HPF Ur Epithelial Cells (NOT SEEN) /HPF Urine Bacteria (0-FEW/HPF) /HPF SARS CoV-2 RNA Rapid [place] (NEGATIVE) 06/25/20 06/25/20 Range/Units 07:44 11:18 WBC (5.0-10.0) 10^3/uL RBC (4.2-5.4) 10^6/uL Hgb (12.0-16.0) g/dL Hct (37.0-47.0) % MCV (80-100) fL MCH (27.0-34.0) pg MCHC (33.0-35.0) g/dL Plt Count (150-450) 10^3/uL Sodium (136-145) mmol/L Potassium (3.5-5.1) mmol/L Chloride (98-107) mmol/L Carbon Dioxide (21-32) mmol/L Anion Gap (7-13) mEq/L BUN (7-18) mg/dL Creatinine (0.55-1.02) mg/dL Est Cr Clr Drug Dosing mL/min Estimated GFR (MDRD) Glucose (74-99) mg/dL POC Glucose 165 H 188 H (83-110) mg/dl Calcium (8.5-10.1) mg/dL Troponin I (0.000-0.056) ng/mL Urine Color (YELLOW) Urine Appearance (CLEAR) Urine pH (5.0-9.0) Ur Specific [place] (1.005-1.030) Urine Protein (NEGATIVE) Urine Glucose (UA) (NEGATIVE) Urine Ketones (NEGATIVE) Urine Occult Blood (NEGATIVE) Urine Nitrite (NEGATIVE) Urine Bilirubin (NEGATIVE) Urine Urobilinogen (0.2-1.0) mg/dL Ur Leukocyte Esterase (NEGATIVE) Urine RBC /HPF Urine WBC (0-5/HPF) /HPF Ur Epithelial Cells (NOT SEEN) /HPF Urine Bacteria (0-FEW/HPF) /HPF SARS CoV-2 RNA Rapid [place] (NEGATIVE) Med Orders - Current: Current Medications Acetaminophen (Tylenol) 650 mg PO Q4H PRN PRN Reason: Pain (Mild 1-3)/fever Last Admin: 06/24/20 21:19 Dose: 650 mg Documented by: Albuterol (Proventil Hfa) 0 gm INH Q4HR PRN PRN Reason: Shortness of Breath Last Admin: 06/24/20 21:19 Dose: 2 puff Documented by: Albuterol/Ipratropium (Duoneb 3.0-0.5 Mg/3 Ml) 3 ml NEB Q6HRRT [facility] Last Admin: 06/25/20 07:30 Dose: 3 ml Documented by: Aspirin (Aspirin) 81 mg PO DAILY [facility] Last Admin: 06/25/20 08:29 Dose: 81 mg Documented by: Azithromycin (Zithromax) 250 mg PO DAILY [facility] Last Admin: 06/25/20 08:29 Dose: 250 mg Documented by: Dextrose/Water (Dextrose 50% In Water) 50 ml IV ASDIRECTED PRN PRN Reason: Hypoglycemia Glucagon (Glucagen) 1 mg IM ASDIRECTED PRN PRN Reason: Hypoglycemia Heparin Sodium (Porcine) (Heparin Sodium) 5,000 units SUBCUT Q8HR [facility] Last Admin: 06/25/20 05:14 Dose: 5,000 units Documented by: Insulin Human Lispro (Humalog) 0 unit SUBCUT WITHMEALSANDBED [facility]; Protocol Last Admin: 06/25/20 08:31 Dose: 2 unit Documented by: Levothyroxine Sodium (Levothyroxine) 75 mcg PO ACBREAKFAST [facility] Last Admin: 06/25/20 05:14 Dose: 75 mcg Documented by: Metoprolol Tartrate (Lopressor) 25 mg PO BID [facility] Last Admin: 06/25/20 08:30 Dose: 25 mg Documented by: Ondansetron HCl (Zofran) 4 mg IVPUSH Q4H PRN PRN Reason: Nausea/Vomiting Prednisone (Prednisone) 40 mg PO WITHBREAKFAST [facility] Last Admin: 06/25/20 08:30 Dose: 40 mg Documented by: Spironolactone (Aldactone) 25 mg PO DAILY [facility] Discontinued Medications Albuterol/Ipratropium (Duoneb 3.0-0.5 Mg/3 Ml) 3 ml NEB ONETIME ONE Stop: 06/24/20 15:24 Last Admin: 06/24/20 15:34 Dose: 3 ml Documented by: Furosemide (Lasix) 40 mg IVPUSH NOW ONE Stop: 06/24/20 18:13 Last Admin: 06/24/20 19:03 Dose: 40 mg Documented by: Prednisone (Prednisone) 20 mg PO ONETIME ONE Stop: 06/24/20 18:11 Last Admin: 06/24/20 19:01 Dose: 20 mg Documented by: - Exam Quality Assessment: Supplemental Oxygen General: Alert, Oriented HEENT: Pupils Equal, Pupils Reactive, EOMI, Mucous Membr. Moist/[place] Neck: Supple Lungs: Wheezing Cardiovascular: Regular Rate, Regular Rhythm GI/Abdominal Exam: Normal Bowel Sounds, Soft, Non-Tender, No Organomegaly, No Distention, No Abnormal Bruit, No Mass, Pelvis Stable Back Exam: Normal Inspection, Full Range of Motion Extremities: Normal Inspection, Normal Range of Motion, Non-Tender, No Pedal Edema, Normal Capillary Refill Skin: Warm, Dry, Intact Neurological: No New Focal Deficit Psy/Mental Status: Alert, Normal Affect, Normal Mood Sepsis Event Note - Evaluation Sepsis Screening Result: No Definite Risk - Focused Exam Vital Signs: Vital Signs Temp Pulse Pulse Resp BP BP Pulse Ox 06/25/20 08:30 92 118/57 L 06/25/20 08:07 97.2 F 92 20 118/57 L 98 06/25/20 07:31 52 L 06/25/20 05:20 98.1 F 116 H 18 136/69 98 Pulse Ox 06/25/20 08:30 06/25/20 08:07 06/25/20 07:31 97 06/25/20 05:20 - Problem List Review Problem List Initiated/Reviewed/Updated: Yes - My Orders Last 24 Hours: My Active Orders 06/24/20 16:55 Up ad Yen [RC] ASDIRECTED Acetaminophen [TylenoL] 650 mg PO Q4H PRN Ondansetron [Zofran] 4 mg IVPUSH Q4H PRN Resuscitation Status Routine 06/24/20 16:56 Oxygen Therapy [RC] .PRN VTE/DVT Education [RC] PER UNIT ROUTINE Vital Signs [RC] 00,04,08,12,,20 Antiembolic Hose [OM.PC] Per Unit Routine 06/24/20 16:57 Antiembolic Devices [RC] ,06/24/20 Dinner 2 Gram Sodium Diet [DIET] 06/24/20 18:03 Albuterol [Proventil HFA] 0 gm INH Q4HR PRN 06/24/20 18:07 RT Post Treatment Assessment [RC] Click to Edit RT Pre-Treatment Assessment [RC] Click to Edit 06/24/20 18:10 RT Aerosol Therapy [RC] .PRN 06/24/20 18:15 Azithromycin [Zithromax] 250 mg PO DAILY Dextrose 50% in Water 50 ml IV ASDIRECTED PRN Glucagon,Human Recombinant [GlucaGen] 1 mg IM ASDIRECTED PRN 06/24/20 21:00 Insulin Lispro [HumaLOG] See Protocol SUBCUT WITHMEALSANDBED Metoprolol Tartrate [Lopressor] 25 mg PO BID 06/24/20 21:51 Blood Glucose Check, Bedside [RC] QIDACANDBED 06/24/20 22:00 Heparin Sodium 5,000 units SUBCUT Q8HR 06/25/20 01:00 Albuterol/Ipratropium [DuoNeb 3.0-0.5 MG/3 ML] 3 ml NEB Q6HRRT 06/25/20 06:00 Levothyroxine 75 mcg PO ACBREAKFAST 06/25/20 08:00 predniSONE 40 mg PO WITHBREAKFAST 06/25/20 09:00 Aspirin 81 mg PO DAILY Spironolactone [Aldactone] 25 mg PO DAILY 06/25/20 10:18 OT Evaluation and Treatment [CONS] Routine PT Evaluation and Treatment [CONS] Routine - Plan Plan:: 75 year-old female with a medical history of CHF, hypertension, COPD, on 4 L home O2, CKD, anxiety, depression, diabetes mellitus, hypothyroidism, obesity who presented to the ER with complaints of cough, increasing shortness of breath and leg swelling. COPD exacerbation Chronic home oxygen Complete Z-Chao which to 250 mg azithromycin daily x2 Continue prednisone 40 mg daily x5 days Scheduled duo nebs 4 times daily As needed albuterol Shortness of breath improving Acute on chronic diastolic and systolic CHF Last EF earlier this year was 25 to 30% Given Lasix 40 mg x 1 yesterday. Edema resolved. Daily weights and strict I's and O's Consider restarting home Aldactone tomorrow PAVEL on CKD Creatinine is probably not far from baseline, however slowly worsening. Patient missed previous appointment with used car lot porter. Hold off diuretics for now and continue to monitor renal status. Patient should follow up with used car lot porter upon discharge Chronic leukocytosis is most likely steroid-induced Monitor Diabetes mellitus Sliding scale insulin with hypoglycemia protocol CAD Resume home aspirin Hypothyroidism Resume home Synthroid Hypertension Resume home antihypertensives
[2020-06-25] MEDS: Albuterol 6.7 GM Inhaler INH PRN (22:18)
[2020-06-26] MEDS: Albuterol/Ipratropium 3.0-0.5 MG/3 ML Neb Soln NEB SCH ×4 (00:11→17:45)
[2020-06-26] MEDS: Levothyroxine 75 MCG Tab PO SCH (06:06)
[2020-06-26] MEDS: Heparin Sodium 5,000 Units/ML Vial SUBCUT SCH ×3 (06:06→21:08)
[2020-06-26] MEDS: Insulin Lispro 100 Units/ML 3 ML Vial SUBCUT SCH ×4 (09:21→21:05)
[2020-06-26] MEDS: predniSONE 20 MG Tab PO SCH (09:22)
[2020-06-26] MEDS: Metoprolol Tartrate 50 MG Tab PO SCH ×2 (09:22→21:08)
[2020-06-26] MEDS: Azithromycin 250 MG Tab PO SCH (09:23)
[2020-06-26] MEDS: Spironolactone 25 MG Tab PO SCH (09:23)
[2020-06-26] MEDS: Aspirin 81 MG Tab.Chew PO SCH (09:23)
[2020-06-26] MEDS: Albuterol 6.7 GM Inhaler INH PRN ×2 (11:21→19:42)
--- NOTE | 2020-06-26 12:00 | PCM.PN ---
- General Info Date of Service: 06/26/20 Admission Dx/Problem (Free Text): Admission Diagnosis/Problem Admission Diagnosis/Problem Exacerbation of chronic obstructive pulmonary disease Subjective Update: Complains of generalized weakness. Shortness of breath improving but still significant. Leg swelling resolved. continues to have wheezing. Remained on oxygen but only on 1-2 L. At home she has been using 4 L nasal cannula oxygen. No associated chest pain, fever. Functional Status: Reports: Pain Controlled, Tolerating Diet - Review of Systems General: Reports: Weakness. Denies: Fever Pulmonary: Reports: Shortness of Breath, Cough, Wheezing. Denies: Pleuritic Chest Pain, Hemoptysis Cardiovascular: Denies: Chest Pain Gastrointestinal: Denies: Abdominal Pain Neurological: Denies: Confusion - Patient Data Vitals - Most Recent: Last Vital Signs Temp 97.0 F 06/26/20 08:22 Pulse 61 06/26/20 09:22 Resp 20 06/26/20 08:22 BP 106/60 06/26/20 09:22 Pulse Ox 99 06/26/20 08:22 Weight - Most Recent: 206 lb 12.8 oz I&O - Last 24 Hours: Intake & Output 06/25/20 06/26/20 06/26/20 22:59 06:59 14:59 Intake Total 1120 100 560 Output Total 800 1300 Balance 320 -1200 560 Lab Results Last 24 Hours: Laboratory Results - last 24 hr 06/25/20 06/25/20 06/25/20 Range/Units 06:05 16:53 22:16 Sodium (136-145) mmol/L Potassium (3.5-5.1) mmol/L Chloride (98-107) mmol/L Carbon Dioxide (21-32) mmol/L Anion Gap (7-13) mEq/L BUN (7-18) mg/dL Creatinine (0.55-1.02) mg/dL Est Cr Clr Drug Dosing mL/min Estimated GFR (MDRD) Glucose (74-99) mg/dL POC Glucose 239 H 240 H (83-110) mg/dl Calcium (8.5-10.1) mg/dL Magnesium 2.6 H (1.8-2.4) mg/dL 06/26/20 06/26/20 Range/Units 05:55 08:04 Sodium 136 (136-145) mmol/L Potassium 4.0 (3.5-5.1) mmol/L Chloride 97 L (98-107) mmol/L Carbon Dioxide 32 (21-32) mmol/L Anion Gap 11.0 (7-13) mEq/L BUN 50 H (7-18) mg/dL Creatinine 2.30 H (0.55-1.02) mg/dL Est Cr Clr Drug Dosing 17.69 mL/min Estimated GFR (MDRD) 21 Glucose 143 H (74-99) mg/dL POC Glucose 138 H (83-110) mg/dl Calcium 9.4 (8.5-10.1) mg/dL Magnesium (1.8-2.4) mg/dL Med Orders - Current: Current Medications Acetaminophen (Tylenol) 650 mg PO Q4H PRN PRN Reason: Pain (Mild 1-3)/fever Last Admin: 06/24/20 21:19 Dose: 650 mg Documented by: Albuterol (Proventil Hfa) 0 gm INH Q4HR PRN PRN Reason: Shortness of Breath Last Admin: 06/26/20 11:21 Dose: 2 puff Documented by: Albuterol/Ipratropium (Duoneb 3.0-0.5 Mg/3 Ml) 3 ml NEB Q6HRRT [facility] Last Admin: 06/26/20 06:25 Dose: 3 ml Documented by: Aspirin (Aspirin) 81 mg PO DAILY [facility] Last Admin: 06/26/20 09:23 Dose: 81 mg Documented by: Azithromycin (Zithromax) 250 mg PO DAILY [facility] Last Admin: 06/26/20 09:23 Dose: 250 mg Documented by: Budesonide (Pulmicort) 0.5 mg NEB BIDRT [facility] Glucagon (Glucagen) 1 mg IM ASDIRECTED PRN PRN Reason: Hypoglycemia Heparin Sodium (Porcine) (Heparin Sodium) 5,000 units SUBCUT Q8HR [facility] Last Admin: 06/26/20 06:06 Dose: 5,000 units Documented by: Insulin Human Lispro (Humalog) 0 unit SUBCUT WITHMEALSANDBED [facility]; Protocol Last Admin: 06/26/20 09:21 Dose: Not Given Documented by: Levothyroxine Sodium (Levothyroxine) 75 mcg PO ACBREAKFAST [facility] Last Admin: 06/26/20 06:06 Dose: 75 mcg Documented by: Metoprolol Tartrate (Lopressor) 25 mg PO BID [facility] Last Admin: 06/26/20 09:22 Dose: 25 mg Documented by: Ondansetron HCl (Zofran) 4 mg IVPUSH Q4H PRN PRN Reason: Nausea/Vomiting Prednisone (Prednisone) 40 mg PO WITHBREAKFAST [facility] Last Admin: 06/26/20 09:22 Dose: 40 mg Documented by: Spironolactone (Aldactone) 25 mg PO DAILY [facility] Last Admin: 06/26/20 09:23 Dose: 25 mg Documented by: Discontinued Medications Albuterol/Ipratropium (Duoneb 3.0-0.5 Mg/3 Ml) 3 ml NEB ONETIME ONE Stop: 06/24/20 15:24 Last Admin: 06/24/20 15:34 Dose: 3 ml Documented by: Dextrose/Water (Dextrose 50% In Water) 50 ml IV ASDIRECTED PRN PRN Reason: Hypoglycemia Furosemide (Lasix) 40 mg IVPUSH NOW ONE Stop: 06/24/20 18:13 Last Admin: 06/24/20 19:03 Dose: 40 mg Documented by: Prednisone (Prednisone) 20 mg PO ONETIME ONE Stop: 06/24/20 18:11 Last Admin: 06/24/20 19:01 Dose: 20 mg Documented by: - Exam Quality Assessment: Supplemental Oxygen General: Alert, Oriented Neck: Supple Lungs: Rhonchi, Wheezing Cardiovascular: Regular Rate, Regular Rhythm GI/Abdominal Exam: Normal Bowel Sounds, Soft, Non-Tender Extremities: No Pedal Edema Sepsis Event Note - Evaluation Sepsis Screening Result: No Definite Risk - Focused Exam Vital Signs: Vital Signs Temp Pulse Pulse Resp BP BP BP 06/26/20 09:22 61 106/60 06/26/20 08:22 97.0 F 61 20 106/60 06/26/20 06:32 61 06/26/20 06:00 06/26/20 00:14 74 06/26/20 00:00 97.6 F 64 24 H 124/62 Pulse Ox Pulse Ox 06/26/20 09:22 06/26/20 08:22 99 06/26/20 06:32 97 06/26/20 06:00 97 06/26/20 00:14 96 06/26/20 00:00 95 - Problem List & Annotations (1) Acute exacerbation of chronic obstructive pulmonary disease (COPD) SNOMED Code(s): 468404898 Code(s): J44.1 - CHRONIC OBSTRUCTIVE PULMONARY DISEASE W (ACUTE) EXACERBATION Status: Acute Priority: High Current Visit: No - Problem List Review Problem List Initiated/Reviewed/Updated: Yes - My Orders Last 24 Hours: My Active Orders 06/26/20 11:54 RT Aerosol Therapy [RC] ASDIRECTED 06/26/20 11:55 Budesonide [Pulmicort] 0.5 mg NEB BIDRT - Plan Plan:: 75 year-old female with a medical history of CHF, hypertension, COPD, on 4 L home O2, CKD, anxiety, depression, diabetes mellitus, hypothyroidism, obesity who presented to the ER with complaints of cough, increasing shortness of breath and leg swelling. COPD with acute exacerbation Chronic home oxygen, has been using 4 L nasal cannula oxygen continuously Complete Z-Chao Continue prednisone 40 mg Scheduled duo nebs 4 times daily As needed albuterol add Pulmicort nebulizer Shortness of breath is improving but still not back to baseline Acute on chronic diastolic and systolic CHF Last EF earlier this year was 25 to 30% Given Lasix 40 mg x 1 yesterday. Edema resolved. Daily weights and strict I's and O's PAVEL on CKD Creatinine is probably not far from baseline, however slowly worsening. Patient missed previous appointment with pin machine operator. Hold off diuretics for now and continue to monitor renal status. Patient should follow up with pin machine operator upon discharge Chronic leukocytosis is most likely steroid-induced Monitor Diabetes mellitus Sliding scale insulin with hypoglycemia protocol CAD Resume home aspirin Hypothyroidism Resume home Synthroid Hypertension cont metoprolol
[2020-06-26] MEDS: Budesonide 0.5 MG/2 ML Neb Susp NEB SCH ×2 (13:58→17:45)
[2020-06-27] MEDS: Albuterol/Ipratropium 3.0-0.5 MG/3 ML Neb Soln NEB SCH ×5 (01:07→17:00)
[2020-06-27] MEDS: Albuterol 6.7 GM Inhaler INH PRN ×3 (03:21→22:38)
[2020-06-27] MEDS: Heparin Sodium 5,000 Units/ML Vial SUBCUT SCH ×3 (06:08→22:41)
[2020-06-27] MEDS: Levothyroxine 75 MCG Tab PO SCH (06:08)
[2020-06-27] MEDS: Budesonide 0.5 MG/2 ML Neb Susp NEB SCH ×2 (07:06→17:00)
[2020-06-27] MEDS: Aspirin 81 MG Tab.Chew PO SCH (08:54)
[2020-06-27] MEDS: predniSONE 20 MG Tab PO SCH (08:54)
[2020-06-27] MEDS: Metoprolol Tartrate 50 MG Tab PO SCH ×2 (08:54→22:37)
[2020-06-27] MEDS: Azithromycin 250 MG Tab PO SCH (08:54)
[2020-06-27] MEDS: Spironolactone 25 MG Tab PO SCH (08:56)
[2020-06-27] MEDS: Insulin Lispro 100 Units/ML 3 ML Vial SUBCUT SCH ×4 (08:57→22:39)
--- NOTE | 2020-06-27 12:49 | PCM.PN ---
- General Info Date of Service: 06/27/20 Admission Dx/Problem (Free Text): Admission Diagnosis/Problem Admission Diagnosis/Problem Exacerbation of chronic obstructive pulmonary disease Subjective Update: Complains of generalized weakness. Shortness of breath improving but still significant. was hardly able to go to the bathroom. Leg swelling resolved. continues to have wheezing. Remained on oxygen but only on 2 L. At home she has been using 4 L nasal cannula oxygen at night, has not needed to use oxygen with activity before. No associated chest pain, fever. - Review of Systems General: Reports: Weakness. Denies: Fever Pulmonary: Reports: Shortness of Breath, Cough, Wheezing. Denies: Sputum Cardiovascular: Denies: Chest Pain, Edema Gastrointestinal: Denies: Abdominal Pain Neurological: Denies: Dizziness Psychiatric: Denies: Confusion - Patient Data Vitals - Most Recent: Last Vital Signs Temp 97.0 F 06/27/20 08:58 Pulse 68 06/27/20 08:58 Resp 20 06/27/20 08:58 BP 113/55 L 06/27/20 08:58 Pulse Ox 99 06/27/20 08:58 Weight - Most Recent: 208 lb I&O - Last 24 Hours: Intake & Output 06/26/20 06/27/20 06/27/20 22:59 06:59 14:59 Intake Total 1100 500 Output Total 1350 1900 200 Balance -250 -1400 -200 Lab Results Last 24 Hours: Laboratory Results - last 24 hr 06/26/20 06/26/20 06/27/20 Range/Units 17:01 21:03 08:09 POC Glucose 261 H 254 H 124 H (83-110) mg/dl 06/27/20 Range/Units 11:45 POC Glucose 181 H (83-110) mg/dl Med Orders - Current: Current Medications Acetaminophen (Tylenol) 650 mg PO Q4H PRN PRN Reason: Pain (Mild 1-3)/fever Last Admin: 06/24/20 21:19 Dose: 650 mg Documented by: Albuterol (Proventil Hfa) 0 gm INH Q4HR PRN PRN Reason: Shortness of Breath Last Admin: 06/27/20 06:30 Dose: 2 puff Documented by: Albuterol/Ipratropium (Duoneb 3.0-0.5 Mg/3 Ml) 3 ml NEB Q6HRRT [facility] Last Admin: 06/27/20 07:06 Dose: 3 ml Documented by: Aspirin (Aspirin) 81 mg PO DAILY [facility] Last Admin: 06/27/20 08:54 Dose: 81 mg Documented by: Azithromycin (Zithromax) 250 mg PO DAILY [facility] Last Admin: 06/27/20 08:54 Dose: 250 mg Documented by: Budesonide (Pulmicort) 0.5 mg NEB BIDRT [facility] Last Admin: 06/27/20 07:06 Dose: 0.5 mg Documented by: Glucagon (Glucagen) 1 mg IM ASDIRECTED PRN PRN Reason: Hypoglycemia Heparin Sodium (Porcine) (Heparin Sodium) 5,000 units SUBCUT Q8HR [facility] Last Admin: 06/27/20 06:08 Dose: 5,000 units Documented by: Insulin Human Lispro (Humalog) 0 unit SUBCUT WITHMEALSANDBED [facility]; Protocol Last Admin: 06/27/20 12:17 Dose: 1 unit Documented by: Levothyroxine Sodium (Levothyroxine) 75 mcg PO ACBREAKFAST [facility] Last Admin: 06/27/20 06:08 Dose: 75 mcg Documented by: Metoprolol Tartrate (Lopressor) 25 mg PO BID [facility] Last Admin: 06/27/20 08:54 Dose: 25 mg Documented by: Ondansetron HCl (Zofran) 4 mg IVPUSH Q4H PRN PRN Reason: Nausea/Vomiting Prednisone (Prednisone) 40 mg PO WITHBREAKFAST [facility] Last Admin: 06/27/20 08:54 Dose: 40 mg Documented by: Spironolactone (Aldactone) 25 mg PO DAILY [facility] Last Admin: 06/27/20 08:56 Dose: 25 mg Documented by: Discontinued Medications Albuterol/Ipratropium (Duoneb 3.0-0.5 Mg/3 Ml) 3 ml NEB ONETIME ONE Stop: 06/24/20 15:24 Last Admin: 06/24/20 15:34 Dose: 3 ml Documented by: Dextrose/Water (Dextrose 50% In Water) 50 ml IV ASDIRECTED PRN PRN Reason: Hypoglycemia Furosemide (Lasix) 40 mg IVPUSH NOW ONE Stop: 06/24/20 18:13 Last Admin: 06/24/20 19:03 Dose: 40 mg Documented by: Prednisone (Prednisone) 20 mg PO ONETIME ONE Stop: 06/24/20 18:11 Last Admin: 06/24/20 19:01 Dose: 20 mg Documented by: - Exam Quality Assessment: Supplemental Oxygen General: Alert, Oriented Lungs: Decreased Breath Sounds, Rhonchi, Wheezing Cardiovascular: Regular Rate, Regular Rhythm GI/Abdominal Exam: Normal Bowel Sounds, Soft, Non-Tender Extremities: No Pedal Edema Sepsis Event Note - Evaluation Sepsis Screening Result: No Definite Risk - Focused Exam Vital Signs: Vital Signs Temp Pulse Pulse Resp BP BP BP 06/27/20 08:58 97.0 F 68 20 113/55 L 06/27/20 08:54 75 109/69 06/27/20 07:00 75 06/27/20 04:00 97.6 F 70 22 H 109/69 06/27/20 03:33 Pulse Ox Pulse Ox 06/27/20 08:58 99 06/27/20 08:54 06/27/20 07:00 98 06/27/20 04:00 95 06/27/20 03:33 95 - Problem List & Annotations (1) Acute exacerbation of chronic obstructive pulmonary disease (COPD) SNOMED Code(s): 568623507 Code(s): J44.1 - CHRONIC OBSTRUCTIVE PULMONARY DISEASE W (ACUTE) EXACERBATION Status: Acute Priority: High Current Visit: No - Problem List Review Problem List Initiated/Reviewed/Updated: Yes - My Orders Last 24 Hours: My Active Orders 06/26/20 11:54 RT Aerosol Therapy [RC] ASDIRECTED 06/26/20 11:55 Budesonide [Pulmicort] 0.5 mg NEB BIDRT - Plan Plan:: 75 year-old female with a medical history of CHF, hypertension, COPD, on 4 L home O2, CKD, anxiety, depression, diabetes mellitus, hypothyroidism, obesity who presented to the ER with complaints of cough, increasing shortness of breath and leg swelling. COPD with acute exacerbation Chronic home oxygen, has been using 4 L nasal cannula oxygen continuously Complete Z-Chao Continue prednisone 40 mg Scheduled duo nebs 4 times daily As needed albuterol cont Pulmicort nebulizer Shortness of breath is improving but still not back to baseline she will likely need oxygen during the day and with activities Acute on chronic diastolic and systolic CHF Last EF earlier this year was 25 to 30% Given Lasix 40 mg earlier. Edema resolved. Daily weights and strict I's and O's PAVEL on CKD Creatinine is probably not far from baseline. Patient missed previous appointment with optical coating technician. Hold off diuretics for now and continue to monitor renal status. Patient should follow up with optical coating technician upon discharge Chronic leukocytosis is most likely steroid-induced Monitor Diabetes mellitus Sliding scale insulin with hypoglycemia protocol CAD continue aspirin Hypothyroidism continue Synthroid Hypertension cont metoprolol DVT prophylaxis with subcutaneous heparin
[2020-06-28] MEDS: Albuterol/Ipratropium 3.0-0.5 MG/3 ML Neb Soln NEB SCH ×3 (00:19→14:07)
[2020-06-28] MEDS: Albuterol 6.7 GM Inhaler INH PRN ×2 (02:22→08:57)
[2020-06-28] MEDS: Levothyroxine 75 MCG Tab PO SCH (05:11)
[2020-06-28] MEDS: Heparin Sodium 5,000 Units/ML Vial SUBCUT SCH ×2 (05:11→14:10)
[2020-06-28 07:05] LABS: ANION GAP 10.2 mEq/L (7-13)
[2020-06-28] MEDS: Budesonide 0.5 MG/2 ML Neb Susp NEB SCH (07:24)
[2020-06-28] MEDS: Insulin Lispro 100 Units/ML 3 ML Vial SUBCUT SCH ×2 (08:35→14:09)
[2020-06-28] MEDS: Spironolactone 25 MG Tab PO SCH (08:36)
[2020-06-28] MEDS: Aspirin 81 MG Tab.Chew PO SCH (08:36)
[2020-06-28] MEDS: Azithromycin 250 MG Tab PO SCH (08:36)
[2020-06-28] MEDS: Metoprolol Tartrate 50 MG Tab PO SCH (08:36)
[2020-06-28 08:44] VITALS: BP 125/87; PULSE 58
[2020-06-28] MEDS: predniSONE 20 MG Tab PO SCH (08:44)
--- NOTE | 2020-06-28 10:34 | PCM.DCSUM1 ---
Discharge Summary - Hospital Course Free Text/Narrative:: 75 year-old female with a medical history of CHF, hypertension, COPD, on 4 L home O2, CKD, anxiety, depression, diabetes mellitus, hypothyroidism, obesity who presented to the ER with complaints of cough, increasing shortness of breath and leg swelling. COPD with acute exacerbation Chronic home oxygen, has been using 4 L nasal cannula oxygen continuously Completed Z-Chao taper prednisone cont nebs Acute on chronic diastolic and systolic CHF Last EF earlier this year was 25 to 30% cont Lasix 40 mg hold spironolactone re: hyperkalemia PAVEL on CKD Creatinine is probably not far from baseline. Patient missed previous ap pointment with treating machine operator. Patient should follow up with treating machine operator upon discharge leukocytosis is most likely steroid-induced Diabetes mellitus resume glipizide CAD continue aspirin, metoprolol Hypothyroidism continue Synthroid Hypertension cont metoprolol Diagnosis: Stroke: No - Discharge Data Discharge Date: 06/28/20 Discharge Disposition: Home, Self-Care 01 Condition: Good - Referral to Home Health Primary Care Physician: PCP None - Discharge Diagnosis/Problem(s) (1) Acute exacerbation of chronic obstructive pulmonary disease (COPD) SNOMED Code(s): 609565244 ICD Code: J44.1 - CHRONIC OBSTRUCTIVE PULMONARY DISEASE W (ACUTE) EXACERBATION Status: Acute Priority: High Current Visit: No - Patient Summary/Data Consults: Consultations 06/24/20 15:26 Respiratory Care Assess [CONS] Routine 06/25/20 10:18 OT Evaluation and Treatment [CONS] Routine PT Evaluation and Treatment [CONS] Routine - Patient Instructions Diet: Heart Healthy Diet Activity: As Tolerated - Discharge Plan *PRESCRIPTION DRUG MONITORING PROGRAM REVIEWED*: Not Applicable *COPY OF PRESCRIPTION DRUG MONITORING REPORT IN PATIENT CATRACHO: Not Applicable Prescriptions/Med Rec: predniSONE 10 mg PO WITHBREAKFAST #30 tablet Home Medications: Home Meds Metoprolol Tartrate 25 mg PO BID 04/03/17 [History] Aspirin 81 mg PO DAILY 01/08/19 [History] Levothyroxine 75 mcg PO ACBREAKFAST 05/03/19 [History] glipiZIDE [Glucotrol] 5 mg PO BID 30 Days #60 tablet 08/05/19 [Rx] predniSONE [Prednisone] 10 mg PO DAILY 10/02/19 [History] Albuterol [Ventolin HFA] 2 puff INH Q4HR PRN 02/08/20 [History] Ipratropium/Albuterol Sulfate [Iprat-Albut 0.5-3(2.5) MG/3 ML] 1 vial IH BID PRN 02/08/20 [History] Albuterol [Proventil Neb Soln] 0.63 inh NEB ASDIRECTED PRN 06/24/20 [History] Budesonide [Pulmicort] 0.5 mg INH BID PRN 06/24/20 [History] Bumetanide 1 mg PO BID 06/24/20 [History] atenoloL [Atenolol] 25 mg PO DAILY 06/24/20 [History] predniSONE 10 mg PO WITHBREAKFAST #30 tablet 06/28/20 [Rx] Forms: ED Department Discharge Referrals: Susan Borges PA-C [Ordering Only Provider] - Sherri Leyva MD [Physician] - - Discharge Summary/Plan Comment DC Time >30 min.: No - General Info Date of Service: 06/28/20 Functional Status: Reports: Pain Controlled, Tolerating Diet - Review of Systems General: Denies: Fever Pulmonary: Reports: Shortness of Breath (at baseline), Wheezing Cardiovascular: Denies: Chest Pain, Edema - Patient Data Vitals - Most Recent: Last Vital Signs Temp 97.2 F 06/28/20 03:48 Pulse 58 L 06/28/20 08:36 Resp 20 06/28/20 03:48 BP 125/87 06/28/20 08:36 Pulse Ox 99 06/28/20 03:48 Weight - Most Recent: 208 lb 6.4 oz I&O - Last 24 hours: Intake & Output 06/27/20 06/28/20 06/28/20 22:59 06:59 14:59 Intake Total 920 Balance 920 Lab Results - Last 24 hrs: Laboratory Results - last 24 hr 06/27/20 06/27/20 06/27/20 Range/Units 11:45 16:46 22:27 WBC (5.0-10.0) 10^3/uL RBC (4.2-5.4) 10^6/uL Hgb (12.0-16.0) g/dL Hct (37.0-47.0) % MCV (80-100) fL MCH (27.0-34.0) pg MCHC (33.0-35.0) g/dL Plt Count (150-450) 10^3/uL Neut % (Auto) (42.2-75.2) % Lymph % (Auto) (20.5-50.1) % Borden % (Auto) (2-8) % Eos % (Auto) (1.0-3.0) % Baso % (Auto) (0.0-1.0) % Add Manual Diff Neutrophils % (Manual) (42-75) % Lymphocytes % (Manual) (20-50) % Monocytes % (Manual) (2-8) % Sodium (136-145) mmol/L Potassium (3.5-5.1) mmol/L Chloride (98-107) mmol/L Carbon Dioxide (21-32) mmol/L Anion Gap (7-13) mEq/L BUN (7-18) mg/dL Creatinine (0.55-1.02) mg/dL Est Cr Clr Drug Dosing mL/min Estimated GFR (MDRD) Glucose (74-99) mg/dL POC Glucose 181 H 285 H 205 H (83-110) mg/dl Calcium (8.5-10.1) mg/dL 06/28/20 06/28/20 06/28/20 Range/Units 06:24 06:24 07:41 WBC 13.5 H (5.0-10.0) 10^3/uL RBC 3.56 L (4.2-5.4) 10^6/uL Hgb 11.4 L (12.0-16.0) g/dL Hct 35.4 L (37.0-47.0) % MCV 99.4 (80-100) fL MCH 32.0 (27.0-34.0) pg MCHC 32.2 L (33.0-35.0) g/dL Plt Count 229 (150-450) 10^3/uL Neut % (Auto) 82.1 H (42.2-75.2) % Lymph % (Auto) 12.1 L (20.5-50.1) % Borden % (Auto) 5.6 (2-8) % Eos % (Auto) 0.1 L (1.0-3.0) % Baso % (Auto) 0.1 (0.0-1.0) % Add Manual Diff Yes Neutrophils % (Manual) 85 H (42-75) % Lymphocytes % (Manual) 9 L (20-50) % Monocytes % (Manual) 6 (2-8) % Sodium 139 (136-145) mmol/L Potassium 5.2 H (3.5-5.1) mmol/L Chloride 102 (98-107) mmol/L Carbon Dioxide 32 (21-32) mmol/L Anion Gap 10.2 (7-13) mEq/L BUN 43 H (7-18) mg/dL Creatinine 2.19 H (0.55-1.02) mg/dL Est Cr Clr Drug Dosing 18.58 mL/min Estimated GFR (MDRD) 22 Glucose 146 H (74-99) mg/dL POC Glucose 132 H (83-110) mg/dl Calcium 9.6 (8.5-10.1) mg/dL Med Orders - Current: Current Medications Acetaminophen (Tylenol) 650 mg PO Q4H PRN PRN Reason: Pain (Mild 1-3)/fever Last Admin: 06/24/20 21:19 Dose: 650 mg Documented by: Albuterol (Proventil Hfa) 0 gm INH Q4HR PRN PRN Reason: Shortness of Breath Last Admin: 06/28/20 08:57 Dose: 2 puff Documented by: Albuterol/Ipratropium (Duoneb 3.0-0.5 Mg/3 Ml) 3 ml NEB Q6HRRT [facility] Last Admin: 06/28/20 07:24 Dose: 3 ml Documented by: Aspirin (Aspirin) 81 mg PO DAILY [facility] Last Admin: 06/28/20 08:36 Dose: 81 mg Documented by: Azithromycin (Zithromax) 250 mg PO DAILY [facility] Last Admin: 06/28/20 08:36 Dose: 250 mg Documented by: Budesonide (Pulmicort) 0.5 mg NEB BIDRT [facility] Last Admin: 06/28/20 07:24 Dose: 0.5 mg Documented by: Glucagon (Glucagen) 1 mg IM ASDIRECTED PRN PRN Reason: Hypoglycemia Heparin Sodium (Porcine) (Heparin Sodium) 5,000 units SUBCUT Q8HR [facility] Last Admin: 06/28/20 05:11 Dose: 5,000 units Documented by: Insulin Human Lispro (Humalog) 0 unit SUBCUT WITHMEALSANDBED [facility]; Protocol Last Admin: 06/28/20 08:35 Dose: Not Given Documented by: Levothyroxine Sodium (Levothyroxine) 75 mcg PO ACBREAKFAST [facility] Last Admin: 06/28/20 05:11 Dose: 75 mcg Documented by: Metoprolol Tartrate (Lopressor) 25 mg PO BID [facility] Last Admin: 06/28/20 08:36 Dose: 25 mg Documented by: Ondansetron HCl (Zofran) 4 mg IVPUSH Q4H PRN PRN Reason: Nausea/Vomiting Prednisone (Prednisone) 40 mg PO WITHBREAKFAST [facility] Last Admin: 06/28/20 08:44 Dose: 40 mg Documented by: Discontinued Medications Albuterol/Ipratropium (Duoneb 3.0-0.5 Mg/3 Ml) 3 ml NEB ONETIME ONE Stop: 06/24/20 15:24 Last Admin: 06/24/20 15:34 Dose: 3 ml Documented by: Dextrose/Water (Dextrose 50% In Water) 50 ml IV ASDIRECTED PRN PRN Reason: Hypoglycemia Furosemide (Lasix) 40 mg IVPUSH NOW ONE Stop: 06/24/20 18:13 Last Admin: 06/24/20 19:03 Dose: 40 mg Documented by: Prednisone (Prednisone) 20 mg PO ONETIME ONE Stop: 06/24/20 18:11 Last Admin: 06/24/20 19:01 Dose: 20 mg Documented by: Spironolactone (Aldactone) 25 mg PO DAILY [facility] Last Admin: 06/28/20 08:36 Dose: 25 mg Documented by: - Exam General: Reports: Alert, Oriented Neck: Reports: Supple Lungs: Reports: Normal Respiratory Effort, Rhonchi, Wheezing Cardiovascular: Reports: Regular Rate, Regular Rhythm GI/Abdominal Exam: Normal Bowel Sounds, Soft, Non-Tender Extremities: No Pedal Edema
== END 2020-06-28 13:15 | disposition home or self-care (01) ==
LOC: DL.ED 13:16 → DL.MS 16:34 → DL.ED 16:41 → UNDOADMOB 16:44 → DL.MS 16:44
PROVIDERS: ADMIT Internal Medicine; ATTEND Internal Medicine
DX: J44.1 Chronic obstructive pulmonary disease with (acute) exacerbation (principal); I13.0 Hypertensive heart and chronic kidney disease with heart failure and stage 1 through stage 4 chronic kidney disease, or unspecified chronic kidney disease; I50.33 Acute on chronic diastolic (congestive) heart failure; N18.9 Chronic kidney disease, unspecified; E11.22 Type 2 diabetes mellitus with diabetic chronic kidney disease; F41.9 Anxiety disorder, unspecified; F32.9 Major depressive disorder, single episode, unspecified; E03.9 Hypothyroidism, unspecified; E66.9 Obesity, unspecified; I25.2 Old myocardial infarction; F17.210 Nicotine dependence, cigarettes, uncomplicated; D72.829 Elevated white blood cell count, unspecified; Z20.828 Contact with and (suspected) exposure to other viral communicable diseases; I25.10 Atherosclerotic heart disease of native coronary artery without angina pectoris; N17.9 Acute kidney failure, unspecified; Z68.35 Body mass index [BMI] 35.0-35.9, adult; Z99.81 Dependence on supplemental oxygen; Z88.8 Allergy status to other drugs, medicaments and biological substances; Z88.0 Allergy status to penicillin; Z79.899 Other long term (current) drug therapy; Z79.82 Long term (current) use of aspirin; Z79.84 Long term (current) use of oral hypoglycemic drugs; Z79.890 Hormone replacement therapy; Z90.49 Acquired absence of other specified parts of digestive tract; Z98.890 Other specified postprocedural states
CPT/HCPCS: 36415; 71046; 80048; 81001; 82962; 83735; 84484; 85025; 85027; 93005; 94640; 97162; 97165; 99285; A9270; J1644; J1815; J1940; J7512; U0002; 93010; 96372; 96374; 99283; G0378; J7620-GY

== ENCOUNTER 2020-07-09 09:16 | Emergency (ER) | payer MEDICARE, MEDICAID ==
[2020-07-09 09:20] VITALS: BP 118/70; PULSE 53
--- NOTE | 2020-07-09 09:41 | EDM.PDOC ---
ED HPI GENERAL MEDICAL PROBLEM - General Chief Complaint: Back Pain or Injury Stated Complaint: AMBULANCE Time Seen by Provider: 07/09/20 09:25 Source of Information: Reports: Patient History Limitations: Reports: No Limitations - History of Present Illness INITIAL COMMENTS - FREE TEXT/NARRATIVE: This 75 yo female patient was brought to the ED by [facility] due to increased lower back pain. The patient reports her low back pain started yesterday and has gotten worse. The patient reports she has not been able to move this morning due to the increased pain. The patient reports her current pain is on "both sides of her spine in the lower back". The patient reports she has not eaten yet today, but did take her thyroid pill this morning. The patient reports she was diagnosed with kidney stones "a few weeks ago", but does not remember what she was given for treatment. Onset Date: 07/08/20 Duration: Constant, Getting Worse Location: Reports: Back (low back) Quality: Reports: Ache, Sharp Severity: Severe Improves with: Reports: Rest Worsens with: Reports: Movement Associated Symptoms: Reports: No Other Symptoms Treatments ENT SURGEON: Reports: NSAIDS Lower Back Pain Score (Numeric/FACES): 7 - Related Data Allergies Allergy/AdvReac Type Severity Reaction Status Date / Time amlodipine [From Norvasc] Allergy Cannot Verified 07/09/20 09:24 Remember cetirizine [From Zyrtec] Allergy Abdominal Verified 07/09/20 09:24 Pain Penicillins Allergy Rash Verified 07/09/20 09:24 simvastatin [From Zocor] Allergy Cannot Verified 07/09/20 09:24 Remember Home Meds: Home Meds Metoprolol Tartrate 25 mg PO BID 04/03/17 [History] Aspirin 81 mg PO DAILY 01/08/19 [History] Levothyroxine 75 mcg PO ACBREAKFAST 05/03/19 [History] glipiZIDE [Glucotrol] 5 mg PO BID 30 Days #60 tablet 08/05/19 [Rx] predniSONE [Prednisone] 10 mg PO DAILY 10/02/19 [History] Albuterol [Ventolin HFA] 2 puff INH Q4HR PRN 02/08/20 [History] Ipratropium/Albuterol Sulfate [Iprat-Albut 0.5-3(2.5) MG/3 ML] 1 vial IH BID PRN 02/08/20 [History] Albuterol [Proventil Neb Soln] 0.63 inh NEB ASDIRECTED PRN 06/24/20 [History] Budesonide [Pulmicort] 0.5 mg INH BID PRN 06/24/20 [History] Bumetanide 1 mg PO BID 06/24/20 [History] atenoloL [Atenolol] 25 mg PO DAILY 06/24/20 [History] predniSONE 10 mg PO WITHBREAKFAST #30 tablet 06/28/20 [Rx] Past Medical History HEENT History: Reports: Cataract, Impaired Vision, Macular Degeneration, Other (See Below) Other HEENT History: wears glasses Cardiovascular History: Reports: Aneurysm, Heart Failure, Hypertension, AL, SOB on Exertion Other Cardiovascular History: November 29, 2000 (AL) Respiratory History: Reports: COPD, SOB Gastrointestinal History: Reports: Chronic Diarrhea Genitourinary History: Reports: Renal Calculus, Renal Disease, Urinary Incontinence MULE DEVELOPER History: Reports: 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 MULE DEVELOPER History: 5 kids Musculoskeletal History: Reports: Fracture, RA Other Musculoskeletal History: skull, collarbone Neurological History: Reports: Head Trauma Psychiatric History: Reports: Anxiety, Depression Endocrine/Metabolic History: Reports: Diabetes, Type II, Hypothyroidism, Obesity/BMI 30+ Hematologic History: Reports: None Immunologic History: Reports: None Oncologic (Cancer) History: Reports: Other (See Below) Other Oncologic History: simple vulvectomy - cancer Dermatologic History: Reports: None - Infectious Disease History Infectious Disease History: Reports: Chicken Pox, Measles, Mumps - Past Surgical History Head Surgeries/Procedures: Reports: None HEENT Surgical History: Reports: None Cardiovascular Surgical History: Reports: None Respiratory Surgical History: Reports: None GI Surgical History: Reports: Appendectomy, Cholecystectomy Female Surgical History: Reports: Tubal Ligation, Other (See Below) Other Female Surgeries/Procedures: simple vulvectomy Endocrine Surgical History: Reports: Other (See Below) Other Endocrine Surgeries/Procedures: "Radioactive Iodine capsule to thyroid" Neurological Surgical History: Reports: None Musculoskeletal Surgical History: Reports: None Oncologic Surgical History: Reports: None Social & Family History - Family History Family Medical History: No Pertinent Family History Cardiac: Reports: AL Respiratory: Reports: COPD Neurological: Reports: CVA - Caffeine Use Caffeine Use: Reports: Energy Drinks, Soda Other Caffeine Use: 1 cup/day - Living Situation & Occupation Living situation: Reports: with Family Occupation: Retired ED ROS GENERAL - Review of Systems Review Of Systems: Comprehensive ROS is negative, except as noted in HPI. ED EXAM,LOWER BACK PAIN/INJURY - Physical Exam Exam: See Below Exam Limited By: No Limitations General Appearance: Alert, WD/WN, Moderate Distress, Obese Eye Exam: Bilateral Eye: EOMI, Normal Inspection, PERRL Ears: Normal External Exam, Normal Canal, Hearing Grossly Normal, Normal TMs Nose: Normal Inspection, Normal Mucosa, No Blood Throat/Mouth: Normal Inspection, Normal Lips, Normal Teeth, Normal Gums, Normal Oropharynx, Normal Voice, No Airway Compromise Head: Atraumatic, Normocephalic Neck: Normal Inspection, Supple, Non-Tender, Full Range of Motion Respiratory/Chest: Decreased Breath Sounds (with chronic COPD on home oxygen) Cardiovascular: Normal Peripheral Pulses, Regular Rate, Rhythm, No Edema, No Gallop, No JVD, No Murmur, No Rub GI/Abdominal: Normal Bowel Sounds, Soft, Non-Tender, No Organomegaly, No Distention, No Abnormal Bruit, No Mass, Other (obese) (Female) Exam: Deferred Rectal (Female) Exam: Deferred Back Exam: Paraspinal Tenderness (lower back ) Extremities: Normal Inspection, Limited Range of Motion (due to lower back pain) Neurological: Alert, Normal Mood/Affect, Normal Dorsiflexion, CN II-XII Intact, Oriented x 3, Difficulty Walking (due to lower back pain) Psychiatric: Normal Affect, Normal Mood Skin Exam: Warm, Dry, Intact, Normal Color, No Rash Lymphatic: No Adenopathy Course - Vital Signs Last Recorded V/S: Last Vital Signs Temp 37.0 C 07/09/20 09:16 Pulse 53 L 07/09/20 09:16 Resp 22 H 07/09/20 09:16 BP 118/70 07/09/20 09:16 Pulse Ox 100 07/09/20 09:16 - Orders/Labs/Meds Orders: Active Orders 24 hr Category Date Time Status CULTURE BLOOD [BC] Stat Lab 07/09/20 09:40 Received Labs: Laboratory Tests 07/09/20 07/09/20 07/09/20 Range/Units 09:25 09:40 09:40 WBC 16.2 H (5.0-10.0) 10^3/uL RBC 3.86 L (4.2-5.4) 10^6/uL Hgb 12.6 (12.0-16.0) g/dL Hct 37.6 (37.0-47.0) % MCV 97.4 (80-100) fL MCH 32.6 (27.0-34.0) pg MCHC 33.5 (33.0-35.0) g/dL Plt Count 189 D (150-450) 10^3/uL Neut % (Auto) 83.4 H (42.2-75.2) % Lymph % (Auto) 10.6 L (20.5-50.1) % [place] % (Auto) 5.2 (2-8) % Eos % (Auto) 0.6 L (1.0-3.0) % Baso % (Auto) 0.2 (0.0-1.0) % Add Manual Diff Yes Neutrophils % (Manual) 89 H (42-75) % Lymphocytes % (Manual) 7 L (20-50) % Monocytes % (Manual) 4 (2-8) % Sodium 137 (136-145) mmol/L Potassium 3.9 (3.5-5.1) mmol/L Chloride 100 (98-107) mmol/L Carbon Dioxide 29 (21-32) mmol/L Anion Gap 11.9 (7-13) mEq/L BUN 34 H (7-18) mg/dL Creatinine 2.20 H (0.55-1.02) mg/dL Est Cr Clr Drug Dosing 18.49 mL/min Estimated GFR (MDRD) 22 BUN/Creatinine Ratio 15.5 (No establ ref range) Glucose 99 (74-99) mg/dL Lactic Acid (0.4-2.0) mmol/L Calcium 9.2 (8.5-10.1) mg/dL Total Bilirubin 0.6 (0.2-1.0) mg/dL AST 14 L (15-37) U/L ALT 22 (14-59) U/L Alkaline Phosphatase 63 (46-116) U/L B-Natriuretic Peptide (0-100) pg/ml Total Protein 6.4 (6.4-8.2) g/dL Albumin 2.8 L (3.4-5.0) g/dL Globulin 3.6 Albumin/Globulin Ratio 0.78 Urine Color Yellow (YELLOW) Urine Appearance Slightly cloudy (CLEAR) Urine pH 5.0 (5.0-9.0) Ur Specific Clive 1.015 (1.005-1.030) Urine Protein Negative (NEGATIVE) Urine Glucose (UA) Negative (NEGATIVE) Urine Ketones Negative (NEGATIVE) Urine Occult Blood Small H (NEGATIVE) Urine Nitrite Negative (NEGATIVE) Urine Bilirubin Negative (NEGATIVE) Urine Urobilinogen 0.2 (0.2-1.0) mg/dL Ur Leukocyte Esterase Negative (NEGATIVE) Urine RBC Not seen /HPF Urine WBC 0-5 (0-5/HPF) /HPF Ur Epithelial Cells Many H (NOT SEEN) /HPF Urine Bacteria Moderate H (0-FEW/HPF) /HPF Urine Mucus Not seen (NOT SEEN) /LPF 07/09/20 07/09/20 Range/Units 09:40 09:40 WBC (5.0-10.0) 10^3/uL RBC (4.2-5.4) 10^6/uL Hgb (12.0-16.0) g/dL Hct (37.0-47.0) % MCV (80-100) fL MCH (27.0-34.0) pg MCHC (33.0-35.0) g/dL Plt Count (150-450) 10^3/uL Neut % (Auto) (42.2-75.2) % Lymph % (Auto) (20.5-50.1) % [place] % (Auto) (2-8) % Eos % (Auto) (1.0-3.0) % Baso % (Auto) (0.0-1.0) % Add Manual Diff Neutrophils % (Manual) (42-75) % Lymphocytes % (Manual) (20-50) % Monocytes % (Manual) (2-8) % Sodium (136-145) mmol/L Potassium (3.5-5.1) mmol/L Chloride (98-107) mmol/L Carbon Dioxide (21-32) mmol/L Anion Gap (7-13) mEq/L BUN (7-18) mg/dL Creatinine (0.55-1.02) mg/dL Est Cr Clr Drug Dosing mL/min Estimated GFR (MDRD) BUN/Creatinine Ratio (No establ ref range) Glucose (74-99) mg/dL Lactic Acid 1.3 (0.4-2.0) mmol/L Calcium (8.5-10.1) mg/dL Total Bilirubin (0.2-1.0) mg/dL AST (15-37) U/L ALT (14-59) U/L Alkaline Phosphatase (46-116) U/L B-Natriuretic Peptide 927 H (0-100) pg/ml Total Protein (6.4-8.2) g/dL Albumin (3.4-5.0) g/dL Globulin Albumin/Globulin Ratio Urine Color (YELLOW) Urine Appearance (CLEAR) Urine pH (5.0-9.0) Ur Specific Clive (1.005-1.030) Urine Protein (NEGATIVE) Urine Glucose (UA) (NEGATIVE) Urine Ketones (NEGATIVE) Urine Occult Blood (NEGATIVE) Urine Nitrite (NEGATIVE) Urine Bilirubin (NEGATIVE) Urine Urobilinogen (0.2-1.0) mg/dL Ur Leukocyte Esterase (NEGATIVE) Urine RBC /HPF Urine WBC (0-5/HPF) /HPF Ur Epithelial Cells (NOT SEEN) /HPF Urine Bacteria (0-FEW/HPF) /HPF Urine Mucus (NOT SEEN) /LPF Meds: Medications Discontinued Medications Generic Name Dose Route Start Last Admin Trade Name Frederickq PRN Reason Stop Dose Admin Prednisone 40 mg 07/09/20 11:28 Prednisone PO 07/09/20 11:29 ONETIME ONE Departure - Departure Time of Disposition: 11:29 Disposition: Home, Self-Care 01 Condition: Fair Clinical Impression: Acute low back pain Qualifiers: Back pain laterality: bilateral Sciatica presence: with sciatica Sciatica late rality: bilateral sciatica Qualified Code(s): M54.42 - Lumbago with sciatica, left side; M54.41 - Lumbago with sciatica, right side - Discharge Information *PRESCRIPTION DRUG MONITORING PROGRAM REVIEWED*: Not Applicable *COPY OF PRESCRIPTION DRUG MONITORING REPORT IN PATIENT CATRACHO: Not Applicable Instructions: Acute Back Pain, Adult, Muscle Strain, Ojgi-[id number] Forms: ED Department Discharge Care Plan Goals: The patient was advised of the examination, lab and CT results during the visit. The patient was given an oral dose of Prednisone (40 mg) while in the ED. The patient was discharged with a script for Prednisone (20 mg) #8 to take 2 by mouth daily (starting 07/10/20). If the patient has any additional symptoms or concerns, the patient should visit her primary care facility or return to the emergency department. Sepsis Event Note (ED) - Evaluation Sepsis Screening Result: No Definite Risk - Focused Exam Vital Signs: Vital Signs Temp Pulse Resp BP Pulse Ox 07/09/20 09:16 37.0 C 53 L 22 H 118/70 100 - My Orders Last 24 Hours: My Active Orders 07/09/20 09:40 CULTURE BLOOD [BC] Stat - Assessment/Plan Last 24 Hours: My Active Orders 07/09/20 09:40 CULTURE BLOOD [BC] Stat
[2020-07-09 10:06] LABS: ANION GAP 11.9 mEq/L (7-13)
--- NOTE | 2020-07-09 10:55 | CT ---
PROCEDURE INFORMATION: Exam: CT Abdomen And Pelvis Without Contrast Exam date and time: 07/09/2020 10:20 AM Age: 75 years old Clinical indication: Other: Hematuria; Prior surgery; Surgery date: 6+ months; Surgery type: Cholecystectomy, appendectomy; Additional info: Low back pain with hematuria TECHNIQUE: Imaging protocol: Computed tomography of the abdomen and pelvis without contrast. Radiation optimization: All CT scans at this facility use at least one of these dose optimization techniques: automated exposure control; mA and/or kV adjustment per patient size (includes targeted exams where dose is matched to clinical indication); or iterative reconstruction. COMPARISON: CT Abdomen Pelvis wo Cont 02/01/2019 9:37 AM FINDINGS: Liver: Normal. Gallbladder and bile ducts: Absent gallbladder. Pancreas: Mild fatty metamorphosis of the pancreas, otherwise, normal. Spleen: Normal. Adrenal glands: Normal. No mass. Kidneys and ureters: Bilateral low attenuating renal cortical masses, none demonstrating suspicious calcification. These are more numerous to the left. Bilateral renal cortical thinning. Stomach and bowel: Normal stomach, small bowel and colon. Appendix: No evidence of appendicitis. Intraperitoneal space: No ascites, pneumoperitoneum or peritoneal lesion. Vasculature: The aorta is tortuous and there is diffuse calcification. Fusiform aortic aneurysm originating at about the level of the renal arteries and spanning 5 cm in length. The AP dimension of aorta is 4.3 cm. Along the posterolateral margin of the aorta at the origins of the aneurysm there is a discrete saccular nodule 1.5 x 1.3 cm not having peripheral calcification but not entirely distinct from the aorta. While this may represent a para-aortic lymph node, focal pseudoaneurysm is also possible. There is focal ectasia of the proximal internal iliac arteries, right greater than left measuring up to 2.4 cm. Lymph nodes: No mesenteric, retroperitoneal or inguinal adenopathy. Urinary bladder: Unremarkable as visualized. Reproductive: Normal uterus and ovaries. Bones/joints: No fracture or suspicious osseous lesion. Soft tissues: Small fat containing left direct hernia. Right fatty Bochdalek's hernia. IMPRESSION: 1. Bilateral renal cortical thinning but no obstruction or calculus. Incidentally noted bilateral renal cysts, recently also evaluated with ultrasound. 2. Diffuse atherosclerosis, tortuous aorta with multiple levels of ectasia and fusiform mid abdominal aortic aneurysm that measures up to 4.3 cm. There is additional concern for 1.5 cm right posterolateral pseudoaneurysm. For this reason CT angiography is recommended. 3. No acute disease.
--- NOTE | 2020-07-09 11:09 | CT ---
PROCEDURE INFORMATION: Exam: CT Lumbar Spine Without Contrast Exam date and time: 07/09/2020 10:20 AM Age: 75 years old Clinical indication: Low back pain; Prior surgery; Surgery date: 6+ months; Surgery type: Cholecystectomy, appendectomy, hysterectomy; Additional info: Low back pain with hematuria TECHNIQUE: Imaging protocol: Computed tomography images of the lumbar spine without contrast. Radiation optimization: All CT scans at this facility use at least one of these dose optimization techniques: automated exposure control; mA and/or kV adjustment per patient size (includes targeted exams where dose is matched to clinical indication); or iterative reconstruction. COMPARISON: CT abdomen and pelvis without contrast 07/09/2020. FINDINGS: Vertebrae: All bones are intact. Normal lordosis. Discs/Spinal canal/Neural foramina: T12/L1: No stenosis or focal disc defect. L1/2: Mild L1 inferior endplate concavity not suspicious for acute injury. No focal disc defect or stenosis. L2/3: Normal. L3/4: Mild broad-based disc bulging. Mild facet spurring causing mild bilateral neural foramen narrowing. L4/5: Nearly absent disc material. Circumferential disc bulging which causes mild central and lateral recess narrowing. L5/S1: No focal disc defect or stenosis. Epidural space: Normal. Other bones/joints: Soft tissues: Diffuse atherosclerosis with fusiform mid abdominal aortic aneurysm and right posterolateral low-density mass suspicious for pseudoaneurysm and as discussed in the report for the comparison study performed today. IMPRESSION: 1. Negative for fracture or traumatic malalignment. 2. Lumbar spondylosis which is greatest at L4-L5 but no suspicious stenosis or definite nerve compression. 3. Aortosclerosis, abdominal aortic aneurysm and possible small pseudoaneurysm. CT angiography of the abdominal aorta is recommended.
[2020-07-09] MEDS ORDERED: predniSONE 20 MG Tab PO ONE (11:28)
== END 2020-07-09 11:45 | disposition home or self-care (01) ==
LOC: DL.ED 09:16
DX: M54.42 Lumbago with sciatica, left side (principal); M54.41 Lumbago with sciatica, right side; I11.0 Hypertensive heart disease with heart failure; I50.9 Heart failure, unspecified; I25.2 Old myocardial infarction; J44.9 Chronic obstructive pulmonary disease, unspecified; E11.9 Type 2 diabetes mellitus without complications; E03.9 Hypothyroidism, unspecified; E66.9 Obesity, unspecified; Z68.35 Body mass index [BMI] 35.0-35.9, adult; Z88.8 Allergy status to other drugs, medicaments and biological substances; Z88.0 Allergy status to penicillin; Z79.82 Long term (current) use of aspirin; Z79.84 Long term (current) use of oral hypoglycemic drugs; Z79.899 Other long term (current) drug therapy
CPT/HCPCS: 36415; 72131; 74176; 80053; 81001; 83605; 83880; 85025; 87040; 99284; J7512

== ENCOUNTER 2020-07-19 09:24 | Emergency (ER) | payer MEDICARE, MEDICAID ==
[2020-07-19 09:30] VITALS: BP 122/70; PULSE 62
[2020-07-19] MEDS ORDERED: Cyclobenzaprine 10 MG Tab PO ONE (09:32)
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
[2020-07-19 10:20] LABS: ANION GAP 12.7 mEq/L (7-13)
== END 2020-07-19 11:51 | disposition home or self-care (01) ==
LOC: DL.ED 09:24
DX: M54.42 Lumbago with sciatica, left side (principal); M54.41 Lumbago with sciatica, right side; N76.0 Acute vaginitis; B96.89 Other specified bacterial agents as the cause of diseases classified elsewhere; I11.0 Hypertensive heart disease with heart failure; I50.9 Heart failure, unspecified; I25.2 Old myocardial infarction; J44.9 Chronic obstructive pulmonary disease, unspecified; M06.9 Rheumatoid arthritis, unspecified; E11.9 Type 2 diabetes mellitus without complications; E03.9 Hypothyroidism, unspecified; F17.210 Nicotine dependence, cigarettes, uncomplicated; E66.9 Obesity, unspecified; Z68.34 Body mass index [BMI] 34.0-34.9, adult; Z88.8 Allergy status to other drugs, medicaments and biological substances; Z88.0 Allergy status to penicillin; Z79.82 Long term (current) use of aspirin; Z79.899 Other long term (current) drug therapy; Z79.84 Long term (current) use of oral hypoglycemic drugs
CPT/HCPCS: 36415; 80053; 81001; 83605; 83880; 85025; 86140; 87040; 99283; A9270

== ENCOUNTER 2020-08-03 14:35 | Emergency (ER) | payer MEDICARE, MEDICAID ==
--- NOTE | 2020-08-03 15:07 | PCM.SN.2 ---
- Free Text/Narrative Note: 75 y/o female resident of [facility]. Referred to ER for elevated troponin, BNP and D- Dimer. Nursing called this morning. Bri had left upper chest pressure around 11:15 AM. Non-radiating. No nausea/vomiting/diaphoresis. Always SOB due to severe COPD. Was given one sublingual NTG, some relief, but pain returned. Refused second NTG. I spoke with Bri by phone. She then agreed to repeat NTG. Was also given 4 ASA 81 mg tabs to chew and swallow. Morphine sulfulfate 5 mh SQ x 1 dose. No CP since then. Vital signs: 117/79. HR 61. RR 22. OxSat 96% on 4 L/min. 97.2 F. PMH: COPD, severe, oxygen dependent. Cardiomyopathy, EF 25-30% with severe LVSF. Covid negative x 2 on 07/30 and 07/22. Copies faxed to ER. Lab work sent to hospital: troponin 0.229. BNP 1510 (525 on 07/26). D-Dimer 1160. See Prizzm for remainder of labs. Case discussed with her PCP, Dr. Rizzo. He asked that she be sent to [facility] ER for further disposition. Called and gave report to ER nursing and to ER provider. Impression: 5 y/o female with severe cardiomyopathy and COPD present with chest pain, elevated troponin, BNP and D-Dimer. Plan: PCP asked her to be sent to ER for disposition.
[2020-08-03] MEDS ORDERED: Diltiazem 25 MG/5 ML SDV ONE (15:21)
[2020-08-03] MEDS ORDERED: Diltiazem 25 MG/5 ML SDV IVPUSH ONE (15:23)
[2020-08-03 15:29] VITALS: BP 102/86; PULSE 106
[2020-08-03] MEDS ORDERED: Diltiazem 125 MG in Sodium Chloride 0.9% 100 ML IV SCH (16:15)
--- NOTE | 2020-08-03 16:19 | CR ---
PROCEDURE INFORMATION: Exam: XR Chest, 1 View Exam date and time: 08/03/2020 2:59 PM Age: 70 years old Clinical indication: Other: Chest pain TECHNIQUE: Imaging protocol: XR of the chest Views: 1 view. COMPARISON: CR Chest 2V 04/03/2017 5:18 PM FINDINGS: Lungs: Chronic appearing interstitial changes are present with more focal airspace opacity within the right lower lobe. The finding is not could represent pneumonia. There is no pulmonary edema. Pleural space: Unremarkable. No pleural effusion. No pneumothorax. Heart/Mediastinum: Heart size is mildly prominent. Bones/joints: Unremarkable. IMPRESSION: Chronic appearing interstitial change with more focal airspace opacity in the right lower lobe concerning for possible pneumonia.
--- NOTE | 2020-08-03 16:36 | CR ---
PROCEDURE INFORMATION: Exam: XR Chest, 1 View Exam date and time: 08/03/2020 4:26 PM Age: 75 years old Clinical indication: Other: Chest pain TECHNIQUE: Imaging protocol: XR of the chest Views: 1 view. COMPARISON: CR Chest 2V 06/24/2020 2:37 PM FINDINGS: Lungs: There is mild increase in interstitial markings within the lungs. This is nonspecific. No pneumonia or pulmonary edema is present. Pleural space: Unremarkable. No pleural effusion. No pneumothorax. Heart/Mediastinum: There is moderate grade cardiomegaly. Bones/joints: Unremarkable. IMPRESSION: Cardiomegaly and chronic appearing interstitial change within the lung parenchyma. No definite pneumonia or pulmonary edema.
--- NOTE | 2020-08-03 18:57 | EDM.PDOC ---
Scribed by Mary Grace Graves 08/03/20 [id number] for Rosario Armstrong NP ED HPI GENERAL MEDICAL PROBLEM - General Chief Complaint: Chest Pain Stated Complaint: Chest pain Time Seen by Provider: 08/03/20 15:18 Source of Information: Reports: Patient, EMS, EMS Notes Reviewed, RN, RN Notes Reviewed History Limitations: Reports: No Limitations - History of Present Illness INITIAL COMMENTS - FREE TEXT/NARRATIVE: Patient is a 75-year-old female who presents to ER per [facility] with complaint of chest pain about 10 A.M.. Labs were ordered through the retirement. She denies pain at this time. She also complains of increased shortness of breath. Onset: Today Duration: Constant Location: Reports: Chest Quality: Reports: Ache Severity: Severe Improves with: Reports: None Worsens with: Reports: None Associated Symptoms: Reports: No Other Symptoms - Related Data Allergies Allergy/AdvReac Type Severity Reaction Status Date / Time amlodipine [From Norvasc] Allergy Cannot Verified 08/03/20 16:06 Remember cetirizine [From Zyrtec] Allergy Abdominal Verified 08/03/20 16:06 Pain Penicillins Allergy Rash Verified 08/03/20 16:06 simvastatin [From Zocor] Allergy Cannot Verified 08/03/20 16:06 Remember Home Meds: Home Meds Metoprolol Tartrate 25 mg PO BID 04/03/17 [History] Aspirin 81 mg PO DAILY 01/08/19 [History] Levothyroxine 75 mcg PO ACBREAKFAST 05/03/19 [History] glipiZIDE [Glucotrol] 5 mg PO BID 30 Days #60 tablet 08/05/19 [Rx] predniSONE [Prednisone] 10 mg PO DAILY 10/02/19 [History] Albuterol [Ventolin HFA] 2 puff INH Q4HR PRN 02/08/20 [History] Ipratropium/Albuterol Sulfate [Iprat-Albut 0.5-3(2.5) MG/3 ML] 1 vial IH BID PRN 02/08/20 [History] Albuterol [Proventil Neb Soln] 0.63 inh NEB ASDIRECTED PRN 06/24/20 [History] Budesonide [Pulmicort] 0.5 mg INH BID PRN 06/24/20 [History] Bumetanide 1 mg PO BID 06/24/20 [History] atenoloL [Atenolol] 25 mg PO DAILY 06/24/20 [History] predniSONE 10 mg PO WITHBREAKFAST #30 tablet 06/28/20 [Rx] Formoterol [Perforomist] 2 ml INH BID 08/03/20 [History] Furosemide [Lasix] 40 mg PO BID 08/03/20 [History] Omeprazole 20 mg PO DAILY 08/03/20 [History] Potassium Chloride 20 meq PO DAILY 08/03/20 [History] Past Medical History HEENT History: Reports: Cataract, Impaired Vision, Macular Degeneration, Other (See Below) Other HEENT History: wears glasses Cardiovascular History: Reports: Aneurysm, Heart Failure, Hypertension, [place], SOB on Exertion Other Cardiovascular History: November 29, 2000 ([place]) Respiratory History: Reports: COPD, SOB Gastrointestinal History: Reports: Chronic Diarrhea Genitourinary History: Reports: Renal Calculus, Renal Disease, Urinary Incontinence COOKER CASING History: Reports: 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 COOKER CASING History: 5 kids Musculoskeletal History: Reports: Back Pain, Chronic, Fracture, RA Other Musculoskeletal History: skull, collarbone Neurological History: Reports: Head Trauma Psychiatric History: Reports: Anxiety, Depression Endocrine/Metabolic History: Reports: Diabetes, Type II, Hypothyroidism, Obesity/BMI 30+ Hematologic History: Reports: None Immunologic History: Reports: None Oncologic (Cancer) History: Reports: Other (See Below) Other Oncologic History: simple vulvectomy - cancer Dermatologic History: Reports: None - Infectious Disease History Infectious Disease History: Reports: Chicken Pox, Measles, Mumps - Past Surgical History Head Surgeries/Procedures: Reports: None HEENT Surgical History: Reports: None Cardiovascular Surgical History: Reports: None Respiratory Surgical History: Reports: None GI Surgical History: Reports: Appendectomy, Cholecystectomy Female Surgical History: Reports: Tubal Ligation, Other (See Below) Other Female Surgeries/Procedures: simple vulvectomy Endocrine Surgical History: Reports: Other (See Below) Other Endocrine Surgeries/Procedures: "Radioactive Iodine capsule to thyroid" Neurological Surgical History: Reports: None Musculoskeletal Surgical History: Reports: None Other Musculoskeletal Surgeries/Procedures:: collarbone broken when 3 years old Oncologic Surgical History: Reports: None Social & Family History - Family History Family Medical History: No Pertinent Family History Cardiac: Reports: [place] Respiratory: Reports: COPD Neurological: Reports: CVA - Caffeine Use Caffeine Use: Reports: Coffee Other Caffeine Use: 1 cup/day - Living Situation & Occupation Living situation: Reports: with Family Occupation: Retired ED ROS GENERAL - Review of Systems Review Of Systems: Comprehensive ROS is negative, except as noted in HPI. ED EXAM, GENERAL - Physical Exam Exam: See Below Exam Limited By: No Limitations General Appearance: Mild Distress Eye Exam: Bilateral Eye: EOMI, Normal Inspection, PERRL Ears: Normal External Exam, Normal Canal, Hearing Grossly Normal, Normal TMs Nose: Normal Inspection, Normal Mucosa, No Blood Throat/Mouth: Normal Inspection, Normal Lips, Normal Teeth, Normal Gums, Normal Oropharynx, Normal Voice, No Airway Compromise Head: Atraumatic, Normocephalic Neck: Normal Inspection, Supple, Non-Tender, Full Range of Motion Respiratory/Chest: No Respiratory Distress, Lungs Clear, Normal Breath Sounds, No Accessory Muscle Use, Chest Non-Tender Cardiovascular: Tachycardia (/A fib.) GI/Abdominal: Normal Bowel Sounds, Soft, Non-Tender, No Organomegaly, No Distention, No Abnormal Bruit, No Mass (Female) Exam: Deferred Rectal (Female) Exam: Deferred Back Exam: Normal Inspection, Full Range of Motion, NT Extremities: Normal Inspection, Normal Range of Motion, Non-Tender, Normal Capillary Refill, No Pedal Edema Neurological: Alert, Oriented, CN II-XII Intact, Normal Cognition, Normal Gait, Normal Reflexes, No Motor/Sensory Deficits Psychiatric: Normal Affect, Normal Mood Lymphatic: No Adenopathy Course - Vital Signs Last Recorded V/S: Last Vital Signs Temp 95.8 F L 08/03/20 15:26 Pulse 106 H 08/03/20 15:26 Resp 27 H 08/03/20 15:26 BP 102/86 08/03/20 15:26 Pulse Ox 100 08/03/20 15:26 - Orders/Labs/Meds Meds: Medications Discontinued Medications Generic Name Dose Route Start Last Admin Trade Name Freq PRN Reason Stop Dose Admin Diltiazem HCl Confirm 08/03/20 15:21 08/03/20 15:30 Diltiazem Administered 08/03/20 15:22 Not Given Dose 25 mg .ROUTE .STK-MED ONE Diltiazem HCl 20 mg 08/03/20 15:23 08/03/20 15:29 Diltiazem IVPUSH 08/03/20 15:24 20 mg ONETIME ONE Administration Diltiazem HCl 125 mg/ Sodium 125 mls @ 5 mls/hr 08/03/20 16:15 08/03/20 16:32 Chloride IV 5 mg/hr TITRATE RICHARDSON 5 mls/hr Administration Protocol 5 MG/HR - Radiology Interpretation Free Text/Narrative:: Chest xray: PROCEDURE INFORMATION: Exam: XR Chest, 1 View Exam date and time: 08/03/2020 4:26 PM Age: 75 years old Clinical indication: Other: Chest pain TECHNIQUE: Imaging protocol: XR of the chest Views: 1 view. COMPARISON: CR Chest 2V 06/24/2020 2:37 PM FINDINGS: Lungs: There is mild increase in interstitial markings within the lungs. This is nonspecific. No pneumonia or pulmonary edema is present. Pleural space: Unremarkable. No pleural effusion. No pneumothorax. Heart/Mediastinum: There is moderate grade cardiomegaly. Bones/joints: Unremarkable. IMPRESSION: Cardiomegaly and chronic appearing interstitial change within the lung parenchyma. No definite pneumonia or pulmonary edema. Thank you for allowing us to participate in the care of your patient. Dictated and Authenticated by: Kain Roth MD 08/03/2020 4:36 PM Central Time ([place] & [place]) See rad report - Re-Assessments/Exams Free Text/Narrative Re-Assessment/Exam: 08/03/20 18:56 Discussed patient case with Dr. Mahmood who agreed to accept the patient for transfer to [facility] in [place]. Departure - Departure Time of Disposition: 17:09 Disposition: Home, Self-Care 01 Reason for Transfer *Q: Other Condition: Fair Clinical Impression: Atrial fibrillation with RVR, Acute exacerbation of chronic obstructive pulmonary disease (COPD) CHF (congestive heart failure) Qualifiers: Heart failure type: unspecified Heart failure chronicity: acute on chronic Qualified Code(s): I50.9 - Heart failure, unspecified Referrals: PCP,None [Primary Care Provider] - Forms: ED Department Discharge, Interfacility Transfer [facility] Sepsis Event Note (ED) - Evaluation Sepsis Screening Result: No Definite Risk - Focused Exam Vital Signs: Vital Signs Temp Pulse Resp BP Pulse Ox 08/03/20 15:26 95.8 F L 106 H 27 H 102/86 100 I have read and agree with the documentation that has been completed regarding this visit. By signing this record, I attest that the documentation was completed in my physical presence and is an accurate record of the encounter.
== END 2020-08-03 17:09 | disposition home or self-care (01) ==
LOC: DL.ED 14:35
DX: J44.1 Chronic obstructive pulmonary disease with (acute) exacerbation (principal); I11.0 Hypertensive heart disease with heart failure; I50.9 Heart failure, unspecified; I48.91 Unspecified atrial fibrillation; I25.2 Old myocardial infarction; M06.9 Rheumatoid arthritis, unspecified; E03.9 Hypothyroidism, unspecified; E11.9 Type 2 diabetes mellitus without complications; E66.9 Obesity, unspecified; Z68.34 Body mass index [BMI] 34.0-34.9, adult; Z88.8 Allergy status to other drugs, medicaments and biological substances; Z88.0 Allergy status to penicillin; Z79.82 Long term (current) use of aspirin; Z79.899 Other long term (current) drug therapy
CPT/HCPCS: 71045; 93005; 96365; 96376; 99285; J3490; 99284